=== PATIENT | female | born 1980 | race Caucasian/White ===

== ENCOUNTER → 2018-05-03 17:04 | Outpatient (CLI) | payer OTHER, SELFPAY ==
[2018-05-03 18:40] LABS: Estradiol 65.6 pg/mL; Follicle Stimulating Hormone 5.6 mIU/mL; Free T3 2.9 pg/mL (2.18-3.98); Thyroid Stim Hormone (TSH) 1.85 uIU/mL (0.358-3.74)
== END ==
PROVIDERS: Family Provider Family Medicine; PCP Family Medicine; Visit Provider Obstetrics & Gynecology
DX: N95.1 Menopausal and female climacteric states (principal)
CPT/HCPCS: 82670; 83001; 84439; 84443; 84481

== ENCOUNTER → 2019-01-06 17:49 | Outpatient (CLI) | payer OTHER, SELFPAY ==
[2019-01-06 15:20] VITALS: BMI 27.9
== END ==
PROVIDERS: Family Provider Family Medicine; PCP Family Medicine; Referring Provider Obstetrics & Gynecology; Visit Provider Obstetrics & Gynecology
DX: R35.0 Frequency of micturition (principal)
CPT/HCPCS: 87086; 87088

== ENCOUNTER → 2020-05-14 07:52 | Outpatient (CLI) | payer OTHER, SELFPAY ==
[2020-04-16 14:21] VITALS: BMI 27.9
--- NOTE | 2020-05-14 07:57 | US_ITS ---
STUDY: ULTRASOUND OF THE FEMALE PELVIS - LIMITED REASON FOR EXAM: Female, 39 years old Pelvic pain TECHNIQUE: Transabdominal and Transvaginal TECHNICAL QUALITY: Adequate. COMPARISON: None. FINDINGS: The patient is status post hysterectomy. The right ovary is not visualized. The left ovary measures 2.5 cm x 2.1 cm x 1.7 cm. There is no left ovarian cyst or ovarian mass. There is no visualized left adnexal mass or complex lesion. There is normal arterial and normal venous vascularity. There is no fluid in the cul-de-sac. US/Pelvic (Non ) IMPRESSION: Status post hysterectomy. The left ovary is unremarkable Electronically Signed: Carmelo Muñoz, at 15:26 EDT , Service support ,
== END ==
PROVIDERS: PCP Family Medicine; Referring Provider Obstetrics & Gynecology; Visit Provider Obstetrics & Gynecology
DX: R10.2 Pelvic and perineal pain (principal)
CPT/HCPCS: 76856

== ENCOUNTER 2021-07-29 07:00 | Outpatient (RCR) | payer OTHER, SELFPAY ==
--- NOTE | 2021-07-14 17:23 | HP.PTEVAL_ITS ---
Patient's Visit Information VANESA VERDUGO is a 41 year old F referred to Physical Therapy by Dr. Gordo Orourke MD with a diagnosis of R sciatica. Date of Evaluation: 07/14/21 Physical Therapist: Sherman Luna DPT, OCS, CSCS - Visit Plan Frequency: 1x/Week Duration: 4-6 Weeks Plan: weekly for progression of home ex... next week: yoga flow and mat based core strength. then: gym ex for trunk and general ex. focus body mechanics, posture and progression to I. Pt can do nonapinful machines and TM/elliptical in gym. - Subjective R LB , hip and posterior leg pain into foot. Numb and tingly and painful.. Could not even touch it. Started 2.5 months ago. Happened back in January taking dog outside when dog pulled on leash. This time just woke up with pain. Had driven to and fro [place] in one week prior to this onset. Hard to sit up that morning and stand up. Slowly got better over 7 weeks. Lots of ice and tylenol and prednsione and stretching which was difficult. Last two weeks have been good, no pain or numbness. Just every now and then if she lifts heavy object then she can feel her low back and butt. Also gets worse with sitting too long. Hard to stadn in am and after sitting. 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 Would rather stand. Sleep is OK now, was keeping her up with rolling. Is not back to exercising at , Ni[facility] TM and elliptical and weight machines.. Overall 60% better. Basic ADLs are getting done. Socks and shoes can be challenging. - Pain LB /R hip Pain Intensity (Out of 10): 0 Pain Intensity Range: 0, 4 - Objective Walks I, trasnfers I without evidence of pain today. reflexes patella and achilles 1/3 B. [id number] LE WNL to gross lgiht touch. Strength LE 4/5 without myotomal problems. PA pressure L45 painful. - slump and SLR. slight tension on SLR in back. LB AROM ext mod limited, flexion adn SB min limited and some R sided pain with L sidebending. Repeated PPU increases motion quickly. - Balance/Special Test Scores Lower Extremity Functional Score: 2 - Goals Goal 1:: Pt report 100% improvement in condition and back to all acitivites Goal Time Frame: 4-6 Weeks Goal 2:: patient I in appropriate LB ROM, core strength adn gym ex to limit future problems. Goal Time Frame: 4-6 Weeks Goal 3:: 78 on LEFS Goal Time Frame: 4-6 Weeks - Rehabilitation Potential Physical Therapy Diagnosis: LBP with radiculopathy resolving Rehabilitation Potential: Good - Anticipated Interventions Patient/Client Instruction: Educate patient on: Condition, Plan of Care For the Purpose of:: To decrease pain, To increase ROM, To increase tolerance to activity/condition/position, To improve ability of physical actions for home/community/work/leisure Therapeutic Exercise to Include: Strength training, Flexibilty training, Passive ROM, Active ROM, Dynamic Lumbar Stabilization For the Purpose of:: To decrease pain, To improve nutrient delivery to tissue, To improve muscle performance and motor function, To increase tolerance to activity/condition/position, To improve ability of physical actions for home/community/work/leisure Thank you for the opportunity to evaluate your patient. For Medicare and Medicare HMO plans, please review the plan of care and approve it. It will need to be FAXED BACK to us at [phone] for Medicare purposes. For Medicare only, by signing this I certify the plan of care. Please let me know if there are questions or concerns regarding this plan of care. Physician Si gnature: Date:
== END 2021-07-29 19:00 | disposition home or self-care (01) ==
LOC: PT 07:00
PROVIDERS: PCP Family Medicine; Referring Provider Family Medicine; Visit Provider Family Medicine
DX: M54.31 Sciatica, right side (principal)
CPT/HCPCS: 97110; 97162

== ENCOUNTER → 2021-08-31 12:28 | Outpatient (CLI) | payer OTHER, SELFPAY | PROVIDERS: PCP Family Medicine; Referring Provider Nurse Practitioner Women's Health; Visit Provider Nurse Practitioner Women's Health | DX: R35.0 Frequency of micturition (principal) | CPT/HCPCS: 87086; 87088; 87186 ==

== ENCOUNTER 2022-01-18 15:12 | Outpatient (CLI) | payer OTHER, SELFPAY ==
--- NOTE | 2022-01-18 15:16 | US_ITS ---
EXAM: US Soft Tissues of the Neck CLINICAL INDICATION: 41 years old, Female; SOFT TISSUE MASS BASE OF POSTERIOR NECK TECHNIQUE: Real-time ultrasound scan of the soft tissues of the neck with image documentation. This report was created using [employer] report [employer] technology. COMPARISON: None. FINDINGS: Soft tissues: No definite soft tissue mass is identified. No foreign body. Lymph nodes: Unremarkable as visualized. US/Head/Neck Soft Tissue IMPRESSION: No definite soft tissue mass is identified. CT of the neck could be performed if clinically indicated. Electronically Signed: Kishore Ayala MD at 0:25 EDT ,
== END 2022-01-18 23:59 | disposition home or self-care (01) ==
LOC: US 15:14
PROVIDERS: PCP Family Medicine; Referring Provider Nurse Practitioner Family; Visit Provider Nurse Practitioner Family
DX: R22.1 Localized swelling, mass and lump, neck (principal)
CPT/HCPCS: 76536

== ENCOUNTER → 2024-09-26 | Outpatient (CLI) | payer OTHER, SELFPAY ==
--- NOTE | 2024-09-26 10:14 | BI_ITS ---
MAMMOGRAPHY - BILATERAL SCREENING REASON FOR EXAM: Female, 44 years old. Routine annual screening examination. PERTINENT HISTORY: Non-contributory. Occasional left breast tenderness. TECHNIQUE: Digital bilateral breast juan (3D mammographic acquisition) in the CC and MLO projections. 2-D mediolateral oblique (MLO) and craniocaudad (CC) views of both breasts were obtained. CAD: Full Field Digital Mammography with Computer Added Detection was performed. COMPARISON: Comparison is made with prior outside examination dated September 19, 2023. FINDINGS: Breast Composition: There are scattered areas of fibroglandular density. There are no dominant masses or suspicious calcifications. Stable bilateral fat containing axillary lymph nodes. No other significant abnormalities are identified. There has been no significant change since the prior study. BI/SCRN MAMM (CAD)W/JUAN BILAT IMPRESSION: Stable bilateral screening mammogram. Yearly follow-up mammogram recommended. (A) ASSESSMENT CATEGORY: BIRADS Category 2: Benign. A letter regarding these results will be sent to the patient by the facility within 30 days. Approximately 10% of breast cancers are not detected by mammography. A normal mammogram should not delay biopsy of a clinically suspicious abnormality. [id number] Electronically Signed: Carmelo Muñoz MD at 8:44 EST ,
== END | disposition home or self-care (01) ==
LOC: OPBI 10:12
PROVIDERS: PCP Family Medicine; Referring Provider Obstetrics & Gynecology; Visit Provider Obstetrics & Gynecology
DX: Z12.31 Encounter for screening mammogram for malignant neoplasm of breast (principal)
CPT/HCPCS: 77063; 77067

== ENCOUNTER → 2025-10-02 | Outpatient (CLI) | payer OTHER, SELFPAY ==
--- OUTSIDE RECORDS SUMMARY | 2025-10-02 07:23 | XMS RPT_ITS | CCD ---
Author Organization [facility] Care Team Providers Care Production Support Engineer Name Role Phone Ana Gallego MD Unavailable [phone] Mayela Andre Unavailable Unavailable Mayela Andre Unavailable Unavailable NO REFERRING DR Unavailable Unavailable Mayela Andre Unavailable Unavailable Gordo Orourke MD Primary Care Provider Gordo Orourke MD Primary Care Provider Gordo Orourke MD Primary Care Provider Gordo Orourke MD Primary Care Provider Gordo Orourke MD Primary Care Provider Haagen SENIOR CUSTOMER SERVICE REPRESENTATIVE.DOUG Dory Unavailable Suppan SENIOR CUSTOMER SERVICE REPRESENTATIVE.Yanique CAMACHO A Unavailable GORDO OROURKE Attending Unavailable GORDO OROURKE Primary Care Unavailable GORDO OROURKE Referring Unavailable GORDO OROURKE Primary Care Unavailable Suppan SENIOR CUSTOMER SERVICE REPRESENTATIVE.DOUG Yanique A Unavailable Queden SENIOR CUSTOMER SERVICE REPRESENTATIVE.Rachel CAMACHO Primary Care Provider QUEDEN, RACHEL A Attending Unavailable QUEDEN, RACHEL A Primary Care Unavailable QUEDEN, RACHEL A Referring Unavailable QUEDEN, RACHEL A Primary Care Unavailable DOMINIQUE, RACHEL A Attending Unavailable GORDO OROURKE Primary Care Unavailable QUEDEN, RACHEL A Primary Care Unavailable QUEDEN, RACHEL A Attending Unavailable QUEDEN, RACHEL A Primary Care Unavailable QUEDEN, RACHEL A Attending Unavailable QUEDEN, RACHEL A Primary Care Unavailable Queden FURNITURE DIPPER-C, Rachel Primary Care Physician [phone] Dr. Rosy Vasquez MD Attending Physician Dr. Abby Zhu DO Referring Provider Abby Zhu Attending Gordo Miller Referring Unavailable Gordo Orourke Primary Care Unavailable Rachel Orozco Primary Care Unavailable Rosy Vasquez Attending Unavailable Abby Zhu Referring Abby Damon Attending Gordo Miller Primary Care Unavailable [facility] Rosy Vasquez Attending Unavailable Allergies Allergy Classification Reported Allergen(s) Allergy Type Date of Onset Reaction(s) Facility (1 source) Sulfonamides (Antibiotic) drug allergy 7 [facility] (4 sources) HYDROcodone Drug Allergy 1 Vomiting [facility] Comment on above: pt states had [place] with last procedure and was sick (20 sources) Sulfonamides (Antibiotic); Translations: [SULFA (SULFONAMIDE ANTIBIOTICS)] Allergy to substance 8 Rash [facility] (1 source) HYDROcodone Drug Allergy 5 [facility] Repository Medications Current Medications Medication Drug Class(es) Dates Sig (Normalized) Sig (Original) 24 hr amphetamine aspartate 5 mg / amphetamine sulfate 5 mg / dextroamphetamine saccharate 5 mg / dextroamphetamine sulfate 5 mg extended release oral capsule (20 sources) Central Nervous System Stimulant Start: 04-20-2025 End: 08-02-2025 take 1 capsule by mouth once daily amphetamine-dextro amphetamine XR (ADDERALL XR) 20 mg capsule Indications: ADHD (attention deficit hyperactivity disorder), inattentive type Take 1 capsule by mouth once daily for 30 days. 30 capsule 07/03/2025 08/02/2025 Active Start: 03-09-2025 End: 04-08-2025 take 1 capsule by mouth once daily amphetamine-dextroamphetamine XR (ADDERA LL XR) 20 mg capsule Indications: ADHD (attention deficit hyperactivity disorder), inattentive type Take 1 capsule by mouth once daily for 30 days. 30 capsule 03/09/2025 Active Start: 02-09-2025 End: 03-11-2025 take 1 capsule by mouth once daily amphetamine-dextroamphetamine XR (ADDERA LL XR) 10 mg capsule Indications: ADHD (attention deficit hyperactivity disorder), inattentive type Take 1 capsule by mouth once daily for 30 days. 30 capsule 02/09/2025 03/09/2025 Discontinued (Adjust Sig - Block E-Cancel) Start: 12-09-2024 End: 01-08-2025 take 1 capsule by mouth once daily amphetamine-dextroamphetamine XR (ADDERA LL XR) 10 mg capsule Indications: ADHD (attention deficit hyperactivity disorder), inattentive type Take 1 capsule by mouth once daily for 30 days. 30 capsule 12/09/2024 01/08/2025 Active Start: 08-27-2023 End: 10-02-2023 take 1 tablet by mouth once daily Amphetamine-Dextroamphetamine (ADDERALL) 30 mg tablet Indications: ADHD (attention deficit hyperactivity disorder), inattentive type Take 1 tablet by mouth once daily for 30 days. Do not start before August 27, 2023. 30 tablet 0 08/27/2023 10/02/2023 Discontinued Start: 08-27-2023 End: 08-24-2023 take 1 tablet by mouth once daily Amphetamine-Dextroamphetamine (ADDERALL) 30 mg tablet Indications: ADHD (attention deficit hyperactivity disorder), inattentive type Take 1 tablet by mouth once daily for 30 days. Do not start before August 27, 2023. 30 tablet 0 08/27/2023 08/24/2023 Discontinued Start: 08-27-2023 End: 01-02-2024 dextroamphetamine-amphetamin e (ADDERALL) 5 mg tablet Indications: ADHD (attention deficit hyperactivity disorder), inattentive type Take 1 tablet by mouth once daily for 30 days. Do not start before December 01, 2023. 30 tablet 0 12/01/2023 01/02/2024 Discontinued Start: 08-27-2023 End: 08-24-2023 take 1 tablet by mouth once daily dextroamphetamine-amphetamine (ADDERALL) 5 mg tablet Indications: ADHD (attention deficit hyperactivity disorder), inattentive type Take 1 tablet by mouth once daily for 30 days. Do not start before August 27, 2023. 30 tablet 0 08/27/2023 08/24/2023 Discontinued Start: 03-30-2023 End: 10-02-2023 dextroamphetamine-amphetamin e (ADDERALL) 5 mg tablet Indications: ADHD (attention deficit hyperactivity disorder), inattentive type Take 1 tablet by mouth once daily for 30 days. Q pm prn Do not start before May 29, 2023. 30 tablet 0 05/29/2023 10/02/2023 Discontinued Start: 11-21-2022 End: 01-02-2024 amphetamine-dextroamphetamin e XR (ADDERALL XR) 30 mg capsule Indications: ADHD (attention deficit hyperactivity disorder), inattentive type Take 1 capsule by mouth once daily for 30 days. Do not start before December 01, 2023. 30 capsule 0 12/01/2023 01/02/2024 Discontinued Start: 11-21-2022 End: 10-21-2022 take 1 capsule by mouth once daily amphetamine-dextroamphetamine XR (ADDERA LL XR) 30 mg 24 hr capsule Indications: ADHD (attention deficit hyperactivity disorder), inattentive type Take 1 capsule by mouth once daily for 30 days. Do not start before November 21, 2022. 30 capsule 0 11/21/2022 10/21/2022 Discontinued Start: 11-06-2022 End: 11-21-2024 take 1 tablet by mouth once daily Amphetamine-Dextroamphetamine (ADDERALL) 30 mg tablet Indications: ADHD (attention deficit hyperactivity disorder), inattentive type Take 1 tablet by mouth once daily for 30 days. Do not start before August 27, 2023. 30 tablet 0 08/27/2023 09/26/2023 Active Start: 10-17-2022 End: 12-25-2022 take 1 capsule by mouth once daily amphetamine-dextroamphetamine XR (ADDERA LL XR) 30 mg 24 hr capsule Indications: ADHD (attention deficit hyperactivity disorder), inattentive type Take 1 capsule by mouth once daily for 30 days. 30 capsule 0 10/21/2022 12/25/2022 Discontinued Start: 10-17-2022 End: 08-30-2022 take 1 capsule by mouth once daily amphetamine-dextroamphetamine XR (ADDERA LL XR) 30 mg 24 hr capsule Indications: ADHD (attention deficit hyperactivity disorder), inattentive type Take 1 capsule by mouth once daily for 30 days. Do not start before October 17, 2022. 30 capsule 0 10/17/2022 08/30/2022 Discontinued Start: 09-17-2022 End: 11-16-2022 take 1 capsule by mouth once daily amphetamine-dextroamphetamine XR (ADDERA LL XR) 30 mg 24 hr capsule Indications: ADHD (attention deficit hyperactivity disorder), inattentive type Take 1 capsule by mouth once daily for 30 days. Do not start before October 17, 2022. 30 capsule 0 10/17/2022 11/16/2022 Active Start: 09-17-2022 End: 08-30-2022 take 1 capsule by mouth once daily amphetamine-dextroamphetamine XR (ADDERA LL XR) 30 mg 24 hr capsule Indications: ADHD (attention deficit hyperactivity disorder), inattentive type Take 1 capsule by mouth once daily for 30 days. Do not start before September 17, 2022. 30 capsule 0 09/17/2022 08/30/2022 Discontinued Start: 07-21-2022 End: 11-16-2022 take 1 capsule by mouth once daily amphetamine-dextroamphetamine XR (ADDERA LL XR) 30 mg 24 hr capsule Indications: ADHD (attention deficit hyperactivity disorder), inattentive type Take 1 capsule by mouth once daily for 30 days. 30 capsule 0 08/30/2022 10/21/2022 Discontinued Start: 01-27-2022 End: 07-21-2022 take 1 capsule by mouth once daily amphetamine-dextroamphetamine XR (ADDERA LL XR) 20 mg 24 hr capsule Indications: Attention deficit disorder, unspecified hyperactivity presence Take 1 capsule by mouth once daily for 30 days. 30 capsule 0 06/19/2022 07/21/2022 Discontinued Start: 12-29-2021 End: 01-28-2022 take 1 capsule by mouth once daily amphetamine-dextroamphetamine XR (ADDERA LL XR) 10 mg 24 hr capsule Indications: Attention deficit disorder, unspecified hyperactivity presence Take 1 capsule by mouth once daily for 30 days. 30 capsule 0 12/29/2021 01/27/2022 Discontinued Comment on above: Take 1 capsule by mo uth once daily for 30 days. Take 1 capsule by mo uth once daily for 30 days. Do not start before February 26, 2022. Take 1 capsule by mo ut once daily for 30 days. Do not start before April 04, 2022. Take 1 capsule by mo uth once daily for 30 days. Do not start before May 03, 2022. Take 1 capsule by mo ut once daily for 30 days. Do not start before June 02, 2022. Take 1 capsule by mo uth once daily for 30 days. Do not start before August 18, 2022. Take 1 capsule by mo uth once daily for 30 days. Do not start before September 17, 2022. Take 1 capsule by mo uth once daily for 30 days. Do not start before October 17, 2022. Take 1 capsule by mo uth once daily for 30 days. Do not start before November 21, 2022. Take 1 capsule by mo uth once daily for 30 days. Do not start before January 24, 2023. Take 1 capsule by mo uth once daily for 30 days. Do not start before February 23, 2023. Take 1 capsule by mo uth once daily for 30 days. Do not start before April 29, 2023. Take 1 capsule by mo uth once daily for 30 days. Do not start before May 29, 2023. Take 1 tablet by hany th once daily for 30 days. In pm prn. Take 1 tablet by hany th once daily for 30 days. Q pm as needed Do not start before April 29, 2023. Take 1 tablet by hany th once daily for 30 days. Q pm prn Do not start before May 29, 2023. Take 1 tablet by hany th once daily for 30 days. Take 1 tablet by hany th once daily for 30 days. Do not start before July 28, 2023. Take 1 tablet by hany th once daily for 30 days. Do not start before August 27, 2023. Take 1 capsule by mo uth once daily for 30 days. Do not start before November 01, 2023. Take 1 capsule by mo uth once daily for 30 days. Do not start before December 01, 2023. Take 1 tablet by hany th once daily for 30 days. Do not start before November 01, 2023. Take 1 tablet by hany th once daily for 30 days. Do not start before December 01, 2023. Calcium (20 sources) Phosphate Binder, Calcium CALCIU M ORAL Take by mouth one time a week. Active CALCIUM ORAL Michi e by mouth one time a week. 0 Active CALCIUM ORAL Michi e by mouth. 0 Active Comment on above: Take by mouth. Take by mouth one ti me a week. cholecalciferol 0.05 mg oral tablet (15 sources) Vitamin D Start: 12-11-19 25 End: 02-13-20 26 take 1 tablet by mouth once daily cholecalciferol (VITAMIN D-3) 50 mcg (2,000 unit) tablet Indications: Vitamin D deficiency Take 1 tablet by mouth once daily. 90 tablet 3 12/11/2024 12/11/2025 Active Start: 12-29-2021 End: 03-29-2022 take 1 capsule by mouth every week cholecalciferol, Vitamin D3, (VITAMIN D3) 1,250 mcg (50,000 unit) cap capsule Indications: Vitamin D deficiency Take 1 capsule by mouth one time a week. 12 capsule 0 12/29/2021 03/20/2022 Discontinued Start: 07-06-2017 take 1 tablet by hany once daily VITAMIN D3 2000 UNIT TABS One tablet by mouth daily CHOLECALCIFEROL [id number] Laura Holguin Comment on above: Take 1 capsule by mo [facility] one time a week. ibuprofen 600 mg oral tablet (6 sources) Nonsteroidal Anti-inflammatory Drug Start: 08-18-2025 take 1 tablet by mouth once daily Start: 08-17-2017 End: 08-18-2025 take 1 tablet by mouth every six hours as needed for pain Ibuprofen 600 MG tablet Discontinued 600 mg PO EVERY 6 HOURS NEEDED as needed for Pain 30 0 August 16, 2017 11:00pm August 18, 2025 1:44pm Start: 07-06-2017 IBUPROFEN 400 MG TABS as needed IBUPROFEN [id number] Laura Holguin 24 hr metoprolol succinate 50 mg extended release oral tablet (20 sources) beta-Adrenergic Frank[place] Start: 09-10-2023 End: 09-13-2025 take 1 tablet by mouth once daily metoprolol succinate ER (TOPROL XL) 50 mg 24 hr tablet Indications: Migraine with aura, not intractable, without status migrainosus , Anxiety Take 1 tablet by mouth once daily. 90 tablet 1 03/17/2025 09/13/2025 Active Start: 08-19-2021 End: 08-30-2023 take 1 tablet by mouth once daily metoprolol succinate ER (TOPROL XL) 50 mg 24 hr tablet Indications: Migraine with aura, not intractable, without status migrainosus , Anxiety Take 1 tablet by mouth once daily. 90 tablet 1 03/03/2023 08/30/2023 Active Start: 04-21-2021 take 1 tablet by hany th twice daily Start: 08-21-2018 End: 04-21-2021 take 1 tablet by mouth once daily Metoprolol Succinate (Toprol Xl) 25 mg tablet extended release 24 hr Discontinued 25 mg PO DAILY August 20, 2018 11:00pm April 21, 2021 1:36pm Comment on above: Take 1 tablet by hany th once daily. MULTIVITAMIN ORAL (20 sources) MULTIVITAMIN ORA L Take by mouth once daily. Active MULTIVITAMIN ORA L Take by mouth once daily. 0 Active MULTIVITAMIN ORA L Take by mouth. 0 Active Comment on above: Take by mouth. Take by mouth once d aily. Multivitamin tablet (1 source) Start: 08-18-2025 Multivitamin,Tx-Iron-Mi nerals (Complete Multivitamin) tablet (4 sources) Start: 04-16-2020 take 1 tablet by mouth once daily Multivitamin,Tx-I brian-Minerals (Complete Multivitamin) tablet Active 1 TABLET PO DAILY April 16, 2020 2:19pm Start: 04-16-2020 End: 11-21-2024 Multivitamin,Dz-Vwpy-Vrezwnc s (Complete Multivitamin) tablet Discontinued 1 {tbl} PO DAILY April 15, 2020 11:00pm November 21, 2024 2:22pm Start: 04-16-2020 take 1 tablet by hany once daily Multivitamin,Vf-Texd-Wggaowwe (Complete Multivitamin) tablet Active 1 TABLET PO DAILY April 16, 2020 12:00am [place]-3 Fatty Acids 1,000 mg capsule (1 source) Start: 08-18-2025 take 1 capsule by mouth once daily Tirzepatide (1 source) Start: 08-18-2025 tirzepatide, weight loss (ZEPBOUND) 2.5 mg/0.5 mL solution (2 sources) Start: 06-05-2025 End: 07-03-2025 inject 0.5 mL by subcutaneous injection every week tirzepatide, weight loss (ZEPBOUND) 2.5 mg/0.5 mL solution Indications: Obesity, Class I, BMI 30-34.9 , Difficulty losing weight Inject 0.5 mL subcutaneously one time a week. 2 mL 06/05/2025 07/03/2025 Discontinued (Changing Therapy/Dosage Form) Start: 06-05-2025 inject 0.5 mL by sub cutaneous injection every week tirzepatide, weight loss (ZEPBOUND) 2.5 mg/0.5 mL solution Indications: Obesity, Class I, BMI 30-34.9 , Difficulty losing weight Inject 0.5 mL subcutaneously one time a week. 2 mL 06/05/2025 Active tirzepatide, weight loss (ZEPBOUND) 5 mg/0.5 mL solution (1 source) Start: 07-03-2025 inject 0.5 mL by subcutaneous injection every week tirzepatide, weight loss (ZEPBOUND) 5 mg/0.5 mL solution Indications: Obesity, Class I, BMI 30-34.9 , Difficulty losing weight Inject 0.5 mL subcutaneously one time a week. 2 mL 2 07/03/2025 Active Completed/Discontinued Medications Medication Drug Class(es) Dates Sig (Normalized) Sig (Original) acetaminophen 325 mg oral tablet (4 sources) Start: 04-16-2020 End: 08-18-2025 take 1 tablet by mouth once as needed Acetaminophen (Tylenol) 325 mg tablet Discontinued 325 mg PO ONCE as needed April 15, 2020 11:00pm August 18, 2025 1:42pm acetaminophen 325 mg / oxyCODONE hydrochloride 5 mg oral tablet (4 sources) Opioid Agonist Start: 08-17-2017 End: 05-03-2018 Oxycodone-Acetamino phen 1 TABLET tablet Discontinued 2 {tbl} PO EVERY 4 HOURS NEEDED as needed for Moderate-Severe pain 30 0 August 16, 2017 11:00pm May 03, 2018 3:31pm Start: 08-17-2017 End: 05-03-2018 take 2 tablets by mouth every four hours as needed Oxycodone-Acetaminophen Discontinued 2 TABLET PO EVERY 4 HOURS NEEDED August 17, 2017 10:05am May 03, 2018 4:31pm cetirizine hydrochloride 10 mg oral capsule (5 sources) Histamine-1 Receptor Antagonist Start: 04-16-2020 End: 04-21-2021 take 1 capsule by mouth once daily Cetirizine (Zyrtec) 10 mg capsule Discontinued 10 mg PO DAILY April 15, 2020 11:00pm April 21, 2021 1:36pm Start: 07-06-2017 ZYRTEC ALLERGY CAPS as needed CETIRIZINE HCL CAPS [id number] Laura Holguin esomeprazole 20 mg delayed release oral capsule (20 sources) Proton Pump Inhibitor Start: 03-30-2023 End: 11-21-2024 take 1 capsule by mouth once daily Esomeprazole Magnesium (Nexium) 20 mg capsule,delayed release(DR/EC) Discontinued 20 mg PO DAILY November 08, 2023 12:00am November 21, 2024 2:22pm Comment on above: Take 1 capsule by [facility] DAILY (6 AM). estradiol 0.1 mg/ml vaginal cream (4 sources) Estrogen Start: 08-21-2018 End: 04-16-2020 Estradiol (Estrace) 0.01 % (0.1 mg/gram) cream Discontinued 0 VAGINAL .COMPLEX 42.5 3 August 20, 2018 11:00pm April 16, 2020 1:18pm use fingertip amount or 1-2g every night vaginally x 2 weeks, then 1-3x weekly for maintenance Start: 08-21-2018 End: 04-16-2020 Estradiol (Estrace) 0.01 % ( 0.1 mg/gram) cream Discontinued 0 VAGINAL .COMPLEX 42.5 August 21, 2018 10:46am April 16, 2020 2:18pm use fingertip amount or 1-2g every night vaginally x 2 weeks, then 1-3x weekly for maintenance Levonorgestrel-Ethinyl Estrad (4 sources) Progestin, Estrogen, Progestin-containing Intrauterine Device Start: 05-05-2018 End: 08-09-2018 take 1 tablet by mouth once daily Levonorgestrel-Ethinyl Estrad (Aviane) 0.1-20 mg-mcg tablet Discontinued 1 TABLET PO daily 84 May 05, 2018 12:58pm August 09, 2018 2:27pm take only active pills discard inactive and start new pack immediately Start: 05-05-2018 End: 08-09-2018 take 1 tablet by mouth once daily Levonorgestrel-Ethinyl Estrad (Aviane) 0.1-20 mg-mcg tablet Discontinued 1 {tbl} PO daily 84 4 May 04, 2018 11:00pm August 09, 2018 1:27pm take only active pills discard inactive and start new pack immediately Start: 05-05-2018 End: 08-09-2018 take 1 tablet by mouth once daily Levonorgestrel-Ethinyl Estrad (Aviane) 0.1-20 mg-mcg tablet Discontinued 1 TABLET PO daily 84 May 05, 2018 12:00am August 09, 2018 2:27pm take only active pills discard inactive and start new pack immediately famotidine 20 mg oral tablet (20 sources) Histamine-2 Receptor Antagonist End: 03-30-2023 take 1 tablet by mouth twice daily famotidine (PEPCID) 20 mg tablet Take 20 mg by mouth twice daily. 0 03/30/2023 Discontinued Comment on above: Take 20 mg by mouth twice daily. ferrous fumarate 324 mg oral tablet (1 source) Start: 07-06-2017 take 1 tablet by mouth twice daily FERROCITE 324 MG TABS One tablet by mouth twice daily FERROUS FUMARATE [id number] Laura Holguin ferrous sulfate 325 mg oral tablet (4 sources) Start: 08-09-2017 End: 08-21-2018 Ferrous Sulfate 325 MG tablet Discontinued 432 mg PO TWICE A DAY August 08, 2017 11:00pm August 21, 2018 9:41am Start: 08-09-2017 End: 08-21-2018 take 432 mg by mouth twice daily Ferrous Sulfate Discontinued 432 MG PO TWICE A DAY August 09, 2017 1:15pm August 21, 2018 10:41am magnesium (1 source) Start: 07-06-2017 take 1 tablet by mouth once daily [facility] MAGNESIUM 250 MG TABS One tablet by mouth daily MAGNESIUM [id number] Laura Holguin naproxen 500 mg oral tablet (4 sources) Nonsteroidal Anti-inflammatory Drug Start: 03-04-2016 End: 05-03-2018 take 1 tablet by mouth twice daily Naproxen 500 MG tablet Discontinued 500 mg PO TWICE A DAY March 03, 2016 11:00pm May 03, 2018 3:31pm nitrofurantoin, macrocrystals 25 mg / nitrofurantoin, monohydrate 75 mg oral capsule (4 sources) Nitrofuran Antibacterial Start: 08-31-2021 End: 09-07-2021 take 1 capsule by mouth twice daily at mealtime Nitrofurantoin Monohyd/M-Cryst (Macrobid) 100 mg capsule Discontinued 100 mg PO TWICE A DAY 14 7 0 August 30, 2021 11:00pm September 06, 2021 12:00am September 07, 2021 12:01am must administer with a meal/food phentermine hydrochloride 37.5 mg oral tablet (4 sources) Sympathomimetic Amine Anorectic Start: 05-03-2018 End: 08-21-2018 take 1 tablet by mouth once daily Phentermine (Adipex-P) 37.5 mg tablet Discontinued 37.5 mg PO daily 30 0 May 02, 2018 11:00pm August 21, 2018 9:41am SUMAtriptan 50 mg oral tablet (4 sources) Serotonin-1b and Serotonin-1d Receptor Agonist Start: 08-21-2018 End: 04-16-2020 take 1 tablet by mouth once Sumatriptan Succinate (Imitrex) 50 mg tablet Discontinued 50 mg PO ONCE August 20, 2018 11:00pm April 16, 2020 1:18pm Problems Active Problems Problem Classification Problem Date Documented Da te Episodic/Chronic Anxiety disorders (9 sources) Anxiety; Translations: [Anxiety disorder, unspecified] Onset: 5 Chronic Attention-deficit, conduct, and disruptive behavior disorders (20 sources) Attention deficit hyperactivity disorder, predominantly inattentive type; Translations: [Attention-deficit hyperactivity disorder, predominantly inattentive type] Onset: 2 12-19-2021 Chronic Attention-deficit, conduct, and disruptive behavior disorders (2 sources) Attention-deficit hyperactivity disorder, predominantly inattentive type; Translations: [ADHD (attention deficit hyperactivity disorder), inattentive type] Onset: 2 Chronic Disorders of lipid metabolism (20 sources) Hyperlipidemia; Translations: [Hyperlipidemia, unspecified] Onset: 2 07-06-2017 Chronic Esophageal disorders (5 sources) Gastroesophageal reflux disease without esophagitis; Translations: [Gastro-esophageal reflux disease without esophagitis] Onset: 5 Chronic Essential hypertension (20 sources) Essential hypertension; Translations: [Essential (primary) hypertension] Onset: 0 12-20-2019 Chronic Gastrointestinal hemorrhage (3 sources) Hematochezia; Translations: [Melena] Onset: 5 08-18-2025 Episodic Headache; including migraine (20 sources) Migraine with aura; Translations: [Migraine with aura, not intractable, without status migrainosus] Onset: 8 Resolved: 2 08-21-2018 Chronic Hemorrhoids (1 source) Hemorrhoids; Translations: [Unspecified hemorrhoids] 08-18-2025 Episodic Menopausal disorders (20 sources) Menopausal syndrome; Translations: [Menopausal and female climacteric states] Onset: 3 06-28-2023 Chronic Comment on above: discussed hormones- check fsh estradiol Nutritional deficiencies (20 sources) Vitamin D deficiency; Translations: [Vitamin D deficiency, unspecified] Onset: 2 12-19-2021 Chronic Other female genital disorders (1 source) Abnormal uterine and vaginal bleeding, unspecified; Translations: [Abnormal uterine and vaginal bleeding, unspecified] Onset: 7 07-12-2017 Chronic Other female genital disorders (20 sources) Postcoital bleeding; Translations: [Postcoital and contact bleeding] Onset: 3 06-28-2023 Chronic Comment on above: atrophy- recommend e strace Other gastrointestinal disorders (1 source) Diarrhea; Translations: [Diarrhea, unspecified] 08-18-2025 Episodic Other nutritional; endocrine; and metabolic disorders (4 sources) Body mass index 30+ - obesity; Translations: [Body mass index (BMI) 30.0-30.9, adult] 04-21-2021 Chronic Comment on above: diet program, s/p ad ipex Other nutritional; endocrine; and metabolic disorders (20 sources) Obese class I; Translations: [Obesity, unspecified] Onset: 2 12-19-2021 Chronic Other nutritional; endocrine; and metabolic disorders (1 source) Obesity; Translations: [Class 1 obesity without serious comorbidity with body mass index (BMI) of 30.0 to 30.9 in adult, unspecified obesity type] 03-09-2025 Chronic Other skin disorders (1 source) Mass of neck; Translations: [Localized swelling, mass and lump, neck] Episodic Prolapse of female genital organs (20 sources) Incomplete uterovaginal prolapse; Translations: [Incomplete uterovaginal prolapse] Onset: 7 07-12-2017 Chronic Residual codes; unclassified (4 sources) Reduced libido; Translations: [Decreased libido] 04-21-2021 Episodic Comment on above: discussed addyi Residual codes; unclassified (2 sources) Weight change finding; Translations: [Other general symptoms and signs] 06-05-2025 Episodic Residual codes; unclassified (1 source) Other general symptoms and signs; Translations: [Difficulty losing weight] Onset: 5 Episodic Screening or history of mental health and substance abuse (3 sources) Personal history of nicotine dependence; Translations: [Patient encounter status] Onset: 7 12-09-2024 Episodic Unclassified (1 source) Patient encounter status 12-09-2024 Unclassified (1 source) Obesity, Class I, BMI 30-34.9; Translations: [Obesity, Class I, BMI 30-34.9] Onset: 2 Past or Other Problems Problem Classification Problem Date Documented Da te Episodic/Chronic Abdominal pain (2 sources) Right upper quadrant pain; Translations: [RIGHT UPPER QUADRANT WESLY] Onset: 05-29-2017 Episodic Asthma (20 sources) Asthma; Translations: [Unspecified asthma, uncomplicated] Onset: 08-22-2012 Resolved: 07-21-2022 08-22-2012 Chronic Benign neoplasm of uterus (20 sources) Uterine leiomyoma; Translations: [Leiomyoma of uterus, unspecified] Onset: 07-19-2017 07-19-2017 Episodic Biliary tract disease (1 source) Calculus of gallbladder with chronic cholecystitis without obstruction; Translations: [CALCU GB W/CHRON CHOLECY] Onset: 05-29-2017 Episodic Deficiency and other anemia (20 sources) Iron deficiency anemia; Translations: [Iron deficiency anemia, unspecified] Onset: 05-15-2017 05-15-2017 Episodic Other aftercare (1 source) 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; Translations: [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] Onset: 05-29-2017 Episodic Other ear and sense organ disorders (20 sources) Tinnitus of left ear; Translations: [Tinnitus, left ear] Onset: 12-19-2021 12-19-2021 Episodic Other gastrointestinal disorders (1 source) Heartburn; Translations: [HEARTBURN] Onset: 05-29-2017 Episodic Other screening for suspected conditions (not mental disorders or infectious disease) (12 sources) Patient encounter status; Translations: [Encounter for screening mammogram for malignant neoplasm of breast] Onset: 01-02-2024 Episodic Other skin disorders (20 sources) Acne; Translations: [Acne, unspecified] Onset: 08-22-2012 Resolved: 07-21-2022 08-22-2012 Episodic Results Test Name Value Interpretation Reference Range Facility Surgery Visit Reporton 08-18 Surgery Visit Report [facility] [address] [place] [address] OFFICE VISIT Date of Service: 08/18/25 MR#: [id number] Acct: [id number] Name: PAVITHRA MEYERS Rep #: [id number] : 1980 Provider: Dr. Rosy hagen MD Age/Sex: 45/F Location: [facility] Status: Signed Intake Vital Signs 11/21/24 14:20 08/18/25 14:41 Height 5 ft 8 in 5 ft 8 in Weight: 188 lb 6 oz BMI 28.6 BP 156/103 H Blood Pressure Location Rt brachial Position Sitting Respiration 18 Pulse 66 Pulse Source Monitor Temp 100 F H Pulse Oximetry (%) 100 Oxygen Delivery Method room air Intake Visit Reasons: CHANGE IN BOWEL HABITS Chief Complaint: change bowel habits Is patient in pain?: No Allergies Sulfa (Sulfonamide Antibiotics) Allergy (Verified 08/18/25 14:42) Rash hydrocodone (From [place]) Adverse Reaction (Verified 08/18/25 14:42) Vomiting Medications ???Medication ???Instructions ???Recorded ???Confirmed ???Type metoprolol succinate 50 mg 50 mg PO BID 04/21/21 08/18/25 His tory tablet,extended release 24 hr ibuprofen 600 mg tablet 600 mg PO DAILY Pain 08/18/25 His tory multivitamin 1 tab PO QAM 08/18/25 08/18/25 His tory omega-3 fatty acids 1,000 mg 1,000 mg PO QDAY 08/18/25 08/18/25 History capsule tirzepatide 5 mg/0.5 mL 5 mg subcut QWEEK 08/18/25 5 History subcutaneous pen injector (Mounjaro) [facility] Medical History (Updated 08/18/25 @ 15:[address] Rosy Vasquez MD) Acid reflux Hypertension Dermoid cyst Migraines Generalized headaches Hyperlipemia Anemia Surgical History History of laparoscopic-assisted vaginal hysterectomy Hx of cholecystectomy Family History Father Diabetes Grandmother Uterine cancer Brother Acute leukemia Social History adopted: No household members: family housing: house number of children: 1 current occupational status: employed current occupational exposures/hazards: No Smoking Status: Former smoker alcohol intake: never substance use type: does not use well-balanced diet: daily or most days caffeine: Yes what type of physical activity do you participate in: none seatbelt use: always do you feel safe at home: Yes additional social history: [place] HPI HPI HPI: 45-year-old female presents due to bright red blood per rectum. Patient does have known history of hemorrhoids but denies any treatment or pain. Patient states for some she never had bleeding per rectum as well. Patient does have a paternal first cousin that was diagnosed colon cancer at age 46 and a maternal grandmother that was diagnosed with colon cancer at age 50. Patient never had previous colonoscopy. Patient denies any abdominal pain/nausea/vomiting. Patient does take Pepcid 20 mg p.o. daily for about 2 years does control her reflux symptoms. Patient states that her bowel movements range between constipation diarrhea she can be constipated for 4 to 5 days and then have diarrhea. Patient is unsure exactly how much fiber she gets that she does drink plenty water. ROS General General: Yes weight change and fatigue; No appetite, colon cancer or breast cancer HEENT HEENT: No difficulty swallowing, eye injury, eye surgery, swollen glands or hoarseness Endo Endocrine: No thyroid disease, diabetes mellitus, thyroid cancer, Hair loss, heat intolerance or cold intolerance Skin Skin: Yes changing moles; No rash Musc Musculoskeletal: No back problems, arthritis, rheumatoid arthritis, gout or joint pain Cardio Cardiovascular: Yes high blood pressure; No murmur, pacemaker, heart disease, atrial fibrillation, heart attack, heart stent, palpitations, shortness of breath with exertion or chest pain Psych Psychiatric: Yes anxiety; No depression or hearing voices Resp Respiratory: No shortness of breath, No sleep apnea, No cough, No COPD, No asthma, No emphysema and No wheezing Gastro Gastrointestinal: No abdominal pain, No nausea or vomiting, Yes diarrhea, Yes constipation, Yes blood in stool, Yes acid reflux, Yes hemorrhoids, No ulcers, No gallbladder problem and No black,tarry stools Cory Hematologic: No blood thinners, No blood disorders, No bleeding, No anemia and No blood clots Neuro Neurologic: Yes numbness (carpel tunnel) and Yes tingling Exam Const General: cooperative, healthy appearing, comfortable and no acute distress [facility] Head: normocephalic and atraumatic Neck Neck: supple Resp Effort Inspection: normal respiratory effort Cardio Rate: regular rate GI Inspection: non-distended Palpation: soft and nontender Skin General: no rashes or lesions noted (more content not included)... Normal [facility] CNNURSEon 07-31-2025 CNNURSE Nurse Visit (RICKEY Yu) -- PAVITHRA MEYERS ([id number]) 1980 F Date Time Provider Department 07/31/25 8:20 AM NURSE DIONISIO MADRIGAL During your visit today, we recorded the following information about you: Blood pressure Weight 120/78 86.2 kg Brittany Byers MA 07/31/2025 8:02 AM Signed Patient identified by name and . Patient came for a weight check . Her weight was 190lbs. Patient handling zepbound well with no side effects. Brittany Byers MA Allergies As of Date: 07/31/2025 Noted Allergy Reaction SULFA (SULFONAMIDE ANTIBIOTICS) 08/24/2008 2 - Rash Date Reviewed: 07/03/2025 Reviewed by: Rachel Orozco APRN.INSTRUMENT TECHNICIAN APPRENTICE - Fully Assessed Reason for Visit: Weight Check [196] Primary Visit Diagnosis:Obesity, Class I, BMI 30-34.9 [E66.811] Prescriptions as of 07/31/2025 - amphetamine-dextroamphetam ine XR (ADDERALL XR) 20 mg capsule Take 1 capsule by mouth once daily for 30 days. - tirzepatide, weight loss (ZEPBOUND) 5 mg/0.5 mL solution Inject 0.5 mL subcutaneously one time a week. - metoprolol succinate ER (TOPROL XL) 50 mg 24 hr tablet Take 1 tablet by mouth once daily. - cholecalciferol (VITAMIN D-3) 50 mcg (2,000 unit) tablet Take 1 tablet by mouth once daily. - esomeprazole (NEXIUM) 20 mg capsule Take 1 capsule by mouth DAILY (6 AM). - MULTIVITAMIN ORAL Take by mouth once daily. - CALCIUM ORAL Take by mouth one time a week. Problem List As Of Date 07/31/2025 Noted Resolved Acne [L70.9] 08/22/2012 07/21/2022 Hyperlipidemia [E78.5] 08/22/2012 Asthma [J45.909] 08/22/2012 07/21/2022 Iron deficiency anemia, unspecified [D50.9] 05/15/2017 Migraine with aura, not intractable, without st*08/21/2018 07/21/2022 Essential hypertension [I10] 12/20/2019 Vitamin D deficiency [E55.9] 12/19/2021 Obesity, Class I, BMI 30-34.9 [E66.811] 12/19/2021 Ringing in left ear [H93.12] 12/19/2021 ADHD (attention deficit hyperactivity disorder)*12/19/2021 Incomplete uterovaginal prolapse [N81.2] 07/12/2017 Diagnosed: 06/28/2023 Menopausal syndrome [N95.1] 06/28/2023 Diagnosed: 06/28/2023 Postcoital bleeding [N93.0] 06/28/2023 Diagnosed: 06/28/2023 Uterine leiomyoma [D25.9] 07/19/2017 Diagnosed: 06/28/2023 Encounter Status:Closed by BRITTANY BYERS on 07/31/25 [facility] 07-03-2025 SUKH Office Visit (KELVIN FERRER) -- PAVITHRA MEYERS ([id number]) 1980 F Date Time Provider Department 07/03/25 8:20 AM RACHEL OROZCO During your visit today, we recorded the following information about you: Temperature Pulse Respiration Blood pressure 98.4 degrees 67/minute 18/minute 112/64 Weight Height 88 kg 1.702 m Rachel Orozco, SENIOR CUSTOMER SERVICE REPRESENTATIVE.[facility] 07/03/2025 8:31 AM Signed CHIEF COMPLAINT: The patient is a 45-year-old female presenting for follow-up and dose escalation of tirzepatide therapy. I reviewed past medical, surgical, social, and family histories today and updated chart. Allergies, chronic medications, and supplements were also reviewed. Recording using Moobia software for draft documentation of the visit was discussed with the patient/authorized customer account representative; all questions welcomed and answered. Patient/authorized customer account representative agreed to proceed Weight Management: - Currently on tirzepatide, 2.5 mg. - No significant weight loss noted yet. - No adverse effects such as nausea, diarrhea, or constipation. - Pavithra reports mild exacerbation of pre-existing acid indigestion after the first injection. - Denies increased heart rate. - Pvaithra's diet includes high protein intake from eggs, shakes, yogurt, and cottage cheese; limited meat consumption. - Increased water intake to approximately half a gallon per day. - Pavithra engages in exercise 3 times a week, including strength training with dumbbells and kettlebells. ADHD: - Well-managed with Adderall; reports being on a stable dose at 20 mg. OV 06/05/25: ADHD: - Recent increase in Adderall dosage to 20 mg has been beneficial. - Previously tolerated 30 mg well. - Occasionally skips doses on weekends unless working from home. - Denies current appetite suppression from Adderall; initially noticed reduced food cravings. Weight Loss: - Reports weight has been stable without significant loss. - Expresses interest in trying compounded semaglutide or tirzepatide for weight loss. - Previously used Adipex for 3 months post- with successful weight loss. - Engages in regular physical activity, including walking and weightlifting. - Describes self as a bored and stress eater. - Hopes weight loss will alleviate lower back, knee, and foot pain. PAST MEDICAL HISTORY Diagnosis Date ADHD (attention deficit hyperactivity disorder) Asthma, acute (HCC) Resolved HTN (hypertension) Hypercholesteremia Migraines Other acne Resolved Other and unspecified hyperlipidemia Hyperlipidemia, Resolved PAST SURGICAL HISTORY Procedure Laterality Date CHOLECYSTECTOMY 05/2016 VAGINAL HYSTERECTOMY UTERUS 250 GM/< 07/2017 Hysterectomy, vaginal Dr Gallego bilateral ovarian cystectomy bilateral salpingectomy and cystoscopy wisdom teeth SOCIAL HISTORY[1] ALLERGIES Allergen Reactions Sulfa (Sulfonamide * Rash Family History Problem Relation Age of Onset Diabetes Father Hypertension Father Lipids Father High Cholesterol Colon Cancer Maternal Grandmother Cancer Maternal Grandmother Uterine Cancer Brother Leukemia Current Outpatient Medications Medication Sig Dispense Refill metoprolol succinate ER (TOPROL XL) 50 mg 24 hr tablet Take 1 tablet by mouth once daily. 90 tablet 1 cholecalciferol (VITAMIN D-3) 50 mcg (2,000 unit) tablet Take 1 tablet by mouth once daily. 90 tablet 3 esomeprazole (NEXIUM) 20 mg capsule Take 1 capsule by mouth DAILY (6 AM). MULTIVITAMIN ORAL Take by mouth once daily. CALCIUM ORAL Take by mouth one time a week. amphetamine-dextroamphetam ine XR (ADDERALL XR) 20 mg capsule Take 1 capsule by mouth once daily for 30 days. 30 capsule 0 tirzepatide, weight loss (ZEPBOUND) 5 mg/0.5 mL solution Inject 0.5 mL subcutaneously one time a week. 2 mL 2 No current facility-administered medications for this visit. Review of Systems Cardiovascular: (-) tachycardia Gastrointestinal: (+) heartburn BP 112/64 Pulse 67 Temp (Src) 98.4 (Oral) Resp 18 Ht 5' 7 (1.70m) Wt 194 lb (88.0kg) SpO2 100% LMP 07/19/2016 BMI 30.38 kg/(m2). Physical Exam GENERAL: NAD, alert and oriented LUNGS: Clear bilaterally HEART: Regular rate and rhythm EXTREMITIES: Normal, No deformities, No skin discoloration, No edema. NEURO: Awake, alert and oriented x3 No visits with results within 1 Day(s) from this visit. Latest known visit with results is: Appointment on 12/09/2024 Component Date Value Ref Range Status Cholesterol, Total 12/09/2024 206 (H) <200 mg/dL Final <200 mg/dL, Desirable 200-239 mg/dL, Borderline high >239 mg/dL, High Triglyceride 12/09/2024 225 (H) <150 mg/dL Final <150 mg/dL, Normal 150-199 mg/dL, Borderline high 200-499 mg/dL, High >499 mg/dL, Very high HDL Cholesterol 12/09/2024 40 >39 mg/dL Final 40-59 mg/dL, Acceptable >59 mg/dL, High: Negati (more content not included)... Normal [facility] CNOVon 06-05-2025 CNOV Office Visit (AGFAMP LE) -- PAVITHRA MEYERS ([id number]) 1980 F Date Time Provider Department 06/05/25 2:00 PM RACHEL OROZCO During your visit today, we recorded the following information about you: Temperature Pulse Respiration Blood pressure 98 degrees 65/minute 18/minute 114/62 Weight Height 88 kg 1.702 m Rachel Orozco APRN.INSTRUMENT TECHNICIAN APPRENTICE 06/07/2025 8:39 PM Signed CHIEF COMPLAINT: Pavithra Meyers is a 44-year-old female with a history of ADHD, presenting for follow-up on medication management and weight loss. I reviewed past medical, surgical, social, and family histories today and updated chart. Allergies, chronic medications, and supplements were also reviewed. Recording using Moobia software for draft documentation of the visit was discussed with the patient/authorized customer account representative; all questions welcomed and answered. Patient/authorized customer account representative agreed to proceed ADHD: - Recent increase in Adderall dosage to 20 mg has been beneficial. - Previously tolerated 30 mg well. - Occasionally skips doses on weekends unless working from home. - Denies current appetite suppression from Adderall; initially noticed reduced food cravings. Weight Loss: - Reports weight has been stable without significant loss. - Expresses interest in trying compounded semaglutide or tirzepatide for weight loss. - Previously used Adipex for 3 months post- with successful weight loss. - Engages in regular physical activity, including walking and weightlifting. - Describes self as a bored and stress eater. - Hopes weight loss will alleviate lower back, knee, and foot pain. Past Medical History: No date: ADHD (attention deficit hyperactivity disorder) No date: Asthma, acute (HCC) Comment: Resolved No date: HTN (hypertension) No date: Hypercholesteremia No date: Migraines No date: Other acne Comment: Resolved No date: Other and unspecified hyperlipidemia Comment: Hyperlipidemia, Resolved PAST SURGICAL HISTORY Procedure Laterality Date CHOLECYSTECTOMY 05/2016 VAGINAL HYSTERECTOMY UTERUS 250 GM/< 07/2017 Hysterectomy, vaginal Dr Gallego bilateral ovarian cystectomy bilateral salpingectomy and cystoscopy wisdom teeth Social History Tobacco Use Smoking status: Former Current packs/day: 0.00 Types: Cigarettes Quit date: 06/29/2004 Years since quittin.9 Smokeless tobacco: Never Vaping Use Vaping status: Never Used Substance Use Topics Alcohol use: Not Currently Drug use: Never Allergies Allergen Reactions Sulfa (Sulfonamide * Rash Family History Problem Relation Age of Onset Diabetes Father Hypertension Father Lipids Father High Cholesterol Colon Cancer Maternal Grandmother Cancer Maternal Grandmother Uterine Cancer Brother Leukemia Current Outpatient Medications Medication Sig Dispense Refill amphetamine-dextroamphetam ine XR (ADDERALL XR) 20 mg capsule Take 1 capsule by mouth once daily for 30 days. 30 capsule 0 metoprolol succinate ER (TOPROL XL) 50 mg 24 hr tablet Take 1 tablet by mouth once daily. 90 tablet 1 cholecalciferol (VITAMIN D-3) 50 mcg (2,000 unit) tablet Take 1 tablet by mouth once daily. 90 tablet 3 esomeprazole (NEXIUM) 20 mg capsule Take 1 capsule by mouth DAILY (6 AM). MULTIVITAMIN ORAL Take by mouth once daily. CALCIUM ORAL Take by mouth one time a week. tirzepatide, weight loss (ZEPBOUND) 2.5 mg/0.5 mL solution Inject 0.5 mL subcutaneously one time a week. 2 mL 0 No current facility-administered medications for this visit. Review of Systems Musculoskeletal: (+) low back pain, (+) knee pain, (+) foot pain BP 114/62 Pulse 65 Temp (Src) 98 (Oral) Resp 18 Ht 5' 7 (1.70m) Wt 194 lb (88.0kg) SpO2 98% LMP 07/19/2016 BMI 30.38 kg/(m2). Physical Exam GENERAL: NAD, alert and oriented LUNGS: Clear to auscultation bilaterally, no wheezes/rhonchi/rales. HEART: Regular rate and rhythm, no murmurs. No ectopy. EXTREMITIES: Normal, No deformities, No skin discoloration, No edema. NEURO: Awake, alert and oriented x3 No visits with results within 1 Day(s) from this visit. Latest known visit with results is: Appointment on 12/09/2024 Component Date Value Ref Range Status Cholesterol, Total 12/09/2024 206 (H) <200 mg/dL Final <200 mg/dL, Desirable 200-239 mg/dL, Borderline high >239 mg/dL, High Triglyceride 12/09/2024 225 (H) <150 mg/dL Final <150 mg/dL, Normal 150-199 mg/dL, Borderline high 200-499 mg/dL, High >499 mg/dL, Very high HDL Cholesterol 12/09/2024 40 >39 mg/dL Final 40-59 mg/dL, Acceptable >59 mg/dL, High: Negative risk factor for coronary heart disease <40 mg/dL, Low: Positive risk factor for coronary heart disease Non HDL Cholesterol 12/09/2024 166 (H) <130 mg/dL Final <130 mg/dL, Optimal 130-159 mg/dL, Near optimal/above optimal 160-189 mg/dL, Borderline (more content not included)... Normal [facility] CNOVon 03-09-2025 CN Office Visit (KELVIN FERRER) -- PAVITHRA MEYERS ([id number]) 1980 F Date Time Provider Department 03/09/25 8:40 AM RACHEL OROZCO During your visit today, we recorded the following information about you: Temperature Pulse Respiration Blood pressure 98.3 degrees 58/minute 18/minute 118/64 Weight Height 88.9 kg 1.702 m Rachel Orozco APRN.INSTRUMENT TECHNICIAN APPRENTICE 03/09/2025 9:06 AM Signed CHIEF COMPLAINT: Pavithra is a 44-year-old female with a history of ADHD, presenting for follow-up and medication management. I reviewed past medical, surgical, social, and family histories today and updated chart. Allergies, chronic medications, and supplements were also reviewed. Recording using Moobia software for draft documentation of the visit was discussed with the patient/authorized customer account representative; all questions welcomed and answered. Patient/authorized customer account representative agreed to proceed ADHD: - Currently taking Adderall, requesting to increase dosage to 20 mg. - Previously on a maximum dose of 30 mg, which was not consistently taken. - Reports occasional missed doses due to forgetting to take the medication in the morning. - Denies significant side effects from the current dosage. Weight Management: - Struggles with weight loss, noting increased difficulty with age. - High-protein diet, including protein shakes, apples, steaks, greens, cottage cheese, and Austrian yogurt. - Avoids processed foods, makes homemade lava bread for dips. - Increased walking and physical activity at home, but not currently lifting weights. - Has three dogs, which contribute to physical activity. - Interested in weight loss injections. Vitamin D Deficiency: - Taking vitamin D supplements. Hyperlipidemia: - Recent labs showed slightly elevated cholesterol levels. GERD: - Managed with Nexium. Hypertension: - Managed with metoprolol. - Reports finger swelling, especially with high sodium intake or heat. PAST MEDICAL HISTORY Diagnosis Date ADHD (attention deficit hyperactivity disorder) Asthma, acute (HCC) Resolved HTN (hypertension) Hypercholesteremia Migraines Other acne Resolved Other and unspecified hyperlipidemia Hyperlipidemia, Resolved PAST SURGICAL HISTORY Procedure Laterality Date CHOLECYSTECTOMY 05/2016 VAGINAL HYSTERECTOMY UTERUS 250 GM/< 07/2017 Hysterectomy, vaginal Dr Gallego bilateral ovarian cystectomy bilateral salpingectomy and cystoscopy wisdom teeth Social History Tobacco Use Smoking status: Former Current packs/day: 0.00 Types: Cigarettes Quit date: 06/29/2004 Years since quittin.7 Smokeless tobacco: Never Vaping Use Vaping status: Never Used Substance Use Topics Alcohol use: Not Currently Drug use: Never ALLERGIES Allergen Reactions Sulfa (Sulfonamide * Rash Family History Problem Relation Age of Onset Diabetes Father Hypertension Father Lipids Father High Cholesterol Colon Cancer Maternal Grandmother Cancer Maternal Grandmother Uterine Cancer Brother Leukemia Current Outpatient Medications Medication Sig Dispense Refill cholecalciferol (VITAMIN D-3) 50 mcg (2,000 unit) tablet Take 1 tablet by mouth once daily. 90 tablet 3 metoprolol succinate ER (TOPROL XL) 50 mg 24 hr tablet Take 1 tablet by mouth once daily. 90 tablet 1 esomeprazole (NEXIUM) 20 mg capsule Take 1 capsule by mouth DAILY (6 AM). MULTIVITAMIN ORAL Take by mouth once daily. CALCIUM ORAL Take by mouth one time a week. amphetamine-dextroamphetam ine XR (ADDERALL XR) 20 mg capsule Take 1 capsule by mouth once daily for 30 days. 30 capsule 0 No current facility-administered medications for this visit. Review of Systems BP 118/64 Pulse 58 Temp (Src) 98.3 (Oral) Resp 18 Ht 5' 7 (1.70m) Wt 196 lb (88.9kg) SpO2 100% LMP 07/19/2016 BMI 30.69 kg/(m2). Physical Exam GENERAL: NAD, alert and oriented. LUNGS: Clear to auscultation bilaterally, no wheezes/rhonchi/rales. HEART: Regular rate and rhythm, no murmurs. No ectopy. NEURO: Awake, alert and oriented x3 No visits with results within 1 Day(s) from this visit. Latest known visit with results is: Appointment on 12/09/2024 Component Date Value Ref Range Status Cholesterol, Total 12/09/2024 206 (H) <200 mg/dL Final <200 mg/dL, Desirable 200-239 mg/dL, Borderline high >239 mg/dL, High Triglyceride 12/09/2024 225 (H) <150 mg/dL Final <150 mg/dL, Normal 150-199 mg/dL, Borderline high 200-499 mg/dL, High >499 mg/dL, Very high HDL Cholesterol 12/09/2024 40 >39 mg/dL Final 40-59 mg/dL, Acceptable >59 mg/dL, High: Negative risk factor for coronary heart disease <40 mg/dL, Low: Positive risk factor for coronary heart disease Non HDL Cholesterol 12/09/2024 166 (H) <130 mg/dL Final <130 mg/dL, Optimal 130-159 mg/dL, Near optimal/above optimal 160-189 mg/dL, Borderline high 190-219 mg (more content not included)... Normal [facility] 25(OH)D3 SerPl-mCncon 2024 25-hydroxyvitamin D3 [Mass/Vol] 27.7 ng/mL Low >=30.0 [facility] Comment on above: Order Comment: Speci men Type: BLOOD SPECIMEN Ordering Facility: [facility] Address: [address] [place] [address] [place] [address] Result Comment: Clas sification of 25 [place] Vitamin D status: Deficiency: <= 20.0 ng/ml. Insufficiency: 21.0-29.0 ng/ml. Sufficiency: >= 30.0 ng/ml. Performed By: #### 1 989-3 #### [facility] CLIA [id number] 1 [place] [address] [place] CBC W Auto Differential pane l (Bld)on 12-09-2024 Basophils (Bld) [#/Vol] [facility] Basophils/100 WBC (Bld) 0.4 % [facility] Differential cell count method Nom (Bld) Auto [facility] Eosinophils (Bld) [#/Vol] 0.12 10*3/uL [facility] Eosinophils/100 WBC (Bld) 2.1 % [facility] Erythrocyte distribution width (RBC) [Ratio] 12.3 % 11.5 - 15.0 % [facility] Hematocrit (Bld) [Volume fraction] 40.6 % 36.0 - 46.0 % [facility] Hemoglobin (Bld) [Mass/Vol] 13.6 g/dL 11.5 - 15.5 g/dL [facility] Immature granulocytes (Bld) [#/Vol] [facility] Immature granulocytes/100 WBC (Bld) 0.2 % [facility] Lymphocytes (Bld) [#/Vol] 1.53 10*3/uL [facility] Lymphocytes/100 WBC (Bld) 26.8 % [facility] MCH (RBC) [Entitic mass] 29.6 pg 26.0 - 34.0 pg [facility] MCHC (RBC) [Mass/Vol] 33.5 g/dL 30.5 - 36.0 g/dL [facility] MCV (RBC) [Entitic vol] 88.3 fL 80.0 - 100.0 fL [facility] Monocytes (Bld) [#/Vol] 0.4 10*3/uL NINF [facility] Monocytes/100 WBC (Bld) 7 % [facility] Neutrophils (Bld) [#/Vol] 3.63 10*3/uL [facility] Neutrophils/100 WBC (Bld) 63.5 % [facility] Nucleated RBC (Bld) [#/Vol] [facility] Nucleated RBC/100 WBC (Bld) [Ratio] [facility] Platelet mean volume (Bld) [Entitic vol] 10.2 fL 9.0 - 12.7 fL [facility] Platelets (Bld) [#/Vol] 328 10*3/uL [facility] RBC (Bld) [#/Vol] 4.6 10*6/uL 3.90 - 5.2 0 m/uL [facility] WBC (Bld) [#/Vol] 5.71 10*3/uL [facility] Basophils (Bld) [#/Vol] 10*3/uL Normal <0.11 [facility] Comment on above: Order Comment: Speci men Type: BLOOD SPECIMEN Ordering Facility: [facility] Address: [address] [place] [address] Performed By: #### 5 7021-8 #### [facility] CLIA [id number] [address] STATES OF [facility] Basophils/100 WBC (Bld) 0.4 % Normal [facility] Comment on above: Order Comment: Speci men Type: BLOOD SPECIMEN Ordering Facility: [facility] Address: [address] [place] [address] Performed By: #### 5 7021-8 #### [facility] CLIA [id number] [address] STATES [place] [facility] Differential cell count method Nom (Bld) Auto Normal [facility] Comment on above: Order Comment: Speci men Type: BLOOD SPECIMEN Ordering Facility: [facility] Address: [address] [place] [address] Performed By: #### 5 7021-8 #### [facility] CLIA [id number] [address] [place] [address] [place] Eosinophils (Bld) [#/Vol] 0.12 10*3/uL Normal <0.46 [facility] Comment on above: Order Comment: Speci men Type: BLOOD SPECIMEN Ordering Facility: [facility] Address: [address] [place] [address] Performed By: #### 5 7021-8 #### [facility] CLIA [id number] [address] [place] [address] [place] Eosinophils/100 WBC (Bld) 2.1 % Normal [facility] Comment on above: Order Comment: Speci men Type: BLOOD SPECIMEN Ordering Facility: [facility] Address: [address] [place] [address] Performed By: #### 5 7021-8 #### [facility] CLIA [id number] [address] [place] [address] [place] Erythrocyte distribution width (RBC) [Ratio] 12.3 % Normal 11.5-15.0 [facility] Comment on above: Order Comment: Speci men Type: BLOOD SPECIMEN Ordering Facility: [facility] Address: [address] [place] [address] Performed By: #### 5 7021-8 #### [facility] CLIA [id number] [address] [place] [address] [place] Hematocrit (Bld) [Volume fraction] 40.6 % Normal 36.0-46.0 [facility] Comment on above: Order Comment: Speci men Type: BLOOD SPECIMEN Ordering Facility: [facility] Address: [address] [place] [address] Performed By: #### 5 7021-8 #### [facility] CLIA [id number] [address] [place] [address] [place] Hemoglobin (Bld) [Mass/Vol] 13.6 g/dL Normal 11.5-15.5 [facility] Comment on above: Order Comment: Speci men Type: BLOOD SPECIMEN Ordering Facility: [facility] Address: [address] [place] [address] Performed By: #### 5 7021-8 #### [facility] CLIA [id number] [address] [place] [address] [facility] [place] Immature granulocytes (Bld) [#/Vol] 10*3/uL Normal <0.10 [facility] Comment on above: Order Comment: Speci men Type: BLOOD SPECIMEN Ordering Facility: [facility] Address: [address] [place] [address] Performed By: #### 5 7021-8 #### [facility] CLIA [id number] [address] [place] [id number] [facility] Immature granulocytes/100 WBC (Bld) 0.2 % Normal [facility] Comment on above: Order Comment: Speci men Type: BLOOD SPECIMEN Ordering Facility: [facility] Address: [address] [place] [address] Performed By: #### 5 7021-8 #### [facility] CLIA [id number] [address] [place] [address] [facility] [place] Lymphocytes (Bld) [#/Vol] 1.53 10*3/uL Normal 1.00-4.00 [facility] Comment on above: Order Comment: Speci men Type: BLOOD SPECIMEN Ordering Facility: [facility] Address: [address] [place] [address] Performed By: #### 5 7021-8 #### [facility] CLIA [id number] [address] [place] [address] [facility] [place] Lymphocytes/100 WBC (Bld) 26.8 % Normal [facility] Comment on above: Order Comment: Speci men Type: BLOOD SPECIMEN Ordering Facility: [facility] Address: [address] [place] [address] Performed By: #### 5 7021-8 #### [facility] CLIA [id number] [address] [place] [address] [place] MCH (RBC) [Entitic mass] 29.6 pg Normal 26.0-34.0 [facility] Comment on above: Order Comment: Speci men Type: BLOOD SPECIMEN Ordering Facility: [facility] Address: [address] [place] [address] Performed By: #### 5 7021-8 #### [facility] CLIA [id number] [address] [place] [address] [place] MCHC (RBC) [Mass/Vol] 33.5 g/dL Normal 30.5-36.0 [facility] Comment on above: Order Comment: Speci men Type: BLOOD SPECIMEN Ordering Facility: [facility] Address: [address] [place] [address] Performed By: #### 5 7021-8 #### [facility] CLIA [id number] [address] MCV (RBC) [Entitic vol] 88.3 fL Normal 80.0-100.0 [facility] Comment on above: Order Comment: Speci men Type: BLOOD SPECIMEN Ordering Facility: [facility] Address: [address] [place] [address] Performed By: #### 5 7021-8 #### [facility] CLIA [id number] [address] Monocytes (Bld) [#/Vol] 0.40 10*3/uL Normal <0.87 [facility] Comment on above: Order Comment: Speci men Type: BLOOD SPECIMEN Ordering Facility: [facility] Address: [address] [place] [address] Performed By: #### 5 7021-8 #### [facility] CLIA [id number] [address] Monocytes/100 WBC (Bld) 7.0 % Normal [facility] Comment on above: Order Comment: Speci men Type: BLOOD SPECIMEN Ordering Facility: [facility] Address: [address] [place] [address] Performed By: #### 5 7021-8 #### [facility] CLIA [id number] [address] [place] [address] [place] Neutrophils (Bld) [#/Vol] 3.63 10*3/uL Normal 1.45-7.50 [facility] Comment on above: Order Comment: Speci men Type: BLOOD SPECIMEN Ordering Facility: [facility] Address: [address] [place] [address] Performed By: #### 5 7021-8 #### [facility] CLIA [id number] [address] [place] [address] [place] Neutrophils/100 WBC (Bld) 63.5 % Normal [facility] Comment on above: Order Comment: Speci men Type: BLOOD SPECIMEN Ordering Facility: [facility] Address: [address] [place] [address] Performed By: #### 5 7021-8 #### [facility] CLIA [id number] [address] [place] [address] [place] Nucleated RBC (Bld) [#/Vol] Normal [facility] Comment on above: Order Comment: Speci men Type: BLOOD SPECIMEN Ordering Facility: [facility] Address: [address] [place] [address] Performed By: #### 5 7021-8 #### [facility] CLIA [id number] [address] [place] [address] [place] Nucleated RBC/100 WBC (Bld) [Ratio] Normal [facility] Comment on above: Order Comment: Speci men Type: BLOOD SPECIMEN Ordering Facility: [facility] Address: [address] [place] [address] Performed By: #### 5 7021-8 #### [facility] CLIA [id number] [address] [place] [address] [place] Platelet mean volume (Bld) [Entitic vol] 10.2 fL Normal 9.0-12.7 [facility] Comment on above: Order Comment: Speci men Type: BLOOD SPECIMEN Ordering Facility: [facility] Address: [address] [place] [id number] Performed By: #### 5 7021-8 #### [facility] CLIA [id number] [address] [place], [place] [id number] [place] [address] Platelets (Bld) [#/Vol] 328 10*3/uL Normal 150-400 [facility] Comment on above: Order Comment: Speci men Type: BLOOD SPECIMEN Ordering Facility: [facility] Address: [address] [place] [address] Performed By: #### 5 7021-8 #### [facility] CLIA [id number] [address] RBC (Bld) [#/Vol] 4.60 10*6/uL Normal 3.90-5.20 [facility] Comment on above: Order Comment: Speci men Type: BLOOD SPECIMEN Ordering Facility: [facility] Address: [address] [place] [address] Performed By: #### 5 7021-8 #### [facility] CLIA [id number] [address] WBC (Bld) [#/Vol] 5.71 10*3/uL Normal 3.70-11.00 [facility] Comment on above: Order Comment: Speci men Type: BLOOD SPECIMEN Ordering Facility: [facility] Address: [address] [place] [address] Performed By: #### 5 7021-8 #### [facility] CLIA [id number] [address] [place] [address] [facility] CNOVon 12-09-2024 CNOV Office Visit (KELVIN FERRER) -- PAVITHRA [id number]) 1980 F Date Time Provider Department 12/09/24 10:40 AM RACHEL OROZCO During your visit today, we recorded the following information about you: Temperature Pulse Respiration Blood pressure 98 degrees 55/minute 18/minute 116/62 Weight Height 90.7 kg 1.702 m Rachel Orozco APRN.INSTRUMENT TECHNICIAN APPRENTICE 12/09/2024 1:00 [place] [address] Date of Evaluation: 12/09/2024 Patient Name: Pavithra Meyers : 1980 Pavithra Meyers is a 44 year old female who presents for Wellness and Establish Care. I reviewed past medical, surgical, social, and family histories today and updated chart. Allergies, chronic medications, and supplements were also reviewed. PMH of HTN, HPL, JAIDEN, ADHD, and migraines. Checks BP at home once a month Can sometimes be elevated- 170/90's Most of the time it is WNL Migraines twice a month- Has tried Imitrex, etc in the past but not effective. Vomits with migraines. Diagnosed when she was 9. Headache 3 times a week- Tylenol and Ibuprofen Hasn't seen someone for the migraines in years Was on Adderall in the past for ADHD but is no longer on it because she felt the dose was too high so she weaned herself off of it. She did well on lower dose. Exercise: Patient does have an exercise routine. 3-4 days a week- weightlifting. Weight Trend: Last 2 Encounter Wt Readings: Date: Wt: 12/09/2024 90.7 kg (200 lb) 01/02/2024 90.3 kg (199 lb) Eating Habits: Patient does maintain healthy eating habits. Smaller portions. More protein. Types of food appropriate diet Caffeine- Not much Tobacco Use: Former smoker- quit about 18 years ago Alcohol Use: Very rare Active Problem List/Chronic Problems There are no active hospital problems to display for this patient. Health Maintenance Depression Screening Never done Anxiety Screening Never done BP Controlled (<130/80) due on 12/16/2022 Mammogram Screening due on 09/19/2024 HEALTH MAINTENANCE REVIEW: Colonoscopy and Mammogram Due for colonoscopy- needs referral Completed Mammogram in August 2024 Review of Systems Constitutional: Negative for appetite change, chills, diaphoresis, fatigue, fever and unexpected weight change. Respiratory: Negative for cough, shortness of breath and wheezing. Cardiovascular: Negative for chest pain, palpitations and leg swelling. Gastrointestinal: Negative for abdominal pain, blood in stool, constipation, nausea and vomiting. Looser stools Genitourinary: Negative for dysuria, flank pain, frequency, hematuria, menstrual problem and urgency. Musculoskeletal: Negative. Skin: Negative. Neurological: Positive for headaches. Negative for dizziness, seizures and syncope. Hematological: Negative. Psychiatric/Behavioral: Positive for decreased concentration. Negative for sleep disturbance. PAIN: Negative for pain, history of chronic pain, or current treatment for a chronic pain condition. ALLERGIES Allergen Reactions Sulfa (Sulfonamide * Rash metoprolol succinate ER (TOPROL XL) 50 mg 24 hr tablet Take 1 tablet by mouth once daily. esomeprazole (NEXIUM) 20 mg capsule Take 1 capsule by mouth DAILY (6 AM). MULTIVITAMIN ORAL Take by mouth once daily. CALCIUM ORAL Take by mouth one time a week. amphetamine-dextroamphetam ine XR (ADDERALL XR) 10 mg capsule Take 1 capsule by mouth once daily for 30 days. PAST MEDICAL HISTORY Diagnosis Date ADHD (attention deficit hyperactivity disorder) Asthma, acute Resolved HTN (hypertension) Hypercholesteremia Migraines Other acne Resolved Other and unspecified hyperlipidemia Hyperlipidemia, Resolved PAST SURGICAL HISTORY Procedure Laterality Date CHOLECYSTECTOMY 05/2016 VAGINAL HYSTERECTOMY UTERUS 250 GM/< 07/2017 Hysterectomy, vaginal Dr Gallego bilateral ovarian cystectomy bilateral salpingectomy and cystoscopy wisdom teeth FAMILY HISTORY Problem Relation Age of Onset Diabetes Father Hypertension Father Lipids Father High Cholesterol Colon Cancer Maternal Grandmother Cancer Maternal Grandmother Uterine Cancer Brother Leukemia Last 3 Encounter BP Readings: Date: BP: 12/09/2024 116/62 01/02/2024 120/82 10/02/2023 118/72 BP 116/62 Pulse 55 Temp (Src) 98 (Oral) Resp 18 Ht 5' 7 (1.70m) Wt 200 lb (90.7kg) SpO2 100% LMP 07/19/2016 BMI 31.32 kg/(m2). Physical Exam Vitals and nursing note reviewed. Constitutional: Appearance: Normal appearance. HENT: Head: Normocephalic. Right Ear: Tympanic membrane, ear canal and external ear normal. Left Ear: Tympanic membrane, ear canal and external ear normal. Nose: Nose normal. Mouth/Throat: Mouth: Mucous membranes are moist. Pharynx: Oropharynx is clear. Eyes: (more content not included)... Normal [facility] Comprehensive metabolic 2000 panelon 12-09-2024 Albumin [Mass/Vol] 4.2 g/dL 3.9 - 4.9 g/dL [facility] ALP [Catalytic activity/Vol] 110 U/L 34 - 123 U/L [facility] ALT With P-5'-P [Catalytic activity/Vol] 15 U/L 7 - 38 U/L [facility] Anion gap [Moles/Vol] 9 mmol/L 8 - 15 mmol/L [facility] AST With P-5'-P [Catalytic activity/Vol] 14 U/L 13 - 35 U/L [facility] Bilirubin [Mass/Vol] 0.3 mg/dL 0.2 - 1.3 mg/dL [facility] Calcium [Mass/Vol] 9.5 mg/dL 8.5 - 10. 2 mg/dL [facility] Chloride [Moles/Vol] 103 mmol/L 98 - 107 mmol/L [facility] CO2 [Moles/Vol] 26 mmol/L 22 - 30 mmol/L [facility] Creatinine [Mass/Vol] 0.82 mg/dL 0.58 - 0.96 mg/dL [facility] GFR/1.73 sq M.predicted among non-blacks MDRD (S/P/Bld) [Vol rate/Area] 90 mL/min/{1.73_m2} - PINF [facility] Comment on above: Estimated Glomerular Filtration Rate (eGFR) is calculated using the 2020 CKD-EPI creatinine equation. This equation utilizes serum creatinine, sex, and age as parameters. The creatinine assay has traceable calibration to isotope dilution-mass spectrometry. Refer to KDIGO guidelines for clinical interpretation. In patients with unstable renal function, e.g. those with acute kidney injury, the eGFR may not accurately reflect actual GFR. Glucose [Mass/Vol] 96 mg/dL 74 - 99 mg/dL [facility] Comment on above: The [place] Diab[employer] [place] Association (ADA) provides guidance for cutoff values for fasting glucose and random glucose. The ADA defines fasting as no caloric intake for at least 8 hours. Fasting plasma glucose results between 100 to 125 mg/dL indicate increased risk for diabetes (prediabetes). Fasting plasma glucose results greater than or equal to 126 mg/dL meet the criteria for diagnosis of diabetes. In the absence of unequivocal hyperglycemia, results should be confirmed by repeat testing. In a patient with classic symptoms of hyperglycemia or hyperglycemic crisis, random plasma glucose results greater than or equal to 200 mg/dL meet the criteria for diagnosis of diabetes. Reference: Standards of Medical Care in Diabetes 2016, [place] [employer]. Diabetes Care. 2016.39(Suppl 1). Potassium [Moles/Vol] 4.8 mmol/L 3.7 - 5.1 mmol/L [facility] Protein [Mass/Vol] 8.1 g/dL High 6.3 - 8.0 g/dL [facility] Sodium [Moles/Vol] 138 mmol/L 136 - 144 mmol/L [facility] Urea nitrogen [Mass/Vol] 14 mg/dL 7 - 21 mg/dL [facility] Albumin [Mass/Vol] 4.2 g/dL Normal 3.9-4.9 [facility] Comment on above: Order Comment: Burton whtie Type: BLOOD SPECIMEN Ordering Facility: [facility] Address: [address] [place] [address] Performed By: #### 2 4323-8, 34230-6 #### [facility] CLIA [id number] [address] ALP [Catalytic activity/Vol] 110 U/L Normal 34-123 [facility] Comment on above: Order Comment: Burton white Type: BLOOD SPECIMEN Ordering Facility: [facility] Address: [address] [place] [address] Performed By: #### 2 4323-8, 59943-4 #### [facility] CLIA [id number] [address] STATES OF [facility] ALT With P-5'-P [Catalytic activity/Vol] 15 U/L Normal 7-38 [facility] Comment on above: Order Comment: Burton white Type: BLOOD SPECIMEN Ordering Facility: [facility] Address: [address] [place] [address] Performed By: #### 2 4323-8, 52918-8 #### [facility] CLIA [id number] [address] [place] [address] [place] Anion gap [Moles/Vol] 9 mmol/L Normal 8-15 [facility] Comment on above: Order Comment: Speci men Type: BLOOD SPECIMEN Ordering Facility: [facility] Address: [address] [place], [place] [address] Performed By: #### 2 4323-8, 50241-1 #### [facility] CLIA [id number] [address] [place] [address] [place] AST With P-5'-P [Catalytic activity/Vol] 14 U/L Normal 13-35 [facility] Comment on above: Order Comment: Speci men Type: BLOOD SPECIMEN Ordering Facility: [facility] Address: [address] [place] [address] Performed By: #### 2 4323-8, 70499-0 #### [facility] CLIA [id number] [address] [place] [address] [place] Bilirubin [Mass/Vol] 0.3 mg/dL Normal 0.2-1.3 [facility] Comment on above: Order Comment: Speci men Type: BLOOD SPECIMEN Ordering Facility: [facility] Address: [address] [place], [place] [address] Performed By: #### 2 4323-8, 07024-1 #### [facility] CLIA [id number] [address] [place] [address] [place] Calcium [Mass/Vol] 9.5 mg/dL Normal 8.5-10.2 [facility] Comment on above: Order Comment: Speci men Type: BLOOD SPECIMEN Ordering Facility: [facility] Address: [address] [place], [place] [address] Performed By: #### 2 4323-8, 84525-2 #### [facility] CLIA [id number] [address] [place] [address] [place] Chloride [Moles/Vol] 103 mmol/L Normal 98-107 [facility] Comment on above: Order Comment: Burton white Type: BLOOD SPECIMEN Ordering Facility: [facility] Address: [address] [place] [address] Performed By: #### 2 4323-8, 15054-7 #### [facility] CLIA [id number] [address] [place] [address] [place] CO2 [Moles/Vol] 26 mmol/L Normal 22-30 [facility] Comment on above: Order Comment: Burton men Type: BLOOD SPECIMEN Ordering Facility: [facility] Address: [address] [place] [address] Performed By: #### 2 4323-8, 35850-1 #### [facility] CLIA [id number] [address] [place] [address] [place] Creatinine [Mass/Vol] 0.82 mg/dL Normal 0.58-0.96 [facility] Comment on above: Order Comment: Burton white Type: BLOOD SPECIMEN Ordering Facility: [facility] Address: [address] [place] [address] Performed By: #### 2 4323-8, 55415-8 #### [facility] CLIA [id number] [address] [place] [address] [facility] Creatinine and Glomerular filtration rate.predicted panel (S/P/Bld) 90 mL/min/1.73m??? Normal >=60 [facility] Comment on above: Order Comment: Burton white Type: BLOOD SPECIMEN Ordering Facility: [facility] Address: [address] [place] [address] Result Comment: Karen mated Glomerular Filtration Rate (eGFR) is calculated using the 2020 CKD-EPI creatinine equation. This equation utilizes serum creatinine, sex, and age as parameters. The creatinine assay has traceable calibration to isotope dilution-mass spectrometry. Refer to KDIGO guidelines for clinical interpretation. In patients with unstable renal function, e.g. those with acute kidney injury, the eGFR may not accurately reflect actual GFR. Performed By: #### 2 4323-8, 79736-8 #### [facility] CLIA [id number] [address] [place] [address] [place] Glucose [Mass/Vol] 96 mg/dL Normal 74-99 [facility] Comment on above: Order Comment: Burton white Type: BLOOD SPECIMEN Ordering Facility: [facility] Address: [address] [place] [address] Result Comment: The [place] Diabetes Association (ADA) provides guidance for cutoff values for fasting glucose and random glucose. The ADA defines fasting as no caloric intake for at least 8 hours. Fasting plasma glucose results between 100 to 125 mg/dL indicate increased risk for diabetes (prediabetes). Fasting plasma glucose results greater than or equal to 126 mg/dL meet the criteria for diagnosis of diabetes. In the absence of unequivocal hyperglycemia, results should be confirmed by repeat testing. In a patient with classic symptoms of hyperglycemia or hyperglycemic crisis, random plasma glucose results greater than or equal to 200 mg/dL meet the criteria for diagnosis of diabetes. Reference: Standards of Medical Care in Diabetes 2016, [place] [employer]. Diabetes Care. 2016.39(Suppl 1). Performed By: #### 2 4323-8, 97144-8 #### [facility] CLIA [id number] [address] [place] [address] [place] Potassium [Moles/Vol] 4.8 mmol/L Normal 3.7-5.1 [facility] Comment on above: Order Comment: Burton white Type: BLOOD SPECIMEN Ordering Facility: [facility] Address: [address] [place] [address] Performed By: #### 2 4323-8, 30961-9 #### [facility] CLIA [id number] [address] [place] [address] [place] Protein [Mass/Vol] 8.1 g/dL High 6.3-8.0 [facility] Comment on above: Order Comment: Burton white Type: BLOOD SPECIMEN Ordering Facility: [facility] Address: [address] [place], [place] [id number] Performed By: #### 2 4323-8, 16060-3 #### [facility] CLIA [id number] [address] [place] [address] [place] Sodium [Moles/Vol] 138 mmol/L Normal 136-144 [facility] Comment on above: Order Comment: Burton white Type: BLOOD SPECIMEN Ordering Facility: [facility] Address: [address] [place] [address] Performed By: #### 2 4323-8, 17015-8 #### [facility] CLIA [id number] [address] [place] [address] [place] Urea nitrogen [Mass/Vol] 14 mg/dL Normal 7-21 [facility] Comment on above: Order Comment: Burton white Type: BLOOD SPECIMEN Ordering Facility: [facility] Address: [address] [place] [address] Performed By: #### 2 4323-8, 22867-0 #### [facility] CLIA [id number] [address] [place] [id number] [place] HbA1c (Bld)on 12-09-2024 Average glucose Estimated from glycated hemoglobin (Bld) [Mass/Vol] 97 mg/dL Normal [facility] Comment on above: Order Comment: Burton white Type: BLOOD SPECIMENOrdering Facility: [facility] Address: [address] [place] [address] Result Comment: eAG: (Estimated average glucose) is a calculated value from HgbA1c and is customer account representative of the average blood glucose level in the last 2-3 month period. Performed By: #### 5 5454-3 ####[facility] [id number] [facility] [id number] [place] [address] [place] HbA1c (Bld) [Mass fraction] 5.0 % Normal 4.3-5.6 [facility] Comment on above: Order Comment: Burton white Type: BLOOD SPECIMENOrdering Facility: [facility] Address: [address] [place] [address] Result Comment: [place] Diabetes Association guidelines indicate that patients with HgbA1c in the range 5.7-6.4% are at increased risk for development of diabetes, and intervention by lifestyle modification may be beneficial. HgbA1c greater or equal to 6.5% is considered diagnostic of diabetes. Performed By: #### 5 5454-3 ####[facility] [id number] [facility] [id number] [place], [place] [id number] [place] Lipid 1996 panelon 5 Cholesterol [Mass/Vol] 206 mg/dL High NINF - 200 mg/dL [facility] Comment on above: <200 mg/dL, Desirabl e 200-239 mg/dL, Borderline high >239 mg/dL, High Cholesterol in HDL [Mass/Vol] 40 mg/dL 39 - PINF mg/dL [facility] Comment on above: 40-59 mg/dL, Accepta ble >59 mg/dL, High: Negative risk factor for coronary heart disease <40 mg/dL, Low: Positive risk factor for coronary heart disease Cholesterol in LDL [Mass/Vol] 121 mg/dL High NINF - 100 mg/dL [facility] Comment on above: <100 mg/dL, Optimal 100-129 mg/dL, Near optimal/above optimal 130-159 mg/dL, Borderline high 160-189 mg/dL, High >189 mg/dL, Very high Secondary prevention optimal LDL Cholesterol levels are recommended to be < 70 mg/dL Cholesterol in LDL/Cholesterol in HDL [Mass ratio] 3.03 {ratio} High NINF - 2.54 [facility] Comment on above: Reference: 1. National Cholesterol Education Program ATP III Guideline At-A-Glance Quick Desk Reference: National Heart, Lung, and Blood [place]. National Institutes of Health. 2001: NIH Publication No. 01-3305. 2. An International Atherosclerosis Society position paper: global recommendations for the management of dyslipidemia: executive summary, Atherosclerosis. 2014: 232(2):410-413. Cholesterol in VLDL [Mass/Vol] 45 mg/dL High NINF - 30 mg/dL [facility] Cholesterol non HDL [Mass/Vol] 166 mg/dL High NINF - 130 mg/dL [facility] Comment on above: <130 mg/dL, Optimal 130-159 mg/dL, Near optimal/above optimal 160-189 mg/dL, Borderline high 190-219 mg/dL, High >219 mg/dL, Very high Secondary prevention optimal non HDL Cholesterol levels are recommended to be <100 mg/dL Cholesterol.total/ Cholesterol in HDL [Mass ratio] 5.15 {ratio} High NINF - 5.10 [facility] Fasting Time 12 hrs [facility] Triglyceride [Mass/Vol] 225 mg/dL High NINF - 150 mg/dL [facility] Comment on above: <150 mg/dL, Normal 150-199 mg/dL, Borderline high 200-499 mg/dL, High >499 mg/dL, Very high Cholesterol [Mass/Vol] 206 mg/dL High <200 [facility] Comment on above: Order Comment: Burton white Type: BLOOD SPECIMEN Ordering Facility: [facility] Address: [address] [place] [address] Result Comment: <200 mg/dL, Desirable 200-239 mg/dL, Borderline high >239 mg/dL, High Performed By: #### 2 4323-8, 18642-2 #### [facility] CLIA [id number] [address] [place] [address] [facility] Cholesterol in HDL [Mass/Vol] 40 mg/dL Normal >39 [facility] Comment on above: Order Comment: Burton white Type: BLOOD SPECIMEN Ordering Facility: [facility] Address: [address] [place] [address] Result Comment: 40-5 9 mg/dL, Acceptable >59 mg/dL, High: Negative risk factor for coronary heart disease <40 mg/dL, Low: Positive risk factor for coronary heart disease Performed By: #### 2 4323-8, 58438-5 #### [facility] CLIA [id number] [address] [place] [address] [facility] Cholesterol in LDL [Mass/Vol] 121 mg/dL High <100 [facility] Comment on above: Order Comment: Burton white Type: BLOOD SPECIMEN Ordering Facility: [facility] Address: [address] [place] [address] Result Comment: <100 mg/dL, Optimal 100-129 mg/dL, Near optimal/above optimal 130-159 mg/dL, Borderline high 160-189 mg/dL, High >189 mg/dL, Very high Secondary prevention optimal LDL Cholesterol levels are recommended to be < 70 mg/dL Performed By: #### 2 4323-8, 76982-4 #### [facility] CLIA [id number] [address] [place] [address] [facility] Cholesterol in LDL/Cholesterol in HDL [Mass ratio] 3.03 {ratio} High <2.54 [facility] Comment on above: Order Comment: Burton white Type: BLOOD SPECIMEN Ordering Facility: [facility] Address: [address] [place] [address] Result Comment: Refe adilenece: 1. National Cholesterol Education Program ATP III Guideline At-A-Glance Quick Desk Reference: National Heart, Lung, and Blood [place]. National Institutes of Health. 2001: NIH Publication No. 01-3305. 2. An International Atherosclerosis Society position paper: global recommendations for the management of dyslipidemia: executive summary, Atherosclerosis. 2014: 232(2):410-413. Performed By: #### 2 4323-8, 33071-9 #### [facility] CLIA [id number] [address] [place] [address] [place] Cholesterol in VLDL [Mass/Vol] 45 mg/dL High <30 [facility] Comment on above: Order Comment: Burton white Type: BLOOD SPECIMEN Ordering Facility: [facility] Address: [address] [place] [address] Performed By: #### 2 4323-8, 50838-8 #### [facility] CLIA [id number] [address] [place] [address] [place] Cholesterol non HDL [Mass/Vol] 166 mg/dL High <130 [facility] Comment on above: Order Comment: Burton white Type: BLOOD SPECIMEN Ordering Facility: [facility] Address: [address] [place] [address] Result Comment: <130 mg/dL, Optimal 130-159 mg/dL, Near optimal/above optimal 160-189 mg/dL, Borderline high 190-219 mg/dL, High >219 mg/dL, Very high Secondary prevention optimal non HDL Cholesterol levels are recommended to be <100 mg/dL Performed By: #### 2 4323-8, 89436-8 #### [facility] CLIA [id number] [address] [place] [address] [facility] Cholesterol.total/ Cholesterol in HDL [Mass ratio] 5.15 {ratio} High <5.10 [facility] Comment on above: Order Comment: Speci men Type: BLOOD SPECIMEN Ordering Facility: [facility] Address: [address] [place] [address] Performed By: #### 2 4323-8, 20036-4 #### [facility] CLIA [id number] [address] [place] [address] [facility] FASTING TIME 12 hrs Normal [facility] Comment on above: Order Comment: Speci men Type: BLOOD SPECIMEN Ordering Facility: [facility] Address: [address] [place] [address] Performed By: #### 2 4323-8, 15699-5 #### [facility] CLIA [id number] [address] [place] [address] [facility] Triglyceride [Mass/Vol] 225 mg/dL High <150 [facility] Comment on above: Order Comment: Speci men Type: BLOOD SPECIMEN Ordering Facility: [facility] Address: [address] [place] [address] Result Comment: <150 mg/dL, Normal 150-199 mg/dL, Borderline high 200-499 mg/dL, High >499 mg/dL, Very high Performed By: #### 2 4323-8, 61646-6 #### [facility] CLIA [id number] [address] [place] [id number] [facility] No Panel Informationon 12-09 Interpretation and review of laboratory results Abnormal [facility] TOXICOLOGY SCREEN, ROUTINE U RINEon 12-09-2024 Amphetamines Confirm (U) [Mass/Vol] Negative Negative [facility] Comment on above: Cutoff threshold at 1000 ng/mL. Barbiturates Urine Negative Negative [facility] Comment on above: Cutoff threshold at 200 ng/mL. Benzodiazepines Urine Negative Negative [facility] Comment on above: Cutoff threshold at 200 ng/mL. Cannabinoids Screen Ql (U) Negative Negative [facility] Comment on above: Cutoff threshold at 50 ng/mL. Cocaine Ql (U) Negative Negative [facility] Comment on above: Cutoff threshold at 300 ng/mL. Ethanol (U) [Mass/Vol] mg/dL NINF - 11 mg/dL [facility] Interpretation and review of laboratory results Normal [facility] Opiates Screen Ql (U) Negative Negative [facility] Comment on above: Cutoff threshold at 300 ng/mL. oxyCODONE cutoff Screen (U) [Mass/Vol] Negative Negative [facility] Comment on above: Cutoff threshold at 100 ng/mL. Phencyclidine Ql (U) Negative Negative [facility] Comment on above: Cutoff threshold at 25 ng/mL. Immunoassay screen o nly. Cross reactivity with other substances can occur with immunoassay screening. Detection of any drug(s) in this urine toxicology panel is presumptive only. These tests are for medical purposes only and should not be used for compliance monitoring, legal, or forensic use. Samples should be within normal physiological conditions (e.g. pH). This assay does not include adulteration/specimen validity testing. In clinical settings, confirmatory testing is at the practitioner's discretion [1]. If clinically indicated, confirmation by high specificity, quantitative methodology, which includes adulteration/specimen validity testing, may be requested on the same specimen through the testing laboratory if contacted within 48 hours of initial testing. [1]Substance Abuse and Mental Health Services Administration (2012). Clinical Drug Testing in Primary Care Technical Assistance Publication Series 32. Department of Health and Human Services, [place], p.10. [facility] Amphetamines Confirm (U) [Mass/Vol] Negative Normal Negative [facility] Comment on above: Order Comment: Speci men Type: URINE SPECIMEN Ordering Facility: [facility] Address: [address] [place] [address] Result Comment: Cuto ff threshold at 1000 ng/mL. Performed By: #### U TOX2 #### [facility] CLIA [id number] [address] [place] [address] [place] BARBITURATES, URINE Negative Normal Negative [facility] Comment on above: Order Comment: Speci men Type: URINE SPECIMEN Ordering Facility: [facility] Address: [address] [place] [address] Result Comment: Cuto ff threshold at 200 ng/mL. Performed By: #### U TOX2 #### [facility] CLIA [id number] [address] [place] [address] [place] BENZODIAZEPINES, UR Negative Normal Negative [facility] Comment on above: Order Comment: Speci men Type: URINE SPECIMEN Ordering Facility: [facility] Address: [address] [place] [address] Result Comment: Cuto ff threshold at 200 ng/mL. Performed By: #### U TOX2 #### [facility] CLIA [id number] [address] [place] [address] [place] Cannabinoids Screen Ql (U) Negative Normal Negative [facility] Comment on above: Order Comment: Speci men Type: URINE SPECIMEN Ordering Facility: [facility] Address: [address] [place] [address] Result Comment: Cuto ff threshold at 50 ng/mL. Performed By: #### U TOX2 #### [facility] CLIA [id number] [address] [place] [address] [place] Cocaine Ql (U) Negative Normal Negative [facility] Comment on above: Order Comment: Speci men Type: URINE SPECIMEN Ordering Facility: [facility] Address: [address] [place] [address] Result Comment: Cuto ff threshold at 300 ng/mL. Performed By: #### U TOX2 #### [facility] CLIA [id number] [address] [place] [address] [place] Ethanol (U) [Mass/Vol] <11 Normal <11 [facility] Comment on above: Order Comment: Speci men Type: URINE SPECIMEN Ordering Facility: [facility] Address: [address] [place] [address] Performed By: #### U TOX2 #### [facility] CLIA [id number] [address] [place] [address] [place] Opiates Screen Ql (U) Negative Normal Negative [facility] Comment on above: Order Comment: Speci men Type: URINE SPECIMEN Ordering Facility: [facility] Address: [address] [place] [address] Result Comment: Cuto ff threshold at 300 ng/mL. Performed By: #### U TOX2 #### [facility] CLIA [id number] [address] [place], [place] [id number] [place] oxyCODONE cutoff Screen (U) [Mass/Vol] Negative Normal Negative [facility] Comment on above: Order Comment: Speci men Type: URINE SPECIMEN Ordering Facility: [facility] Address: [address] [place] [address] Result Comment: Cuto ff threshold at 100 ng/mL. Performed By: #### U TOX2 #### [facility] CLIA [id number] [address] [place], [place] [id number] [place] Phencyclidine Ql (U) Negative Normal Negative [facility] Comment on above: Order Comment: Speci men Type: URINE SPECIMEN Ordering Facility: [facility] Address: [address] [place] [address] Result Comment: Cuto ff threshold at 25 ng/mL. Performed By: #### U TOX2 #### [facility] CLIA [id number] [address] [place] [address] [place] Physical Therapy Assistant Office Visit Reporton 11-21-2024 Physical Therapy Assistant Office Visit Report [facility] [address], [address] [place] [id number] OFFICE VISIT Date of Service: 11/21/24 MR#: [id number] Acct: [id number] Name: PAVITHRA MEYERS Rep #: [id number] : 1980 Provider: Dr. 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 Is patient in pain?: No Allergies Sulfa (Sulfonamide Antibiotics) Allergy (Verified 11/21/24 14:18) Rash hydrocodone (From [place]) Adverse Reaction (Verified 11/21/24 14:18) Vomiting Medications ???Medication ???Instructions ???Recorded ???Confirmed ???Type ibuprofen 600 mg tablet 600 mg PO Q6H PRN PRN Pain #30 tabs 08/17/17 11/21/24 Rx acetaminophen 325 mg tablet 325 mg PO ONCE PRN 04/16/20 11/21/24 History (Tylenol) metoprolol succinate 50 mg 50 mg PO BID 04/21/21 11/21/24 History tablet,extended release 24 hr Post menopausal: No Patient : No : No PFSH Medical History Hypertension Dermoid cyst Migraines Generalized headaches Hyperlipemia Anemia Surgical History History of laparoscopic-assisted vaginal hysterectomy Hx of cholecystectomy Family History Father Diabetes Grandmother Uterine cancer Brother Acute leukemia Social History (Updated 11/21/24 @ 14:22 by Ranjana Casillas) adopted: No household members: family housing: house number of children: 1 current occupational status: employed current occupational exposures/hazards: No Smoking Status: Former smoker alcohol intake: never substance use type: does not use well-balanced diet: daily or most days caffeine: Yes what type of physical activity do you participate in: none seatbelt use: always do you feel safe at home: Yes additional social history: Hunter History 1 Elective abortions Hx Para 1 Spontaneous abortions Hx # Term Pregnancies Ectopic pregnancies Hx # Pregnancies Multiple births # of living children 1 Past Pregnancies Del. Date Name GA/Weeks Outcome Route Bth Weight Gen Labor Lgth Anesthesia Del Locatn Provider FOB Unknown 2001- Female HPI Encounter for routine gynecological examination Details: PAVITHRA MEYERS is a 44 year old who presents for annual exam. Last PAP: prior to hyst (performed by Dr. Gallego) History of abnormal PAP: no Last mammogram: 08/2024 History of abnormal mammogram: no Colon cancer screening: due Other preventative health care screenings: followed by pcp c/o weight gain and night sweats Female Reproductive History Questions: metorrhagia: No, sexually active: Yes, dyspareunia: No and PCB: No Menopausal Symptoms: No hot flashes, No mood changes, No difficulty concentrating, No sleep problems and No change in libido ROS Const Constitutional: Reports as per HPI; Denies fatigue, increased appetite, poor appetite, weight gain or weight loss Cardio Card: Denies chest pain Resp Resp: Denies cough or dyspnea GI GI: Reports as per HPI; Denies abdominal pain, bloating, constipation, nausea or vomiting : Reports as per HPI and other; Denies difficulty voiding, dysuria, hematuria, hot flashes, nipple discharge, pelvic pain, prolapse symptoms, urinary frequency, urinary incontinence, urinary urgency, vaginal discharge, vaginal dryness, vaginal odor or vaginal pruritus Skin Skin/Breast: Denies changing lesions, breast mass, breast pain, breast skin changes or nipple discharge Psych Psych: Denies anxiety, change in libido, depression or difficulty concentrating Exam Const General: cooperative, healthy appearing, comfortable, no acute distress, well developed and well groomed [facility] Head: normal to inspection and normocephalic Ears: hearing grossly normal bilaterally and external ears normal Nose: external nose normal Face and sinus: normal facial exam Neck Neck: normal visual inspection, full ROM and no lymphadenopathy Thyroid: thyroid normal Chest Chest palpation inspection: normal inspection of the chest Breast inspection: normal inspection of the breasts and normal inspection of the axillae Breast palpation: normal palpation of the breasts, normal palpation of the axillae and no axillary lymphadenopathy Resp Effort Inspection: normal respiratory effort GI Inspection: normal to inspection and non-distended Palpation: soft, no hepatosplenomegaly and no guarding General: bladder normal to palpation External F (more content not included)... Normal [facility] SCRN MAMM (CAD)W/JUAN BILATo n 09-26-2024 SCRN MAMM (CAD)W/JUAN [facility] [address] [place] [address] SCRN MAMM (CAD)W/JUANNi CASTRO MR#: [id number] Acct: [id number] Name: PAVITHRA MEYERS CHRISTI Rep #: [id number] : 1980 F 44 From: Carmelo bradley MD PCP: Dr. Gordo Orourke MD Status: REG [facility] Study: SCRN MAMM (CAD)W/JUAN BILAT Date of Exam: 08/30 07/22 Exam# [id number] Ordering Dr: Shazia Zhuniparker CUBA [id number] MAMMOGRAPHY - BILATERAL SCREENING REASON FOR EXAM: Female, 44 years old. Routine annual screening examination. PERTINENT HISTORY: Non-contributory. Occasional left breast tenderness. TECHNIQUE: Digital bilateral breast juan (3D mammographic acquisition) in the CC and MLO projections. 2-D mediolateral oblique (MLO) and craniocaudad (CC) views of both breasts were obtained. CAD: Full Field Digital Mammography with Computer Added Detection was performed. COMPARISON: Comparison is made with prior outside examination dated September 19, 2023. FINDINGS: Breast Composition: There are scattered areas of fibroglandular density. There are no dominant masses or suspicious calcifications. Stable bilateral fat containing axillary lymph nodes. No other significant abnormalities are identified. There has been no significant change since the prior study. BI/SCRN MAMM (CAD)W/JUAN BILAT IMPRESSION: Stable bilateral screening mammogram. Yearly follow-up mammogram recommended. (A) ASSESSMENT CATEGORY: BIRADS Category 2: Benign. A letter regarding these results will be sent to the patient by the facility within 30 days. Approximately 10% of breast cancers are not detected by mammography. A normal mammogram should not delay biopsy of a clinically suspicious abnormality. [id number] Electronically Signed: Carmelo Muñoz MD at 8:44 EST , CC: Dr. Abby Zhu DO; Dr. Gordo Orourke MD Plant Maintenance Engineer: Signed Normal [facility] 1,25-dihydroxyvitamin D3 [Ma ss/Vol]on 01-03-2024 VIT D1,25 DIHYDROXY 43.4 pg/mL Normal 19.9-79.3 [facility] Comment on above: Order Comment: Speci men Type: BLOOD SPECIMEN Ordering Facility: [facility] Address: [address] [place] [address] Performed By: #### 1 649-3 #### [facility] CLIA [id number] [address] [place] [address] [place] CBC W Auto Differential pane l (Bld)on 01-03-2024 Basophils (Bld) [#/Vol] 0.05 10*3/uL Normal <0.11 [facility] Comment on above: Order Comment: Speci men Type: BLOOD SPECIMEN Ordering Facility: [facility] Address: [address] [place] [address] Performed By: #### 5 7021-8 #### [facility] CLIA [id number] [address] [place] [address] [place] Basophils/100 WBC (Bld) 0.8 % Normal [facility] Comment on above: Order Comment: Speci men Type: BLOOD SPECIMEN Ordering Facility: [facility] Address: [address] [place] [address] Performed By: #### 5 7021-8 #### [facility] CLIA [id number] [address] [place] [address] [place] Differential cell count method Nom (Bld) Auto Normal [facility] Comment on above: Order Comment: Speci men Type: BLOOD SPECIMEN Ordering Facility: [facility] Address: [address] [place] [address] Performed By: #### 5 7021-8 #### [facility] CLIA [id number] [address] [place] [address] [place] Eosinophils (Bld) [#/Vol] 0.17 10*3/uL Normal <0.46 [facility] Comment on above: Order Comment: Speci men Type: BLOOD SPECIMEN Ordering Facility: [facility] Address: [address] [place] [address] Performed By: #### 5 7021-8 #### [facility] CLIA [id number] [address] [place] [address] [place] Eosinophils/100 WBC (Bld) 2.8 % Normal [facility] Comment on above: Order Comment: Speci men Type: BLOOD SPECIMEN Ordering Facility: [facility] Address: [address] [place] [address] Performed By: #### 5 7021-8 #### [facility] CLIA [id number] [address] [place] [address] [place] Erythrocyte distribution width (RBC) [Ratio] 11.9 % Normal 11.5-15.0 [facility] Comment on above: Order Comment: Speci men Type: BLOOD SPECIMEN Ordering Facility: [facility] Address: [address] [place] [address] Performed By: #### 5 7021-8 #### [facility] CLIA [id number] [address] [place] [address] [place] Hematocrit (Bld) [Volume fraction] 39.5 % Normal 36.0-46.0 [facility] Comment on above: Order Comment: Speci men Type: BLOOD SPECIMEN Ordering Facility: [facility] Address: [address] [place] [address] Performed By: #### 5 7021-8 #### [facility] CLIA [id number] [address] [place] [address] [place] Hemoglobin (Bld) [Mass/Vol] 14.2 g/dL Normal 11.5-15.5 [facility] Comment on above: Order Comment: Speci men Type: BLOOD SPECIMEN Ordering Facility: [facility] Address: [address] [place] [address] Performed By: #### 5 7021-8 #### [facility] CLIA [id number] [address] [place] [address] [place] Immature granulocytes (Bld) [#/Vol] 10*3/uL Normal <0.10 [facility] Comment on above: Order Comment: Speci men Type: BLOOD SPECIMEN Ordering Facility: [facility] Address: [address] [place] [address] Performed By: #### 5 7021-8 #### [facility] CLIA [id number] [address] [place] [address] [place] Immature granulocytes/100 WBC (Bld) 0.3 % Normal [facility] Comment on above: Order Comment: Speci men Type: BLOOD SPECIMEN Ordering Facility: [facility] Address: [address] [place] [address] Performed By: #### 5 7021-8 #### [facility] CLIA [id number] [address] [place] [address] [place] Lymphocytes (Bld) [#/Vol] 1.73 10*3/uL Normal 1.00-4.00 [facility] Comment on above: Order Comment: Speci men Type: BLOOD SPECIMEN Ordering Facility: [facility] Address: [address] [place] [address] Performed By: #### 5 7021-8 #### [facility] CLIA [id number] [address] [place] [address] [place] Lymphocytes/100 WBC (Bld) 28.5 % Normal [facility] Comment on above: Order Comment: Speci men Type: BLOOD SPECIMEN Ordering Facility: [facility] Address: [address] [place] [address] Performed By: #### 5 7021-8 #### [facility] CLIA [id number] [address] [place] [address] [place] MCH (RBC) [Entitic mass] 31.6 pg Normal 26.0-34.0 [facility] Comment on above: Order Comment: Speci men Type: BLOOD SPECIMEN Ordering Facility: [facility] Address: [address] [place] [address] Performed By: #### 5 7021-8 #### [facility] CLIA [id number] [address] [place] [address] [place] MCHC (RBC) [Mass/Vol] 35.9 g/dL Normal 30.5-36.0 [facility] Comment on above: Order Comment: Speci men Type: BLOOD SPECIMEN Ordering Facility: [facility] Address: [address] [place] [address] Performed By: #### 5 7021-8 #### [facility] CLIA [id number] [address] [place] [address] [place] MCV (RBC) [Entitic vol] 87.8 fL Normal 80.0-100.0 [facility] Comment on above: Order Comment: Speci men Type: BLOOD SPECIMEN Ordering Facility: [facility] Address: [address] [place] [address] Performed By: #### 5 7021-8 #### [facility] CLIA [id number] [address] [place] [address] [place] Monocytes (Bld) [#/Vol] 0.45 10*3/uL Normal <0.87 [facility] Comment on above: Order Comment: Speci men Type: BLOOD SPECIMEN Ordering Facility: [facility] Address: [address] [place] [address] Performed By: #### 5 7021-8 #### [facility] CLIA [id number] [address] [place] [address] [place] Monocytes/100 WBC (Bld) 7.4 % Normal [facility] Comment on above: Order Comment: Speci men Type: BLOOD SPECIMEN Ordering Facility: [facility] Address: [address] [place] [address] Performed By: #### 5 7021-8 #### [facility] CLIA [id number] [address] [place] [address] [place] Neutrophils (Bld) [#/Vol] 3.66 10*3/uL Normal 1.45-7.50 [facility] Comment on above: Order Comment: Speci men Type: BLOOD SPECIMEN Ordering Facility: [facility] Address: [address] [place] [address] Performed By: #### 5 7021-8 #### [facility] CLIA [id number] [address] [place] [address] [place] Neutrophils/100 WBC (Bld) 60.2 % Normal [facility] Comment on above: Order Comment: Speci men Type: BLOOD SPECIMEN Ordering Facility: [facility] Address: [address] [place] [address] Performed By: #### 5 7021-8 #### [facility] CLIA [id number] [address] [place] [address] [place] Nucleated RBC (Bld) [#/Vol] 10*3/uL Normal <0.01 [facility] Comment on above: Order Comment: Speci men Type: BLOOD SPECIMEN Ordering Facility: [facility] Address: [address] [place] [address] Performed By: #### 5 7021-8 #### [facility] CLIA [id number] [address] [place] [address] [place] Nucleated RBC/100 WBC (Bld) [Ratio] 0.0 /100 WBC Normal [facility] Comment on above: Order Comment: Speci men Type: BLOOD SPECIMEN Ordering Facility: [facility] Address: [address] [place] [address] Performed By: #### 5 7021-8 #### [facility] CLIA [id number] [address] [place] [address] [place] Platelet mean volume (Bld) [Entitic vol] 11.3 fL Normal 9.0-12.7 [facility] Comment on above: Order Comment: Speci men Type: BLOOD SPECIMEN Ordering Facility: [facility] Address: [address] [place] [address] Performed By: #### 5 7021-8 #### [facility] CLIA [id number] [address] [place] [address] [place] Platelets (Bld) [#/Vol] 294 10*3/uL Normal 150-400 [facility] Comment on above: Order Comment: Speci men Type: BLOOD SPECIMEN Ordering Facility: [facility] Address: [address] [place] [address] Performed By: #### 5 7021-8 #### [facility] CLIA [id number] [address] [place] [address] [place] RBC (Bld) [#/Vol] 4.50 10*6/uL Normal 3.90-5.20 [facility] Comment on above: Order Comment: Speci men Type: BLOOD SPECIMEN Ordering Facility: [facility] Address: [address] [place] [address] Performed By: #### 5 7021-8 #### [facility] CLIA [id number] [address] [place] [address] [place] WBC (Bld) [#/Vol] 6.08 10*3/uL Normal 3.70-11.00 [facility] Comment on above: Order Comment: Speci men Type: BLOOD SPECIMEN Ordering Facility: [facility] Address: [address] [place] [address] Performed By: #### 5 7021-8 #### [facility] CLIA [id number] [address] [place] [address] [place] Comprehensive metabolic 2000 panelon 01-03-2024 Albumin [Mass/Vol] 3.9 g/dL Normal 3.9-4.9 [facility] Comment on above: Order Comment: Speci men Type: BLOOD SPECIMEN Ordering Facility: [facility] Address: [address] [place] [address] Performed By: #### 2 4331-1, 25599-7 #### [facility] CLIA [id number] [address] [place] [address] [place] ALP [Catalytic activity/Vol] 91 U/L Normal 34-123 [facility] Comment on above: Order Comment: Speci men Type: BLOOD SPECIMEN Ordering Facility: [facility] Address: [address] [place] [address] Performed By: #### 2 4331-1, 60173-7 #### [facility] CLIA [id number] [address] [place] [address] [place] ALT [Catalytic activity/Vol] 13 U/L Normal 7-38 [facility] Comment on above: Order Comment: Speci men Type: BLOOD SPECIMEN Ordering Facility: [facility] Address: [address] [place] [address] Performed By: #### 2 4331-1, 21140-6 #### [facility] CLIA [id number] [address] [place] [address] [place] Anion gap [Moles/Vol] 10 mmol/L Normal 9-18 [facility] Comment on above: Order Comment: Speci men Type: BLOOD SPECIMEN Ordering Facility: [facility] Address: [address] [place], [place] [id number] Performed By: #### 2 4331-1, 23165-4 #### [facility] CLIA [id number] [address] [place] [address] [place] AST [Catalytic activity/Vol] 16 U/L Normal 13-35 [facility] Comment on above: Order Comment: Speci men Type: BLOOD SPECIMEN Ordering Facility: [facility] Address: [address] [place], [place] [id number] Performed By: #### 2 4331-1, 59170-2 #### [facility] CLIA [id number] [address] [place] [address] [place] Bilirubin [Mass/Vol] 0.2 mg/dL Normal 0.2-1.3 [facility] Comment on above: Order Comment: Speci men Type: BLOOD SPECIMEN Ordering Facility: [facility] Address: [address] [place] [address] Performed By: #### 2 4331-1, 45929-8 #### [facility] CLIA [id number] [address] [place] [address] [place] Calcium [Mass/Vol] 9.6 mg/dL Normal 8.5-10.2 [facility] Comment on above: Order Comment: Speci men Type: BLOOD SPECIMEN Ordering Facility: [facility] Address: [address] [place] [address] Performed By: #### 2 4331-1, 15377-4 #### [facility] CLIA [id number] [address] [place] [address] [place] Chloride [Moles/Vol] 104 mmol/L Normal 97-105 [facility] Comment on above: Order Comment: Speci men Type: BLOOD SPECIMEN Ordering Facility: [facility] Address: [address] [place] [address] Performed By: #### 2 4331-1, #### [facility] CLIA [id number] [address] [place] [address] [place] CO2 [Moles/Vol] 25 mmol/L Normal 22-30 [facility] Comment on above: Order Comment: Speci men Type: BLOOD SPECIMEN Ordering Facility: [facility] Address: [address] [place], [place] [id number] Performed By: #### 2 4331-1, 05467-2 #### [facility] CLIA [id number] [address] [place] [address] [place] Creatinine [Mass/Vol] 0.82 mg/dL Normal 0.58-0.96 [facility] Comment on above: Order Comment: Burton white Type: BLOOD SPECIMEN Ordering Facility: [facility] Address: [address] [place] [address] Performed By: #### 2 4331-1, #### [facility] CLIA [id number] [address] [place] [address] [place] Creatinine and Glomerular filtration rate.predicted panel (S/P/Bld) 91 mL/min/1.73m??? Normal >=60 [facility] Comment on above: Order Comment: Burton white Type: BLOOD SPECIMEN Ordering Facility: [facility] Address: [address] [place] [address] Result Comment: Karen mated Glomerular Filtration Rate (eGFR) is calculated using the 2020 CKD-EPI creatinine equation. This equation utilizes serum creatinine, sex, and age as parameters. The creatinine assay has traceable calibration to isotope dilution-mass spectrometry. Refer to KDIGO guidelines for clinical interpretation. In patients with unstable renal function, e.g. those with acute kidney injury, the eGFR may not accurately reflect actual GFR. Performed By: #### 2 4331-1, #### [facility] CLIA [id number] [address] [place] [address] [place] Glucose [Mass/Vol] 88 mg/dL Normal 74-99 [facility] Comment on above: Order Comment: Burton white Type: BLOOD SPECIMEN Ordering Facility: [facility] Address: [address] [place] [address] Result Comment: The [place] Diabetes [employer] (ADA) provides guidance for cutoff values for fasting glucose and random glucose. The ADA defines fasting as no caloric intake for at least 8 hours. Fasting plasma glucose results between 100 to 125 mg/dL indicate increased risk for diabetes (prediabetes). Fasting plasma glucose results greater than or equal to 126 mg/dL meet the criteria for diagnosis of diabetes. In the absence of unequivocal hyperglycemia, results should be confirmed by repeat testing. In a patient with classic symptoms of hyperglycemia or hyperglycemic crisis, random plasma glucose results greater than or equal to 200 mg/dL meet the criteria for diagnosis of diabetes. Reference: Standards of Medical Care in Diabetes 2016, [place] [employer]. Diabetes Care. 2016.39(Suppl 1). Performed By: #### 2 4331-1, 61159-0 #### [facility] CLIA [id number] [address] [place] [address] [place] Potassium [Moles/Vol] 3.9 mmol/L Normal 3.7-5.1 [facility] Comment on above: Order Comment: Speci men Type: BLOOD SPECIMEN Ordering Facility: [facility] Address: [address] [place] [address] Performed By: #### 2 4331-1, 27678-1 #### [facility] CLIA [id number] [address] [place] [address] [place] Protein [Mass/Vol] 7.1 g/dL Normal 6.3-8.0 [facility] Comment on above: Order Comment: Speci men Type: BLOOD SPECIMEN Ordering Facility: [facility] Address: [address] [place] [address] Performed By: #### 2 4331-1, 32440-4 #### [facility] CLIA [id number] [address] [place] [address] [place] Sodium [Moles/Vol] 139 mmol/L Normal 136-144 [facility] Comment on above: Order Comment: Speci men Type: BLOOD SPECIMEN Ordering Facility: [facility] Address: [address] [place] [address] Performed By: #### 2 4331-1, 85515-5 #### [facility] CLIA [id number] [address] [place] [address] [place] Urea nitrogen [Mass/Vol] 10 mg/dL Normal 7-21 [facility] Comment on above: Order Comment: Burton white Type: BLOOD SPECIMEN Ordering Facility: [facility] Address: [address] [place] [address] Performed By: #### 2 4331-1, 55894-9 #### [facility] CLIA [id number] [address] [place] [address] [facility] [place] HbA1c (Bld)on 01-03-2024 Average glucose Estimated from glycated hemoglobin (Bld) [Mass/Vol] 97 mg/dL Normal [facility] Comment on above: Order Comment: Burton white Type: BLOOD SPECIMEN Ordering Facility: [facility] Address: [address] [place] [address] Result Comment: eAG: (Estimated average glucose) is a calculated value from HgbA1c and is customer account representative of the average blood glucose level in the last 2-3 month period. Performed By: #### 5 5454-3 #### [facility] CLIA [id number] [address] [place] [address] [place] HbA1c (Bld) [Mass fraction] 5.0 % Normal 4.3-5.6 [facility] Comment on above: Order Comment: Burton white Type: BLOOD SPECIMEN Ordering Facility: [facility] Address: [address] [place] [address] Result Comment: Amer [place] Diabetes Association guidelines indicate that patients with HgbA1c in the range 5.7-6.4% are at increased risk for development of diabetes, and intervention by lifestyle modification may be beneficial. HgbA1c greater or equal to 6.5% is considered diagnostic of diabetes. Performed By: #### 5 5454-3 #### [facility] CLIA [id number] [address] [place] [address] [place] Lipid 1996 panelon Cholesterol [Mass/Vol] 190 mg/dL Normal <200 [facility] Comment on above: Order Comment: Burton white Type: BLOOD SPECIMEN Ordering Facility: [facility] Address: [address], [place] [address] Result Comment: <200 mg/dL, Desirable 200-239 mg/dL, Borderline high >239 mg/dL, High Performed By: #### 2 4331-1, 29842-8 #### [facility] CLIA [id number] [address] [facility] [place] [address] [place] Cholesterol in HDL [Mass/Vol] 31 mg/dL Low >39 [facility] Comment on above: Order Comment: Burton white Type: BLOOD SPECIMEN Ordering Facility: [facility] Address: [address] [place] [address] Result Comment: 40-5 9 mg/dL, Acceptable >59 mg/dL, High: Negative risk factor for coronary heart disease <40 mg/dL, Low: Positive risk factor for coronary heart disease Performed By: #### 2 4331-1, 28676-6 #### [facility] CLIA [id number] [address] [place] [address] [place] Cholesterol in LDL [Mass/Vol] 85 mg/dL Normal <100 [facility] Comment on above: Order Comment: Burton white Type: BLOOD SPECIMEN Ordering Facility: [facility] Address: [address] [place] [address] Result Comment: <100 mg/dL, Optimal 100-129 mg/dL, Near optimal/above optimal 130-159 mg/dL, Borderline high 160-189 mg/dL, High >189 mg/dL, Very high Secondary prevention optimal LDL Cholesterol levels are recommended to be < 70 mg/dL Performed By: #### 2 4331-1, 27194-5 #### [facility] CLIA [id number] [address] [place] [address] [place] Cholesterol in LDL/Cholesterol in HDL [Mass ratio] 2.74 {ratio} High <2.54 [facility] Comment on above: Order Comment: Burton white Type: BLOOD SPECIMEN Ordering Facility: [facility] Address: [address] [place] [address] Result Comment: Refe rence: 1. National Cholesterol Education Program ATP III Guideline At-A-Glance Quick Desk Reference: National Heart, Lung, and Blood [place]. National Institutes of Health. 2001: NIH Publication No. 01-3305. 2. An International Atherosclerosis Society position paper: global recommendations for the management of dyslipidemia: executive summary, Atherosclerosis. 2014: 232(2):410-413. Performed By: #### 2 4331-1, 60946-4 #### [facility] CLIA [id number] [address] [facility] [place] [address] [place] Cholesterol in VLDL [Mass/Vol] 74 mg/dL High <30 [facility] Comment on above: Order Comment: Burton white Type: BLOOD SPECIMEN Ordering Facility: [facility] Address: [address] [place] [address] Performed By: #### 2 433-, #### [facility] CLIA [id number] [address] [place] [address] [place] Cholesterol non HDL [Mass/Vol] 159 mg/dL High <130 [facility] Comment on above: Order Comment: Burton white Type: BLOOD SPECIMEN Ordering Facility: [facility] Address: [address] [place] [address] Result Comment: <130 mg/dL, Optimal 130-159 mg/dL, Near optimal/above optimal 160-189 mg/dL, Borderline high 190-219 mg/dL, High >219 mg/dL, Very high Secondary prevention optimal non HDL Cholesterol levels are recommended to be <100 mg/dL Performed By: #### 2 433-, #### [facility] CLIA [id number] [facility] [place] [address] [place] Cholesterol.total/ Cholesterol in HDL [Mass ratio] 6.13 {ratio} High <5.10 [facility] Comment on above: Order Comment: Burton white Type: BLOOD SPECIMEN Ordering Facility: [facility] Address: [address] [place] [address] Performed By: #### 2 4331-1, 06219-2 #### [facility] CLIA [id number] [address] [place] [address] [place] FASTING TIME 11 hrs Normal [facility] Comment on above: Order Comment: Michellei men Type: BLOOD SPECIMEN Ordering Facility: [facility] Address: [address] [place] [address] Performed By: #### 2 4331-1, 84249-2 #### [facility] CLIA [id number] [address] [place] [address] [place] Triglyceride [Mass/Vol] 371 mg/dL High <150 [facility] Comment on above: Order Comment: Speci men Type: BLOOD SPECIMEN Ordering Facility: [facility] Address: [address] [place] [address] Result Comment: <150 mg/dL, Normal 150-199 mg/dL, Borderline high 200-499 mg/dL, High >499 mg/dL, Very high Performed By: #### 2 4331-1, 91332-6 #### [facility] CLIA [id number] [address] [place] [address] [place] CNOVon 01-02-2024 CNOV Office Visit (FAMPWS ) -- PAVITHRA MEYERS ([id number]) 1980 F Date Time Provider Department 01/02/24 3:40 PM GORDO OROURKE FAMPWS During your visit today, we recorded the following information about you: Pulse Blood pressure Weight Height 57/minute 120/82 90.3 kg 1.702 m Gordo Orourke MD 01/02/2024 3:55 PM Signed Patient presents with: Follow Up HPI: Patient presents today for office visit for follow up. Has been holding her Adderall since around 11/12/23 due to blood pressure concerns. Readings have been elevated. Readings have remained elevated since holding Adderall. Continues on Metoprolol 50 mg daily. Monitors her BP at home. Does not miss doses. Denies chest pain and shortness of breath. Intermittent dizziness. More frequently the last couple months. No new or worsening headaches. Suffers from migraines. Mentions some days she notices some tightness in her hands. Refers to possible water retention. No swelling in her feet. Some palpitations occ. Denies syncopal episodes. Discussed her ADD meds. Discussed keeping her off meds for now. Tolerating well. Concerned with sugars. Has a family hx of dm. Some polyuria or polydipsia. Due to check vit d as well. MEDICATIONS: Current Outpatient Medications Medication Sig metoprolol succinate ER (TOPROL XL) 50 mg 24 hr tablet Take 1 tablet by mouth once daily. esomeprazole (NEXIUM) 20 mg capsule Take 1 capsule by mouth DAILY (6 AM). MULTIVITAMIN ORAL Take by mouth once daily. CALCIUM ORAL Take by mouth one time a week. No current facility-administered medications for this visit. ALLERGIES: ALLERGIES Allergen Reactions Sulfa (Sulfonamide * Rash PAST MEDICAL HISTORY Diagnosis Date ADHD (attention deficit hyperactivity disorder) Asthma, acute Resolved HTN (hypertension) Hypercholesteremia Migraines Other acne Resolved Other and unspecified hyperlipidemia Hyperlipidemia, Resolved PAST SURGICAL HISTORY Procedure Laterality Date CHOLECYSTECTOMY 05/2016 VAGINAL HYSTERECTOMY UTERUS 250 GM/< 07/2017 Hysterectomy, vaginal Dr Gallego bilateral ovarian cystectomy bilateral salpingectomy and cystoscopy wisdom teeth FAMILY HISTORY Problem Relation Age of Onset Diabetes Father Hypertension Father Lipids Father High Cholesterol Colon Cancer Maternal Grandmother Cancer Maternal Grandmother Uterine Cancer Brother Leukemia Social History Tobacco Use Smoking status: Former Types: Cigarettes Quit date: 06/29/2004 Years since quittin.5 Smokeless tobacco: Never Vaping Use Vaping Use: Never used Substance Use Topics Alcohol use: No Drug use: No Reviewed current medications, allergies, past medical history, surgical history, family history and social history today. REVIEW OF SYSTEMS All other reviewed and negative other than HPI. HEALTH MAINTENANCE: Reviewed health maintenance issues today and recommended the following in detail. Depression Assessment due on 10/29/2023 VITALS: BP 120/82 Pulse (!) 57 Ht 170.2 cm (5' 7) Wt 90.3 kg (199 lb) LMP 07/19/2016 (Exact Date) BMI 31.17 kg/m? Last 4 Encounter Wt Readings: Date: Wt: 10/02/2023 88.9 kg (196 lb) 06/28/2023 86 kg (189 lb 9.6 oz) 03/30/2023 84.8 kg (187 lb) 12/25/2022 83.9 kg (185 lb) PHYSICAL EXAMINATION: General appearance: Well appearing, alert, in no acute distress, well-hydrated, well nourished. Skin: Skin color, texture, turgor normal, no suspicious rashes or lesions Head: Normocephalic, no masses, lesions, tenderness or abnormalities Lungs: Lungs clear to auscultation. No wheezing, rhonchi, rales Heart: RRR without murmur, gallop, or rubs. No ectopy Abdomen: Normal abdominal exam, Abdomen soft, non-tender. Bowel sounds normal. No masses, organomegaly Extremities: No deformities, edema, skin discoloration, clubbing or cyanosis. Good capillary refill. ASSESSMENT/PLAN: 1. Essential hypertension - ICD9: 401.9, ICD10: I10 (primary diagnosis) - Controlled - Continue current medications - stay off stimluants. - CBC + DIFF - COMP METABOLIC PANEL - LIPID PANEL BASIC 2. ADHD (attention deficit hyperactivity disorder), inattentive type - ICD9: 314.00, ICD10: F90.0 - will not continue meds. 3. Vitamin D deficiency - ICD9: 268.9, ICD10: E55.9 - VITAMIN D1 25-DIHYDR 4. Mixed hyperlipidemia - ICD9: 272.2, ICD10: E78.2 - Control undetermined, due for labs - Counseled on healthy diet and regular exercise 5. Screening for diabetes mellitus - ICD9: V77.1, ICD10: Z13.1 - HGB A1C Gordo Orourke MD Allergies As of Date: 01/02/2024 Noted Allergy Reaction SULFA (SULFONAMIDE ANTIBIOTICS) 08/24/2008 2 - Rash Date Reviewed: 01/02/2024 Reviewed by: Lizabeth Bello MA - Fully Assessed Reason for Visit: Follow Up [171] Primary Visit Diagnosis:Essential hypertension [I10] Other Visit Nancy (more content not included)... Normal [facility] Office Visit: Post Opon 11-0 Documentation of current medications (procedure) Done Invalid Interpretation Code [facility] Tobacco smoking status NHIS Never Invalid Interpretation Code [facility] Tobacco use CPHS Never smoker Invalid Interpretation Code [facility] Lab Report: CBC-Complete Blo od Cnt No Diffon 08-17-2017 Erythrocyte distribution width Auto Ratio (RBC) 13.8 % Invalid Interpretation Code 11.6-14.6 [facility] Erythrocytes (RBC) 3.19 10*6/uL Low 4.2-5.4 [place] [facility] Hematocrit (HCT) 27.7 % Low 37-47 [facility] Hemoglobin mass conc (Bld) 9.0 g/dL Low 12.0-15.0 [facility] MCH 28.2 pg Invalid Interpretation Code 27.0-32.0 [facility] MCHC mass conc (RBC) 32.5 G/GL Invalid Interpretation Code 32-36 [facility] MCV 86.8 fL Invalid Interpretation Code 81-99 [facility] Platelets 268 10*3/mm3 Invalid Interpretation Code 150-450 [facility] PMV by Kristan 10.5 fL Invalid Interpretation Code 6.2-12.0 [facility] RDW SD 41.7 fL Invalid Interpretation Code 35.1-43.9 [facility] WBC (Leukocytes) 5.8 10*3/uL Invalid Interpretation Code 4.4-11.0 [facility] Lab Report: ,Urineo n 08-16-2017 HCG.beta subunit ( test) Ql (U) Negative Invalid Interpretation Code [facility] Lab Report: Partial Thrombop last Timeon 08-14-2017 aPTT 31.0 s Invalid Interpretation Code 24.1-36.2 [facility] Lab Report: Prothrombin Time w/INRon 08-14-2017 INR Coag RelTime (PPP) 1.0 {INR} Invalid Interpretation Code [facility] Prothrombin time (PT) Coag time (PPP) 12.8 s Invalid Interpretation Code 11.7-14.9 [facility] Office Visit: embon 07-18-20 17 Fall risk assessment No Invalid Interpretation Code [facility] OPERATIVE REPORTon 7 [facility] Operative ReportSURGEON: Mayela Andre MDLEIA MEYERSRN: [id number] ACCTNUM: [id number] OF SURGERY: 05/29/2017DATE OF : 1980 SEX/AGE: F/36PATIENT TYPE: [facility]: LOCATION: [id number] DATE: 05/29/2017DATE OF SURGERY: 05/29/2017SURGEON: REJI MongeREOPERATIVE DIAGNOSIS: Right upper quadrant abdominal pain.POSTOPERATIVE DIAGNOSIS: Right upper quadrant abdominal pain.PROCEDURE PERFORMED: Laparoscopic cholecystectomy with intraoperative cholangiogram.SPECIMEN: Gallbladder and contents.INDICATIONS: Pavithra Meyers is a 36-year-old, white female, who presents with right upper quadrantabdominal pain. It is classic sign for biliary colic. I have offered her additional studies of the gallbladder,however, she defers and wished to proceed to surgery. I have counseled the patient as to the risks of theprocedure including, but not limited to, infection, bleeding, injury to any blood vessels or nerves, indicatinginternal organs such as liver, spleen, injury to any bowel or bladder, intraabdominal bleeding, intraabdominalinfection, bile leak, injury to the common bile duct, trocar incisional hernias, wound infection, scar tissue,nonresolution of symptoms, complication of anesthesia, etc. The patient understands and agrees to proceed.DESCRIPTION OF PROCEDURE: After informed consent was given, the patient was brought to the operatingroom and placed in supine position. Appropriate time-out protocol was followed in preprocedure room as well asin the operating room. The patient was then placed under general anesthesia. The abdomen was then preppedwith a sterile surgical skin preparation, was allowed to dry for 3 minutes. Then, sterile surgical drapes wereplaced. The periumbilical skin folds grasper to penetrate all clips in the skin and subcutaneous tissues wereinfiltrated with local anesthetic. A skin incision was then made with a 15 blade scalpel. The anterior abdominalwall was elevated with penetrating towel clamps, and a Veress needle was carefully inserted into the internalcavity. It was checked to be in the proper position using normal saline drop test. A CO2 pneumoperitoneumwas then created. Once this was achieved, then the Veress needle was removed and an 11 mm trocar wasplaced instead. A 10 mm laparoscope was inserted into the trocar. Careful attention was then directed to theinternal contents. There was no evidence of any injury from insertion of the Veress needle or the trocar to anyinternal organs. Under direct visualization, a 5 mm subxiphoid trocar was placed as well as two 5 mm rightsubcostal trocars. The skin and subcutaneous tissues at the sites were infiltrated with local anesthetic prior toplacement of these trocars. Attention was then directed to the right upper quadrant of the abdomen. Of note, isthat the patient had adhesion of the right lobe dome of the liver to the anterior abdominal wall. This was takendown by electrocautery. Graspers were placed to allow and trocars to grasp the gallbladder distally directedcephalad and to grasp the gallbladder at Chris's pouch and directed laterally. Dissection then began in theproximal gallbladder surface. There were some omental adhesions to the free surface of the gallbladder andthese were taken down by electrocautery. The dissection then continued bluntly to dissect out the cystic duct.There were some inflammatory fatty tissues around the cystic duct. The cystic artery was visualized, and a clipwas placed across the artery. Once the neck of the gallbladder was properly identified, then a clip was placedacross the neck of the gallbladder. A small ductotomy was made in the cystic duct. The Ranfac catheter wasbrought through a separate skin incision and placed into the cystic duct. An intraoperative cholangiogram wasperformed under fluoroscopy. The x-ray revealed no lesions in the common bile duct, good arborization of thebiliary tree and good flow into the duodenal. The Ranfac catheter was then removed. Two clips were placedproximal to the ductotomy and the cystic duct was then transected. The cystic artery had already a clip placedproximally, clip was then placed distally and was then transected between the 2 clips. The gallbladder was thenseparated from the liver bed using electrocautery. Once completely from the liver bed, it was placedin the endobag and brought out through the periumbilical port. It was then forward to Pathology for analysis.The liver bed was carefully examined. There was some bleeding noted, but this was controlled with [address] [place] [address] Operative ReportPATIENT NAME: LOKESH MEYERSJANE#: [id number] ACCTNUM: [id number]. There was some inflammatory oozing and this was controlled with the Melissa. Carefulexamination was done after Melissa was applied, and there was no evidence of any active bleeding or bile leak.The cystic duct stump and the cystic artery stump had the clips intact and there was no evidence of any bile leakor any bleeding. The remainder of the abdomen was grossly normal. CO2 pneumoperitoneum was released.All trocars were removed intact. The periumbilical fascia was approximated with [id number] 0 Vicryl suture.All skin incisions were closed with 4-0 Monocryl in a subdermal fashion. Benzoin and Steri-Strips were used toreinforce skin closures and proper sterile dressings were applied. The patient tolerated the procedure well andwas brought to recovery room in stable condition.COMPLICATIONS: None.DRAINS: None.ESTIMATED BLOOD LOSS: Less than 20 milliliters. Signed: MAYELA ANDRE MD 06/19/2017 09:50 Patti Andre MDLW:modlD: 05/29/2017 11:38:01T: 05/29/2017 23:46:52Job #: [id number] Page 2 of 1 Normal [facility] OPERATIVE REPORT PDF Normal [facility] FLUORO UP TO 1 HOURon 2016 FLUORO UP TO [address] [facility] APPROVED BY: Al Newby MD IMPRESSION: 5 seconds of fluoroscopy time was utilized for this exam. Normal [facility] Surgical Tissue Examon 05-29 Surgical Tissue Exam Test performed at [address] [address]JRZT: PAVITHRA MEYERS [id number] REQUESTING: MAYELA ANDRE MDFINAL DIAGNOSIS:GALLBLADDER, EXCISION - CHRONIC CHOLECYSTITIS AND CHOLELITHIASIS.PERICHOLECY STIC REACTIVE LYMPH NODE.OPERATIVE PROCEDURE:Laparoscopic cholecystectomyCLINICAL INFORMATION:Right upper quadrant pain, abnormal gallbladder ultrasoundGROSS DESCRIPTION:Gallbladder pericholecysticReceived in formalin labeled gallbladder is a specimen consisting of anintact gallbladder measuring 7.0 x 3.2 x 2.5 cm. The serosal surfaceappears bile-stained, smooth and glistening. Adjacent to the cysticduct is a begum-brown firm lymph node measuring 1.0 cm in greatestdimension. The lumen contains bile. Calculi are not present. Thewall of the gallbladder averages 1 mm in thickness. The mucosalsurface demonstrates yellow fatty streaks, more prominent on themucosal ridges. Motor Expert sections are submitted in formalin inone cassette. ARH:dakota MEDINA M.D., PATHOLOGIST(Electronic signature on file)Signed out: 05/31/2017 15:08PRINTED: 05/31/2017 Page 1 of 1 Normal [facility] Comment on above: Performed By: #### S URG ####[address] [address] Urine HCG, Qual.on 7 HCG.beta subunit ( test) Ql (U) Negative Normal Negative [facility] Comment on above: Performed By: #### L HCG2 ####[address] [address] Specific [place], Ur 1.015 Normal 1.005-1.030 [facility] Comment on above: Performed By: #### L HCG2 ####[address] [address] Vital Signs Date Time Vital Sign Value Performing Clinician Autumn sunshine 08-18-2025 14:41-0400 Body height 172.72 cm Rachel Orozco FURNITURE D[employer]PER[employer]C Work Phone: [facility] 08-18-2025 14:41-0400 Body mass index (BMI) [Ratio] 28.6 kg/m2 Rachel Orozco [employer]URNITURE D[employer]PER[employer]C Work Phone: [facility] 08-18-2025 14:41-0400 Body temperature 100 [degF] Rachel Orozco [employer]URNIT[employer] Work Phone: [facility] 08-18-2025 14:41-0400 Body weight 85.44 kg Rachel Orozco [employer]URNITURE [employer]PER[employer]C Work Phone: [facility] 08-18-2025 14:41-0400 Diastolic blood pressure 103 mm[Hg] Rachel Queden [employer]URNITURE D[employer]PER[employer]C Work Phone: [facility] 08-18-2025 14:41-0400 Heart rate 66 /min Rachel Queden [employer]URNITURE [employer]PER[employer]C Work Phone: [facility] 08-18-2025 14:41-0400 Respiratory rate 18 /min Rachel Queden [employer]URNIT[employer] Work Phone: [facility] 08-18-2025 14:41-0400 SaO2% (BldA) [Mass fraction] 100 % Rachel Queden [employer]URNITURE [employer]C Work Phone: [facility] 08-18-2025 14:41-0400 Systolic blood pressure 156 mm[Hg] Rachel Queden [employer]URNIT[employer] Work Phone: [facility] 07-03-2025 08:05-0400 Body height 170.2 cm Rachel Queden SENIOR CUSTOMER SERVICE REPRESENTATIVE.INSTRUMENT TECHNICIAN APPRENTICE Work Phone: [facility] 07-03-2025 08:05-0400 Body mass index (BMI) [Ratio] 30.38 kg/m2 Rachel Queden SENIOR CUSTOMER SERVICE REPRESENTATIVE.INSTRUMENT TECHNICIAN APPRENTICE Work Phone: [facility] 07-03-2025 08:05-0400 Body temperature 98.4 [degF] Rachel Queden SENIOR CUSTOMER SERVICE REPRESENTATIVE.INSTRUMENT TECHNICIAN APPRENTICE Work Phone: [facility] 07-03-2025 08:05-0400 Body weight 88 kg Rachel Queden SENIOR CUSTOMER SERVICE REPRESENTATIVE.INSTRUMENT TECHNICIAN APPRENTICE Work Phone: [facility] 07-03-2025 08:05-0400 Diastolic blood pressure 64 mm[Hg] Rachel Queden SENIOR CUSTOMER SERVICE REPRESENTATIVE.INSTRUMENT TECHNICIAN APPRENTICE Work Phone: [facility] 07-03-2025 08:05-0400 Heart rate 67 /min Rachel Queden SENIOR CUSTOMER SERVICE REPRESENTATIVE.INSTRUMENT TECHNICIAN APPRENTICE Work Phone: [facility] 07-03-2025 08:05-0400 Respiratory rate 18 /min Rachel Queden SENIOR CUSTOMER SERVICE REPRESENTATIVE.INSTRUMENT TECHNICIAN APPRENTICE Work Phone: [facility] 07-03-2025 08:05-0400 SaO2% (BldA) [Mass fraction] 100 % Rachel Queden SENIOR CUSTOMER SERVICE REPRESENTATIVE.INSTRUMENT TECHNICIAN APPRENTICE Work Phone: [facility] 07-03-2025 08:05-0400 Systolic blood pressure 112 mm[Hg] Rachel Queden SENIOR CUSTOMER SERVICE REPRESENTATIVE.INSTRUMENT TECHNICIAN APPRENTICE Work Phone: [facility] 06-05-2025 13:52-0400 Body height 170.2 cm Rachel Queden SENIOR CUSTOMER SERVICE REPRESENTATIVE.INSTRUMENT TECHNICIAN APPRENTICE Work Phone: [facility] 06-05-2025 13:52-0400 Body mass index (BMI) [Ratio] 30.38 kg/m2 Rachel Queden SENIOR CUSTOMER SERVICE REPRESENTATIVE.INSTRUMENT TECHNICIAN APPRENTICE Work Phone: [facility] 06-05-2025 13:52-0400 Body temperature 98.01 [degF] Rachel Queden SENIOR CUSTOMER SERVICE REPRESENTATIVE.INSTRUMENT TECHNICIAN APPRENTICE Work Phone: [facility] 06-05-2025 13:52-0400 Body weight 88 kg Rachel Queden SENIOR CUSTOMER SERVICE REPRESENTATIVE.INSTRUMENT TECHNICIAN APPRENTICE Work Phone: [facility] 06-05-2025 13:52-0400 Diastolic blood pressure 62 mm[Hg] Rachel Queden SENIOR CUSTOMER SERVICE REPRESENTATIVE.INSTRUMENT TECHNICIAN APPRENTICE Work Phone: [facility] 06-05-2025 13:52-0400 Heart rate 65 /min Rachel Queden SENIOR CUSTOMER SERVICE REPRESENTATIVE.INSTRUMENT TECHNICIAN APPRENTICE Work Phone: [facility] 06-05-2025 13:52-0400 Respiratory rate 18 /min Rachel Queden SENIOR CUSTOMER SERVICE REPRESENTATIVE.INSTRUMENT TECHNICIAN APPRENTICE Work Phone: [facility] 06-05-2025 13:52-0400 SaO2% (BldA) [Mass fraction] 98 % Rachel Queden SENIOR CUSTOMER SERVICE REPRESENTATIVE.INSTRUMENT TECHNICIAN APPRENTICE Work Phone: [facility] 06-05-2025 13:52-0400 Systolic blood pressure 114 mm[Hg] Rachel Queden SENIOR CUSTOMER SERVICE REPRESENTATIVE.INSTRUMENT TECHNICIAN APPRENTICE Work Phone: [facility] 03-09-2025 08:27-0400 Body height 170.2 cm Rachel Queden SENIOR CUSTOMER SERVICE REPRESENTATIVE.INSTRUMENT TECHNICIAN APPRENTICE Work Phone: [facility] 03-09-2025 08:27-0400 Body mass index (BMI) [Ratio] 30.7 kg/m2 Rachel Queden SENIOR CUSTOMER SERVICE REPRESENTATIVE.INSTRUMENT TECHNICIAN APPRENTICE Work Phone: [facility] 03-09-2025 08:27-0400 Body temperature 98.29 [degF] Rachel Queden SENIOR CUSTOMER SERVICE REPRESENTATIVE.INSTRUMENT TECHNICIAN APPRENTICE Work Phone: [facility] 03-09-2025 08:27-0400 Body weight 88.91 kg Rachel Queden SENIOR CUSTOMER SERVICE REPRESENTATIVE.[facility] Work Phone: [facility] 03-09-2025 08:27-0400 Diastolic blood pressure 64 mm[Hg] Rachel Queden SENIOR CUSTOMER SERVICE REPRESENTATIVE.[facility] Work Phone: [facility] 03-09-2025 08:27-0400 Heart rate 58 /min Rachel Queden SENIOR CUSTOMER SERVICE REPRESENTATIVE.INSTRUMENT TECHNICIAN APPRENTICE Work Phone: [facility] 03-09-2025 08:27-0400 Respiratory rate 18 /min Rachel Queden SENIOR CUSTOMER SERVICE REPRESENTATIVE.INSTRUMENT TECHNICIAN APPRENTICE Work Phone: [facility] 03-09-2025 08:27-0400 SaO2% (BldA) [Mass fraction] 100 % Rachel Queden SENIOR CUSTOMER SERVICE REPRESENTATIVE.INSTRUMENT TECHNICIAN APPRENTICE Work Phone: [facility] 03-09-2025 08:27-0400 Systolic blood pressure 118 mm[Hg] Rachel Queden SENIOR CUSTOMER SERVICE REPRESENTATIVE.INSTRUMENT TECHNICIAN APPRENTICE Work Phone: [facility] 12-09-2024 10:31-0500 Body height 170.2 cm Rachel Queden SENIOR CUSTOMER SERVICE REPRESENTATIVE.INSTRUMENT TECHNICIAN APPRENTICE Work Phone: [facility] 12-09-2024 10:31-0500 Body mass index (BMI) [Ratio] 31.32 kg/m2 Rachel Queden SENIOR CUSTOMER SERVICE REPRESENTATIVE.INSTRUMENT TECHNICIAN APPRENTICE Work Phone: [facility] 02-11-2025 10:31-0500 Body temperature 98.01 [degF] Rachel Queden SENIOR CUSTOMER SERVICE REPRESENTATIVE.INSTRUMENT TECHNICIAN APPRENTICE Work Phone: [facility] 12-09-2024 10:31-0500 Body weight 90.72 kg Rachel Queden SENIOR CUSTOMER SERVICE REPRESENTATIVE.INSTRUMENT TECHNICIAN APPRENTICE Work Phone: [facility] 12-09-2024 10:31-0500 Diastolic blood pressure 62 mm[Hg] Rachel Queden SENIOR CUSTOMER SERVICE REPRESENTATIVE.INSTRUMENT TECHNICIAN APPRENTICE Work Phone: [facility] 12-09-2024 10:31-0500 Heart rate 55 /min Rachel Queden SENIOR CUSTOMER SERVICE REPRESENTATIVE.INSTRUMENT TECHNICIAN APPRENTICE Work Phone: [facility] 12-09-2024 10:31-0500 Respiratory rate 18 /min Rachel Queden SENIOR CUSTOMER SERVICE REPRESENTATIVE.INSTRUMENT TECHNICIAN APPRENTICE Work Phone: [facility] 12-09-2024 10:31-0500 SaO2% (BldA) [Mass fraction] 100 % Rachel Queden SENIOR CUSTOMER SERVICE REPRESENTATIVE.INSTRUMENT TECHNICIAN APPRENTICE Work Phone: [facility] 12-09-2024 10:31-0500 Systolic blood pressure 116 mm[Hg] Rachel Queden SENIOR CUSTOMER SERVICE REPRESENTATIVE.INSTRUMENT TECHNICIAN APPRENTICE Work Phone: [facility] 01-02-2024 15:17-0500 Body height 170.2 cm Gordo Orourke MD Work Phone: [facility] 01-02-2024 15:17-0500 Body weight 90.27 kg Gordo Orourke MD Work Phone: [facility] 01-02-2024 15:17-0500 Diastolic blood pressure 82 mm[Hg] Gordo Orourke MD Work Phone: [facility] 01-02-2024 15:17-0500 Heart rate 57 /min Gordo Orourke MD Work Phone: [facility] 01-02-2024 15:17-0500 Systolic blood pressure 120 mm[Hg] Gordo Orourke MD Work Phone: [facility] 10-02-2023 16:09-0500 Body height 170.2 cm Gordo Orourke MD Work Phone: [facility] 10-02-2023 16:09-0500 Body weight 88.91 kg Gordo Orourke MD Work Phone: [facility] 10-02-2023 16:09-0500 Diastolic blood pressure 72 mm[Hg] Gordo Orourke MD Work Phone: [facility] 10-02-2023 16:09-0500 Heart rate 73 /min Gordo Orourke MD Work Phone: [facility] 10-02-2023 16:09-0500 SaO2% (BldA) [Mass fraction] 99 % Gordo Orourke MD Work Phone: [facility] 10-02-2023 16:09-0500 Systolic blood pressure 118 mm[Hg] Gordo Orourke MD Work Phone: [facility] 06-28-2023 07:59-0400 Body height 170.2 cm Gordo Orourke MD Work Phone: [facility] 06-28-2023 07:59-0400 Body weight 86 kg Gordo Orourke MD Work Phone: [facility] 06-28-2023 07:59-0400 Diastolic blood pressure 89 mm[Hg] Gordo Orourke MD Work Phone: [facility] 06-28-2023 07:59-0400 Heart rate 70 /min Gordo Orourke MD Work Phone: [facility] 06-28-2023 07:59-0400 Systolic blood pressure 134 mm[Hg] Gordo Orourke MD Work Phone: [facility] 03-30-2023 15:08-0400 Body weight 84.82 kg Gordo Orourke MD Work Phone: [facility] 03-30-2023 15:08-0400 Diastolic blood pressure 72 mm[Hg] Gordo Orourke MD Work Phone: [facility] 03-30-2023 15:08-0400 Heart rate 80 /min Gordo Orourke MD Work Phone: [facility] 03-30-2023 15:08-0400 SaO2% (BldA) [Mass fraction] 97 % Gordo Orourke MD Work Phone: [facility] 03-30-2023 15:08-0400 Systolic blood pressure 124 mm[Hg] Gordo Orourke MD Work Phone: [facility] 12-25-2022 19:10-0500 Body weight 83.92 kg Gordo Orourke MD Work Phone: [facility] 12-25-2022 19:10-0500 Diastolic blood pressure 62 mm[Hg] Gordo Orourke MD Work Phone: [facility] 12-25-2022 19:10-0500 Heart rate 71 /min Gordo Orourke MD Work Phone: [facility] 12-25-2022 19:10-0500 SaO2% (BldA) [Mass fraction] 100 % Gordo Orourke MD Work Phone: [facility] 12-25-2022 19:10-0500 Systolic blood pressure 122 mm[Hg] Gordo Orourke MD Work Phone: [facility] 08-11-2022 14:00-0400 Body weight 83.01 kg Gordo Orourke MD Work Phone: [facility] 08-11-2022 14:00-0400 Diastolic blood pressure 82 mm[Hg] Gordo Orourke MD Work Phone: [facility] 08-11-2022 14:00-0400 Heart rate 68 /min Gordo Orourke MD Work Phone: [facility] 08-11-2022 14:00-0400 Systolic blood pressure 128 mm[Hg] Gordo Orourke MD Work Phone: [facility] 07-21-2022 15:15-0400 Body height 170.2 cm Gordo Orourke MD Work Phone: [facility] 07-21-2022 15:15-0400 Body weight 83.46 kg Gordo Orourke MD Work Phone: [facility] 07-21-2022 15:15-0400 Diastolic blood pressure 82 mm[Hg] Gordo Orourke MD Work Phone: [facility] 07-21-2022 15:15-0400 Heart rate 61 /min Gordo Orourke MD Work Phone: [facility] 07-21-2022 15:15-0400 SaO2% (BldA) [Mass fraction] 99 % Gordo Orourke MD Work Phone: [facility] 07-21-2022 15:15-0400 Systolic blood pressure 114 mm[Hg] Gordo Orourke MD Work Phone: [facility] 03-20-2022 17:44-0400 Body weight 86.18 kg Gordo Orourke MD Work Phone: [facility] 03-20-2022 17:44-0400 Diastolic blood pressure 82 mm[Hg] Gordo Orourke MD Work Phone: [facility] 03-20-2022 17:44-0400 Heart rate 68 /min Gordo Orourke MD Work Phone: [facility] 03-20-2022 17:44-0400 Systolic blood pressure 122 mm[Hg] Gordo Orourke MD Work Phone: [facility] 08-30-2017 15:53-0400 BMI (Body Mass Index) 26.06 kg/m2 Ana Gallego MD [facility] 08-30-2017 15:53-0400 Body Temperature 97.7 [degF] Ana Gallego MD [facility] 08-30-2017 15:53-0400 BP Diastolic 65 mm[Hg] Ana Gallego MD [facility] 08-30-2017 15:53-0400 BP Systolic 100 mm[Hg] Ana Gallego MD [facility] 08-30-2017 15:53-0400 Height 170.18 cm Ana Gallego MD [facility] 08-30-2017 15:53-0400 Pulse (Heart Rate) 65 /min Ana Gallego MD [facility] 08-30-2017 15:53-0400 Respiratory Rate 16 /min Ana Gallego MD [facility] 08-30-2017 15:53-0400 Weight 75.48 kg Ana Gallego MD [facility] Encounters Encounter Date Encounter Type Care Provider Facility Start: 10-07-2025 ambulatory Rachel Aguirreden Facility :[facility] Start: 08-18-2025 End: 08-18-[address] Rosy Vasquez MD -[facility] Work Phone: Start: 08-18-2025 End: 08-18-2025 ambulatory Rachel Orozco [employer] Work Phone: -[facility] Start: 07-31-2025 End: 07-31-2025 ambulatory RACHEL AGUIRREDEN Facility:[facility] Start: 07-03-2025 End: 07-03-2025 Patient encounter procedure Rachel Orozco SENIOR CUSTOMER SERVICE REPRESENTATIVE.INSTRUMENT TECHNICIAN APPRENTICE Work Phone: [facility] Comment on above: ADHD (attention defi cit hyperactivity disorder), inattentive type (Primary Dx); Obesity, Class I, BMI 30-34.9; Difficulty losing weight Start: 07-03-2025 End: 07-03-2025 ambulatory RACHEL OROZCO Facility:[facility] Start: 06-05-2025 End: 06-05-2025 Patient encounter procedure Rachel Orozco SENIOR CUSTOMER SERVICE REPRESENTATIVE.INSTRUMENT TECHNICIAN APPRENTICE Work Phone: [facility] Comment on above: ADHD (attention defi cit hyperactivity disorder), inattentive type (Primary Dx); Anxiety; Essential hypertension; Obesity, Class I, BMI 30-34.9; Difficulty losing weight Start: 06-05-2025 End: 06-05-2025 ambulatory RACHEL A QUEDEN Facility:[facility] Start: 05-27-2025 End: 05-28-2025 Refill Rachel A Queden SENIOR CUSTOMER SERVICE REPRESENTATIVE.INSTRUMENT TECHNICIAN APPRENTICE Work Phone: [facility] Comment on above: Refill Request Start: 04-18-2025 End: 04-20-2025 Refill Rachel A Queden SENIOR CUSTOMER SERVICE REPRESENTATIVE.INSTRUMENT TECHNICIAN APPRENTICE Work Phone: [facility] Comment on above: Refill Request Start: 04-05-2025 End: 04-08-2025 ambulatory Rachel A Brianden SENIOR CUSTOMER SERVICE REPRESENTATIVE.INSTRUMENT TECHNICIAN APPRENTICE Work Phone: [facility] Comment on above: April 11 Start: 03-09-2025 End: 03-09-2025 Patient encounter procedure Rachelabigail Aguirreden SENIOR CUSTOMER SERVICE REPRESENTATIVE.INSTRUMENT TECHNICIAN APPRENTICE Work Phone: [facility] Comment on above: ADHD (attention defi cit hyperactivity disorder), inattentive type (Primary Dx); Essential hypertension; Mixed hyperlipidemia; GERD without esophagitis; Vitamin D deficiency; Class 1 obesity without serious comorbidity with body mass index (BMI) of 30.0 to 30.9 in adult, unspecified obesity type Start: 03-09-2025 End: 03-09-2025 ambulatory RACHEL Sergei OROZCO Facility:[facility] Start: 02-06-2025 End: 02-09-2025 Refill Rachel A Brianden SENIOR CUSTOMER SERVICE REPRESENTATIVE.INSTRUMENT TECHNICIAN APPRENTICE Work Phone: [facility] Comment on above: Refill Request Start: 12-11-2024 End: 12-11-2024 Follow-up encounter Rachel Orozco SENIOR CUSTOMER SERVICE REPRESENTATIVE.INSTRUMENT TECHNICIAN APPRENTICE Work Phone: [facility] Comment on above: Vitamin D deficiency (Primary Dx) Start: 12-09-2024 End: 12-09-2024 ambulatory RACHEL Sergei OROZCO Facility:[facility] Start: 12-09-2024 Encounter for genera l adult medical examination without abnormal findings [facility] Start: 12-09-2024 End: 12-09-2024 Patient encounter procedure Rachelabigail Aguirreden SENIOR CUSTOMER SERVICE REPRESENTATIVE.INSTRUMENT TECHNICIAN APPRENTICE Work Phone: [facility] Comment on above: Well adult exam ([facility] brittany Dx); ADHD (attention deficit hyperactivity disorder), inattentive type; Essential hypertension; Migraine with aura, not intractable, without status migrainosus; Mixed hyperlipidemia; Vitamin D deficiency; Screening for colon cancer; Screening for depression; Encounter for screening examination for other mental health and behavioral disorders Start: 12-09-2024 End: 12-09-2024 Patient encounter status Rachel A Queden SENIOR CUSTOMER SERVICE REPRESENTATIVE.INSTRUMENT TECHNICIAN APPRENTICE Work Phone: [facility] Start: 12-09-2024 End: 12-09-2024 ambulatory RACHEL Mai DOMINIQUE Facility:[facility] Start: 11-21-2024 Encounter for gynecological examination (general) (routine) without abnormal findings [facility] Start: 11-21-2024 End: 11-21-2024 ambulatory Abby Zhu Facility:[facility] Start: 11-02-2024 End: 11-03-2024 ambulatory Gordo Orourke MD Work Phone: [facility] [place] Comment on above: [address] Start: 10-29-2024 End: 11-03-2024 ambulatory Gordo Orourke MD Work Phone: [facility] [place] [id number] Start: 10-16-2024 End: 10-16-2024 ambulatory Gordo Orourke MD Work Phone: [facility] Comment on above: Zepbound Start: 10-13-2024 End: 10-14-2024 ambulatory Gordo Orourke MD Work Phone: [facility] Comment on above: Inquiring Start: 09-26-2024 End: 09-26-2024 ambulatory Abby Zhu Facility:[facility] Start: 09-17-2024 End: 09-17-2024 ambulatory Gordo Orourke MD Work Phone: [facility] Comment on above: Blood pressure medic ine Start: 03-14-2024 Refill Gordo Orourke MD Work Phone: [facility] Comment on above: Refill Request Start: 01-30-2024 ambulatory Gordo Orourke MD Work Phone: [facility] Comment on above: Adderal Start: 01-03-2024 End: 01-03-2024 ambulatory GORDO OROURKE Facility:[facility] Start: 01-02-2024 End: 01-02-2024 Patient encounter procedure Gordo Orourke MD Work Phone: [facility] Comment on above: Essential hypertensi on (Primary Dx); ADHD (attention deficit hyperactivity disorder), inattentive type; Vitamin D deficiency; Mixed hyperlipidemia; Screening for diabetes mellitus Start: 01-02-2024 End: 01-02-2024 ambulatory GORDO OROURKE Facility:[facility] Start: 10-02-2023 End: 10-02-2023 Patient encounter procedure Gordo Orourke MD Work Phone: [facility] Comment on above: ADHD (attention defi cit hyperactivity disorder), inattentive type (Primary Dx) Start: 09-19-2023 End: 09-19-2023 Subsequent hospital visit by physician Screen Mammo [facility] Comment on above: Encounter for screen ing mammogram for malignant neoplasm of breast [Z12.31] Start: 09-08-2023 Refill Gordo Orourke MD Work Phone: [facility] Comment on above: Refill Request Start: 08-23-2023 MC Get Medical Advice Gordo Orourke MD Work Phone: [facility] [place] Comment on above: Adderall Refill Start: 06-28-2023 End: 06-28-2023 Patient encounter procedure Gordo Orourke MD Work Phone: [facility] Comment on above: ADHD (attention defi cit hyperactivity disorder), inattentive type (Primary Dx); Encounter for screening mammogram for malignant neoplasm of breast; Essential hypertension Start: 03-30-2023 End: 03-30-2023 Patient encounter procedure Gordo Orourke MD Work Phone: [facility] [place] Comment on above: ADHD (attention defi cit hyperactivity disorder), inattentive type (Primary Dx); Essential hypertension; Mixed hyperlipidemia; GERD without esophagitis Start: 03-03-2023 Refill Gordo Orourke MD Work Phone: [facility] Comment on above: Refill Request Start: 03-02-2023 Refill Gordo Orourke MD Work Phone: [facility] Comment on above: Refill Request Start: 01-26-2023 Refill Gordo Orourke MD Work Phone: [facility] Comment on above: Refill Request Refill Start: 12-25-2022 End: 12-25-2022 Patient encounter procedure Gordo Orourke MD Work Phone: [facility] Comment on above: Essential hypertensi on (Primary Dx); ADHD (attention deficit hyperactivity disorder), inattentive type; Medication monitoring encounter; Vitamin D deficiency Start: 10-20-2022 Get Medical Advice Gordo Orourke MD Work Phone: [facility] [place] Comment on above: Medication on Back o rder Start: 08-30-2022 Get Medical Advice Gordo Orourke MD Work Phone: [facility] [place] Comment on above: Prescription Refill Start: 08-14-2022 Documentation procedure Mammog priyanka Coordinator [facility] Start: 08-14-2022 Letter encounter Mammography Coordinator [facility] Department Start: 08-11-2022 End: 08-11-2022 Subsequent hospital visit by physician Screen Mammo [facility] Comment on above: Encounter for screen ing mammogram for breast cancer [Z12.31] Start: 08-11-2022 End: 08-11-2022 Patient encounter procedure Gordo Orourke MD Work Phone: [facility] [place] Comment on above: ADHD (attention defi cit hyperactivity disorder), inattentive type (Primary Dx); Migraine with aura, not intractable, without status migrainosus; Anxiety Start: 07-21-2022 End: 07-21-2022 Patient encounter procedure Gordo Orourke MD Work Phone: [facility] [place] Comment on above: ADHD (attention defi cit hyperactivity disorder), inattentive type (Primary Dx); Essential hypertension Start: 07-19-2022 ambulatory Gordo Orourke MD Work Phone: [facility] [place] Start: 06-19-2022 ambulatory Gordo Orourke MD Work Phone: [facility] Start: 06-19-2022 Patient encounter procedure Gordo Orourke MD Work Phone: [facility] [place] Comment on above: Appointment Refill Request Start: 06-17-2022 ambulatory Gordo Orourke MD Work Phone: [facility] [place] Comment on above: Rescheduling Start: 05-08-2022 Get Medical Advice Gordo Orourke MD Work Phone: [facility] Comment on above: Refill Start: 03-21-2022 Telephone encounter Gordo Orourke MD Work Phone: [facility] Comment on above: Medication Question Start: 03-20-2022 End: 03-20-2022 Patient encounter procedure Gordo Orourke MD Work Phone: [facility] Comment on above: Attention deficit di sorder, unspecified hyperactivity presence (Primary Dx); Essential hypertension; Vitamin D deficiency Start: 03-06-2022 Refill Gordo Orourke MD Work Phone: [facility] Comment on above: Refill Request Start: 02-26-2022 ambulatory Gordo Orourke MD Work Phone: [facility] Comment on above: Amphora/Dextroamp Start: 01-31-2022 ambulatory Gordo Orourke MD Work Phone: [facility] Comment on above: Amphetamine Salt Com keturah 20mg Start: 01-27-2022 End: 01-27-2022 Distance Health Gordo Orourke MD Work Phone: [facility] Comment on above: Attention deficit di sorder, unspecified hyperactivity presence Start: 01-24-2022 ambulatory Gordo Orourke MD Work Phone: [facility] Comment on above: Ultrasound Start: 01-18-2022 End: 01-18-2022 [facility] Start: 05-29-2017 End: 05-30-2017 Ambulatory Mayela Andre Facility:[facility] Procedures Date Procedure Procedure Detail Performing Clinician Start: 12-09-2024 Drug tst prsmv instr mnt chem analyzers pr date Rachel Orozco SENIOR CUSTOMER SERVICE REPRESENTATIVE.INSTRUMENT TECHNICIAN APPRENTICE Work Phone: Start: 12-09-2024 Adult depression scr eening assessment Rachel Orozco SENIOR CUSTOMER SERVICE REPRESENTATIVE.INSTRUMENT TECHNICIAN APPRENTICE Work Phone: Start: 12-09-2024 Lipid 1996 panel - S cyrus or Plasma Rachel Orozco SENIOR CUSTOMER SERVICE REPRESENTATIVE.INSTRUMENT TECHNICIAN APPRENTICE Work Phone: Start: 01-03-2024 Lipid 1996 panel - S cyrus or Plasma Gordo Orourke MD Work Phone: Start: 08-11-2022 Mammography Mammograph y Coordinator Start: 07-21-2022 Adult depression scr eening assessment Gordo Orourke MD Work Phone: Start: 01-18-2022 Ultrasonography of t hyroid and parathyroid Start: 06-13-2021 Mammography Gordo Pelaez MD Work Phone: Start: 05-15-2021 Adult depression scr eening assessment Gordo Orourke MD Work Phone: Start: 08-08-2017 End: 08-14-2017 Endometrial bx w/wo endocervix bx w/o dilat spx Ana Gallego MD Work Phone: Start: 07-18-2017 End: 08-14-2017 Endometrial bx w/wo endocervix bx w/o dilat spx Ana Gallego MD Work Phone: Start: 07-18-2017 End: 07-18-2017 Urine test visual color cmprsn meths Ana Gallego MD Work Phone: Start: 07-12-2017 End: 08-14-2017 Us pelvic nonobstetric real-time image complete Ana Gallego MD Work Phone: Start: 07-12-2017 End: 08-14-2017 Us transvaginal Ana Gallego MD Work Phone: Start: 05-29-2017 LAPARO CHOLECYSTECTOMY/Kelli nAdre Plan of Treatment Date Care Activity Detail Author Start: 12-20-2029 Urine microalbumin profile [facility] Start: 12-09-2029 Lipid panel Lipid Screening [facility] Start: 01-02-2029 Lipid panel Lipid Screening [facility] Start: 12-09-2027 Diabetes Screening Diabetes Screenin g [facility] Start: 11-24-2027 HPV TESTING HPV TESTING [facility] Start: 11-24-2027 PAP TESTING PAP TESTING [facility] Start: 11-24-2027 Screening for malign ant neoplasm of cervix [facility] Start: 01-02-2027 Diabetes Screening Diabetes Screenin g [facility] Start: 07-03-2026 Annual PCP Team Tool Designer yeni Disease Visit Annual PCP Team Chronic Disease Visit [facility] Start: 06-05-2026 Annual PCP Team Tool Designer yeni Disease Visit Annual PCP Team Chronic Disease Visit [facility] Start: 04-27-2026 Influenza vaccination Influenza Vacc ine (#1) [facility] Comment on above: Postponed from 06/29 (Declined at this time) Start: 03-09-2026 Annual PCP Team Tool Designer yeni Disease Visit Annual PCP Team Chronic Disease Visit [facility] Start: 03-09-2026 BP Controlled (<130/80) BP Controlle d (<130/80) [facility] Start: 12-09-2025 Annual PCP Team Tool Designer yeni Disease Visit Annual PCP Team Chronic Disease Visit [facility] Start: 12-09-2025 Anxiety Screening Anxiety Screening [facility] Start: 12-09-2025 BP Controlled (<130/80) BP Controlle d (<130/80) [facility] Start: 12-09-2025 Covid-19 Vaccine ( season) Covid-19 Vaccine () [facility] Comment on above: Postponed from 06/29 (Declined at this time) Start: 12-09-2025 Depression Screening Depression Scre ening [facility] Start: 12-09-2025 Screening for malign ant neoplasm of colon Colorectal Cancer Screening [facility] Comment on above: Postponed from 06/18 (Declined at this time) Start: 10-07-2025 Colonoscopy [facility] Start: 10-07-2025 [facility] Start: 09-26-2025 Screening for malign ant neoplasm of breast Mammogram Screening [facility] Start: 07-31-2025 End: 07-31-2025 Nursing evaluation of patient and report 07/31/2025 8:20 AM EDT Nurse Visit [address] [address] weight check [facility] Comment on above: weight check Start: 07-03-2025 End: 07-03-2025 Patient encounter procedure 07/03/2025 8:20 AM EDT Office Visit [facility] [address], [place] [id number] Rachel Orozco, SENIOR CUSTOMER SERVICE REPRESENTATIVE.INSTRUMENT TECHNICIAN APPRENTICE [address] [place] [address] for weight management [facility] Comment on above: for weight managemen t Start: 06-29-2025 Influenza vaccination [facility] Start: 06-05-2025 End: 06-05-2025 Patient encounter procedure 06/05/2025 2:00 PM EDT Office Visit [facility] [address], [place] [phone] Rachel Orozco, SENIOR CUSTOMER SERVICE REPRESENTATIVE.INSTRUMENT TECHNICIAN APPRENTICE [address], [place] [id number] ADHD. [facility] Comment on above: ADHD. Start: 05-12-2025 End: 05-12-2025 Patient encounter procedure 05/12/2025 4:00 PM EDT Office Visit [facility] [address], [place] [phone] Rachel Orozco, SENIOR CUSTOMER SERVICE REPRESENTATIVE.INSTRUMENT TECHNICIAN APPRENTICE [address] [place] [address] ADHD. [facility] Comment on above: ADHD. Start: 04-27-2025 Influenza vaccination Influenza Vacc ine (#1) [facility] Comment on above: Postponed from 06/29 (Declined at this time) Start: 04-14-2025 End: 04-14-2025 Patient encounter procedure 04/14/2025 8:40 AM EDT Office Visit [facility] [address], [place] [id number] Rachel Orozco, SENIOR CUSTOMER SERVICE REPRESENTATIVE.INSTRUMENT TECHNICIAN APPRENTICE [address], [place] [phone] ADHD. [facility] Comment on above: ADHD. Start: 03-09-2025 End: 03-09-2025 Patient encounter procedure 03/09/2025 8:40 AM EDT Office Visit [facility] [address] [place] [address] Rachel Orozco APRN.INSTRUMENT TECHNICIAN APPRENTICE [address] [place] [address] f/u for ADHD [facility] Comment on above: f/u for ADHD Start: 01-01-2025 Annual PCP Team Tool Designer yeni Disease Visit Annual PCP Team Chronic Disease Visit [facility] Start: 12-22-2024 End: 12-22-2024 Patient encounter procedure 12/22/2024 10:20 AM EST [facility] [address] [place], [place] [phone] Gordo Orourke MD [address] [place], [place] [phone] Headaches [facility] Comment on above: Headaches Start: 12-09-2024 End: 03-10-2025 25-hydroxyvitamin D3 [Mass/volume] in Serum or Plasma [facility] Comment on above: Expected: 12/09/2024 , Expires: 03/10/2025 Start: 12-09-2024 End: 03-10-2025 Hemoglobin A1c in Blood [facility] Work Phone: Comment on above: Expected: 12/09/2024 , Expires: 03/10/2025 Start: 12-09-2024 End: 03-10-2025 QUANTITATIVE TOXICOLOGY PANEL, URINE QUANTITATIVE TOXICOLOGY PANEL, URINE Lab Routine ADHD (attention deficit hyperactivity disorder), inattentive type Expected: 12/09/2024, Expires: 03/10/2025 [facility] Comment on above: Expected: 12/09/2024 , Expires: 03/10/2025 Start: 11-28-2024 End: 11-28-2024 Patient encounter procedure 11/28/2024 2:20 PM EST Office Visit [facility] [address] [place] [address] Rachel Orozco APRN.INSTRUMENT TECHNICIAN APPRENTICE [address] [place] [address] wellness physical-est care [facility] Comment on above: wellness physical-es t care Start: 10-28-2024 Behavioral Health Screening Behavioral Health Screening [facility] Comment on above: Postponed from 10/29 (Declined at this time) Start: 10-28-2024 Depression Assessment Depression Ass essment [facility] Comment on above: Postponed from 10/29 (Declined at this time) Start: 10-02-2024 Annual PCP Team Tool Designer yeni Disease Visit Annual PCP Team Chronic Disease Visit [facility] Start: 10-02-2024 BP Controlled (<130/80) BP Controlle d (<130/80) [facility] Start: 10-02-2024 Covid-19 Vaccine ( season) Covid-19 Vaccine () [facility] Comment on above: Postponed from 06/29 (Declined at this time) Start: 09-19-2024 Mammography Mammogram Screening [facility] Start: 09-19-2024 Screening for malign ant neoplasm of breast Mammogram Screening [facility] Start: 06-29-2024 Covid-19 Vaccine ( season) Covid-19 Vaccine () [facility] Start: 06-29-2024 Influenza vaccination [facility] Start: 06-28-2024 ANNUAL PCP TEAM AIR FORCE PILOT YENI DISEASE VISIT ANNUAL PCP TEAM CHRONIC DISEASE VISIT [facility] Start: 06-28-2024 COVID-19 VACCINE (3 - Moderna series) COVID-19 VACCINE (3 - Moderna series) [facility] Comment on above: Postponed from 01/26 (Declined at this time) Start: 2024 Screening for malign ant neoplasm of colon [facility] Start: 04-27-2024 Influenza vaccination Influenza Vacc ine (#1) [facility] Comment on above: Postponed from 06/29 (Declined at this time) Start: 03-30-2024 ANNUAL PCP TEAM AIR [employer] PILOT YENI DISEASE VISIT ANNUAL PCP TEAM CHRONIC DISEASE VISIT [facility] Start: 03-30-2024 BP CONTROLLED (<130/80) BP CONTROLLE D (<130/80) [facility] Start: 01-02-2024 End: 04-02-2024 Calcitriol [Mass/volume] in Serum or Plasma VITAMIN D1 25-DIHYDR Lab Routine Vitamin D deficiency Expected: 01/02/2024, Expires: 04/02/2024 [facility] Work Phone: Comment on above: Expected: 01/02/2024 , Expires: 04/02/2024 Start: 01-02-2024 End: 04-02-2024 CBC W Auto Differential panel - Blood CBC + DIFF Lab Routine Essential hypertension Expected: 01/02/2024, Expires: 04/02/2024 [facility] Work Phone: Comment on above: Expected: 01/02/2024 , Expires: 04/02/2024 Start: 01-02-2024 End: 04-02-2024 Comprehensive metabolic 2000 panel - Serum or Plasma COMP METABOLIC PANEL Lab Routine Essential hypertension Expected: 01/02/2024, Expires: 04/02/2024 [facility] Work Phone: Comment on above: Expected: 01/02/2024 , Expires: 04/02/2024 Start: 01-02-2024 End: 04-02-2024 Hemoglobin A1c in Blood HGB A1C Lab Routine Screening for diabetes mellitus Expected: 01/02/2024, Expires: 04/02/2024 [facility] Work Phone: Comment on above: Expected: 01/02/2024 , Expires: 04/02/2024 Start: 01-02-2024 End: 04-02-2024 Lipid 1996 panel - Serum or Plasma LIPID PANEL BASIC Lab Routine Essential hypertension Expected: 01/02/2024, Expires: 04/02/2024 [facility] Work Phone: Comment on above: Expected: 01/02/2024 , Expires: 04/02/2024 Start: 12-25-2023 ANNUAL PCP TEAM AIR FORCE PILOT YENI DISEASE VISIT ANNUAL PCP TEAM CHRONIC DISEASE VISIT [facility] Start: 12-25-2023 BP CONTROLLED (<130/80) BP CONTROLLE D (<130/80) [facility] Start: 08-11-2023 ANNUAL PCP TEAM AIR FORCE PILOT YENI DISEASE VISIT ANNUAL PCP TEAM CHRONIC DISEASE VISIT [facility] Start: 08-11-2023 Mammography [facility] Start: 07-21-2023 Adult depression screening assessment DEPRESSION SCREENING [facility] Start: 07-21-2023 ANNUAL PCP TEAM AIR FORCE PILOT YENI DISEASE VISIT ANNUAL PCP TEAM CHRONIC DISEASE VISIT [facility] Start: 06-29-2023 Covid-19 Vaccine () Covid-19 Vaccine () [facility] Start: 06-29-2023 Influenza vaccination [facility] Start: 04-27-2023 Influenza vaccination INFLUENZA (#1) [facility] Comment on above: Postponed from 06/29 (Declined at this time) Start: 03-20-2023 ANNUAL PCP TEAM AIR [employer] PILOT YENI DISEASE VISIT ANNUAL PCP TEAM CHRONIC DISEASE VISIT [facility] Start: 01-27-2023 ANNUAL PCP TEAM AIR FORCE PILOT YENI DISEASE VISIT ANNUAL PCP TEAM CHRONIC DISEASE VISIT [facility] Start: 12-29-2022 ANNUAL PCP TEAM AIR FORCE PILOT YENI DISEASE VISIT ANNUAL PCP TEAM CHRONIC DISEASE VISIT [facility] Start: 12-25-2022 End: 02-24-2023 25-hydroxyvitamin D3 [Mass/volume] in Serum or Plasma VITAMIN D 25 HYDROXY Lab Routine Vitamin D deficiency Expected: 12/25/2022, Expires: 02/24/2023 [facility] Work Phone: Comment on above: Expected: 12/25/2022 , Expires: 02/24/2023 Start: 12-25-2022 End: 02-24-2023 CBC W Auto Differential panel - Blood CBC + DIFF Lab Routine Essential hypertension ADHD (attention deficit hyperactivity disorder), inattentive type Expected: 12/25/2022, Expires: 02/24/2023 [facility] Work Phone: Comment on above: Expected: 12/25/2022 , Expires: 02/24/2023 Start: 12-25-2022 End: 02-24-2023 Comprehensive metabolic 2000 panel - Serum or Plasma COMP METABOLIC PANEL Lab Routine Essential hypertension ADHD (attention deficit hyperactivity disorder), inattentive type Expected: 12/25/2022, Expires: 02/24/2023 [facility] Work Phone: Comment on above: Expected: 12/25/2022 , Expires: 02/24/2023 Start: 12-25-2022 End: 02-24-2023 Lipid 1996 panel - Serum or Plasma LIPID PANEL BASIC Lab Routine Essential hypertension Expected: 12/25/2022, Expires: 02/24/2023 [facility] Work Phone: Comment on above: Expected: 12/25/2022 , Expires: 02/24/2023 Start: 12-25-2022 End: 02-24-2023 TOX SCREEN ROUT UR TOX SCREEN ROUT UR Lab Routine Medication monitoring encounter Expected: 12/25/2022, Expires: 02/24/2023 [facility] Work Phone: Comment on above: Expected: 12/25/2022 , Expires: 02/24/2023 Start: 12-16-2022 BP CONTROLLED (<130/80) BP CONTROLLE D (<130/80) [facility] Start: 10-29-2022 DEPRESSION ASSESSMENT DEPRESSION ASS ESSMENT [facility] Start: 06-29-2022 Influenza vaccination [facility] Start: 06-13-2022 Mammography MAMMOGRAM [facility] Start: 05-15-2022 Adult depression screening assessment DEPRESSION SCREENING [facility] Start: 03-20-2022 End: 05-20-2022 VITAMIN D 25 HYDROXY VITAMIN D 25 HYDROXY Lab Routine Vitamin D deficiency Expected: 03/20/2022, Expires: 05/20/2022 [facility] Work Phone: Comment on above: Expected: 03/20/2022 , Expires: 05/20/2022 Start: 06-29-2021 Influenza vaccination INFLUENZA (#1) [facility] Start: 04-30-2021 COVID-19 VACCINE (3 - Booster for Moderna series) COVID-19 VACCINE (3 - Booster for Moderna series) [facility] Start: 01-26-2021 COVID-19 VACCINE (3 - Booster for Moderna series) COVID-19 VACCINE (3 - Booster for Moderna series) [facility] Start: 04-19-2020 HPV TESTING HPV TESTING [facility] Start: 04-19-2020 PAP TESTING PAP TESTING [facility] Start: 09-27-2017 End: 09-27-2017 Appointment Appointment [facility] Start: 08-30-2017 End: 08-30-2017 Appointment Appointment [facility] Start: 08-08-2017 End: 08-14-2017 Endometrial bx w/wo endocervix bx w/o dilat spx Endometrial Biopsy [facility] Start: 07-18-2017 End: 08-14-2017 Endometrial bx w/wo endocervix bx w/o dilat spx Endometrial Biopsy [facility] Start: 07-18-2017 End: 07-18-2017 Pathology Pathology [facility] Start: 07-12-2017 End: 08-14-2017 Us pelvic nonobstetric real-time image complete US Pelvis [facility] Start: 07-12-2017 End: 08-14-2017 Us transvaginal US Transvaginal [facility] Start: 2006 HPV Vaccine (1 - 3-d ose SCDM series) HPV Vaccine (1 - 3-dose SCDM series) [facility] Start: 1998 ONE PNEUMOVAX PRIOR TO AGE 65 ONE PNEUMOVAX PRIOR TO AGE 65 [facility] Start: 1997 Anxiety Screening Anxiety Screening [facility] Start: 1997 Depression Screening Depression Scre ening [facility] Start: 1997 SPIROMETRY SPIROMETRY [facility] Start: 1985 PNEUMOCOCCAL (1 - PCV) PNEUMOCOCCAL (1 - PCV) [facility] End: 11-28-2025 DBT Breast - bilateral screening NOLAN SCREENING W JUAN Radiology Routine Encounter for screening mammogram for breast cancer 1 Occurrences starting 10/29/2024 until 11/28/2025 [facility] Work Phone: Comment on above: 1 Occurrences starti ng 10/29/2024 until 11/28/2025 End: 07-27-2024 NOLAN SCREENING NOLAN SCREENING Radiology Routine Encounter for screening mammogram for malignant neoplasm of breast 1 Occurrences starting 06/28/2023 until 07/27/2024 [facility] Work Phone: Comment on above: 1 Occurrences starti ng 06/28/2023 until 07/27/2024 NOLAN SCREENING NOLAN SCREENING Ra diology Routine Encounter for screening mammogram for malignant neoplasm of breast 09/19/2023 10:37 AM EST [facility] Work Phone: End: 08-18-2023 Screening mammography bi 2-view breast inc cad NOLAN SCREENING Radiology Routine Encounter for screening mammogram for breast cancer 1 Occurrences starting 07/19/2022 until 08/18/2023 [facility] Work Phone: Comment on above: 1 Occurrences starti ng 07/19/2022 until 08/18/2023 End: 08-11-2022 Screening mammography bi 2-view breast inc cad [facility] Work Phone: Comment on above: 1 Occurrences starti ng 08/11/2022 until 08/11/2022 [facility] Immunizations Immunization Date Immunization Notes Care Provider [facility] 12-01-2020 COVID-19 vaccine, fu ll dose (MODERNA) Gordo Orourke MD Work Phone: [facility] 11-05-2020 COVID-19 vaccine, fu ll dose (MODERNA) Gordo Orourke MD Work Phone: [facility] 12-20-2019 tetanus toxoid, redu ernie diphtheria toxoid, and acellular pertussis vaccine, adsorbed Gordo Orourke MD Work Phone: [facility] 08-21-2018 influenza virus vacc ine, unspecified formulation Gordo Orourke MD Work Phone: [facility] 04-04-2004 hepatitis B vaccine, adult dosage Gordo Orourke MD Work Phone: [facility] 11-06-2003 hepatitis B vaccine, adult dosage Gordo Orourke MD Work Phone: [facility] 09-30-2003 hepatitis B vaccine, adult dosage Gordo Orourke MD Work Phone: [facility] Payers Date Payer Category Payer Private Health Insurance [id number] 2024 Private Health Insurance [id number] 2024 Private Health Insurance [id number] 2024 Self-pay [id number] 2022 Unknown [id number] 2022 Private Health Insurance [id number] 2019 Unknown MMO MMO [employer] [id number] 2019-Present [phone] [address] [place] [address] PPO [id number] 2016 Unknown [id number] Unknown [id number] Unknown [id number] 2 Unknown [id number] 2 Unknown [id number] 2 Unknown [id number] 2 Social History Date Type Detail Facility Tobacco smoking stat [facility] Unknown if ever smoked [facility] Work Phone: Start: 1980 Sex Assigned At Female [facility] Start: 08-31-2021 Tobacco smoking status LAIS Unknown if ever smoked [facility] Work Phone: Start: 06-22-2011 End: 11-21-2024 Tobacco smoking status NHIS Ex-smoker [facility] End: 06-29-2004 History of tobacco use Current smoker [facility] End: 06-29-2004 History of tobacco use Cigarette Smoker [facility] Start: 12-16-2021 End: 01-02-2024 Alcohol intake Current non-drinker of alcohol (finding) [facility] Start: 05-14-2021 End: 12-24-2022 History SDOH Alcohol Frequency 2 [facility] Start: 05-14-2021 End: 12-24-2022 History SDOH Alcohol Std Drinks 98 [facility] Start: 05-14-2021 End: 12-24-2022 History SDOH Alcohol Binge 1 [facility] Start: 05-14-2021 End: 12-24-2022 History SDOH Social Connections Phone 4 [facility] Start: 05-14-2021 End: 12-24-2022 History SDOH Social Connections Living 3 [facility] Start: 05-14-2021 End: 12-24-2022 History SDOH Physical Activity DPW 5 [facility] Start: 12-17-2019 Education 12 [facility] Start: 11-29-2021 End: 08-11-2022 Exposure to SARS-CoV-2 (event) Not sure [facility] Start: 06-22-2011 End: 12-09-2024 Tobacco use and exposure Smokeless tobacco non-user [facility] Start: 12-24-2022 End: 03-30-2023 History of Social function [facility] Start: 12-24-2022 End: 03-30-2023 Social connection and isolation panel [facility] Start: 09-29-2012 How often do you get together with friends or relatives? Patient refused [facility] Do you belong to any clubs or organizations such as restoration groups, unions, fraternal or athletic groups, or school groups? Yes [facility] Are you now , , , , never or living with a partner? [facility] How often to you hav e a drink containing alcohol? Monthly or less [facility] How many standard dr inks containing alcohol do you have on a typical day? 1 or 2 [facility] How often do you hav e 6 or more drinks on 1 occasion? Never [facility] Do you feel stress - tense, restless, nervous, or anxious, or unable to sleep at night because your mind is troubled all the time - these days [OSQ] Very much [facility] (I/We) worried jose er (my/our) food would run out before (I/we) got money to buy more. Never true [facility] In the past 12 month s, was there a time when you were not able to pay the mortgage or rent on time? No [facility] Start: 01-18-2019 Gender identity Identifies as female gender (finding) [facility] Start: 01-18-2019 Sexual orientation Heterosexual (finding) [facility] Do you feel stress - tense, restless, nervous, or anxious, or unable to sleep at night because your mind is troubled all the time - these days [OSQ] To some extent [facility] Start: 12-09-2024 End: 07-03-2025 Alcoholic beverage intake Ex-drinker (finding) [facility] yeni Functional Status Date Assessment Result Facility 04-19-2015 Are you deaf, or do you have serious difficulty hearing No 04/19/2015 2:31 PM EDSanjana Faustin RN No [facility] 04-19-2015 Are you blind, or do you have serious difficulty seeing, even when wearing glasses No 04/19/2015 2:31 PM EDSanjana Faustin RN [facility] 04-19-2015 Do you have serious difficulty walking or climbing stairs No 04/19/2015 2:31 PM EDSanjana Faustin RN [facility] 04-19-2015 Do you have difficul ty dressing or bathing No 04/19/2015 2:31 PM EDSanjana Faustin RN [facility] 04-19-2015 Because of a physica l, mental, or emotional condition, do you have difficulty doing errands alone such as visiting a physician's office or shopping No 04/19/2015 2:31 PM Sanjana Fierro RN [facility] Mental Status Date Assessment Result Facility 04-19-2015 Because of a physica l, mental, or emotional condition, do you have serious difficulty concentrating, remembering, or making decisions No 04/19/2015 2:31 PM EDSanjana Faustin RN No [facility] Clinical Notes 08-21-2018 to 08-18-2025 Note Date & Type Note Facility 08-18-2025 Progress note [facility] 08-18-2025 Evaluation note Diagnosis Onset Date Resolution Acid reflux acute August 18, 2025 2:20pm Blood in stool acute August 182024 2:20pm [facility] Work Phone: 1(630) 384-124410-21-2025 Progress note Author Rosy Vasquez [facility] Note Date/Time August 18, 2025 4 :30pm [facility] [address] [place] [address] OFFICE VISIT Date of Service: 08/18/25 MR#: [id number] Acct: [id number] Name: PAVITHRA MEYERS Rep #: [id number] : 1980 Provider: Dr. Sotero Vasquez MD Age/Sex: 45/F Location: [facility] Status: Signed Intake Vital Signs 11/21/24 14:20 08/18/25 14:41 Height 5 ft 8 in 5 ft 8 in Weight: 188 lb 6 oz BMI 28.6 BP 156/103 H Blood Pressure Location Rt brachial Position Sitting Respiration 18 Pulse 66 Pulse Source Monitor Temp 100 F H Pulse Oximetry (%) 100 Oxygen Delivery Method room air Intake Visit Reasons: CHANGE IN BOWEL HABITS Chief Complaint: change bowel habits Is patient in pain?: No Allergies Sulfa (Sulfonamide Antibiotics) Allergy (Verified 08/18/25 14:42) Rash hydrocodone (From [place]) Adverse Reaction (Verified 08/18/25 14:42) Vomiting Medications ?Medication ?Instructions ?Recorded ?Confirmed ?Type metoprolol succinate 50 mg 50 mg PO BID 04/21/2108/18 History tablet,extended release 24 hr ibuprofen 600 mg tablet 600 mg PO DAILY Pain 5 History multivitamin 1 tab PO QAM 08/18/25 History omega-3 fatty acids 1,000 mg 1,000 mg PO QDAY 08/18/25 08/18/25 History capsule tirzepatide 5 mg/0.5 mL 5 mg subcut QWEEK 08/18/25 1 History subcutaneous pen injector (Mounjaro) [facility] Medical History (Updated 08/18/25 @ 15:[address] Rosy Vasquez MD) Acid reflux Hypertension Dermoid cyst Migraines Generalized headaches Hyperlipemia Anemia Surgical History History of laparoscopic-assisted vaginal hysterectomy Hx of cholecystectomy Family History Father Diabetes Grandmother Uterine cancer Brother Acute leukemia Social History adopted: No household members: family housing: house number of children: 1 current occupational status: employed current occupational exposures/hazards: No Smoking Status: Former smoker alcohol intake: never substance use type: does not use well-balanced diet: daily or most days caffeine: Yes what type of physical activity do you participate in: none seatbelt use: always do you feel safe at home: Yes additional social history: Hunter VARGAS HPI HPI: 45-year-old female presents due to bright red blood per rectum. Patient does have known history of hemorrhoids but denies any treatment or pain. Patient states for some she never had bleeding per rectum as well. Patient does have a paternal first cousin that was diagnosed colon cancer at age 46 and a maternal grandmother that was diagnosed with colon cancer at age 50. Patient never had previous colonoscopy. Patient denies any abdominal pain/nausea/vomiting. Patient does take Pepcid 20 mg p.o. daily for about 2 years does control her reflux symptoms. Patient states that her bowel movements range between constipation diarrhea she can be constipated for 4 to 5 days and then have diarrhea. Patient is unsure exactly how much fiber she gets that she does drinkplenty water. ROS General General: Yes weight change and fatigue; No appetite, colon cancer or breast cancer HEENT HEENT: No difficulty swallowing, eye injury, eye surgery, swollen glands or hoarseness Endo Endocrine: No thyroid disease, diabetes mellitus, thyroid cancer, Hair loss, heat intolerance or cold intolerance Skin Skin: Yes changing moles; No rash Musc Musculoskeletal: No back problems, arthritis, rheumatoid arthritis, gout or joint pain Cardio Cardiovascular: Yes high blood pressure; No murmur, pacemaker, heart disease, atrial fibrillation, heart attack, heart stent, palpitations, shortness of breath with exertion or chest pain Psych Psychiatric: Yes anxiety; No depression or hearing voices Resp Respiratory: No shortness of breath, No sleep apnea, No cough, No COPD, No asthma, No emphysema and No wheezing Gastro Gastrointestinal: No abdominal pain, No nausea or vomiting, Yes diarrhea, Yes constipation, Yes blood in stool, Yes acid reflux, Yes hemorrhoids, No ulcers, No gallbladder problem and No black,tarry stools Cory Hematologic: No blood thinners, No blood disorders, No bleeding, No anemia and No blood clots Neuro Neurologic: Yes numbness (carpel tunnel) and Yes tingling Exam Const General: cooperative, healthy appearing, comfortable and no acute distress [facility] Head: normocephalic and atraumatic Neck Neck: supple Resp Effort & Inspection: normal respiratory effort Cardio Rate: regular rate GI Inspection: non-distended Palpation: soft and nontender Skin General: no rashes or lesions noted Neuro General: CN's II-XI intact bilaterally Extrem General: normal to inspection Psych Mental Status: mental status grossly normal Attitude: cooperative Assessment and Plan Assessment and Plan (1) Blood in stool: Status: Acute (2) Acid reflux: Status: Acute Plan Did go over her fiber she would patient recommend getting 25 g of fiber daily tosee if this could help her diarrhea constipation cycle. I have discussed the above with the patient. I have offered the patient esophagogastroduodenoscopy and colonoscopy for evaluation. I have explained the risks/benefits of the procedure and described the procedure. I have discussed the risks with the patient, including but not limited to: infection, bleeding, perforation of the GI tract requiring emergency surgery, inability to complete the procedure, injury to any internal organs, complications of anesthesia, etc. - the patient understands and agrees to proceed. I have answered all the patient's questions to the patient's satisfaction and the patient has no further questions. The patient has been given instructions for the colon cleansing preparation. 2- day of clears, Dulcolax first day and MiraLAX Dulcolax secondary prep. Rosy Vasquez M.D. Pager: [phone] [facility] [address] [place] [address], [address] [place] [address] Office: [phone] Coding Level of Care Code Off vis,new,level 3 Diagnoses Blood in stool K92.1 Acid reflux K21.9 08/18/25 0958 <Electronically signed by Rosy Razo am, MD> Date _ Rosy Vasquez MD Cosigner Signature: Date (if applicable) CC: ERIC Orozco ~ [facility] Work Phone: 1(406) 585-230510-03-2025 NoteHNO ID: [id number] Author: BRITTANY BYERS MA Service: ? Author Type: Avionics Systems Integration Specialist Type: Progress Notes Filed: 07/31/2025 08:02 Note Text: Patient identified by name and . Patient came for a weight check . Her weight was 190lbs. Patient handling zepbound well with no side effects. Brittany Byers, [facility]09-05-2025 NoteHNO ID: [id number] Author: RACHEL OROZCO APRN.[facility] Service: ? Author Type: Nurse Practitioner Type: Progress Notes Filed: 07/03/2025 08:31 Note Text: CHIEF COMPLAINT: The patient is a 45-year-old female presenting for follow-up and dose escalation of tirzepatide therapy. I reviewed past medical, surgical, social, and family histories today and updated chart. Allergies, chronic medications, and supplements were also reviewed. Recording using [employer] software for draft documentation of the visit was discussed with the patient/authorized customer account representative; all questions welcomed and answered. Patient/authorized customer account representative agreed to proceed Weight Management: - Currently on tirzepatide, 2.5 mg. - No significant weight loss noted yet. - No adverse effects such as nausea, diarrhea, or constipation. - Pavithra reports mild exacerbation of pre-existing acid indigestion after the first injection. - Denies increased heart rate. - Pavithra's diet includes high protein intake from eggs, shakes, yogurt, and cottage cheese; limited meat consumption. - Increased water intake to approximately half a gallon per day. - Pavithra engages in exercise 3 times a week, including strength training with dumbbells and kettlebells. ADHD: - Well-managed with Adderall; reports being on a stable dose at 20 mg. OV 06/05/25: ADHD: - Recent increase in Adderall dosage to 20 mg has been beneficial. - Previously tolerated 30 mg well. - Occasionally skips doses on weekends unless working from home. - Denies current appetite suppression from Adderall; initially noticed reduced food cravings. Weight Loss: - Reports weight has been stable without significant loss. - Expresses interest in trying compounded semaglutide or tirzepatide for weight loss. - Previously used Adipex for 3 months post- with successful weight loss. - Engages in regular physical activity, including walking and weightlifting. - Describes self as a bored and stress eater. - Hopes weight loss will alleviate lower back, knee, and foot pain. PAST MEDICAL HISTORY Diagnosis Date ADHD (attention deficit hyperactivity disorder) Asthma, acute (HCC) Resolved HTN (hypertension) Hypercholesteremia Migraines Other acne Resolved Other and unspecified hyperlipidemia Hyperlipidemia, Resolved PAST SURGICAL HISTORY Procedure Laterality Date CHOLECYSTECTOMY 05/2016 VAGINAL HYSTERECTOMY UTERUS 250 GM/< 07/2017 Hysterectomy, vaginal Dr Gallego bilateral ovarian cystectomy bilateral salpingectomy and cystoscopy wisdom teeth SOCIAL HISTORY[1] ALLERGIES Allergen Reactions Sulfa (Sulfonamide * Rash Family History Problem Relation Age of Onset Diabetes Father Hypertension Father Lipids Father High Cholesterol Colon Cancer Maternal Grandmother Cancer Maternal Grandmother Uterine Cancer Brother Leukemia Current Outpatient Medications Medication Sig Dispense Refill metoprolol succinate ER (TOPROL XL) 50 mg 24 hr tablet Take 1 tablet by mouth once daily. 90 tablet 1 cholecalciferol (VITAMIN D-3) 50 mcg (2,000 unit) tablet Take 1 tablet by mouth once daily. 90 tablet 3 esomeprazole (NEXIUM) 20 mg capsule Take 1 capsule by mouth DAILY (6 AM). MULTIVITAMIN ORAL Take by mouth once daily. CALCIUM ORAL Take by mouth one time a week. amphetamine-dextroamphetamine XR (ADDERALL XR) 20 mg capsule Take 1 capsule by mouth once daily for 30 days. 30 capsule 0 tirzepatide, weight loss (ZEPBOUND) 5 mg/0.5 mL solution Inject 0.5 mL subcutaneously one time a week. 2 mL 2 No current facility-administered medications for this visit. Review of Systems Cardiovascular: (-) tachycardia Gastrointestinal: (+) heartburn BP 112/64 Pulse 67 Temp (Src) 98.4 (Oral) Resp 18 Ht 5' 7 (1.70m) Wt 194 lb (88.0kg) SpO2 100% LMP 07/19/2016 BMI 30.38 kg/(m2). Physical Exam GENERAL: NAD, alert and oriented LUNGS: Clear bilaterally HEART: Regular rate and rhythm EXTREMITIES: Normal, No deformities, No skin discoloration, No edema. NEURO: Awake, alert and oriented x3 No visits with results within 1 Day(s) from this visit. Latest known visit with results is: Appointment on 12/09/2024 Component Date Value Ref Range Status Cholesterol, Total 12/09/2024 206 (H) <200 mg/dL Final <200 mg/dL, Desirable 200-239 mg/dL, Borderline high >239 mg/dL, High Triglyceride 12/09/2024 225 (H) <150 mg/dL Final <150 mg/dL, Normal 150-199 mg/dL, Borderline high 200-499 mg/dL, High >499 mg/dL, Very high HDL Cholesterol 12/09/2024 40 >39 mg/dL Final 40-59 mg/dL, Acceptable >59 mg/dL, High: Negative risk factor for coronary heart disease <40 mg/dL, Low: Positive risk factor for coronary heart disease Non HDL Cholesterol 12/09/2024 166 (H) <130 mg/dL Final <130 mg/dL, Optimal 130-159 mg/dL, Near optimal/above optimal 160-189 mg/dL, Borderline high 190-219 mg/dL, High >219 mg/dL, Very high S (more content not included)...[facility]09-05-2025 History of Present illness Narrative* Rachel Orozco, LOLY.INSTRUMENT TECHNICIAN APPRENTICE - 07/03/2025 8:18 AM EDT CHIEF COMPLAINT: The patient is a 45-year-old female presenting for follow-up and dose escalation of tirzepatide therapy. I reviewed past medical, surgical, social, and family histories today and updated chart. Allergies, chronic medications, and supplements were also reviewed. Recording using [employer] software for draft documentation of the visit was discussed with the patient/authorized customer account representative; all questions welcomed and answered. Patient/authorized customer account representative agreed to proceed Weight Management: - Currently on tirzepatide, 2.5 mg. - No significant weight loss noted yet. - No adverse effects such as nausea, diarrhea, or constipation. - Pavithra reports mild exacerbation of pre-existing acid indigestion after the first injection. - Denies increased heart rate. - Pavithra's diet includes high protein intake from eggs, shakes, yogurt, and cottage cheese; limited meat consumption. - Increased water intake to approximately half a gallon per day. - Pavithra engages in exercise 3 times a week, including strength training with dumbbells and kettlebells. ADHD: - Well-managed with Adderall; reports being on a stable dose at 20 mg. OV 06/05/25: ADHD: - Recent increase in Adderall dosage to 20 mg has been beneficial. - Previously tolerated 30 mg well. - Occasionally skips doses on weekends unless working from home. - Denies current appetite suppression from Adderall; initially noticed reduced food cravings. Weight Loss: - Reports weight has been stable without significant loss. - Expresses interest in trying compounded semaglutide or tirzepatide for weight loss. - Previously used Adipex for 3 months post- with successful weight loss. - Engages in regular physical activity, including walking and weightlifting. - Describes self as a bored and stress eater. - Hopes weight loss will alleviate lower back, knee, and foot pain. PAST MEDICAL HISTORY Diagnosis Date ADHD (attention deficit hyperactivity disorder) Asthma, acute (HCC) Resolved HTN (hypertension) Hypercholesteremia Migraines Other acne Resolved Other and unspecified hyperlipidemia Hyperlipidemia, Resolved PAST SURGICAL HISTORY Procedure Laterality Date CHOLECYSTECTOMY 05/2016 VAGINAL HYSTERECTOMY UTERUS 250 GM/< 07/2017 Hysterectomy, vaginal Dr Gallego bilateral ovarian cystectomy bilateral salpingectomy and cystoscopy wisdom teeth SOCIAL HISTORY[1] ALLERGIES Allergen Reactions Sulfa (Sulfonamide * Rash Family History Problem Relation Age of Onset Diabetes Father Hypertension Father Lipids Father High Cholesterol Colon Cancer Maternal Grandmother Cancer Maternal Grandmother Uterine Cancer Brother Leukemia Current Outpatient Medications Medication Sig Dispense Refill metoprolol succinate ER (TOPROL XL) 50 mg 24 hr tablet Take 1 tablet by mouth once daily. 90 tablet1 cholecalciferol (VITAMIN D-3) 50 mcg (2,000 unit) tablet Take 1 tablet by mouth once daily. 90 tablet 3 esomeprazole (NEXIUM) 20 mg capsule Take 1 capsule by mouth DAILY (6 AM). MULTIVITAMIN ORAL Take by mouth once daily. CALCIUM ORAL Take by mouth one time a week. amphetamine-dextroamphetamine XR (ADDERALL XR) 20 mg capsule Take 1 capsule by mouth once daily for30 days. 30 capsule 0 tirzepatide, weight loss (ZEPBOUND) 5 mg/0.5 mL solution Inject 0.5 mL subcutaneously one time a week. 2 mL 2 No current facility-administered medications for this visit. Review of Systems Cardiovascular: (-) tachycardia Gastrointestinal: (+) heartburn BP 112/64 Pulse 67 Temp (Src) 98.4 (Oral) Resp 18 Ht 5' 7 (1.70m) Wt 194 lb (88.0kg) SpO2 100% LMP 07/19/2016 BMI 30.38 kg/(m^2). Physical Exam GENERAL: NAD, alert and oriented LUNGS: Clear bilaterally HEART: Regular rate and rhythm EXTREMITIES: Normal, No deformities, No skin discoloration, No edema. NEURO: Awake, alert and oriented x3 No visits with results within 1 Day(s) from this visit. Latest known visit with results is: Appointment on 12/09/2024 Component Date Value Ref Range Status Cholesterol, Total 12/09/2024 206 (H) <200 mg/dL Final <200 mg/dL, Desirable 200-239 mg/dL, Borderline high >239 mg/dL, High Triglyceride 12/09/2024 225 (H) <150 mg/dL Final <150 mg/dL, Normal 150-199 mg/dL, Borderline high 200-499 mg/dL, High >499 mg/dL, Very high HDL Cholesterol 12/09/2024 40 >39 mg/dL Final 40-59 mg/dL, Acceptable >59 mg/dL, High: Negative risk factor for coronary heart disease <40 mg/dL, Low: Positive risk factor for coronary heart disease Non HDL Cholesterol 12/09/2024 166 (H) <130 mg/dL Final <130 mg/dL, Optimal 130-159 mg/dL, Near optimal/above optimal 160-189 mg/dL, Borderline high 190-219 mg/dL, High >219 mg/dL, Very high Secondary prevention optimal non HDL Cholesterol levels are recommended to be <100 mg/dL Fasting Time 12/09/2024 12 hrs Final VLDL Cholesterol 12/09/2024 45 (H) <30 mg/dL Final TC:HDL Ratio 12/09/2024 5.15 (H) <5.10 Final LDL Cholesterol, Calculated 12/09/2024 121 (H) <100 mg/dL Final <100 mg/dL, Optimal 100-129 mg/dL, Near optimal/above optimal 130-159 mg/dL, Borderline high 160-189 mg/dL, High >189 mg/dL, Very high Secondary prevention optimal LDL Cholesterol levels are recommended to be < 70 mg/dL LDL:HDL Ratio 12/09/2024 3.03 (H) <2.54 Final Reference: 1. National Cholesterol Education Program ATP III Guideline At-A-Glance Quick Desk Reference: National Heart, Lung, and Blood [place]. National Institutes of Health. 2001: NIH Publication No. 01-3305. 2. An International Atherosclerosis Society position paper: global recommendations for the management of dyslipidemia: executive summary, Atherosclerosis. 2014: 232(2):410-413. Protein, Total 12/09/2024 8.1 (H) 6.3 - 8.0 g/dL Final Albumin 12/09/2024 4.2 3.9 - 4.9 g/dL Final Calcium, Total 12/09/2024 9.5 8.5 - 10.2 mg/dL Final Bilirubin, Total 12/09/2024 0.3 0.2 - 1.3 mg/dL Final Alkaline Phosphatase 12/09/2024 110 34 - 123 U/L Final AST 12/09/2024 14 13 - 35 U/L Final ALT 12/09/2024 15 7 - 38 U/L Final Glucose 12/09/2024 96 74 - 99 mg/dL Final The [place] [employer] (ADA) provides guidance for cutoff values for fasting glucose andrandom glucose. The ADA defines fasting as no caloric intake for at least 8 hours. Fasting plasma glucose results between 100 to 125 mg/dL indicate increased risk for diabetes (prediabetes). Fasting plasma glucose results greater than or equal to 126 mg/dL meet the criteria for diagnosis of diabetes. In the absence of unequivocal hyperglycemia, results should be confirmed by repeat testing. In a patient with classic symptoms of hyperglycemia or hyperglycemic crisis, random plasma glucose results greater than or equal to 200 mg/dL meet the criteria for diagnosis of diabetes. Reference: Standards of Medical Care in Diabetes 2016, [place] [employer]. Diabetes Care. 2016.39(Suppl 1). BUN 12/09/2024 14 7 - 21 mg/dL Final Creatinine 12/09/2024 0.82 0.58 - 0.96 mg/dL Final Sodium 12/09/2024 138 136 - 144 mmol/L Final Potassium 12/09/2024 4.8 3.7 - 5.1 mmol/L Final Chloride 12/09/2024 103 98 - 107 mmol/L Final CO2 12/09/2024 26 22 - 30 mmol/L Final Anion Gap 12/09/2024 9 8 - 15 mmol/L Final Estimated Glomerular Filtration Ra* 12/09/2024 90 >=60 mL/min/1.73m Final Estimated Glomerular Filtration Rate (eGFR) is calculated using the 2020 CKD-EPI creatinine equation. This equation utilizes serum creatinine, sex, and age as parameters. The creatinine assay has traceable calibration to isotope dilution- mass spectrometry. Refer to KDIGO guidelines for clinical interpretation. In patients with unstable renal function, e.g. those with acute kidney injury, the eGFRmay not accurately reflect actual GFR. WBC 12/09/2024 5.71 3.70 - 11.00 k/uL Final RBC 12/09/2024 4.60 3.90 - 5.20 m/uL Final Hemoglobin 12/09/2024 13.6 11.5 - 15.5 g/dL Final Hematocrit 12/09/2024 40.6 36.0 - 46.0 % Final MCV 12/09/2024 88.3 80.0 - 100.0 fL Final MCH 12/09/2024 29.6 26.0 - 34.0 pg Final MCHC 12/09/2024 33.5 30.5 - 36.0 g/dL Final RDW-CV 12/09/2024 12.3 11.5 - 15.0 % Final Platelet Count 12/09/2024 328 150 - 400 k/uL Final MPV 12/09/2024 10.2 9.0 - 12.7 fL Final Neutrophils % 12/09/2024 63.5 % Final Abs Neut 12/09/2024 3.63 1.45 - 7.50 k/uL Final Lymphocytes % 12/09/2024 26.8 % Final Abs Lymph 12/09/2024 1.53 1.00 - 4.00 k/uL Final Monocytes % 12/09/2024 7.0 % Final Abs [place] 12/09/2024 0.40 <0.87 k/uL Final Eosinophils % 12/09/2024 2.1 % Final Abs Eosin 12/09/2024 0.12 <0.46 k/uL Final Basophils % 12/09/2024 0.4 % Final Abs Baso 12/09/2024 <0.03 <0.11 k/uL Final Immature Granulocytes % 12/09/2024 0.2 % Final Abs Immature Gran 12/09/2024 <0.03 <0.10 k/uL Final Diff Type 12/09/2024 Auto Final Hemoglobin A1C 12/09/2024 5.0 4.3 - 5.6 % Final [place] [employer] guidelines indicate that patients with HgbA1c in the range 5.7-6.4% are at increased risk for development of diabetes, and intervention by lifestyle modification may be beneficial. HgbA1c greater or equal to 6.5% is considered diagnostic of diabetes. Estimated Average Glucose 12/09/2024 97 mg/dL Final eAG: (Estimated average glucose) is a calculated value from HgbA1c and is customer account representative of the average blood glucose level in the last 2-3 month period. Vitamin D 25 Hydroxy 12/09/2024 27.7 (L) >=30.0 ng/mL Final Classification of 25 [place] Vitamin D status: Deficiency: <= 20.0 ng/ml. Insufficiency: 21.0-29.0 ng/ml. Sufficiency: >= 30.0 ng/ml. ASSESSMENT/PLAN: 1. ADHD (attention deficit hyperactivity disorder), inattentive type (F90.0) - Stable on current Adderall regimen. - Refill for Adderall sent. - UDS and contract UTD 2. Obesity, Class I, BMI 30-34.9 (E66.811) 3. Difficulty losing weight (R68.89) - No significant weight loss observed on initial tirzepatide dose; no significant side effects reported. - Increase tirzepatide dose to 5 mg; instructed on administration (0.5 mL = 50 units). - Discussed potential for increased weight loss with higher dose; advised to monitor for side effects and report any concerns. - Encouraged continuation of dietary modifications, increased water intake, and regular exercise, including strength training. - Follow-up in 3-4 weeks for weight check and assessment of medication tolerance; patient may contact sooner if issues arise or if considering dose increase to 7.5 mg. PDMP website checked and validated. All prescriptions have been APPROPRIATELY filled. No suspiciousactivity was identified. 07/03/2025 by Rachel Orozco APRN.CNP New medication(s) prescribed today: Yes: Tirzepitide. Discussed new medication dosage, usage, goalsof therapy, and side effects. Patient has been apprised of any potential drug interactions to be aware of. Patient expresses understanding. Counseling completed in adopting health behaviors such as avoiding excessive alcohol use, avoid tobacco use, improve nutrition, and engage in physical activities. Copy of written care plan, clinical summary, treatment plan, new medications, goals, and self management requirements were given to patient. Rachel Orozco APRN.CNP [1] Social History Tobacco Use Smoking status: Former Current packs/day: 0.00 Types: Cigarettes Quit date: 06/29/2004 Years since quittin.0 Smokeless tobacco: Never Vaping Use Vaping status: Never Used Substance Use Topics Alcohol use: Not Currently Drug use: [facility] NoteHNO ID: [id number] Author: RACHEL OROZCO APRN.CNP Service: ? Author Type: Nurse Practitioner Type: Progress Notes Filed: 06/07/2025 20:39 Note Text: CHIEF COMPLAINT: Pavithra Meyers is a 44-year-old female with a history of ADHD, presenting for follow-up on medication management and weight loss. I reviewed past medical, surgical, social, and family histories today and updated chart. Allergies, chronic medications, and supplements were also reviewed. Recording using [employer] software for draft documentation of the visit was discussed with the patient/authorized customer account representative; all questions welcomed and answered. Patient/authorized customer account representative agreed to proceed ADHD: - Recent increase in Adderall dosage to 20 mg has been beneficial. - Previously tolerated 30 mg well. - Occasionally skips doses on weekends unless working from home. - Denies current appetite suppression from Adderall; initially noticed reduced food cravings. Weight Loss: - Reports weight has been stable without significant loss. - Expresses interest in trying compounded semaglutide or tirzepatide for weight loss. - Previously used Adipex for 3 months post- with successful weight loss. - Engages in regular physical activity, including walking and weightlifting. - Describes self as a bored and stress eater. - Hopes weight loss will alleviate lower back, knee, and foot pain. Past Medical History: No date: ADHD (attention deficit hyperactivity disorder) No date: Asthma, acute (HCC) Comment: Resolved No date: HTN (hypertension) No date: Hypercholesteremia No date: Migraines No date: Other acne Comment: Resolved No date: Other and unspecified hyperlipidemia Comment: Hyperlipidemia, Resolved PAST SURGICAL HISTORY Procedure Laterality Date CHOLECYSTECTOMY 05/2016 VAGINAL HYSTERECTOMY UTERUS 250 GM/< 07/2017 Hysterectomy, vaginal Dr Gallego bilateral ovarian cystectomy bilateral salpingectomy and cystoscopy wisdom teeth Social History Tobacco Use Smoking status: Former Current packs/day: 0.00 Types: Cigarettes Quit date: 06/29/2004 Years since quittin.9 Smokeless tobacco: Never Vaping Use Vaping status: Never Used Substance Use Topics Alcohol use: Not Currently Drug use: Never Allergies Allergen Reactions Sulfa (Sulfonamide * Rash Family History Problem Relation Age of Onset Diabetes Father Hypertension Father Lipids Father High Cholesterol Colon Cancer Maternal Grandmother Cancer Maternal Grandmother Uterine Cancer Brother Leukemia Current Outpatient Medications Medication Sig Dispense Refill amphetamine-dextroamphetamine XR (ADDERALL XR) 20 mg capsule Take 1 capsule by mouth once daily for 30 days. 30 capsule 0 metoprolol succinate ER (TOPROL XL) 50 mg 24 hr tablet Take 1 tablet by mouth once daily. 90 tablet 1 cholecalciferol (VITAMIN D-3) 50 mcg (2,000 unit) tablet Take 1 tablet by mouth once daily. 90 tablet 3 esomeprazole (NEXIUM) 20 mg capsule Take 1 capsule by mouth DAILY (6 AM). MULTIVITAMIN ORAL Take by mouth once daily. CALCIUM ORAL Take by mouth one time a week. tirzepatide, weight loss (ZEPBOUND) 2.5 mg/0.5 mL solution Inject 0.5 mL subcutaneously one time a week. 2 mL 0 No current facility-administered medications for this visit. Review of Systems Musculoskeletal: (+) low back pain, (+) knee pain, (+) foot pain BP 114/62 Pulse 65 Temp (Src) 98 (Oral) Resp 18 Ht 5' 7 (1.70m) Wt 194 lb (88.0kg) SpO2 98% LMP 07/19/2016 BMI 30.38 kg/(m2). Physical Exam GENERAL: NAD, alert and oriented LUNGS: Clear to auscultation bilaterally, no wheezes/rhonchi/rales. HEART: Regular rate and rhythm, no murmurs. No ectopy. EXTREMITIES: Normal, No deformities, No skin discoloration, No edema. NEURO: Awake, alert and oriented x3 No visits with results within 1 Day(s) from this visit. Latest known visit with results is: Appointment on 12/09/2024 Component Date Value Ref Range Status Cholesterol, Total 12/09/2024 206 (H) <200 mg/dL Final <200 mg/dL, Desirable 200-239 mg/dL, Borderline high >239 mg/dL, High Triglyceride 12/09/2024 225 (H) <150 mg/dL Final <150 mg/dL, Normal 150-199 mg/dL, Borderline high 200-499 mg/dL, High >499 mg/dL, Very high HDL Cholesterol 12/09/2024 40 >39 mg/dL Final 40-59 mg/dL, Acceptable >59 mg/dL, High: Negative risk factor for coronary heart disease <40 mg/dL, Low: Positive risk factor for coronary heart disease Non HDL Cholesterol 12/09/2024 166 (H) <130 mg/dL Final <130 mg/dL, Optimal 130-159 mg/dL, Near optimal/above optimal 160-189 mg/dL, Borderline high 190-219 mg/dL, High >219 mg/dL, Very high Secondary prevention optimal non HDL Cholesterol levels are recommended to be <100 mg/dL Fasting Time 12/09/2024 12 hrs Final VLDL Cholesterol 12/09/2024 45 (H) <30 mg/dL Final TC:HDL Ratio 12/09/2024 5.15 (H) <5.10 Final LDL Cholesterol, Calculated (more content not included)...[facility]08-08-2025 History of Present illness Narrative* Rachel Orozco APRN.INSTRUMENT TECHNICIAN APPRENTICE - 06/05/2025 2:00 PM EDT CHIEF COMPLAINT: Pavithra Meyers is a 44-year-old female with a history of ADHD, presenting for follow-up on medication management and weight loss. I reviewed past medical, surgical, social, and family histories today and updated chart. Allergies,chronic medications, and supplements were also reviewed. Recording using [employer] software for draft documentation of the visit was discussed with the patient/authorized customer account representative; all questions welcomed and answered. Patient/authorized customer account representative agreed to proceed ADHD: - Recent increase in Adderall dosage to 20 mg has been beneficial. - Previously tolerated 30 mg well. - Occasionally skips doses on weekends unless working from home. - Denies current appetite suppression from Adderall; initially noticed reduced food cravings. Weight Loss: - Reports weight has been stable without significant loss. - Expresses interest in trying compounded semaglutide or tirzepatide for weight loss. - Previously used Adipex for 3 months post- with successful weight loss. - Engages in regular physical activity, including walking and weightlifting. - Describes self as a bored and stress eater. - Hopes weight loss will alleviate lower back, knee, and foot pain. Past Medical History: No date: ADHD (attention deficit hyperactivity disorder) No date: Asthma, acute (HCC) Comment: Resolved No date: HTN (hypertension) No date: Hypercholesteremia No date: Migraines No date: Other acne Comment: Resolved No date: Other and unspecified hyperlipidemia Comment: Hyperlipidemia, Resolved PAST SURGICAL HISTORY Procedure Laterality Date CHOLECYSTECTOMY 05/2016 VAGINAL HYSTERECTOMY UTERUS 250 GM/< 07/2017 Hysterectomy, vaginal Dr Gallego bilateral ovarian cystectomy bilateral salpingectomy and cystoscopy wisdom teeth Social History Tobacco Use Smoking status: Former Current packs/day: 0.00 Types: Cigarettes Quit date: 06/29/2004 Years since quittin.9 Smokeless tobacco: Never Vaping Use Vaping status: Never Used Substance Use Topics Alcohol use: Not Currently Drug use: Never Allergies Allergen Reactions Sulfa (Sulfonamide * Rash Family History Problem Relation Age of Onset Diabetes Father Hypertension Father Lipids Father High Cholesterol Colon Cancer Maternal Grandmother Cancer Maternal Grandmother Uterine Cancer Brother Leukemia Current Outpatient Medications Medication Sig Dispense Refill amphetamine-dextroamphetamine XR (ADDERALL XR) 20 mg capsule Take 1 capsule by mouth once daily for30 days. 30 capsule 0 metoprolol succinate ER (TOPROL XL) 50 mg 24 hr tablet Take 1 tablet by mouth once daily. 90 tablet1 cholecalciferol (VITAMIN D-3) 50 mcg (2,000 unit) tablet Take 1 tablet by mouth once daily. 90 tablet 3 esomeprazole (NEXIUM) 20 mg capsule Take 1 capsule by mouth DAILY (6 AM). MULTIVITAMIN ORAL Take by mouth once daily. CALCIUM ORAL Take by mouth one time a week. tirzepatide, weight loss (ZEPBOUND) 2.5 mg/0.5 mL solution Inject 0.5 mL subcutaneously one time a week. 2 mL 0 No current facility-administered medications for this visit. Review of Systems Musculoskeletal: (+) low back pain, (+) knee pain, (+) foot pain BP 114/62 Pulse 65 Temp (Src) 98 (Oral) Resp 18 Ht 5' 7 (1.70m) Wt 194 lb (88.0kg) SpO2 98% LMP 07/19/2016 BMI 30.38 kg/(m^2). Physical Exam GENERAL: NAD, alert and oriented LUNGS: Clear to auscultation bilaterally, no wheezes/rhonchi/rales. HEART: Regular rate and rhythm, no murmurs. No ectopy. EXTREMITIES: Normal, No deformities, No skin discoloration, No edema. NEURO: Awake, alert and oriented x3 No visits with results within 1 Day(s) from this visit. Latest known visit with results is: Appointment on 12/09/2024 Component Date Value Ref Range Status Cholesterol, Total 12/09/2024 206 (H) <200 mg/dL Final <200 mg/dL, Desirable 200-239 mg/dL, Borderline high >239 mg/dL, High Triglyceride 12/09/2024 225 (H) <150 mg/dL Final <150 mg/dL, Normal 150-199 mg/dL, Borderline high 200-499 mg/dL, High >499 mg/dL, Very high HDL Cholesterol 12/09/2024 40 >39 mg/dL Final 40-59 mg/dL, Acceptable >59 mg/dL, High: Negative risk factor for coronary heart disease <40 mg/dL, Low: Positive risk factor for coronary heart disease Non HDL Cholesterol 12/09/2024 166 (H) <130 mg/dL Final <130 mg/dL, Optimal 130-159 mg/dL, Near optimal/above optimal 160-189 mg/dL, Borderline high 190-219 mg/dL, High >219 mg/dL, Very high Secondary prevention optimal non HDL Cholesterol levels are recommended to be <100 mg/dL Fasting Time 12/09/2024 12 hrs Final VLDL Cholesterol 12/09/2024 45 (H) <30 mg/dL Final TC:HDL Ratio 12/09/2024 5.15 (H) <5.10 Final LDL Cholesterol, Calculated 12/09/2024 121 (H) <100 mg/dL Final <100 mg/dL, Optimal 100-129 mg/dL, Near optimal/above optimal 130-159 mg/dL, Borderline high 160-189 mg/dL, High >189 mg/dL, Very high Secondary prevention optimal LDL Cholesterol levels are recommended to be < 70 mg/dL LDL:HDL Ratio 12/09/2024 3.03 (H) <2.54 Final Reference: 1. National Cholesterol Education Program ATP III Guideline At-A-Glance Quick Desk Reference: National Heart, Lung, and Blood [place]. National Institutes of Health. 2001: NIH Publication No. 01-3305. 2. An International Atherosclerosis Society position paper: global recommendations for the management of dyslipidemia: executive summary, Atherosclerosis. 2014: 232(2):410-413. Protein, Total 12/09/2024 8.1 (H) 6.3 - 8.0 g/dL Final Albumin 12/09/2024 4.2 3.9 - 4.9 g/dL Final Calcium, Total 12/09/2024 9.5 8.5 - 10.2 mg/dL Final Bilirubin, Total 12/09/2024 0.3 0.2 - 1.3 mg/dL Final Alkaline Phosphatase 12/09/2024 110 34 - 123 U/L Final AST 12/09/2024 14 13 - 35 U/L Final ALT 12/09/2024 15 7 - 38 U/L Final Glucose 12/09/2024 96 74 - 99 mg/dL Final The [place] [employer] (ADA) provides guidance for cutoff values for fasting glucose andrandom glucose. The ADA defines fasting as no caloric intake for at least 8 hours. Fasting plasma glucose results between 100 to 125 mg/dL indicate increased risk for diabetes (prediabetes). Fasting plasma glucose results greater than or equal to 126 mg/dL meet the criteria for diagnosis of diabetes. In the absence of unequivocal hyperglycemia, results should be confirmed by repeat testing. In a patient with classic symptoms of hyperglycemia or hyperglycemic crisis, random plasma glucose results greater than or equal to 200 mg/dL meet the criteria for diagnosis of diabetes. Reference: Standards of Medical Care in Diabetes 2016, [place] [employer]. Diabetes Care. 2016.39(Suppl 1). BUN 12/09/2024 14 7 - 21 mg/dL Final Creatinine 12/09/2024 0.82 0.58 - 0.96 mg/dL Final Sodium 12/09/2024 138 136 - 144 mmol/L Final Potassium 12/09/2024 4.8 3.7 - 5.1 mmol/L Final Chloride 12/09/2024 103 98 - 107 mmol/L Final CO2 12/09/2024 26 22 - 30 mmol/L Final Anion Gap 12/09/2024 9 8 - 15 mmol/L Final Estimated Glomerular Filtration Ra* 12/09/2024 90 >=60 mL/min/1.73m Final Estimated Glomerular Filtration Rate (eGFR) is calculated using the 2020 CKD-EPI creatinine equation. This equation utilizes serum creatinine, sex, and age as parameters. The creatinine assay has traceable calibration to isotope dilution- mass spectrometry. Refer to KDIGO guidelines for clinical interpretation. In patients with unstable renal function, e.g. those with acute kidney injury, the eGFRmay not accurately reflect actual GFR. WBC 12/09/2024 5.71 3.70 - 11.00 k/uL Final RBC 12/09/2024 4.60 3.90 - 5.20 m/uL Final Hemoglobin 12/09/2024 13.6 11.5 - 15.5 g/dL Final Hematocrit 12/09/2024 40.6 36.0 - 46.0 % Final MCV 12/09/2024 88.3 80.0 - 100.0 fL Final MCH 12/09/2024 29.6 26.0 - 34.0 pg Final MCHC 12/09/2024 33.5 30.5 - 36.0 g/dL Final RDW-CV 12/09/2024 12.3 11.5 - 15.0 % Final Platelet Count 12/09/2024 328 150 - 400 k/uL Final MPV 12/09/2024 10.2 9.0 - 12.7 fL Final Neutrophils % 12/09/2024 63.5 % Final Abs Neut 12/09/2024 3.63 1.45 - 7.50 k/uL Final Lymphocytes % 12/09/2024 26.8 % Final Abs Lymph 12/09/2024 1.53 1.00 - 4.00 k/uL Final Monocytes % 12/09/2024 7.0 % Final Abs [place] 12/09/2024 0.40 <0.87 k/uL Final Eosinophils % 12/09/2024 2.1 % Final Abs Eosin 12/09/2024 0.12 <0.46 k/uL Final Basophils % 12/09/2024 0.4 % Final Abs Baso 12/09/2024 <0.03 <0.11 k/uL Final Immature Granulocytes % 12/09/2024 0.2 % Final Abs Immature Gran 12/09/2024 <0.03 <0.10 k/uL Final Diff Type 12/09/2024 Auto Final Hemoglobin A1C 12/09/2024 5.0 4.3 - 5.6 % Final [place] [employer] guidelines indicate that patients with HgbA1c in the range 5.7-6.4% are at increased risk for development of diabetes, and intervention by lifestyle modification may be beneficial. HgbA1c greater or equal to 6.5% is considered diagnostic of diabetes. Estimated Average Glucose 12/09/2024 97 mg/dL Final eAG: (Estimated average glucose) is a calculated value from HgbA1c and is customer account representative of the average blood glucose level in the last 2-3 month period. Vitamin D 25 Hydroxy 12/09/2024 27.7 (L) >=30.0 ng/mL Final Classification of 25 [place] Vitamin D status: Deficiency: <= 20.0 ng/ml. Insufficiency: 21.0-29.0 ng/ml. Sufficiency: >= 30.0 ng/ml. Labs: - Laboratory evaluation: Normal liver enzymes and kidney function. ASSESSMENT/PLAN: 1. ADHD (attention deficit hyperactivity disorder), inattentive type (F90.0) - Recent increase in Adderall dose to 20 mg has provided some improvement in focus; patient previously tolerated 30 mg without issues. - Patient takes Adderall on weekdays and occasionally on weekends when working from home. - Continue Adderall 20 mg as currently prescribed. 2. Anxiety (F41.9) 3. Essential hypertension (I10) 4. Obesity, Class I, BMI 30-34.9 (E66.811) 5. Difficulty losing weight (R68.89) - Persistent weight plateau despite regular physical activity and weightlifting. - Discussed GLP-1 agonist options (semaglutide and tirzepatide) for weight loss, including cost, administration, and side effects. - Start tirzepitide, initial dose per compounding pharmacy protocol. - Educated on contraindications (history of pancreatitis, family history of medullary thyroid cancer), common side effects (GI symptoms, constipation, potential muscle mass loss), and importance of adequate hydration, fiber, and protein intake. - Advised to administer injections on a consistent day each week, keep medication refrigerated, anduse proper injection technique. - Instructed to monitor for severe abdominal pain, nausea, or vomiting and to withhold next dose and notify clinic if these occur. - Follow-up in 1 month to assess weight loss progress and medication tolerance. New medication(s) prescribed today: Yes: Tirzepitide. Discussed new medication dosage, usage, goalsof therapy, and side effects. Patient has been apprised of any potential drug interactions to be aware of. Patient expresses understanding. Counseling completed in adopting health behaviors such as avoiding excessive alcohol use, avoid tobacco use, improve nutrition, and engage in physical activities. Copy of written care plan, clinical summary, treatment plan, new medications, goals, and self management requirements were given to patient. Rachel Orozco APRN.DOUG [facility] Tele[facility] encounter Note * Telephone Encounter - Melody Parks MA - 05/27/2025 12:41 PM EDT patient electronically requesting refills as follows: Last seen 03/09/25 . Last refill 04/20/25 . Requested Prescriptions Pending Prescriptions Disp Refills amphetamine-dextroamphetamine XR (ADDERALL XR) 20 mg capsule 30 capsule 0 Sig: Take 1 capsule by mouth once daily for 30 days. Please review and advise. Melody Parks [facility] Miscellaneous Notes* Telephone Encounter - Melody Parks MA - 05/27/2025 12:41 PM EDT patient electronically requesting refills as follows: Last seen 03/09/25 . Last refill 04/20/25 . Requested Prescriptions Pending Prescriptions Disp Refills amphetamine-dextroamphetamine XR (ADDERALL XR) 20 mg capsule 30 capsule 0 Sig: Take 1 capsule by mouth once daily for 30 days. Please review and advise. Melody Parks MA documented [facility] Telephone encounter Note * Telephone Encounter - Melody Parks MA - 04/20/2025 8:35 AM EDT patient electronically requesting refills as follows: Last seen 03/09/25 . Last refill 03/09/25 . Requested Prescriptions Pending Prescriptions Disp Refills amphetamine-dextroamphetamine XR (ADDERALL XR) 20 mg capsule 30 capsule 0 Sig: Take 1 capsule by mouth once daily for 30 days. Please review and advise. Melody Parks [facility] Miscellaneous Notes* Telephone Encounter - Melody Parks MA - 04/20/2025 8:35 AM EDT patient electronically requesting refills as follows: Last seen 03/09/25 . Last refill 03/09/25 . Requested Prescriptions Pending Prescriptions Disp Refills amphetamine-dextroamphetamine XR (ADDERALL XR) 20 mg capsule 30 capsule 0 Sig: Take 1 capsule by mouth once daily for 30 days. Please review and advise. Melody Parks MA documented in [facility] encounterK[facility]05-[facility] Instructions* Patient Instructions* Rachel Orozco APRN.INSTRUMENT TECHNICIAN APPRENTICE - 03/09/2025 9:04 AM EDT Your Adderall dose has been increased to 20 mg. Take it in the morning (around 9:30-10:00 AM) and avoid late doses to prevent sleep issues. Continue taking your current medications (Nexium and metoprolol) as prescribed. Maintain your healthy eating pattern with high-protein foods (such as shakes, apples, steaks, cottage cheese, and Austrian yogurt) and limit processed foods. Continue your regular physical activity--keep up your daily walks and consider adding weight lifting to help boost your metabolism and support weight loss. Monitor for any side effects like sleep difficulties or gastrointestinal issues, and please update via [employer] if you notice any concerns. Follow up by touching base through [employer] in a couple of weeks, and plan to reconnect after your vacation (around the end of March) to review how the new dose is working. documented in this encounterK[facility]05-[facility]25 NoteHNO ID: [id number] Author: RACHEL OROZCO APRN.DOUG Service: ? Author Type: Nurse Practitioner Type: Progress Notes Filed: 03/09/2025 09:06 Note Text: CHIEF COMPLAINT: Pavithra is a 44-year-old female with a history of ADHD, presenting for follow-up and medication management. I reviewed past medical, surgical, social, and family histories today and updated chart. Allergies, chronic medications, and supplements were also reviewed. Recording using [employer] software for draft documentation of the visit was discussed with the patient/authorized customer account representative; all questions welcomed and answered. Patient/authorized customer account representative agreed to proceed ADHD: - Currently taking Adderall, requesting to increase dosage to 20 mg. - Previously on a maximum dose of 30 mg, which was not consistently taken. - Reports occasional missed doses due to forgetting to take the medication in the morning. - Denies significant side effects from the current dosage. Weight Management: - Struggles with weight loss, noting increased difficulty with age. - High-protein diet, including protein shakes, apples, steaks, greens, cottage cheese, and Austrian yogurt. - Avoids processed foods, makes homemade lava bread for dips. - Increased walking and physical activity at home, but not currently lifting weights. - Has three dogs, which contribute to physical activity. - Interested in weight loss injections. Vitamin D Deficiency: - Taking vitamin D supplements. Hyperlipidemia: - Recent labs showed slightly elevated cholesterol levels. GERD: - Managed with Nexium. Hypertension: - Managed with metoprolol. - Reports finger swelling, especially with high sodium intake or heat. PAST MEDICAL HISTORY Diagnosis Date ADHD (attention deficit hyperactivity disorder) Asthma, acute (HCC) Resolved HTN (hypertension) Hypercholesteremia Migraines Other acne Resolved Other and unspecified hyperlipidemia Hyperlipidemia, Resolved PAST SURGICAL HISTORY Procedure Laterality Date CHOLECYSTECTOMY 05/2016 VAGINAL HYSTERECTOMY UTERUS 250 GM/< 07/2017 Hysterectomy, vaginal Dr Gallego bilateral ovarian cystectomy bilateral salpingectomy and cystoscopy wisdom teeth Social History Tobacco Use Smoking status: Former Current packs/day: 0.00 Types: Cigarettes Quit date: 06/29/2004 Years since quittin.7 Smokeless tobacco: Never Vaping Use Vaping status: Never Used Substance Use Topics Alcohol use: Not Currently Drug use: Never ALLERGIES Allergen Reactions Sulfa (Sulfonamide * Rash Family History Problem Relation Age of Onset Diabetes Father Hypertension Father Lipids Father High Cholesterol Colon Cancer Maternal Grandmother Cancer Maternal Grandmother Uterine Cancer Brother Leukemia Current Outpatient Medications Medication Sig Dispense Refill cholecalciferol (VITAMIN D-3) 50 mcg (2,000 unit) tablet Take 1 tablet by mouth once daily. 90 tablet 3 metoprolol succinate ER (TOPROL XL) 50 mg 24 hr tablet Take 1 tablet by mouth once daily. 90 tablet 1 esomeprazole (NEXIUM) 20 mg capsule Take 1 capsule by mouth DAILY (6 AM). MULTIVITAMIN ORAL Take by mouth once daily. CALCIUM ORAL Take by mouth one time a week. amphetamine-dextroamphetamine XR (ADDERALL XR) 20 mg capsule Take 1 capsule by mouth once daily for 30 days. 30 capsule 0 No current facility-administered medications for this visit. Review of Systems BP 118/64 Pulse 58 Temp (Src) 98.3 (Oral) Resp 18 Ht 5' 7 (1.70m) Wt 196 lb (88.9kg) SpO2 100% LMP 07/19/2016 BMI 30.69 kg/(m2). Physical Exam GENERAL: NAD, alert and oriented. LUNGS: Clear to auscultation bilaterally, no wheezes/rhonchi/rales. HEART: Regular rate and rhythm, no murmurs. No ectopy. NEURO: Awake, alert and oriented x3 No visits with results within 1 Day(s) from this visit. Latest known visit with results is: Appointment on 12/09/2024 Component Date Value Ref Range Status Cholesterol, Total 12/09/2024 206 (H) <200 mg/dL Final <200 mg/dL, Desirable 200-239 mg/dL, Borderline high >239 mg/dL, High Triglyceride 12/09/2024 225 (H) <150 mg/dL Final <150 mg/dL, Normal 150-199 mg/dL, Borderline high 200-499 mg/dL, High >499 mg/dL, Very high HDL Cholesterol 12/09/2024 40 >39 mg/dL Final 40-59 mg/dL, Acceptable >59 mg/dL, High: Negative risk factor for coronary heart disease <40 mg/dL, Low: Positive risk factor for coronary heart disease Non HDL Cholesterol 12/09/2024 166 (H) <130 mg/dL Final <130 mg/dL, Optimal 130-159 mg/dL, Near optimal/above optimal 160-189 mg/dL, Borderline high 190-219 mg/dL, High >219 mg/dL, Very high Secondary prevention optimal non HDL Cholesterol levels are recommended to be <100 mg/dL Fasting Time 12/09/2024 12 hrs Final VLDL Cholesterol 12/09/2024 45 (H) <30 mg/dL Final TC:HDL Ratio 12/09/2024 5.15 (H) <5.10 Final LDL Cholesterol, Calculated 12/09/2024 121 (H) <10 (more content not included)...[facility]05-12-[facility]25 History of Present illness Narrative* Rachel Orozco, SENIOR CUSTOMER SERVICE REPRESENTATIVE.INSTRUMENT TECHNICIAN APPRENTICE - 03/09/2025 8:31 AM EDT CHIEF COMPLAINT: Pavithra is a 44-year-old female with a history of ADHD, presenting for follow-up and medication management. I reviewed past medical, surgical, social, and family histories today and updated chart. Allergies, chronic medications, and supplements were also reviewed. Recording using [employer] software for draft documentation of the visit was discussed with the patient/authorized customer account representative; allquestions welcomed and answered. Patient/authorized customer account representative agreed to proceed ADHD: - Currently taking Adderall, requesting to increase dosage to 20 mg. - Previously on a maximum dose of 30 mg, which was not consistently taken. - Reports occasional missed doses due to forgetting to take the medication in the morning. - Denies significant side effects from the current dosage. Weight Management: - Struggles with weight loss, noting increased difficulty with age. - High-protein diet, including protein shakes, apples, steaks, greens, cottage cheese, and Austrian yogurt. - Avoids processed foods, makes homemade lava bread for dips. - Increased walking and physical activity at home, but not currently lifting weights. - Has three dogs, which contribute to physical activity. - Interested in weight loss injections. Vitamin D Deficiency: - Taking vitamin D supplements. Hyperlipidemia: - Recent labs showed slightly elevated cholesterol levels. GERD: - Managed with Nexium. Hypertension: - Managed with metoprolol. - Reports finger swelling, especially with high sodium intake or heat. PAST MEDICAL HISTORY Diagnosis Date ADHD (attention deficit hyperactivity disorder) Asthma, acute (HCC) Resolved HTN (hypertension) Hypercholesteremia Migraines Other acne Resolved Other and unspecified hyperlipidemia Hyperlipidemia, Resolved PAST SURGICAL HISTORY Procedure Laterality Date CHOLECYSTECTOMY 05/2016 VAGINAL HYSTERECTOMY UTERUS 250 GM/< 07/2017 Hysterectomy, vaginal Dr Gallego bilateral ovarian cystectomy bilateral salpingectomy and cystoscopy wisdom teeth Social History Tobacco Use Smoking status: Former Current packs/day: 0.00 Types: Cigarettes Quit date: 06/29/2004 Years since quittin.7 Smokeless tobacco: Never Vaping Use Vaping status: Never Used Substance Use Topics Alcohol use: Not Currently Drug use: Never ALLERGIES Allergen Reactions Sulfa (Sulfonamide * Rash Family History Problem Relation Age of Onset Diabetes Father Hypertension Father Lipids Father High Cholesterol Colon Cancer Maternal Grandmother Cancer Maternal Grandmother Uterine Cancer Brother Leukemia Current Outpatient Medications Medication Sig Dispense Refill cholecalciferol (VITAMIN D-3) 50 mcg (2,000 unit) tablet Take 1 tablet by mouth once daily. 90 tablet 3 metoprolol succinate ER (TOPROL XL) 50 mg 24 hr tablet Take 1 tablet by mouth once daily. 90 tablet1 esomeprazole (NEXIUM) 20 mg capsule Take 1 capsule by mouth DAILY (6 AM). MULTIVITAMIN ORAL Take by mouth once daily. CALCIUM ORAL Take by mouth one time a week. amphetamine-dextroamphetamine XR (ADDERALL XR) 20 mg capsule Take 1 capsule by mouth once daily for30 days. 30 capsule 0 No current facility-administered medications for this visit. Review of Systems BP 118/64 Pulse 58 Temp (Src) 98.3 (Oral) Resp 18 Ht 5' 7 (1.70m) Wt 196 lb (88.9kg) SpO2 100% LMP 07/19/2016 BMI 30.69 kg/(m^2). Physical Exam GENERAL: NAD, alert and oriented. LUNGS: Clear to auscultation bilaterally, no wheezes/rhonchi/rales. HEART: Regular rate and rhythm, no murmurs. No ectopy. NEURO: Awake, alert and oriented x3 No visits with results within 1 Day(s) from this visit. Latest known visit with results is: Appointment on 12/09/2024 Component Date Value Ref Range Status Cholesterol, Total 12/09/2024 206 (H) <200 mg/dL Final <200 mg/dL, Desirable 200-239 mg/dL, Borderline high >239 mg/dL, High Triglyceride 12/09/2024 225 (H) <150 mg/dL Final <150 mg/dL, Normal 150-199 mg/dL, Borderline high 200-499 mg/dL, High >499 mg/dL, Very high HDL Cholesterol 12/09/2024 40 >39 mg/dL Final 40-59 mg/dL, Acceptable >59 mg/dL, High: Negative risk factor for coronary heart disease <40 mg/dL, Low: Positive risk factor for coronary heart disease Non HDL Cholesterol 12/09/2024 166 (H) <130 mg/dL Final <130 mg/dL, Optimal 130-159 mg/dL, Near optimal/above optimal 160-189 mg/dL, Borderline high 190-219 mg/dL, High >219 mg/dL, Very high Secondary prevention optimal non HDL Cholesterol levels are recommended to be <100 mg/dL Fasting Time 12/09/2024 12 hrs Final VLDL Cholesterol 12/09/2024 45 (H) <30 mg/dL Final TC:HDL Ratio 12/09/2024 5.15 (H) <5.10 Final LDL Cholesterol, Calculated 12/09/2024 121 (H) <100 mg/dL Final <100 mg/dL, Optimal 100-129 mg/dL, Near optimal/above optimal 130-159 mg/dL, Borderline high 160-189 mg/dL, High >189 mg/dL, Very high Secondary prevention optimal LDL Cholesterol levels are recommended to be < 70 mg/dL LDL:HDL Ratio 12/09/2024 3.03 (H) <2.54 Final Reference: 1. National Cholesterol Education Program ATP III Guideline At-A-Glance Quick Desk Reference: National Heart, Lung, and Blood [place]. National Institutes of Health. 2001: NIH Publication No. 01-3305. 2. An International Atherosclerosis Society position paper: global recommendations for the management of dyslipidemia: executive summary, Atherosclerosis. 2014: 232(2):410-413. Protein, Total 12/09/2024 8.1 (H) 6.3 - 8.0 g/dL Final Albumin 12/09/2024 4.2 3.9 - 4.9 g/dL Final Calcium, Total 12/09/2024 9.5 8.5 - 10.2 mg/dL Final Bilirubin, Total 12/09/2024 0.3 0.2 - 1.3 mg/dL Final Alkaline Phosphatase 12/09/2024 110 34 - 123 U/L Final AST 12/09/2024 14 13 - 35 U/L Final ALT 12/09/2024 15 7 - 38 U/L Final Glucose 12/09/2024 96 74 - 99 mg/dL Final The [place] Diabetes Association (ADA) provides guidance for cutoff values for fasting glucose andrandom glucose. The ADA defines fasting as no caloric intake for at least 8 hours. Fasting plasma glucose results between 100 to 125 mg/dL indicate increased risk for diabetes (prediabetes). Fasting plasma glucose results greater than or equal to 126 mg/dL meet the criteria for diagnosis of diabetes. In the absence of unequivocal hyperglycemia, results should be confirmed by repeat testing. In a patient with classic symptoms of hyperglycemia or hyperglycemic crisis, random plasma glucose results greater than or equal to 200 mg/dL meet the criteria for diagnosis of diabetes. Reference: Standards of Medical Care in Diabetes 2016, [place] [employer]. Diabetes Care. 2016.39(Suppl 1). BUN 12/09/2024 14 7 - 21 mg/dL Final Creatinine 12/09/2024 0.82 0.58 - 0.96 mg/dL Final Sodium 12/09/2024 138 136 - 144 mmol/L Final Potassium 12/09/2024 4.8 3.7 - 5.1 mmol/L Final Chloride 12/09/2024 103 98 - 107 mmol/L Final CO2 12/09/2024 26 22 - 30 mmol/L Final Anion Gap 12/09/2024 9 8 - 15 mmol/L Final Estimated Glomerular Filtration Ra* 12/09/2024 90 >=60 mL/min/1.73m Final Estimated Glomerular Filtration Rate (eGFR) is calculated using the 2020 CKD-EPI creatinine equation. This equation utilizes serum creatinine, sex, and age as parameters. The creatinine assay has traceable calibration to isotope dilution- mass spectrometry. Refer to KDIGO guidelines for clinical interpretation. In patients with unstable renal function, e.g. those with acute kidney injury, the eGFRmay not accurately reflect actual GFR. WBC 12/09/2024 5.71 3.70 - 11.00 k/uL Final RBC 12/09/2024 4.60 3.90 - 5.20 m/uL Final Hemoglobin 12/09/2024 13.6 11.5 - 15.5 g/dL Final Hematocrit 12/09/2024 40.6 36.0 - 46.0 % Final MCV 12/09/2024 88.3 80.0 - 100.0 fL Final MCH 12/09/2024 29.6 26.0 - 34.0 pg Final MCHC 12/09/2024 33.5 30.5 - 36.0 g/dL Final RDW-CV 12/09/2024 12.3 11.5 - 15.0 % Final Platelet Count 12/09/2024 328 150 - 400 k/uL Final MPV 12/09/2024 10.2 9.0 - 12.7 fL Final Neutrophils % 12/09/2024 63.5 % Final Abs Neut 12/09/2024 3.63 1.45 - 7.50 k/uL Final Lymphocytes % 12/09/2024 26.8 % Final Abs Lymph 12/09/2024 1.53 1.00 - 4.00 k/uL Final Monocytes % 12/09/2024 7.0 % Final Abs [place] 12/09/2024 0.40 <0.87 k/uL Final Eosinophils % 12/09/2024 2.1 % Final Abs Eosin 12/09/2024 0.12 <0.46 k/uL Final Basophils % 12/09/2024 0.4 % Final Abs Baso 12/09/2024 <0.03 <0.11 k/uL Final Immature Granulocytes % 12/09/2024 0.2 % Final Abs Immature Gran 12/09/2024 <0.03 <0.10 k/uL Final Diff Type 12/09/2024 Auto Final Hemoglobin A1C 12/09/2024 5.0 4.3 - 5.6 % Final [place] [employer] guidelines indicate that patients with HgbA1c in the range 5.7-6.4% are at increased risk for development of diabetes, and intervention by lifestyle modification may be beneficial. HgbA1c greater or equal to 6.5% is considered diagnostic of diabetes. Estimated Average Glucose 12/09/2024 97 mg/dL Final eAG: (Estimated average glucose) is a calculated value from HgbA1c and is customer account representative of the average blood glucose level in the last 2-3 month period. Vitamin D 25 Hydroxy 12/09/2024 27.7 (L) >=30.0 ng/mL Final Classification of 25 [place] Vitamin D status: Deficiency: <= 20.0 ng/ml. Insufficiency: 21.0-29.0 ng/ml. Sufficiency: >= 30.0 ng/ml. Labs: (November) - Vitamin D: Mildly decreased - Cholesterol: Slightly elevated - Blood glucose: Normal (no diabetes) Imaging: (October) Mammogram: No abnormalities 1. ADHD (attention deficit hyperactivity disorder), inattentive type (F90.0) - Tolerating current Adderall dosage. - Increased Adderall to 20 mg. - Follow-up in 4-6 weeks to assess efficacy; patient may contact via [employer]t for earlier evaluationif needed. 2. Essential hypertension (I10) - Blood pressure well-controlled on metoprolol. - Continue current metoprolol regimen. 3. Mixed hyperlipidemia (E78.2) - Recent labs show slightly elevated cholesterol levels. - Monitor lipid profile; no immediate changes to current management. 4. GERD without esophagitis (K21.9) - Symptoms well-controlled on Nexium. - Continue current Nexium regimen. 5. Vitamin D deficiency (E55.9) - Recent labs in November showed slightly low vitamin D levels. - Patient is taking vitamin D supplementation. 6. Class 1 obesity without serious comorbidity with body mass index (BMI) of 30.0 to 30.9 in adult,unspecified obesity type (E66.811) - Discussed dietary habits; patient consuming high-protein diet and increasing physical activity. - Educated on benefits and risks of weight loss injections, including appetite suppression, cardiovascular and renal protection, and potential side effects such as GI disturbances and risk of medullary thyroid cancer. - Advised to incorporate weight lifting to increase lean muscle mass and improve metabolism. - Follow-up to monitor progress and consider further interventions if necessary. PDMP website checked and validated. All prescriptions have been APPROPRIATELY filled. No suspiciousactivity was identified. 03/09/2025 by Rachel Orozco APRN.CNP New medication(s) prescribed today: Yes: Adderall. Discussed new medication dosage, usage, goals oftherapy, and side effects. Patient has been apprised of any potential drug interactions to be awareof. Patient expresses understanding. Counseling completed in adopting health behaviors such as avoiding excessive alcohol use, avoid tobacco use, improve nutrition, and engage in physical activities. Copy of written care plan, clinical summary, treatment plan, new medications, goals, and self management requirements were given to patient. Rachel Orozco APRN.DOUG documented in this encounterK[facility]04[facility]25 Telephone encounter Note * Telephone Encounter - Melody Parks MA - 02/09/2025 9:44 AM EDT patient electronically requesting refills as follows: Last seen 12/09/24 . Last refill 01/06/25 . Requested Prescriptions Pending Prescriptions Disp Refills amphetamine-dextroamphetamine XR (ADDERALL XR) 10 mg capsule 30 capsule 0 Sig: Take 1 capsule by mouth once daily for 30 days. Please review and advise. Melody Parks MA [facility]04-14-[facility]25 Miscellaneous Notes* Telephone Encounter - Melody Parks MA - 02/09/2025 9:44 AM EDT patient electronically requesting refills as follows: Last seen 12/09/24 . Last refill 01/06/25 . Requested Prescriptions Pending Prescriptions Disp Refills amphetamine-dextroamphetamine XR (ADDERALL XR) 10 mg capsule 30 capsule 0 Sig: Take 1 capsule by mouth once daily for 30 days. Please review and advise. Melody Parks MA documented in this encounterK[facility]02-13-2025 Telephone encounter Note * Telephone Encounter - Rachel Orozco APRN.CNP - 12/11/2024 12:14 PM EST Vitamin D level was slightly low. Going to start you on 2,000 international unit(s) daily. Rx sent in. A1C was normal- no diabetes CBC was also normal- no anemia CMP within normal limits- kidney and liver normal Lipid panel was elevated. Treatment consist of healthier diet lower in animal fat, red meats, more fresh fruits and vegetables, and exercise, 150 min/week. We'll repeat in 6 months. [facility]02-13[facility] Miscellaneous Notes* Telephone Encounter - Rachel Orozco APRN.CNP - 12/11/2024 12:14 PM EST Vitamin D level was slightly low. Going to start you on 2,000 international unit(s) daily. Rx sent in. A1C was normal- no diabetes CBC was also normal- no anemia CMP within normal limits- kidney and liver normal Lipid panel was elevated. Treatment consist of healthier diet lower in animal fat, red meats, more fresh fruits and vegetables, and exercise, 150 min/week. We'll repeat in 6 months. documented in this encounterK[facility]02-11-2025 Note* Addendum Note - Rachel Orozco APRN.CNP - 12/09/2024 1:46 PM ESTAddended by: RACHEL OROZCO on: 12/09/2024 01:46 PM Modules accepted: Orders [facility]02-11-20[facility] Note* Addendum Note - Diane Cohen MA - 12/09/2024 1:46 PM ESTAddended by: DIANE COHEN on: 12/09/2024 01:46 PM Modules accepted: Orders [facility]02-11-2025 Miscellaneous Notes* Addendum Note - Rachel Orozco APRN.CNP - 12/09/2024 1:46 PM ESTAddended by: RACHEL OROZCO on: 12/09/2024 01:46 PM Modules accepted: Orders * Addendum Note - Diane Cohen MA - 12/09/2024 1:46 PM ESTAddended by: DIANE COHEN on: 12/09/2024 01:46 PM Modules accepted: Orders documented in this encounterK[facility]02-11-2025 NoteHNO ID: [id number] Author: RACHEL OROZCO APRN.CNP Service: ? Author Type: Nurse Practitioner Type: Progress Notes Filed: 12/09/2024 13:00 Note Text: [address] [address] Date of Evaluation: 12/09/2024 Patient Name: Pavithra Meyers : 1980 Pavithra Meyers is a 44 year old female who presents for Wellness and Establish Care. I reviewed past medical, surgical, social, and family histories today and updated chart. Allergies, chronic medications, and supplements were also reviewed. PMH of HTN, HPL, JAIDEN, ADHD, and migraines. Checks BP at home once a month Can sometimes be elevated- 170/90's Most of the time it is WNL Migraines twice a month- Has tried Imitrex, etc in the past but not effective. Vomits with migraines. Diagnosed when she was 9. Headache 3 times a week- Tylenol and Ibuprofen Hasn't seen someone for the migraines in years Was on Adderall in the past for ADHD but is no longer on it because she felt the dose was too high so she weaned herself off of it. She did well on lower dose. Exercise: Patient does have an exercise routine. 3-4 days a week- weightlifting. Weight Trend: Last 2 Encounter Wt Readings: Date: Wt: 12/09/2024 90.7 kg (200 lb) 01/02/2024 90.3 kg (199 lb) Eating Habits: Patient does maintain healthy eating habits. Smaller portions. More protein. Types of food appropriate diet Caffeine- Not much Tobacco Use: Former smoker- quit about 18 years ago Alcohol Use: Very rare Active Problem List/Chronic Problems There are no active hospital problems to display for this patient. Health Maintenance Depression Screening Never done Anxiety Screening Never done BP Controlled (<130/80) due on 12/16/2022 Mammogram Screening due on 09/19/2024 HEALTH MAINTENANCE REVIEW: Colonoscopy and Mammogram Due for colonoscopy- needs referral Completed Mammogram in August 2024 Review of Systems Constitutional: Negative for appetite change, chills, diaphoresis, fatigue, fever and unexpected weight change. Respiratory: Negative for cough, shortness of breath and wheezing. Cardiovascular: Negative for chest pain, palpitations and leg swelling. Gastrointestinal: Negative for abdominal pain, blood in stool, constipation, nausea and vomiting. Looser stools Genitourinary: Negative for dysuria, flank pain, frequency, hematuria, menstrual problem and urgency. Musculoskeletal: Negative. Skin: Negative. Neurological: Positive for headaches. Negative for dizziness, seizures and syncope. Hematological: Negative. Psychiatric/Behavioral: Positive for decreased concentration. Negative for sleep disturbance. PAIN: Negative for pain, history of chronic pain, or current treatment for a chronic pain condition. ALLERGIES Allergen Reactions Sulfa (Sulfonamide * Rash metoprolol succinate ER (TOPROL XL) 50 mg 24 hr tablet Take 1 tablet by mouth once daily. esomeprazole (NEXIUM) 20 mg capsule Take 1 capsule by mouth DAILY (6 AM). MULTIVITAMIN ORAL Take by mouth once daily. CALCIUM ORAL Take by mouth one time a week. amphetamine-dextroamphetamine XR (ADDERALL XR) 10 mg capsule Take 1 capsule by mouth once daily for 30 days. PAST MEDICAL HISTORY Diagnosis Date ADHD (attention deficit hyperactivity disorder) Asthma, acute Resolved HTN (hypertension) Hypercholesteremia Migraines Other acne Resolved Other and unspecified hyperlipidemia Hyperlipidemia, Resolved PAST SURGICAL HISTORY Procedure Laterality Date CHOLECYSTECTOMY 05/2016 VAGINAL HYSTERECTOMY UTERUS 250 GM/< 07/[address], [address] Gallego bilateral ovarian cystectomy bilateral salpingectomy and cystoscopy wisdom teeth FAMILY HISTORY Problem Relation Age of Onset Diabetes Father Hypertension Father Lipids Father High Cholesterol Colon Cancer Maternal Grandmother Cancer Maternal Grandmother Uterine Cancer Brother Leukemia Last 3 Encounter BP Readings: Date: BP: 12/09/2024 116/62 01/02/2024 120/82 10/02/2023 118/72 BP 116/62 Pulse 55 Temp (Src) 98 (Oral) Resp 18 Ht 5' 7 (1.70m) Wt 200 lb (90.7kg) SpO2 100% LMP 07/19/2016 BMI 31.32 kg/(m2). Physical Exam Vitals and nursing note reviewed. Constitutional: Appearance: Normal appearance. HENT: Head: Normocephalic. Right Ear: Tympanic membrane, ear canal and external ear normal. Left Ear: Tympanic membrane, ear canal and external ear normal. Nose: Nose normal. Mouth/Throat: Mouth: Mucous membranes are moist. Pharynx: Oropharynx is clear. Eyes: Pupils: Pupils are equal, round, and reactive to light. Cardiovascular: Rate and Rhythm: Normal rate and regular rhythm. Heart sounds: Normal heart sounds. Pulmonary: Effort: Pulmonary effort is normal. Breath sounds: Normal breath sounds. Abdominal: General: Bowel sounds are normal. There is no dis (more content not included)... [facility]02-11-2025 History of Present illness Narrative* Rachel Orozco APRN.INSTRUMENT TECHNICIAN APPRENTICE - 12/09/2024 11:09 AM EST Images from the original note were not included. [address] [address] Date of Evaluation: 12/09/2024 Patient Name: Pavithra Meyers : 1980 Pavithra Meyers is a 44 year old female who presents for Wellness and Establish Care. I reviewed past medical, surgical, social, and family histories today and updated chart. Allergies, chronic medications, and supplements were also reviewed. PMH of HTN, HPL, JAIDEN, ADHD, and migraines. Checks BP at home once a month Can sometimes be elevated- 170/90's Most of the time it is WNL Migraines twice a month- Has tried Imitrex, etc in the past but not effective. Vomits with migraines. Diagnosed when she was 9. Headache 3 times a week- Tylenol and Ibuprofen Hasn't seen someone for the migraines in years Was on Adderall in the past for ADHD but is no longer on it because she felt the dose was too high so she weaned herself off of it. She did well on lower dose. Exercise: Patient does have an exercise routine. 3-4 days a week- weightlifting. Weight Trend: Last 2 Encounter Wt Readings: Date: Wt: 12/09/2024 90.7 kg (200 lb) 01/02/2024 90.3 kg (199 lb) Eating Habits: Patient does maintain healthy eating habits. Smaller portions. More protein. Types of food appropriate diet Caffeine- Not much Tobacco Use: Former smoker- quit about 18 years ago Alcohol Use: Very rare Active Problem List/Chronic Problems There are no active hospital problems to display for this patient. Health Maintenance Depression Screening Never done Anxiety Screening Never done BP Controlled (<130/80) due on 12/16/2022 Mammogram Screening due on 09/19/2024 HEALTH MAINTENANCE REVIEW: Colonoscopy and Mammogram Due for colonoscopy- needs referral Completed Mammogram in August 2024 Review of Systems Constitutional: Negative for appetite change, chills, diaphoresis, fatigue, fever and unexpected weight change. Respiratory: Negative for cough, shortness of breath and wheezing. Cardiovascular: Negative for chest pain, palpitations and leg swelling. Gastrointestinal: Negative for abdominal pain, blood in stool, constipation, nausea and vomiting. Looser stools Genitourinary: Negative for dysuria, flank pain, frequency, hematuria, menstrual problem and urgency. Musculoskeletal: Negative. Skin: Negative. Neurological: Positive for headaches. Negative for dizziness, seizures and syncope. Hematological: Negative. Psychiatric/Behavioral: Positive for decreased concentration. Negative for sleep disturbance. PAIN: Negative for pain, history of chronic pain, or current treatment for a chronic pain condition. ALLERGIES Allergen Reactions Sulfa (Sulfonamide * Rash metoprolol succinate ER (TOPROL XL) 50 mg 24 hr tablet Take 1 tablet by mouth once daily. esomeprazole (NEXIUM) 20 mg capsule Take 1 capsule by mouth DAILY (6 AM). MULTIVITAMIN ORAL Take by mouth once daily. CALCIUM ORAL Take by mouth one time a week. amphetamine-dextroamphetamine XR (ADDERALL XR) 10 mg capsule Take 1 capsule by mouth once daily for30 days. PAST MEDICAL HISTORY Diagnosis Date ADHD (attention deficit hyperactivity disorder) Asthma, acute Resolved HTN (hypertension) Hypercholesteremia Migraines Other acne Resolved Other and unspecified hyperlipidemia Hyperlipidemia, Resolved PAST SURGICAL HISTORY Procedure Laterality Date CHOLECYSTECTOMY 05/2016 VAGINAL HYSTERECTOMY UTERUS 250 GM/< 07/[address], [address] Gallego bilateral ovarian cystectomy bilateral salpingectomy and cystoscopy wisdom teeth FAMILY HISTORY Problem Relation Age of Onset Diabetes Father Hypertension Father Lipids Father High Cholesterol Colon Cancer Maternal Grandmother Cancer Maternal Grandmother Uterine Cancer Brother Leukemia Last 3 Encounter BP Readings: Date: BP: 12/09/2024 116/62 01/02/2024 120/82 10/02/2023 118/72 BP 116/62 Pulse 55 Temp (Src) 98 (Oral) Resp 18 Ht 5' 7 (1.70m) Wt 200 lb (90.7kg) SpO2 100% LMP 07/19/2016 BMI 31.32 kg/(m^2). Physical Exam Vitals and nursing note reviewed. Constitutional: Appearance: Normal appearance. HENT: Head: Normocephalic. Right Ear: Tympanic membrane, ear canal and external ear normal. Left Ear: Tympanic membrane, ear canal and external ear normal. Nose: Nose normal. Mouth/Throat: Mouth: Mucous membranes are moist. Pharynx: Oropharynx is clear. Eyes: Pupils: Pupils are equal, round, and reactive to light. Cardiovascular: Rate and Rhythm: Normal rate and regular rhythm. Heart sounds: Normal heart sounds. Pulmonary: Effort: Pulmonary effort is normal. Breath sounds: Normal breath sounds. Abdominal: General: Bowel sounds are normal. There is no distension. Palpations: Abdomen is soft. Tenderness: There is no abdominal tenderness. Musculoskeletal: Cervical back: Normal range of motion and neck supple. Lymphadenopathy: Cervical: No cervical adenopathy. Skin: General: Skin is warm and dry. Neurological: General: No focal deficit present. Mental Status: She is alert and oriented to person, place, and time. Psychiatric: Mood and Affect: Mood normal. Behavior: Behavior normal. Cognition and Memory: Cognition normal. Latest Ref Rng 01/03/2024 WBC 3.70 - 11.00 k/uL 6.08 RBC 3.90 - 5.20 m/uL 4.50 Hemoglobin 11.5 - 15.5 g/dL 14.2 Hematocrit 36.0 - 46.0 % 39.5 MCV 80.0 - 100.0 fL 87.8 MCH 26.0 - 34.0 pg 31.6 MCHC 30.5 - 36.0 g/dL 35.9 RDW-CV 11.5 - 15.0 % 11.9 Platelet Count 150 - 400 k/uL 294 MPV 9.0 - 12.7 fL 11.3 Neut% % 60.2 Abs Neut (ANC) 1.45 - 7.50 k/uL 3.66 Lymph% % 28.5 Abs Lymph 1.00 - 4.00 k/uL 1.73 [place]% % 7.4 Abs [place] <0.87 k/uL 0.45 Eosin% % 2.8 Abs Eosin <0.46 k/uL 0.17 Baso% % 0.8 Abs Baso <0.11 k/uL 0.05 Immature Gran % % 0.3 IMMATURE GRANS (ABS) <0.10 k/uL <0.03 NRBC /100 WBC 0.0 Absolute nRBC <0.01 k/uL <0.01 DTYPE Auto Protein, Total 6.3 - 8.0 g/dL 7.1 Albumin 3.9 - 4.9 g/dL 3.9 Calcium 8.5 - 10.2 mg/dL 9.6 Bilirubin, Total 0.2 - 1.3 mg/dL 0.2 Alkaline Phosphatase 34 - 123 U/L 91 AST 13 - 35 U/L 16 ALT 7 - 38 U/L 13 Glucose 74 - 99 mg/dL 88 BUN 7 - 21 mg/dL 10 Creatinine 0.58 - 0.96 mg/dL 0.82 Sodium 136 - 144 mmol/L 139 Potassium 3.7 - 5.1 mmol/L 3.9 Chloride 97 - 105 mmol/L 104 CO2 22 - 30 mmol/L 25 Anion Gap 9 - 18 mmol/L 10 eGFR >=60 mL/min/1.73m 91 Cholesterol, Total <200 mg/dL 190 Triglyceride <150 mg/dL 371 (H) HDL Cholesterol >39 mg/dL 31 (L) Non HDL Cholesterol <130 mg/dL 159 (H) Fasting Time hrs 11 VLDL Cholesterol <30 mg/dL 74 (H) TC:HDL Ratio <5.10 6.13 (H) LDL Cholesterol <100 mg/dL 85 LDL:HDL Ratio <2.54 2.74 (H) Hemoglobin A1C 4.3 - 5.6 % 5.0 Estimated Average Glucose mg/dL 97 Vit D1,25 Dihydroxy 19.9 - 79.3 pg/mL 43.4 Legend: (H) High (L) Low ASSESSMENT / PLAN: 1. Well adult exam - ICD9: V70.0, ICD10: Z00.00 (primary diagnosis) - Counseled on healthy diet and regular exercise - Colorectal cancer screening - referring to general surgery - Follow up for annual exam in one year - LIPID PANEL BASIC - COMPREHENSIVE METABOLIC PANEL - COMPLETE BLOOD COUNT AND DIFFERENTIAL - HEMOGLOBIN A1C 2. ADHD (attention deficit hyperactivity disorder), inattentive type - ICD9: 314.00, ICD10: F90.0 - Restart on Adderall XR 10 mg daily - DEXTROAMPHETAMINE-AMPHETAMINE ER 10 MG 24HR CAPSULE,EXTEND RELEASE - TOXICOLOGY SCREEN, ROUTINE URINE - QUANTITATIVE TOXICOLOGY PANEL, URINE PDMP website checked and validated. All prescriptions have been APPROPRIATELY filled. No suspiciousactivity was identified. Note: A urine tox screen and urine pain panel have been completed appropriately (after 12 weeks of initiating therapy and at least yearly thereafter). Note: A narcotics contract has been signed and scanned into the EMR. 12/09/2024 by Rachel Orozco APRN.INSTRUMENT TECHNICIAN APPRENTICE 3. Essential hypertension - ICD9: 401.9, ICD10: I10 - Controlled - Continue current medications - Recommend home blood pressure monitoring, to bring results to next visit - Encouraged sodium restriction, DASH or Mediterranean diet - Recommend regular aerobic exercise - Discussed need for and benefit of weight loss. BMI 31.32 kg/(m^2) 4. Migraine with aura, not intractable, without status migrainosus - ICD9: 346.00, ICD10: G43.109 - CONSULT TO NEUROLOGY 5. Mixed hyperlipidemia - ICD9: 272.2, ICD10: E78.2 - Control undetermined, due for labs - Counseled on healthy diet and regular exercise - Discussed need for and benefit of weight loss. BMI 31.32 kg/(m^2) 6. Vitamin D deficiency - ICD9: 268.9, ICD10: E55.9 - VITAMIN D 25 HYDROXY 7. Screening for colon cancer - ICD9: V76.51, ICD10: Z12.11 - CONSULT TO GENERAL SURGERY Discussed health maintenance, including regular aerobic exercise, low fat diet, and periodic exams. Return in about 3 months (around 03/08/2025) for ADHD. Rachel Orozco APRN.INSTRUMENT TECHNICIAN APPRENTICE documented in this encounterK[facility]01-[facility]25 Telephone encounter Note * Telephone Encounter - Gordo Orourke MD - 11/03/2024 8:32 AM EST Ok to do. Please turn into a 40 minute wellness visit. [facility]01-06-[facility] Miscellaneous Notes* Telephone Encounter - Gordo Orourke MD - 11/03/2024 8:32 AM EST Ok to do. Please turn into a 40 minute wellness visit. documented in this encounterK[facility]01-01-2025 NotePatient Outreach (INTMMN) PAVITHRA MEYERS ([id number]) 1980 F Date Time Provider Department 10/29/24 GORDO OROURKE During your visit today, we recorded the following information about you: Allergies As of Date: 10/29/2024 Noted Allergy Reaction SULFA (SULFONAMIDE ANTIBIOTICS) 08/24/2008 2 - Rash Date Reviewed: 01/02/2024 Reviewed by: Lizabeth Bello MA - Fully Assessed Visit Diagnosis:Encounter for screening mammogram for breast cancer [Z12.31] Order(s):[facility] SCREENING [facility] [[id number]] Order #: [id number] FUTURE Prescriptions as of 11/03/2024 - metoprolol succinate ER (TOPROL XL) 50 mg 24 hr tablet Take 1 tablet by mouth once daily. - esomeprazole (NEXIUM) 20 mg capsule Take 1 capsule by mouth DAILY (6 AM). - MULTIVITAMIN ORAL Take by mouth once daily. - CALCIUM ORAL Take by mouth one time a week. Problem List As Of Date 10/29/2024 Noted Resolved Acne [L70.9] 08/22/2012 07/21/2022 Hyperlipidemia [E78.5] 08/22/2012 Asthma [J45.909] 08/22/2012 07/21/2022 Iron deficiency anemia, unspecified [D50.9] 05/15/2017 Migraine with aura, not intractable, without st*08/21/2018 07/21/2022 Essential hypertension [I10] 12/20/2019 Vitamin D deficiency [E55.9] 12/19/2021 Obesity, Class I, BMI 30-34.9 [E66.811] 12/19/2021 Ringing in left ear [H93.12] 12/19/2021 ADHD (attention deficit hyperactivity disorder)*12/19/2021 Incomplete uterovaginal prolapse [N81.2] 07/12/2017 Diagnosed: 06/28/2023 Menopausal syndrome [N95.1] 06/28/2023 Diagnosed: 06/28/2023 Postcoital bleeding [N93.0] 06/28/2023 Diagnosed: 06/28/2023 Uterine leiomyoma [D25.9] 07/19/2017 Diagnosed: 06/28/2023 Encounter Status:Closed by MAIA PULIDOUSER on 11/03/24[facility] 03-14[facility]24 Telephone encounter Note* Telephone Encounter - Sahra Goode MA - 03/14/2024 7:50 AM EDT Patient has been identified by name and date of : Yes, Provider [place] Date 03/14/24 Time 7:50 am Patient phones for refill(s): Requested Prescriptions Pending Prescriptions Disp Refills metoprolol succinate ER (TOPROL XL) 50 mg 24 hr tablet 90 tablet 1 Sig: Take 1 tablet by mouth once daily. Date of last office visit in primary care: 01/02/2024 Date of next office visit in primary care: Visit date not found. Due for appointment in June. Message sent to patient to schedule Please advise. Thank you. Sahra Goode MA. [facility]05-17-2024 Miscellaneous Notes* Telephone Encounter - Sahra Goode MA - 03/14/2024 7:50 AM EDT Patient has been identified by name and date of : Yes, Provider [place] Date 03/14/24 Time 7:50 am Patient phones for refill(s): Requested Prescriptions Pending Prescriptions Disp Refills metoprolol succinate ER (TOPROL XL) 50 mg 24 hr tablet 90 tablet 1 Sig: Take 1 tablet by mouth once daily. Date of last office visit in primary care: 01/02/2024 Date of next office visit in primary care: Visit date not found. Due for appointment in June. Message sent to patient to schedule Please advise. Thank you. Sahra Goode MA. documented in this encounterK[facility]04-04-2024 Miscellaneous Notes* Telephone Encounter - Gordo Orourke MD - 01/31/2024 9:38 AM EDT Needs follow up visit with one of us documented in this encounterK[facility]03-06-2024 NoteHNO ID: [id number] Author: GORDO OROURKE MD Service: ? Author Type: Physician Type: Progress Notes Filed: 01/02/2024 15:55 Note Text: Patient presents with: Follow Up HPI: Patient presents today for office visit for follow up. Has been holding her Adderall since around 11/12/23 due to blood pressure concerns. Readings have been elevated. Readings have remained elevated since holding Adderall. Continues on Metoprolol 50 mg daily. Monitors her BP at home. Does not miss doses. Denies chest pain and shortness of breath. Intermittent dizziness. More frequently the last couple months. No new or worsening headaches. Suffers from migraines. Mentions some days she notices some tightness in her hands. Refers to possible water retention. No swelling in her feet. Some palpitations occ. Denies syncopal episodes. Discussed her ADD meds. Discussed keeping her off meds for now. Tolerating well. Concerned with sugars. Has a family hx of dm. Some polyuria or polydipsia. Due to check vit d as well. MEDICATIONS: Current Outpatient Medications Medication Sig metoprolol succinate ER (TOPROL XL) 50 mg 24 hr tablet Take 1 tablet by mouth once daily. esomeprazole (NEXIUM) 20 mg capsule Take 1 capsule by mouth DAILY (6 AM). MULTIVITAMIN ORAL Take by mouth once daily. CALCIUM ORAL Take by mouth one time a week. No current facility-administered medications for this visit. ALLERGIES: ALLERGIES Allergen Reactions Sulfa (Sulfonamide * Rash PAST MEDICAL HISTORY Diagnosis Date ADHD (attention deficit hyperactivity disorder) Asthma, acute Resolved HTN (hypertension) Hypercholesteremia Migraines Other acne Resolved Other and unspecified hyperlipidemia Hyperlipidemia, Resolved PAST SURGICAL HISTORY Procedure Laterality Date CHOLECYSTECTOMY 05/2016 VAGINAL HYSTERECTOMY UTERUS 250 GM/< 07/[address], [address] Gallego bilateral ovarian cystectomy bilateral salpingectomy and cystoscopy wisdom teeth FAMILY HISTORY Problem Relation Age of Onset Diabetes Father Hypertension Father Lipids Father High Cholesterol Colon Cancer Maternal Grandmother Cancer Maternal Grandmother Uterine Cancer Brother Leukemia Social History Tobacco Use Smoking status: Former Types: Cigarettes Quit date: 06/29/2004 Years since quittin.5 Smokeless tobacco: Never Vaping Use Vaping Use: Never used Substance Use Topics Alcohol use: No Drug use: No Reviewed current medications, allergies, past medical history, surgical history, family history and social history today. REVIEW OF SYSTEMS All other reviewed and negative other than HPI. HEALTH MAINTENANCE: Reviewed health maintenance issues today and recommended the following in detail. Depression Assessment due on 10/29/2023 VITALS: BP 120/82 Pulse (!) 57 Ht 170.2 cm (5' 7) Wt 90.3 kg (199 lb) LMP 07/19/2016 (Exact Date) BMI 31.17 kg/m? Last 4 Encounter Wt Readings: Date: Wt: 10/02/2023 88.9 kg (196 lb) 06/28/2023 86 kg (189 lb 9.6 oz) 03/30/2023 84.8 kg (187 lb) 12/25/2022 83.9 kg (185 lb) PHYSICAL EXAMINATION: General appearance: Well appearing, alert, in no acute distress, well-hydrated, well nourished. Skin: Skin color, texture, turgor normal, no suspicious rashes or lesions Head: Normocephalic, no masses, lesions, tenderness or abnormalities Lungs: Lungs clear to auscultation. No wheezing, rhonchi, rales Heart: RRR without murmur, gallop, or rubs. No ectopy Abdomen: Normal abdominal exam, Abdomen soft, non-tender. Bowel sounds normal. No masses, organomegaly Extremities: No deformities, edema, skin discoloration, clubbing or cyanosis. Good capillary refill. ASSESSMENT/PLAN: 1. Essential hypertension - ICD9: 401.9, ICD10: I10 (primary diagnosis) - Controlled - Continue current medications - stay off stimluants. - CBC + DIFF - COMP METABOLIC PANEL - LIPID PANEL BASIC 2. ADHD (attention deficit hyperactivity disorder), inattentive type - ICD9: 314.00, ICD10: F90.0 - will not continue meds. 3. Vitamin D deficiency - ICD9: 268.9, ICD10: E55.9 - VITAMIN D1 25-DIHYDR 4. Mixed hyperlipidemia - ICD9: 272.2, ICD10: E78.2 - Control undetermined, due for labs - Counseled on healthy diet and regular exercise 5. Screening for diabetes mellitus - ICD9: V77.1, ICD10: Z13.1 - HGB A1C Gordo Orourke [facility]03-06-2024 History of Present illness Narrative* Gordo Orourke MD - 01/02/2024 3:17 PM EST Patient presents with: Follow Up HPI: Patient presents today for office visit for follow up. Has been holding her Adderall since around 11/12/23 due to blood pressure concerns. Readings have been elevated. Readings have remained elevated since holding Adderall. Continues on Metoprolol 50 mg daily. Monitors her BP at home. Does not miss doses. Denies chest pain and shortness of breath. Intermittent dizziness. More frequently the last couple months. No new or worsening headaches. Suffers from migraines. Mentions some days she notices some tightness in her hands. Refers to possible water retention. No swelling in her feet. Some palpitations occ. Denies syncopal episodes. Discussed her ADD meds. Discussed keeping her off meds for now. Tolerating well. Concerned with sugars. Has a family hx of dm. Some polyuria or polydipsia. Due to check vit d as well. MEDICATIONS: Current Outpatient Medications Medication Sig metoprolol succinate ER (TOPROL XL) 50 mg 24 hr tablet Take 1 tablet by mouth once daily. esomeprazole (NEXIUM) 20 mg capsule Take 1 capsule by mouth DAILY (6 AM). MULTIVITAMIN ORAL Take by mouth once daily. CALCIUM ORAL Take by mouth one time a week. No current facility-administered medications for this visit. ALLERGIES: ALLERGIES Allergen Reactions Sulfa (Sulfonamide * Rash PAST MEDICAL HISTORY Diagnosis Date ADHD (attention deficit hyperactivity disorder) Asthma, acute Resolved HTN (hypertension) Hypercholesteremia Migraines Other acne Resolved Other and unspecified hyperlipidemia Hyperlipidemia, Resolved PAST SURGICAL HISTORY Procedure Laterality Date CHOLECYSTECTOMY 05/2016 VAGINAL HYSTERECTOMY UTERUS 250 GM/< 07/[address], [address] Gallego bilateral ovarian cystectomy bilateral salpingectomy and cystoscopy wisdom teeth FAMILY HISTORY Problem Relation Age of Onset Diabetes Father Hypertension Father Lipids Father High Cholesterol Colon Cancer Maternal Grandmother Cancer Maternal Grandmother Uterine Cancer Brother Leukemia Social History Tobacco Use Smoking status: Former Types: Cigarettes Quit date: 06/29/2004 Years since quittin.5 Smokeless tobacco: Never Vaping Use Vaping Use: Never used Substance Use Topics Alcohol use: No Drug use: No Reviewed current medications, allergies, past medical history, surgical history, family history andsocial history today. REVIEW OF SYSTEMS All other reviewed and negative other than HPI. HEALTH MAINTENANCE: Reviewed health maintenance issues today and recommended the following in detail. Depression Assessment due on 10/29/2023 VITALS: BP 120/82 Pulse (!) 57 Ht 170.2 cm (5' 7) Wt 90.3 kg (199 lb) LMP 07/19/2016 (Exact Date) BMI 31.17 kg/m Last 4 Encounter Wt Readings: Date: Wt: 10/02/2023 88.9 kg (196 lb) 06/28/2023 86 kg (189 lb 9.6 oz) 03/30/2023 84.8 kg (187 lb) 12/25/2022 83.9 kg (185 lb) PHYSICAL EXAMINATION: General appearance: Well appearing, alert, in no acute distress, well-hydrated, well nourished. Skin: Skin color, texture, turgor normal, no suspicious rashes or lesions Head: Normocephalic, no masses, lesions, tenderness or abnormalities Lungs: Lungs clear to auscultation. No wheezing, rhonchi, rales Heart: RRR without murmur, gallop, or rubs. No ectopy Abdomen: Normal abdominal exam, Abdomen soft, non-tender. Bowel sounds normal. No masses, organomegaly Extremities: No deformities, edema, skin discoloration, clubbing or cyanosis. Good capillary refill. ASSESSMENT/PLAN: 1. Essential hypertension - ICD9: 401.9, ICD10: I10 (primary diagnosis) - Controlled - Continue current medications - stay off stimluants. - CBC + DIFF - COMP METABOLIC PANEL - LIPID PANEL BASIC 2. ADHD (attention deficit hyperactivity disorder), inattentive type - ICD9: 314.00, ICD10: F90.0 - will not continue meds. 3. Vitamin D deficiency - ICD9: 268.9, ICD10: E55.9 - VITAMIN D1 25-DIHYDR 4. Mixed hyperlipidemia - ICD9: 272.2, ICD10: E78.2 - Control undetermined, due for labs - Counseled on healthy diet and regular exercise 5. Screening for diabetes mellitus - ICD9: V77.1, ICD10: Z13.1 - HGB A1C Gordo Orourke MD [facility] History of Present illness Narrative* Gordo Orourke MD - 10/02/2023 4:10 PM EST Patient presents with: ADD/ADHD HPI: Patient presents today for office visit for follow up. ADD: Current Treatment: Adderall 5 mg and Adderall XR 30 mg. Sometimes does miss the 5 mg. Depends on day. Feels treatment is working well: Yes. Weight loss: No. Insomnia: No. GASTROENTEROLOGY complaints: No. Tremor: No. Mood disorder: No. Does have mild anxiety but not bad enough to treat. Chest pain/Palpitations: No. Aware of risks associated with controlled substance use: Yes. Hx of misuse/abuse/diversion of meds: No. Oarrs done. Labs and tox screen done. Bp is good. Headaches have been good. MEDICATIONS: Current Outpatient Medications Medication Sig metoprolol succinate ER (TOPROL XL) 50 mg 24 hr tablet Take 1 tablet by mouth once daily. dextroamphetamine-amphetamine (ADDERALL) 5 mg tablet Take 1 tablet by mouth once daily for 30 days.Do not start before August 27, 2023. esomeprazole (NEXIUM) 20 mg capsule Take 1 capsule by mouth DAILY (6 AM). amphetamine-dextroamphetamine XR (ADDERALL XR) 30 mg 24 hr capsule Take 1 capsule by mouth once daily for 30 days. Do not start before May 29, 2023. MULTIVITAMIN ORAL Take by mouth once daily. CALCIUM ORAL Take by mouth one time a week. No current facility-administered medications for this visit. ALLERGIES: ALLERGIES Allergen Reactions Sulfa (Sulfonamide * Rash PAST MEDICAL HISTORY Diagnosis Date ADHD (attention deficit hyperactivity disorder) Asthma, acute Resolved HTN (hypertension) Hypercholesteremia Migraines Other acne Resolved Other and unspecified hyperlipidemia Hyperlipidemia, Resolved PAST SURGICAL HISTORY Procedure Laterality Date CHOLECYSTECTOMY 05/2016 VAGINAL HYSTERECTOMY UTERUS 250 GM/< 07/[address], vaginal Dr Gallego bilateral ovarian cystectomy bilateral salpingectomy and cystoscopy wisdom teeth FAMILY HISTORY Problem Relation Age of Onset Diabetes Father Hypertension Father Lipids Father High Cholesterol Colon Cancer Maternal Grandmother Cancer Maternal Grandmother Uterine Cancer Brother Leukemia Social History Tobacco Use Smoking status: Former Types: Cigarettes Quit date: 06/29/2004 Years since quittin.2 Smokeless tobacco: Never Vaping Use Vaping Use: Never used Substance Use Topics Alcohol use: No Drug use: No Reviewed current medications, allergies, past medical history, surgical history, family history andsocial history today. REVIEW OF SYSTEMS All other reviewed and negative other than HPI. HEALTH MAINTENANCE: Reviewed health maintenance issues today and recommended the following in detail. BP Controlled (<130/80) due on 12/16/2022 Influenza Vaccine(1) due on 06/29/2023 Covid-19 Vaccine( season) due on 06/29/2023 VITALS: BP 118/72 Pulse 73 Ht 170.2 cm (5' 7) Wt 88.9 kg (196 lb) LMP 07/19/2016 (Exact Date) SpO2 99% BMI 30.70 kg/m Last 4 Encounter Wt Readings: Date: Wt: 06/28/2023 86 kg (189 lb 9.6 oz) 03/30/2023 84.8 kg (187 lb) 12/25/2022 83.9 kg (185 lb) 08/11/2022 83 kg (183 lb) PHYSICAL EXAMINATION: General appearance: Well appearing, alert, in no acute distress, well-hydrated, well nourished. Skin: Skin color, texture, turgor normal, no suspicious rashes or lesions Head: Normocephalic, no masses, lesions, tenderness or abnormalities Lungs: Lungs clear to auscultation. No wheezing, rhonchi, rales Heart: RRR without murmur, gallop, or rubs. No ectopy Abdomen: Normal abdominal exam, Abdomen soft, non-tender. Bowel sounds normal. No masses, organomegaly Extremities: No deformities, edema, skin discoloration, clubbing or cyanosis. Good capillary refill. ASSESSMENT/PLAN: 1. ADHD (attention deficit hyperactivity disorder), inattentive type - ICD9: 314.00, ICD10: F90.0 - Controlled prescriptions were written during the office visit. Sequential fill dates were listed on each. Patient is instructed that no additional scripts will be written until their next follow upvisit. - DEXTROAMPHETAMINE-AMPHETAMINE ER 30 MG 24HR CAPSULE,EXTEND RELEASE - DEXTROAMPHETAMINE-AMPHETAMINE ER 30 MG 24HR CAPSULE,EXTEND RELEASE - DEXTROAMPHETAMINE-AMPHETAMINE ER 30 MG 24HR CAPSULE,EXTEND RELEASE - DEXTROAMPHETAMINE-AMPHETAMINE 5 MG TABLET - DEXTROAMPHETAMINE-AMPHETAMINE 5 MG TABLET - DEXTROAMPHETAMINE-AMPHETAMINE 5 MG TABLET Gordo Orourke MD [facility] History of Present illness Narrative* Isabel Mayes Mammo Tech - 09/19/2023 10:30 AM EST Radiology Service Progress Note PATIENT NAME: Pavithra Meyers DATE OF SERVICE: September 19, 2023 TIME: 10:16 AM PATIENT IDENTITY VERIFICATION COMPLETED USING TWO (2) IDENTIFIERS: Name and Date of confirmedby patient verbally. FALL SCREENING: Has the patient had 2 falls in the last year or 1 fall with injury or currently using an Ambulatory Assistive Device (Walker, Cane, Wheelchair, Crutches, etc.)? No PATIENT GENDER DATA: Female. status: : No status: NO. PATIENT RELEVANT IMPLANT DATA REVIEWED: Not Applicable RADIOLOGY DEPARTMENT: Mammography PERIPHERAL IV DATA: Not applicable SIGNED BY: Elisabeth MckenzieMerchantCircle Lalito September 19, 2023 10:16 AM [facility]11[facility] Miscellaneous Notes* Telephone Encounter - Yesika Cassidy MA - 09/10/2023 12:20 PM EST Patient has been identified by name and date of : Yes Requested Prescriptions Pending Prescriptions Disp Refills metoprolol succinate ER (TOPROL XL) 50 mg 24 hr tablet 90 tablet 1 Sig: Take 1 tablet by mouth once daily. RX INSTRUCTIONS: Patient aware RX will be sent to pharmacy. No need to notify patient. Patient last office visit: 06/28/23 Patient next office visit: 10/02/23 Yesika Cassidy MA [facility]10-27-2023 Miscellaneous Notes* Telephone Encounter - Esha Barrera LPN - 08/24/2023 7:58 AM EDT Patient has been identified by name and date of : Yes Requested Prescriptions Pending Prescriptions Disp Refills Amphetamine-Dextroamphetamine (ADDERALL) 30 mg tablet 30 tablet 0 Sig: Take 1 tablet by mouth once daily for 30 days. Do not start before August 27, 2023. dextroamphetamine-amphetamine (ADDERALL) 5 mg tablet 30 tablet 0 Sig: Take 1 tablet by mouth once daily for 30 days. Do not start before August 27, 2023. RX INSTRUCTIONS: Patient aware RX will be sent to pharmacy. No need to notify patient. Scheduled 10/02/23 Esha Barrera LPN documented [facility]08[facility] History of Present illness Narrative* Gordo Orourke MD - 06/28/2023 7:59 AM EDT Patient presents with: ADD/ADHD HPI: Patient presents today for office visit for 3 month follow up. ADD: Current Treatment: Adderall 30 mg daily and Adderall 5 mg prn. Doesn't have to use the 5 mg often Feels treatment is working well: yes and no. Still has some trouble concentrating. Discussed addingthe 5 mg on days where she feels she needs it. Weight loss: No. Insomnia: No. Sometimes struggles with sleep but feels it's more work related. GASTROENTEROLOGY complaints: No. Tremor: No. Mood disorder: No. Chest pain/Palpitations: No. Aware of risks associated with controlled substance use: Yes. Hx of misuse/abuse/diversion of meds: No. BP: stable. No chest pain or shortness of breath. No edema. Component Latest Ref Rng & Units 12/28/2022 WBC 3.70 - 11.00 k/uL 6.28 RBC 3.90 - 5.20 m/uL 4.46 Hemoglobin 11.5 - 15.5 g/dL 13.8 Hematocrit 36.0 - 46.0 % 38.3 MCV 80.0 - 100.0 fL 85.9 MCH 26.0 - 34.0 pg 30.9 MCHC 30.5 - 36.0 g/dL 36.0 RDW-CV 11.5 - 15.0 % 12.3 Platelet Count 150 - 400 k/uL 287 MPV 9.0 - 12.7 fL 10.0 Neut% % 59.6 Abs Neut (ANC) 1.45 - 7.50 k/uL 3.74 Lymph% % 29.3 Abs Lymph 1.00 - 4.00 k/uL 1.84 [place]% % 7.8 Abs [place] <0.87 k/uL 0.49 Eosin% % 2.5 Abs Eosin <0.46 k/uL 0.16 Baso% % 0.6 Abs Baso <0.11 k/uL 0.04 Immature Gran % % 0.2 IMMATURE GRANS (ABS) <0.10 k/uL <0.03 NRBC /100 WBC 0.0 Absolute nRBC <0.01 k/uL <0.01 DTYPE Auto Protein, Total 6.3 - 8.0 g/dL 6.9 Albumin 3.9 - 4.9 g/dL 4.0 Calcium 8.5 - 10.2 mg/dL 9.3 Bilirubin, Total 0.2 - 1.3 mg/dL 0.3 Alkaline Phosphatase 34 - 123 U/L 86 AST 13 - 35 U/L 13 ALT 7 - 38 U/L 11 Glucose 74 - 99 mg/dL 96 BUN 7 - 21 mg/dL 11 Creatinine 0.58 - 0.96 mg/dL 0.76 Sodium 136 - 144 mmol/L 137 Potassium 3.7 - 5.1 mmol/L 4.2 Chloride 97 - 105 mmol/L 102 CO2 22 - 30 mmol/L 28 Anion Gap 9 - 18 mmol/L 7 (L) eGFR >=60 mL/min/1.73m 100 Cholesterol, Total <200 mg/dL 188 Triglyceride <150 mg/dL 168 (H) HDL Cholesterol >39 mg/dL 40 Non HDL Cholesterol <130 mg/dL 148 (H) Fasting Time hrs 10 VLDL Cholesterol <30 mg/dL 34 (H) TC:HDL Ratio <5.10 4.70 LDL Cholesterol <100 mg/dL 114 (H) LDL:HDL Ratio <2.54 2.85 (H) Phencyclidine Negative Negative Benzodiazepines Urine Negative Negative Cocaine Urine Negative Negative Amphetamines Negative Preliminary positive (A) Cannabinoids, Urine Negative Negative Opiates Negative Negative Barbiturates Negative Negative Ethanol, Urine <11 mg/dL <11 Oxycodone, Urine Negative Negative Vitamin D 25 Hydroxy 31.0 - 80.0 ng/mL 29.7 (L) MEDICATIONS: Current Outpatient Medications Medication Sig esomeprazole (NEXIUM) 20 mg capsule Take 1 capsule by mouth DAILY (6 AM). amphetamine-dextroamphetamine XR (ADDERALL XR) 30 mg 24 hr capsule Take 1 capsule by mouth once daily for 30 days. Do not start before May 29, 2023. dextroamphetamine-amphetamine (ADDERALL) 5 mg tablet Take 1 tablet by mouth once daily for 30 days.Q pm prn Do not start before May 29, 2023. metoprolol succinate ER (TOPROL XL) 50 mg 24 hr tablet Take 1 tablet by mouth once daily. MULTIVITAMIN ORAL Take by mouth once daily. CALCIUM ORAL Take by mouth one time a week. amphetamine-dextroamphetamine XR (ADDERALL XR) 30 mg 24 hr capsule Take 1 capsule by mouth once daily for 30 days. amphetamine-dextroamphetamine XR (ADDERALL XR) 30 mg 24 hr capsule Take 1 capsule by mouth once daily for 30 days. Do not start before April 29, 2023. dextroamphetamine-amphetamine (ADDERALL) 5 mg tablet Take 1 tablet by mouth once daily for 30 days.In pm prn. dextroamphetamine-amphetamine (ADDERALL) 5 mg tablet Take 1 tablet by mouth once daily for 30 days.Q pm as needed Do not start before April 29, 2023. amphetamine-dextroamphetamine XR (ADDERALL XR) 30 mg 24 hr capsule Take 1 capsule by mouth once daily for 30 days. No current facility-administered medications for this visit. ALLERGIES: ALLERGIES Allergen Reactions Sulfa (Sulfonamide * Rash PAST MEDICAL HISTORY Diagnosis Date ADHD (attention deficit hyperactivity disorder) Asthma, acute Resolved HTN (hypertension) Hypercholesteremia Migraines Other acne Resolved Other and unspecified hyperlipidemia Hyperlipidemia, Resolved PAST SURGICAL HISTORY Procedure Laterality Date CHOLECYSTECTOMY 05/2016 VAGINAL HYSTERECTOMY UTERUS 250 GM/< 07/[address], [address] Gallego bilateral ovarian cystectomy bilateral salpingectomy and cystoscopy wisdom teeth FAMILY HISTORY Problem Relation Age of Onset Diabetes Father Hypertension Father Lipids Father High Cholesterol Colon Cancer Maternal Grandmother Cancer Maternal Grandmother Uterine Cancer Brother Leukemia Social History Tobacco Use Smoking status: Former Types: Cigarettes Quit date: 06/29/2004 Years since quittin.0 Smokeless tobacco: Never Vaping Use Vaping Use: Never used Substance Use Topics Alcohol use: No Drug use: No Reviewed current medications, allergies, past medical history, surgical history, family history andsocial history today. REVIEW OF SYSTEMS Has a varicose vein that bothers her from time to time. Discussed considering vascular referral when ready. No redness or warmth. No gi or gu issues. All other reviewed and negative other than HPI. HEALTH MAINTENANCE: Reviewed health maintenance issues today and recommended the following in detail. COVID-19 VACCINE(3 - Moderna series) due on 01/26/2021 MAMMOGRAM due on 08/11/2023 VITALS: BP 134/89 Pulse 70 Ht 170.2 cm (5' 7) Wt 86 kg (189 lb 9.6 oz) LMP 07/19/2016 (Exact Date) BMI 29.70 kg/m Last 4 Encounter Wt Readings: Date: Wt: 03/30/2023 84.8 kg (187 lb) 12/25/2022 83.9 kg (185 lb) 08/11/2022 83 kg (183 lb) 07/21/2022 83.5 kg (184 lb) PHYSICAL EXAMINATION: General appearance: Well appearing, alert, in no acute distress, well-hydrated, well nourished. Skin: Skin color, texture, turgor normal, no suspicious rashes or lesions Head: Normocephalic, no masses, lesions, tenderness or abnormalities Neck: Supple, no adenopathy; thyroid symmetric, normal size, no bruits Lungs: Lungs clear to auscultation. No wheezing, rhonchi, rales Heart: RRR without murmur, gallop, or rubs. No ectopy Abdomen: Normal abdominal exam, Abdomen soft, non-tender. Bowel sounds normal. No masses, organomegaly Extremities: No deformities, edema, skin discoloration, clubbing or cyanosis. Good capillary refill. Musculoskeletal: No joint swelling, deformity, or tenderness ASSESSMENT/PLAN: 1. ADHD (attention deficit hyperactivity disorder), inattentive type - ICD9: 314.00, ICD10: F90.0 (primary diagnosis) - Controlled prescriptions were written during the office visit. Sequential fill dates were listed on each. Patient is instructed that no additional scripts will be written until their next follow upvisit. - DEXTROAMPHETAMINE-AMPHETAMINE 30 MG TABLET - DEXTROAMPHETAMINE-AMPHETAMINE 30 MG TABLET - DEXTROAMPHETAMINE-AMPHETAMINE 30 MG TABLET - DEXTROAMPHETAMINE-AMPHETAMINE 5 MG TABLET - DEXTROAMPHETAMINE-AMPHETAMINE 5 MG TABLET - DEXTROAMPHETAMINE-AMPHETAMINE 5 MG TABLET 2. Encounter for screening mammogram for malignant neoplasm of breast - ICD9: V76.12, ICD10: Z12.31 - Follow up for annual exam in one year. - NOLAN SCREENING 3. Essential hypertension - ICD9: 401.9, ICD10: I10 - Controlled - Continue current medications Gordo Orourke MD RTO in three months or prn. [facility] History of Present illness Narrative* Gordo Orourke MD - 03/30/2023 3:13 PM EDT Patient presents with: ADD/ADHD HPI: Patient presents today for office visit for follow up. ADD: Current Treatment: Adderall XR Feels treatment is working well: noticing more days where staying on task is harder. Feels like it is wearing off earlier. Would like to try a small dose in the evening. Weight loss: No. Insomnia: No. GASTROENTEROLOGY complaints: No. Tremor: No. Mood disorder: No. Chest pain/Palpitations: No. Aware of risks associated with controlled substance use: No. Hx of misuse/abuse/diversion of meds: No. Oarrs done. No new stresses. Bp is well controlled. No changes with meds. Rare gerd. Meds help. Using nexium otc right now. Component Latest Ref Rng & Units 12/28/2022 WBC 3.70 - 11.00 k/uL 6.28 RBC 3.90 - 5.20 m/uL 4.46 Hemoglobin 11.5 - 15.5 g/dL 13.8 Hematocrit 36.0 - 46.0 % 38.3 MCV 80.0 - 100.0 fL 85.9 MCH 26.0 - 34.0 pg 30.9 MCHC 30.5 - 36.0 g/dL 36.0 RDW-CV 11.5 - 15.0 % 12.3 Platelet Count 150 - 400 k/uL 287 MPV 9.0 - 12.7 fL 10.0 Neut% % 59.6 Abs Neut (ANC) 1.45 - 7.50 k/uL 3.74 Lymph% % 29.3 Abs Lymph 1.00 - 4.00 k/uL 1.84 [place]% % 7.8 Abs [place] <0.87 k/uL 0.49 Eosin% % 2.5 Abs Eosin <0.46 k/uL 0.16 Baso% % 0.6 Abs Baso <0.11 k/uL 0.04 Immature Gran % % 0.2 IMMATURE GRANS (ABS) <0.10 k/uL <0.03 NRBC /100 WBC 0.0 Absolute nRBC <0.01 k/uL <0.01 DTYPE Auto Protein, Total 6.3 - 8.0 g/dL 6.9 Albumin 3.9 - 4.9 g/dL 4.0 Calcium 8.5 - 10.2 mg/dL 9.3 Bilirubin, Total 0.2 - 1.3 mg/dL 0.3 Alkaline Phosphatase 34 - 123 U/L 86 AST 13 - 35 U/L 13 ALT 7 - 38 U/L 11 Glucose 74 - 99 mg/dL 96 BUN 7 - 21 mg/dL 11 Creatinine 0.58 - 0.96 mg/dL 0.76 Sodium 136 - 144 mmol/L 137 Potassium 3.7 - 5.1 mmol/L 4.2 Chloride 97 - 105 mmol/L 102 CO2 22 - 30 mmol/L 28 Anion Gap 9 - 18 mmol/L 7 (L) eGFR >=60 mL/min/1.73m 100 Cholesterol, Total <200 mg/dL 188 Triglyceride <150 mg/dL 168 (H) HDL Cholesterol >39 mg/dL 40 Non HDL Cholesterol <130 mg/dL 148 (H) Fasting Time hrs 10 VLDL Cholesterol <30 mg/dL 34 (H) TC:HDL Ratio <5.10 4.70 LDL Cholesterol <100 mg/dL 114 (H) LDL:HDL Ratio <2.54 2.85 (H) Phencyclidine Negative Negative Benzodiazepines Urine Negative Negative Cocaine Urine Negative Negative Amphetamines Negative Preliminary positive (A) Cannabinoids, Urine Negative Negative Opiates Negative Negative Barbiturates Negative Negative Ethanol, Urine <11 mg/dL <11 Oxycodone, Urine Negative Negative Vitamin D 25 Hydroxy 31.0 - 80.0 ng/mL 29.7 (L) MEDICATIONS: Current Outpatient Medications Medication Sig metoprolol succinate ER (TOPROL XL) 50 mg 24 hr tablet Take 1 tablet by mouth once daily. amphetamine-dextroamphetamine XR (ADDERALL XR) 30 mg 24 hr capsule Take 1 capsule by mouth once daily for 30 days. famotidine (PEPCID) 20 mg tablet Take 20 mg by mouth twice daily. MULTIVITAMIN ORAL Take by mouth once daily. CALCIUM ORAL Take by mouth one time a week. amphetamine-dextroamphetamine XR (ADDERALL XR) 30 mg 24 hr capsule Take 1 capsule by mouth once daily for 30 days. No current facility-administered medications for this visit. ALLERGIES: ALLERGIES Allergen Reactions Sulfa (Sulfonamide * Rash PAST MEDICAL HISTORY Diagnosis Date ADHD (attention deficit hyperactivity disorder) Asthma, acute Resolved HTN (hypertension) Hypercholesteremia Migraines Other acne Resolved Other and unspecified hyperlipidemia Hyperlipidemia, Resolved PAST SURGICAL HISTORY Procedure Laterality Date CHOLECYSTECTOMY 05/2016 VAGINAL HYSTERECTOMY UTERUS 250 GM/< 07/[address], [address] Gallego bilateral ovarian cystectomy bilateral salpingectomy and cystoscopy wisdom teeth FAMILY HISTORY Problem Relation Age of Onset Diabetes Father Hypertension Father Lipids Father High Cholesterol Colon Cancer Maternal Grandmother Cancer Maternal Grandmother Uterine Cancer Brother Leukemia Social History Tobacco Use Smoking status: Former Types: Cigarettes Quit date: 06/29/2004 Years since quittin.7 Smokeless tobacco: Never Vaping Use Vaping Use: Never used Substance Use Topics Alcohol use: No Drug use: No Reviewed current medications, allergies, past medical history, surgical history, family history andsocial history today. REVIEW OF SYSTEMS All other reviewed and negative other than HPI. HEALTH MAINTENANCE: Reviewed health maintenance issues today and recommended the following in detail. COVID-19 VACCINE(3 - Booster for Moderna series) due on 01/26/2021 DEPRESSION ASSESSMENT due on 10/29/2022 VITALS: BP 124/72 Pulse 80 Wt 84.8 kg (187 lb) LMP 07/19/2016 (Exact Date) SpO2 97% BMI 29.29 kg/m Last 4 Encounter Wt Readings: Date: Wt: 03/30/2023 84.8 kg (187 lb) 12/25/2022 83.9 kg (185 lb) 08/11/2022 83 kg (183 lb) 07/21/2022 83.5 kg (184 lb) PHYSICAL EXAMINATION: General appearance: Well appearing, alert, in no acute distress, well-hydrated, well nourished. Skin: Skin color, texture, turgor normal, no suspicious rashes or lesions Head: Normocephalic, no masses, lesions, tenderness or abnormalities Lungs: Lungs clear to auscultation. No wheezing, rhonchi, rales Heart: RRR without murmur, gallop, or rubs. No ectopy Abdomen: Normal abdominal exam, Abdomen soft, non-tender. Bowel sounds normal. No masses, organomegaly Extremities: No deformities, edema, skin discoloration, clubbing or cyanosis. Good capillary refill. PSYCH:Affect normal. Normal speech. Normal eye contact ASSESSMENT/PLAN: 1. ADHD (attention deficit hyperactivity disorder), inattentive type - ICD9: 314.00, ICD10: F90.0 (primary diagnosis) - add 5 mg at pm prn. Continue current medications. Notify us if any difficulties are noted. - Controlled prescriptions were written during the office visit. Sequential fill dates were listed on each. Patient is instructed that no additional scripts will be written until their next follow upvisit. - DEXTROAMPHETAMINE-AMPHETAMINE ER 30 MG 24HR CAPSULE,EXTEND RELEASE - DEXTROAMPHETAMINE-AMPHETAMINE ER 30 MG 24HR CAPSULE,EXTEND RELEASE - DEXTROAMPHETAMINE-AMPHETAMINE ER 30 MG 24HR CAPSULE,EXTEND RELEASE - DEXTROAMPHETAMINE-AMPHETAMINE 5 MG TABLET - DEXTROAMPHETAMINE-AMPHETAMINE 5 MG TABLET - DEXTROAMPHETAMINE-AMPHETAMINE 5 MG TABLET 2. Essential hypertension - ICD9: 401.9, ICD10: I10 - Controlled - Continue current medications 3. Mixed hyperlipidemia - ICD9: 272.2, ICD10: E78.2 Watch diet. 4. GERD without esophagitis - ICD9: 530.81, ICD10: K21.9 - consider gi if continues. Using meds prn. - ESOMEPRAZOLE MAGNESIUM 20 MG CAPSULE,DELAYED RELEASE Gordo Orourke MD documented in this encounterK[facility]23 Miscellaneous Notes* Telephone Encounter - Ursula Urbina LPN - 03/03/2023 8:51 AM EDT Patient phones requesting refills as follows: Requested Prescriptions Pending Prescriptions Disp Refills metoprolol succinate ER (TOPROL XL) 50 mg 24 hr tablet 90 tablet 1 Sig: Take 1 tablet by mouth once daily. PENNIE-12/25/22 Labs-12/28/22 NOV-03/30/23 med filled 09/19/22 Please review and advise. Ursula Urbina LPN documented in this encounterK[facility]02-27-2023 History of Present illness Narrative* Gordo Orourke MD - 12/25/2022 7:28 PM EST Patient presents with: Follow Up HPI: Patient presents today for office visit for follow up. Has overall been ok. Oarrs done. Tolerating meds. No side effects. Is focusing well. No chest pain or shortness of breath. No mood issues. No gi issues. Takes her meds most days. Does skip occasionally. No misuse or abuse. Bp is stable. No chest pain or shortness of breath. MEDICATIONS: Current Outpatient Medications Medication Sig amphetamine-dextroamphetamine XR (ADDERALL XR) 30 mg 24 hr capsule Take 1 capsule by mouth once daily for 30 days. Do not start before November 21, 2022. metoprolol succinate ER (TOPROL XL) 50 mg 24 hr tablet Take 1 tablet by mouth once daily. famotidine (PEPCID) 20 mg tablet Take 20 mg by mouth twice daily. MULTIVITAMIN ORAL Take by mouth once daily. CALCIUM ORAL Take by mouth one time a week. amphetamine-dextroamphetamine XR (ADDERALL XR) 30 mg 24 hr capsule Take 1 capsule by mouth once daily for 30 days. No current facility-administered medications for this visit. ALLERGIES: ALLERGIES Allergen Reactions Sulfa (Sulfonamide * Rash PAST MEDICAL HISTORY Diagnosis Date ADHD (attention deficit hyperactivity disorder) Asthma, acute Resolved HTN (hypertension) Hypercholesteremia Migraines Other acne Resolved Other and unspecified hyperlipidemia Hyperlipidemia, Resolved PAST SURGICAL HISTORY Procedure Laterality Date CHOLECYSTECTOMY 05/2016 VAGINAL HYSTERECTOMY UTERUS 250 GM/< 07/[address], [address] Gallego bilateral ovarian cystectomy bilateral salpingectomy and cystoscopy wisdom teeth FAMILY HISTORY Problem Relation Age of Onset Diabetes Father Hypertension Father Lipids Father High Cholesterol Colon Cancer Maternal Grandmother Cancer Maternal Grandmother Uterine Cancer Brother Leukemia Social History Tobacco Use Smoking status: Former Types: Cigarettes Quit date: 06/29/2004 Years since quittin.5 Smokeless tobacco: Never Vaping Use Vaping Use: Never used Substance Use Topics Alcohol use: No Drug use: No Reviewed current medications, allergies, past medical history, surgical history, family history andsocial history today. REVIEW OF SYSTEMS All other reviewed and negative other than HPI. HEALTH MAINTENANCE: Reviewed health maintenance issues today and recommended the following in detail. PAP TESTING - sees Dr Gallego. Had done last month. VITALS: BP 122/62 Pulse 71 Wt 83.9 kg (185 lb) LMP 07/19/2016 (Exact Date) SpO2 100% BMI 28.98 kg/m Last 4 Encounter Wt Readings: Date: Wt: 12/25/2022 83.9 kg (185 lb) 08/11/2022 83 kg (183 lb) 07/21/2022 83.5 kg (184 lb) 03/20/2022 86.2 kg (190 lb) PHYSICAL EXAMINATION: General appearance: Well appearing, alert, in no acute distress, well-hydrated, well nourished. Skin: Skin color, texture, turgor normal, no suspicious rashes or lesions Head: Normocephalic, no masses, lesions, tenderness or abnormalities Lungs: Lungs clear to auscultation. No wheezing, rhonchi, rales Heart: RRR without murmur, gallop, or rubs. No ectopy Abdomen: Normal abdominal exam, Abdomen soft, non-tender. Bowel sounds normal. No masses, organomegaly Extremities: No deformities, edema, skin discoloration, clubbing or cyanosis. Good capillary refill. Musculoskeletal: No joint swelling, deformity, or tenderness ASSESSMENT/PLAN: 1. Essential hypertension - ICD9: 401.9, ICD10: I10 (primary diagnosis) - good control - Continue current medication(s) - check labs. - Goal of BP <130/80 2. ADHD (attention deficit hyperactivity disorder), inattentive type - ICD9: 314.00, ICD10: F90.0 - refill meds. Call if any issue.s 3. Medication monitoring encounter - ICD9: V58.83, ICD10: Z51.81 - check tox. 4. Vitamin D deficiency - ICD9: 268.9, ICD10: E55.9 - check labs. Gordo Orourke MD documented in this encounterK[facility]12-24-2022 Miscellaneous Notes* Addendum Note - Gordo Orourke MD - 10/21/2022 9:04 AM ESTAddended by: GORDO OROURKE on: 10/21/2022 09:04 AM Modules accepted: Orders * Telephone Encounter - Gordo Orourke MD - 10/21/2022 9:00 AM EST Rx sent for next two months. Legally you can not write for sixty days at once but can write two sequential documented in this encounterK[facility]10-17-2022 Miscellaneous Notes* Letter - Mammography Coordinator - 08/14/2022 11:41 AM EDT August 14, 2022 PID: [id number] Pavithra Meyers [address] [place], [place] [id number] Dear Ms. Meyers, We are pleased to inform you that the results of your recent breast imaging exam on 08/11/2022 are normal. Early detection of cancer is very important. We also understand recommendations regarding breast cancer screening are controversial. Please discuss with your primary care provider which strategy is best for you and whether a mammogram is right for you. Your imaging studies and report will be [facility] as part of your permanent medical record and are available for your continuing care. Thank you for allowing us to help in meeting your health care needs. Sincerely, Dr. Eckert Interpreting Radiologist [facility] (Normal over 40) documented in this encounterKet[facility]10-14-2022 History of Present illness Narrative* Suze Nicholson RT(R) - 08/11/2022 2:30 PM EDT Radiology Service Progress Note PATIENT NAME: Pavithra Meyers DATE OF SERVICE: August 11, 2022 TIME: 2:59 PM PATIENT IDENTITY VERIFICATION COMPLETED USING TWO (2) IDENTIFIERS: Name and Date of confirmedby patient verbally. FALL SCREENING: Has the patient had 2 falls in the last year or 1 fall with injury or currently using an Ambulatory Assistive Device (Walker, Cane, Wheelchair, Crutches, etc.)? No PATIENT GENDER DATA: Female. status: : No status: NO. PATIENT RELEVANT IMPLANT DATA REVIEWED: Not Applicable RADIOLOGY DEPARTMENT: Mammography PERIPHERAL IV DATA: Not applicable SIGNED BY: RT Faisal(R) August 11, 2022 2:59 PM documented in this encounterK[facility]10-14-2022 History of Present illness Narrative* Gorod Orourke MD - 08/11/2022 2:05 PM EDT Patient presents with: Follow Up: 4 week follow up HPI: Patient presents today for office visit for ADD: Current Treatment: Adderall XR, feels there is a difference on higher dose. Feels treatment is working well: Yes. Weight loss: No. Insomnia: No. GASTROENTEROLOGY complaints: No. Tremor: No. Mood disorder: No. Chest pain/Palpitations: No. Aware of risks associated with controlled substance use: Yes. Hx of misuse/abuse/diversion of meds: No. No issues with the meds. No issues with higher dose. MEDICATIONS: Current Outpatient Medications Medication Sig amphetamine-dextroamphetamine XR (ADDERALL XR) 30 mg 24 hr capsule Take 1 capsule by mouth once daily for 30 days. metoprolol succinate ER (TOPROL XL) 50 mg 24 hr tablet Take 1 tablet by mouth once daily. famotidine (PEPCID) 20 mg tablet Take 20 mg by mouth twice daily. MULTIVITAMIN ORAL Take by mouth once daily. CALCIUM ORAL Take by mouth one time a week. No current facility-administered medications for this visit. ALLERGIES: ALLERGIES Allergen Reactions Sulfa (Sulfonamide * Rash PAST MEDICAL HISTORY Diagnosis Date ADHD (attention deficit hyperactivity disorder) Asthma, acute Resolved HTN (hypertension) Hypercholesteremia Migraines Other acne Resolved Other and unspecified hyperlipidemia Hyperlipidemia, Resolved PAST SURGICAL HISTORY Procedure Laterality Date CHOLECYSTECTOMY 05/2016 VAGINAL HYSTERECTOMY UTERUS 250 GM/< 07/2017 Hysterectomy, vaginal Dr Gallego bilateral ovarian cystectomy bilateral salpingectomy and cystoscopy wisdom teeth FAMILY HISTORY Problem Relation Age of Onset Diabetes Father Hypertension Father Lipids Father High Cholesterol Colon Cancer Maternal Grandmother Cancer Maternal Grandmother Uterine Cancer Brother Leukemia Social History Tobacco Use Smoking status: Former Types: Cigarettes Quit date: 06/29/2004 Years since quittin.1 Smokeless tobacco: Never Vaping Use Vaping Use: Never used Substance Use Topics Alcohol use: No Drug use: No Reviewed current medications, allergies, past medical history, surgical history, family history andsocial history today. REVIEW OF SYSTEMS Working on weight loss All other reviewed and negative other than HPI. HEALTH MAINTENANCE: Reviewed health maintenance issues today and recommended the following in detail. PAP TESTING - sees Dr Gallego. Sees them again in the spring. COVID-19 VACCINE(3 - Booster for Moderna series) due on 01/26/2021 DEPRESSION ASSESSMENT Never done MAMMOGRAM-getting today VITALS: BP 128/82 Pulse 68 Wt 83 kg (183 lb) LMP 07/19/2016 (Exact Date) BMI 28.66 kg/m Last 4 Encounter Wt Readings: Date: Wt: 07/21/2022 83.5 kg (184 lb) 03/20/2022 86.2 kg (190 lb) 01/25/2022 88.5 kg (195 lb) 12/29/2021 90.5 kg (199 lb 9.6 oz) PHYSICAL EXAMINATION: General appearance: Well appearing, alert, in no acute distress, well-hydrated, well nourished. Skin: Skin color, texture, turgor normal, no suspicious rashes or lesions Neck: Supple, no adenopathy; thyroid symmetric, normal size, no bruits Lungs: Lungs clear to auscultation. No wheezing, rhonchi, rales Heart: RRR without murmur, gallop, or rubs. No ectopy Abdomen: Normal abdominal exam, Abdomen soft, non-tender. Bowel sounds normal. No masses, organomegaly Extremities: No deformities, edema, skin discoloration, clubbing or cyanosis. Good capillary refill. Musculoskeletal: No joint swelling, deformity, or tenderness ASSESSMENT/PLAN: 1. Migraine with aura, not intractable, without status migrainosus - ICD9: 346.00, ICD10: G43.109 - - Controlled prescriptions were written during the office visit. Sequential fill dates were listed on each. Patient is instructed that no additional scripts will be written until their next follow up visit. - METOPROLOL SUCCINATE ER 50 MG TABLET,EXTENDED RELEASE 24 HR 2. Anxiety - ICD9: 300.00, ICD10: F41.9 - METOPROLOL SUCCINATE ER 50 MG TABLET,EXTENDED RELEASE 24 HR Gordo Orourke RTO in three months and prn. documented in this encounterK[facility]09-23-2022 History of Present illness Narrative* Gordo Orourke MD - 07/21/2022 3:15 PM EDT Patient presents with: ADD/ADHD HPI: Patient presents today for office visit for 3 month follow up. ADD: Current Treatment: Adderall Feels treatment is working well: Yes. Sometimes not sure if she notices a difference. Weight loss: No. Insomnia: No. GASTROENTEROLOGY complaints: No. Tremor: No. Mood disorder: No. Chest pain/Palpitations: No. Aware of risks associated with controlled substance use: Yes. Hx of misuse/abuse/diversion of meds: No. Oarrs done. Have done urine tox. Still with heartburn. Her pepcid helps. Using prn. Bp is well controlled. No dizziness. MEDICATIONS: Current Outpatient Medications Medication Sig metoprolol succinate ER (TOPROL XL) 50 mg 24 hr tablet Take 1 tablet by mouth once daily. famotidine (PEPCID) 20 mg tablet Take 20 mg by mouth twice daily. MULTIVITAMIN ORAL Take by mouth once daily. CALCIUM ORAL Take by mouth one time a week. amphetamine-dextroamphetamine XR (ADDERALL XR) 20 mg 24 hr capsule Take 1 capsule by mouth once daily for 30 days. amphetamine-dextroamphetamine XR (ADDERALL XR) 20 mg 24 hr capsule Take 1 capsule by mouth once daily for 30 days. Do not start before April 04, 2022. amphetamine-dextroamphetamine XR (ADDERALL XR) 20 mg 24 hr capsule Take 1 capsule by mouth once daily for 30 days. Do not start before May 03, 2022. amphetamine-dextroamphetamine XR (ADDERALL XR) 20 mg 24 hr capsule Take 1 capsule by mouth once daily for 30 days. No current facility-administered medications for this visit. ALLERGIES: ALLERGIES Allergen Reactions Sulfa (Sulfonamide * Rash PAST MEDICAL HISTORY Diagnosis Date ADHD (attention deficit hyperactivity disorder) Asthma, acute Resolved HTN (hypertension) Hypercholesteremia Migraines Other acne Resolved Other and unspecified hyperlipidemia Hyperlipidemia, Resolved PAST SURGICAL HISTORY Procedure Laterality Date CHOLECYSTECTOMY 05/2016 VAGINAL HYSTERECTOMY UTERUS 250 GM/< 07/2017 Hysterectomy, vaginal Dr Gallego bilateral ovarian cystectomy bilateral salpingectomy and cystoscopy wisdom teeth FAMILY HISTORY Problem Relation Age of Onset Diabetes Father Hypertension Father Lipids Father High Cholesterol Colon Cancer Maternal Grandmother Cancer Maternal Grandmother Uterine Cancer Brother Leukemia Social History Tobacco Use Smoking status: Former Types: Cigarettes Quit date: 06/29/2004 Years since quittin.0 Smokeless tobacco: Never Vaping Use Vaping Use: Never used Substance Use Topics Alcohol use: No Drug use: No Reviewed current medications, allergies, past medical history, surgical history, family history andsocial history today. REVIEW OF SYSTEMS All other reviewed and negative other than HPI. HEALTH MAINTENANCE: Reviewed health maintenance issues today and recommended the following in detail. PNEUMOCOCCAL(1 - PCV) Never done PAP TESTING - sees cafeteria server in Nov COVID-19 VACCINE(3 - Booster for Moderna series) due on 01/26/2021 DEPRESSION SCREENING - Depression Screening 02/18/2018 12/17/2019 05/15/2021 07/21/2022 PHQ-2 Score 0 2 0 0 Depression screening tool completed and reviewed. Based on score and interview, patient is not at risk for depression. Screening tool discussed with patient, and I recommended no further interventionat this time. MAMMOGRAM -sees cafeteria server. INFLUENZA-declines. VITALS: BP 114/82 Pulse 61 Ht 170.2 cm (5' 7) Wt 83.5 kg (184 lb) LMP 07/19/2016 (Exact Date) SpO2 99% BMI 28.82 kg/m Last 4 Encounter Wt Readings: Date: Wt: 03/20/2022 86.2 kg (190 lb) 01/25/2022 88.5 kg (195 lb) 12/29/2021 90.5 kg (199 lb 9.6 oz) 12/16/2021 89.4 kg (197 lb) PHYSICAL EXAMINATION: General appearance: Well appearing, alert, in no acute distress, well-hydrated, well nourished. Skin: Skin color, texture, turgor normal, no suspicious rashes or lesions Head: Normocephalic, no masses, lesions, tenderness or abnormalities Lungs: Lungs clear to auscultation. No wheezing, rhonchi, rales Heart: RRR without murmur, gallop, or rubs. No ectopy Abdomen: Normal abdominal exam, Abdomen soft, non-tender. Bowel sounds normal. No masses, organomegaly Extremities: No deformities, edema, skin discoloration, clubbing or cyanosis. Good capillary refill. Musculoskeletal: No joint swelling, deformity, or tenderness ASSESSMENT/PLAN: 1. ADHD (attention deficit hyperactivity disorder), inattentive type - ICD9: 314.00, ICD10: F90.0 (primary diagnosis) - increase dose. Call if any issues. Recheck one month 2. Essential hypertension - ICD9: 401.9, ICD10: I10 - good control - Continue current medication(s) - Goal of BP <130/80 Gordo Orourke MD documented in this encounterK[facility]08-22-2022 Miscellaneous Notes* Telephone Encounter - RAFI Fulton - 06/19/2022 5:19 PM EDT Patient has been identified by name and date of : Yes Last office visit in this department: Visit date not found RX INSTRUCTIONS: Patient aware RX will be sent to pharmacy. No need to notify patient. Patient phones requesting refills as follows: Requested Prescriptions Pending Prescriptions Disp Refills amphetamine-dextroamphetamine XR (ADDERALL XR) 20 mg 24 hr capsule 30 capsule 0 Sig: Take 1 capsule by mouth once daily for 30 days. Please review and advise. RAFI Fulton documented in this encounterK[facility]05-24-2022 Miscellaneous Notes* Telephone Encounter - Micky Dinh LPN - 03/21/2022 1:15 PM EDT [place] notified. Micky Dinh LPN * Telephone Encounter - Gordo Orourke MD - 03/21/2022 12:25 PM EDT May 01 and May 31 * Telephone Encounter - Cara Lamb LPN - 03/21/2022 12:10 PM EDT [place] the pharmacist at [facility] calls with questions about Adderall XR 20 mg rx. [place] reports the Adderall XR 20 mg rx with date of May 03 for start date and in directions it states do not start before May 03 but in the part of rx where it has : Earliest fill date-it has May 01. [place] is asking which is the earliest fill date: 05/01 or 05/03. Also in the rx for 06/02 it has 06/02 as the start date but earliest fill date is: 05/31. Please advise what the earliest fill date is for both of these rx. Cara Lamb LPN documented in this encounterK[facility]05-23-2022 History of Present illness Narrative* Gordo Orourke MD - 03/20/2022 5:37 PM EDT Patient presents with: Follow Up HPI: Patient presents today for office visit for follow up. Recently began on adderall. Coming back in to reassess. Last filled on 03/06. No side effects. No worsening headaches. They are doing well. No tremor. No agitation. No gi issues. Appetite is ok. No issues with diet. Energy level is good. Focusing well. MEDICATIONS: Current Outpatient Medications Medication Sig amphetamine-dextroamphetamine XR (ADDERALL XR) 20 mg 24 hr capsule Take 1 capsule by mouth once daily for 30 days. metoprolol succinate ER (TOPROL XL) 50 mg 24 hr tablet Take 1 tablet by mouth once daily. amphetamine-dextroamphetamine XR (ADDERALL XR) 20 mg 24 hr capsule Take 1 capsule by mouth once daily for 30 days. cholecalciferol, Vitamin D3, (VITAMIN D3) 1,250 mcg (50,000 unit) cap capsule Take 1 capsule by mouth one time a week. famotidine (PEPCID) 20 mg tablet Take 20 mg by mouth twice daily. MULTIVITAMIN ORAL Take by mouth once daily. CALCIUM ORAL Take by mouth one time a week. No current facility-administered medications for this visit. ALLERGIES: ALLERGIES Allergen Reactions Sulfa (Sulfonamide * Rash PAST MEDICAL HISTORY Diagnosis Date ADHD (attention deficit hyperactivity disorder) Asthma, acute Resolved HTN (hypertension) Hypercholesteremia Migraines Other acne Resolved Other and unspecified hyperlipidemia Hyperlipidemia, Resolved PAST SURGICAL HISTORY Procedure Laterality Date CHOLECYSTECTOMY 05/2016 VAGINAL HYSTERECTOMY UTERUS 250 GM/< 07/2017 Hysterectomy, vaginal Dr Gallego bilateral ovarian cystectomy bilateral salpingectomy and cystoscopy wisdom teeth FAMILY HISTORY Problem Relation Age of Onset Diabetes Father Hypertension Father Lipids Father High Cholesterol Colon Cancer Maternal Grandmother Cancer Maternal Grandmother Uterine Cancer Brother Leukemia Social History Tobacco Use Smoking status: Former Smoker Types: Cigarettes Quit date: 06/29/2004 Years since quittin.7 Smokeless tobacco: Never Used Vaping Use Vaping Use: Never used Substance Use Topics Alcohol use: No Drug use: No Reviewed current medications, allergies, past medical history, surgical history, family history andsocial history today. REVIEW OF SYSTEMS All other reviewed and negative other than HPI. VITALS: BP 122/82 Pulse 68 Wt 86.2 kg (190 lb) LMP 07/19/2016 (Exact Date) BMI 29.76 kg/m Last 4 Encounter Wt Readings: Date: Wt: 01/25/2022 88.5 kg (195 lb) 12/29/2021 90.5 kg (199 lb 9.6 oz) 12/16/2021 89.4 kg (197 lb) 05/16/2021 90.7 kg (200 lb) PHYSICAL EXAMINATION: General appearance: Well appearing, alert, in no acute distress, well-hydrated, well nourished. Skin: Skin color, texture, turgor normal, no suspicious rashes or lesions Head: Normocephalic, no masses, lesions, tenderness or abnormalities Lungs: Lungs clear to auscultation. No wheezing, rhonchi, rales Heart: RRR without murmur, gallop, or rubs. No ectopy Abdomen: Normal abdominal exam, Abdomen soft, non-tender. Bowel sounds normal. No masses, organomegaly Extremities: No deformities, edema, skin discoloration, clubbing or cyanosis. Good capillary refill. Musculoskeletal: No joint swelling, deformity, or tenderness Peripheral pulses: Normal Neuro: Negative. ASSESSMENT/PLAN: 1. Attention deficit disorder, unspecified hyperactivity presence - ICD9: 314.00, ICD10: F98.8 (primary diagnosis) - refilled three months of meds starting in March. 2. Essential hypertension - ICD9: 401.9, ICD10: I10 - good control - Continue current medication(s) - Goal of BP <130/80 3. Vitamin D deficiency - ICD9: 268.9, ICD10: E55.9 - check labs off of meds. - VITAMIN D 25 HYDROXY Gordo Orourke RTO in end of May and prn. documented in this encounterK[facility]05-09-2022 Miscellaneous Notes* Telephone Encounter - Esha Barrera LPN - 03/06/2022 8:40 AM EDT Patient has been identified by name and date of : Yes Pending Prescriptions Disp Refills DEXTROAMPHETAMINE-AMPHETAMINE ER 20 MG 24HR CAPSULE,EXTEND RELEASE 30 capsule 0 Sig: Take 1 capsule by mouth once daily for 30 days. AMARILYS Class: C-II MENDOZA: No RX INSTRUCTIONS: Patient aware RX will be sent to pharmacy. No need to notify patient. See patient MyChart message about refill not available at [facility]. Esha Barrera LPN documented in this encounterKet[facility]04-01-2022 History of Present illness Narrative* Gordo Orourke MD - 01/27/2022 2:11 PM EDT Patient presents with: Follow Up HPI:This Team Access Model visit is a virtual encounter. It required patient- provider interaction for the medical decision making as documented below. Patient was offered a virtual/telemedicine appointment in lieu of an office visit due to recommendations to reduce patient exposure to COVID-19. Patient is aware of limitations of performing the visit without a face to face visit in the office setting and agrees. She is feeling ok on meds. She is noting a slight difference. No nervousness or headaches. No chest pain or palpitations No shortness of breath. She is noticing some mild improvement with her focus and attention. No gi issues. No mood issues. See previous ov: Wants to discuss ADD meds. PDMP website checked and validated. All prescriptions have been APPROPRIATELY filled. No suspiciousactivity was identified. 12/29/2021 by Gordo Orourke MD Had been on adderrall previously in the past and did well with the medication. Would like to resume. Having a hard time focusing and completing tasks. Affecting work. Having issues maintaining train of thought. No mood issues. No chest pain or palpitations. Did not have side effects on meds. Discussed risks and benefits of meds. Reviewed concerns with any controlled drug etc. Will sign controlled substance agreement and do urine tox. Discussed that this is for opiates however it has the same restrictions etc. She is in agreement. See last note with Gio Henry. Fatigue: Feels this is chronic. Denies chest pain, shortness of breath, lightheadedness or dizziness. Tired all the time. Hypersomnolence. History of ADD and states at times trouble focusing and concentrating. Denies history of JESSICA. No previous sleep study. MEDICATIONS: Current Outpatient Medications Medication Sig cholecalciferol, Vitamin D3, (VITAMIN D3) 1,250 mcg (50,000 unit) cap capsule Take 1 capsule by mouth one time a week. amphetamine-dextroamphetamine XR (ADDERALL XR) 10 mg 24 hr capsule Take 1 capsule by mouth once daily for 30 days. metoprolol succinate ER (TOPROL XL) 50 mg 24 hr tablet Take 1 tablet by mouth once daily. famotidine (PEPCID) 20 mg tablet Take 20 mg by mouth twice daily. MULTIVITAMIN ORAL Take by mouth once daily. CALCIUM ORAL Take by mouth one time a week. No current facility-administered medications for this visit. ALLERGIES: ALLERGIES Allergen Reactions Sulfa (Sulfonamide * Rash PAST MEDICAL HISTORY Diagnosis Date ADHD (attention deficit hyperactivity disorder) Asthma, acute Resolved HTN (hypertension) Hypercholesteremia Migraines Other acne Resolved Other and unspecified hyperlipidemia Hyperlipidemia, Resolved PAST SURGICAL HISTORY Procedure Laterality Date CHOLECYSTECTOMY 05/2016 VAGINAL HYSTERECTOMY UTERUS 250 GM/< 07/2017 Hysterectomy, vaginal Dr Gallego bilateral ovarian cystectomy bilateral salpingectomy and cystoscopy wisdom teeth FAMILY HISTORY Problem Relation Age of Onset Diabetes Father Hypertension Father Lipids Father High Cholesterol Colon Cancer Maternal Grandmother Cancer Maternal Grandmother Uterine Cancer Brother Leukemia Social History Tobacco Use Smoking status: Former Smoker Types: Cigarettes Quit date: 06/29/2004 Years since quittin.5 Smokeless tobacco: Never Used Vaping Use Vaping Use: Never used Substance Use Topics Alcohol use: No Drug use: No Reviewed current medications, allergies, past medical history, surgical history, family history andsocial history today. REVIEW OF SYSTEMS All other reviewed and negative other than HPI. VITALS: LMP 07/19/2016 (Exact Date) Last 4 Encounter Wt Readings: Date: Wt: 01/25/2022 88.5 kg (195 lb) 12/29/2021 90.5 kg (199 lb 9.6 oz) 12/16/2021 89.4 kg (197 lb) 05/16/2021 90.7 kg (200 lb) PHYSICAL EXAMINATION: Patient is alert and oriented during visit. Answers appropriately. ASSESSMENT/PLAN: 1. Attention deficit disorder, unspecified hyperactivity presence - ICD9: 314.00, ICD10: F98.8 Increase dose. Call if any changes. - Controlled prescriptions were written during the office visit. Sequential fill dates were listed on each. Patient is instructed that no additional scripts will be written until their next follow upvisit. - DEXTROAMPHETAMINE-AMPHETAMINE ER 20 MG 24HR CAPSULE,EXTEND RELEASE - DEXTROAMPHETAMINE-AMPHETAMINE ER 20 MG 24HR CAPSULE,EXTEND RELEASE Gordo Orourke RTO in 2 months and prn. [facility] Miscellaneous Notes* Telephone Encounter - Gordo Orourke MD - 01/24/2022 1:43 PM EDT Let her know it was negative. Gio had mentioned in his note that we can have general surgery look at it. Set up consult. * Telephone Encounter - Tracy Estevez Ma - 01/24/2022 1:29 PM EDT Order printed and on desk Tracy Estevez Ma * Telephone Encounter - Gordo Orourke MD - 01/24/2022 12:42 PM EDT Can we check on results? [facility] History of Past illness Narrative* Problem Noted Date Resolved Date Migraine with aura, not intr actable, without status migrainosus 08/21/2018 07/21/2022 Acne 08/22/2012 07/21/2022 Asthma 08/22/2012 07/21/2022 documented as of this encounter (statuses as of 07/21/2022) [facility] Narrative* Problem Noted Date Resolved Date Migraine with aura, not intr actable, without status migrainosus 08/21/2018 07/21/2022 Acne 08/22/2012 07/21/2022 Asthma 08/22/2012 07/21/2022 documented as of this encounter (statuses as of 07/24/2022) [facility] Narrative* Problem Noted Date Resolved Date Migraine with aura, not intr actable, without status migrainosus 08/21/2018 07/21/2022 Acne 08/22/2012 07/21/2022 Asthma 08/22/2012 07/21/2022 documented as of this encounter (statuses as of 08/11/2022) [facility] Narrative* Problem Noted Date Resolved Date Migraine with aura, not intr actable, without status migrainosus 08/21/2018 07/21/2022 Acne 08/22/2012 07/21/2022 Asthma 08/22/2012 07/21/2022 documented as of this encounter (statuses as of 08/12/2022) [facility] Narrative* Problem Noted Date Resolved Date Migraine with aura, not intr actable, without status migrainosus 08/21/2018 07/21/2022 Acne 08/22/2012 07/21/2022 Asthma 08/22/2012 07/21/2022 documented as of this encounter (statuses as of 08/16/2022) [facility] Narrative* Problem Noted Date Resolved Date Migraine with aura, not intr actable, without status migrainosus 08/21/2018 07/21/2022 Acne 08/22/2012 07/21/2022 Asthma 08/22/2012 07/21/2022 documented as of this encounter (statuses as of 08/30/2022) [facility] Narrative* Problem Noted Date Resolved Date Migraine with aura, not intr actable, without status migrainosus 08/21/2018 07/21/2022 Acne 08/22/2012 07/21/2022 Asthma 08/22/2012 07/21/2022 documented as of this encounter (statuses as of 10/22/2022) [facility] Narrative* Problem Noted Date Resolved Date Migraine with aura, not intr actable, without status migrainosus 08/21/2018 07/21/2022 Acne 08/22/2012 07/21/2022 Asthma 08/22/2012 07/21/2022 documented as of this encounter (statuses as of 12/26/2022) [facility] Narrative* Problem Noted Date Resolved Date Migraine with aura, not intr actable, without status migrainosus 08/21/2018 07/21/2022 Acne 08/22/2012 07/21/2022 Asthma 08/22/2012 07/21/2022 documented as of this encounter (statuses as of 01/26/2023) [facility] Narrative* Problem Noted Date Resolved Date Migraine with aura, not intr actable, without status migrainosus 08/21/2018 07/21/2022 Acne 08/22/2012 07/21/2022 Asthma 08/22/2012 07/21/2022 documented as of this encounter (statuses as of 01/27/2023) [facility] Narrative* Problem Noted Date Resolved Date Migraine with aura, not intr actable, without status migrainosus 08/21/2018 07/21/2022 Acne 08/22/2012 07/21/2022 Asthma 08/22/2012 07/21/2022 documented as of this encounter (statuses as of 03/03/2023) [facility] Narrative* Problem Noted Date Resolved Date Migraine with aura, not intr actable, without status migrainosus 08/21/2018 07/21/2022 Acne 08/22/2012 07/21/2022 Asthma 08/22/2012 07/21/2022 documented as of this encounter (statuses as of 03/03/2023) [facility]* Problem Noted Date Resolved Date Migraine with aura, not intr actable, without status migrainosus 08/21/2018 07/21/2022 Acne 08/22/2012 07/21/2022 Asthma 08/22/2012 07/21/2022 documented as of this encounter (statuses as of 03/30/2023) [facility] Narrative* Problem Noted Date Diagnosed Date Resolved Date Migraine with aura, not intr actable, without status migrainosus 08/21/2018 07/21/2022 Acne 08/22/2012 07/21/2022 Asthma 08/22/2012 07/21/2022 documented as of this encounter (statuses as of 06/28/2023) [facility] Narrative* Problem Noted Date Diagnosed Date Resolved Date Migraine with aura, not intr actable, without status migrainosus 08/21/2018 07/21/2022 Acne 08/22/2012 07/21/2022 Asthma 08/22/2012 07/21/2022 documented as of this encounter (statuses as of 08/24/2023) [facility]* Problem Noted Date Diagnosed Date Resolved Date Migraine with aura, not intr actable, without status migrainosus 08/21/2018 07/21/2022 Acne 08/22/2012 07/21/2022 Asthma 08/22/2012 07/21/2022 documented as of this encounter (statuses as of 09/10/2023) [facility]* Problem Noted Date Diagnosed Date Resolved Date Migraine with aura, not intr actable, without status migrainosus 08/21/2018 07/21/2022 Acne 08/22/2012 07/21/2022 Asthma 08/22/2012 07/21/2022 documented as of this encounter (statuses as of 09/20/2023) [facility]* Problem Noted Date Diagnosed Date Resolved Date Migraine with aura, not intr actable, without status migrainosus 08/21/2018 07/21/2022 Acne 08/22/2012 07/21/2022 Asthma 08/22/2012 07/21/2022 documented as of this encounter (statuses as of 10/03/2023) [facility]* Problem Noted Date Diagnosed Date Resolved Date Migraine with aura, not intr actable, without status migrainosus 08/21/2018 07/21/2022 Acne 08/22/2012 07/21/2022 Asthma 08/22/2012 07/21/2022 documented as of this encounter (statuses as of 01/02/2024) [facility] Narrative* Problem Noted Date Diagnosed Date Resolved Date Migraine with aura, not intr actable, without status migrainosus 08/21/2018 07/21/2022 Acne 08/22/2012 07/21/2022 Asthma 08/22/2012 07/21/2022 documented as of this encounter (statuses as of 01/31/2024) [facility] noteNo assessment information availableWCommunity [facility] Work Phone: Evaluation note* Diagnosis Neck mass- Primary Swelling, mass, or lump in head and neck [facility] Diagnosis Attention deficit disorder, unspecified hyperactivity presence [facility] Diagnosis Migraine with aura, not intractable, without status migrainosus Anxiety Anxiety state, unspecified Attention deficit disorder, unspecified hyperactivity presence [facility] Diagnosis Attention deficit disorder, unspecified hyperactivity presence- Primary Essential hypertension Unspecified essential hypertension Vitamin D deficiency Unspecified vitamin D deficiency [facility] Diagnosis Attention deficit disorder, unspecified hyperactivity presence [facility]* Diagnosis ADHD (attention deficit hyperactivity disorder), inattentive type- Primary Attention deficit disorder without mention of hyperactivity Essential hypertension Unspecified essential hypertension [facility]* Diagnosis Encounter for screening mammogram for breast cancer documented in this encounter [facility] note* Diagnosis ADHD (attention deficit hyperactivity disorder), inattentive type- Primary Attention deficit disorder without mention of hyperactivity Migraine with aura, not intractable, without status migrainosus Anxiety Anxiety state, unspecified documented in this encounter [facility] note* Diagnosis Encounter for screening mammogram for breast cancer [facility]* Diagnosis Migraine with aura, not intractable, without status migrainosus Anxiety Anxiety state, unspecified ADHD (attention deficit hyperactivity disorder), inattentive type Attention deficit disorder without mention of hyperactivity [facility]* Diagnosis ADHD (attention deficit hyperactivity disorder), inattentive type Attention deficit disorder without mention of hyperactivity [facility]* Diagnosis Essential hypertension- Primary Unspecified essential hypertension ADHD (attention deficit hyperactivity disorder), inattentive type Attention deficit disorder without mention of hyperactivity Medication monitoring encounter Encounter for therapeutic drug monitoring Vitamin D deficiency Unspecified vitamin D deficiency documented in this encounter [facility] note* Diagnosis ADHD (attention deficit hyperactivity disorder), inattentive type Attention deficit disorder without mention of hyperactivity [facility]* Diagnosis Migraine with aura, not intractable, without status migrainosus Anxiety Anxiety state, unspecified documented in this encounter [facility] note* Diagnosis ADHD (attention deficit hyperactivity disorder), inattentive type- Primary Attention deficit disorder without mention of hyperactivity Essential hypertension Unspecified essential hypertension Mixed hyperlipidemia GERD without esophagitis Esophageal reflux [facility] Diagnosis ADHD (attention deficit hyperactivity disorder), inattentive type- Primary Attention deficit disorder without mention of hyperactivity Encounter for screening mammogram for malignant neoplasm of breast Other screening mammogram Essential hypertension Unspecified essential hypertension [facility]* Diagnosis ADHD (attention deficit hyperactivity disorder), inattentive type Attention deficit disorder without mention of hyperactivity [facility] Diagnosis Migraine with aura, not intractable, without status migrainosus Anxiety Anxiety state, unspecified [facility] Diagnosis Encounter for screening mammogram for malignant neoplasm of breast Other screening mammogram [facility]* Diagnosis ADHD (attention deficit hyperactivity disorder), inattentive type- Primary Attention deficit disorder without mention of hyperactivity [facility] Diagnosis Essential hypertension- Primary Unspecified essential hypertension ADHD (attention deficit hyperactivity disorder), inattentive type Attention deficit disorder without mention of hyperactivity Vitamin D deficiency Unspecified vitamin D deficiency Mixed hyperlipidemia Screening for diabetes mellitus [facility]* Diagnosis Migraine with aura, not intractable, without status migrainosus Anxiety Anxiety state, unspecified [facility] Diagnosis Migraine with aura, not intractable, without status migrainosus Anxiety Anxiety state, unspecified [facility]* Diagnosis Encounter for screening mammogram for breast cancer [facility]* Diagnosis Well adult exam- Primary Routine general medical examination at a health care facility ADHD (attention deficit hyperactivity disorder), inattentive type Attention deficit disorder without mention of hyperactivity Essential hypertension Unspecified essential hypertension Migraine with aura, not intractable, without status migrainosus Mixed hyperlipidemia Vitamin D deficiency Unspecified vitamin D deficiency Screening for colon cancer Special screening for malignant neoplasms, colon Screening for depression Encounter for screening examination for other mental health and behavioral disorders [facility] Diagnosis Vitamin D deficiency- Primary Unspecified vitamin D deficiency [facility]* Diagnosis ADHD (attention deficit hyperactivity disorder), inattentive type Attention deficit disorder without mention of hyperactivity [facility]* Diagnosis ADHD (attention deficit hyperactivity disorder), inattentive type- Primary Attention deficit disorder without mention of hyperactivity Essential hypertension Unspecified essential hypertension Mixed hyperlipidemia GERD without esophagitis Esophageal reflux Vitamin D deficiency Unspecified vitamin D deficiency Class 1 obesity without serious comorbidity with body mass index (BMI) of 30.0 to 30.9 in adult, unspecified obesity type [facility]* Diagnosis ADHD (attention deficit hyperactivity disorder), inattentive type Attention deficit disorder without mention of hyperactivity [facility]* Diagnosis ADHD (attention deficit hyperactivity disorder), inattentive type- Primary Attention deficit disorder without mention of hyperactivity Anxiety Anxiety state, unspecified Essential hypertension Unspecified essential hypertension Obesity, Class I, BMI 30-34.9 Obesity, unspecified Difficulty losing weight [facility] Diagnosis ADHD (attention deficit hyperactivity disorder), inattentive type- Primary Attention deficit disorder without mention of hyperactivity Obesity, Class I, BMI 30-34.9 Obesity, unspecified Difficulty losing weight documented in this encounter [facility] for referral (narrative)* Diagnostic Procedure Only (Routine) - Authorized Specialty Diagnoses / Procedures Referred By Contac t Referred To Contact [facility] Diagnoses Encounter for screening mammogram for breast cancer Procedures NOLAN SCREENING SCREENING MAMMOGRAPHY BI 2-VIEW BREAST INC Gordo Mayberry MD [address] [place] [address] [facility] [address] [place] [address] Referral ID Status Reason Start Date Expiration Date Visits Requested Visits Authorized [id number] Authorized Auto-Generat ed Referral 07/19/2022 08/18/2023 1 1 [facility] for referral (narrative)* Diagnostic Procedure Only (Routine) - Closed Specialty Diagnoses / Procedures Referred By Marcelino mann Referred To Contact [facility] Diagnoses Encounter for screening mammogram for breast cancer Procedures NOLAN SCREENING SCREENING MAMMOGRAPHY BI 2-VIEW BREAST INC Gordo Mayberry MD [address] [place] [address] [facility] [address] [place] [address] Referral ID Status Reason Start Date Expiration Date V isits Requested Visits Authorized [id number] Closed Auto-Generate d Referral 07/19/2022 08/18/2023 1 1 T [facility] for referral (narrative)* Diagnostic Procedure Only (Routine) - Pending Review Specialty Diagnoses / Procedures Referred By Contac t Referred To Contact [facility] Diagnoses Encounter for screening mammogram for malignant neoplasm of breast Procedures NOLAN SCREENING SCREENING MAMMOGRAPHY BI 2-VIEW BREAST INC Gordo Mayberry MD [address] [place] [address] [facility] [address] [place] [address] Referral ID Status Reason Start Date Expiration Date Visits Requested Visits Authorized [id number] Pending Review Auto-Generat ed Referral 06/28/2023 07/27/2024 1 1 [facility] for referral (narrative)* Diagnostic Procedure Only (Routine) - New Request Specialty Diagnoses / Procedures Referred By Marcelino mann Referred To Contact [facility] Diagnoses Encounter for screening mammogram for breast cancer Procedures NOLAN SCREENING W JUAN SCREENING DIGITAL BREAST TOMOSYNTHESIS BI SCREENING MAMMOGRAPHY BI 2-[place] [address] [place] [address] [facility] [address] [place] [address] Referral ID Status Reason Start Date Expiration Date Visits Requested Visits Authorized [id number] New Request Auto-Generat ed Referral 10/29/2024 11/28/2025 1 1 [facility] for referral (narrative)No reason for referral information availableSt. [facility] Work Phone: Reason for visit Narrative* Diagnostic Procedure Only (Routine) - Closed Specialty Diagnoses / Procedures Referred By Marcelino mann Referred To Contact [facility] Diagnoses Encounter for screening mammogram for breast cancer Procedures NOLAN SCREENING SCREENING MAMMOGRAPHY BI 2-VIEW BREAST INC Gordo Mayberry MD [address] [place] [address] [facility] [address] [place] [address] Referral ID Status Reason Start Date Expiration Date V isits Requested Visits Authorized [id number] Closed Auto-Generate d Referral 07/19/2022 08/18/2023 1 1 [facility] for visit Narrative* Diagnostic Procedure Only (Routine) - Closed Specialty Diagnoses / Procedures Referred By Marcelino mann Referred To Contact [facility] Diagnoses Encounter for screening mammogram for malignant neoplasm of breast Procedures NOLAN SCREENING SCREENING MAMMOGRAPHY BI 2-VIEW BREAST INC Gordo Mayberry MD [address] [place] [address] [facility] [address] [place] [address] Referral ID Status Reason Start Date Expiration Date V isits Requested Visits Authorized [id number] Closed Auto-Generate d Referral 06/28/2023 07/27/2024 1 1 [facility] Summary Purpose Family History No Family History Records Found Relationship Condition Age at Onset Recorded Date/T matthieu father Diabetes mellitus Unknown Relationship Condition Age at Onset Recorded Date/T matthieu father Diabetes mellitus Unknown grandmother Malignant neoplasm of uterus Unknown brother Acute leukemia Unknown Advance Directives No Advanced Directives Records Found Advance Directive Response Recorded Date/ Time Living Will No August 16 12:05pm Power of Buffer Nickel No August 16, 2017 12:05pm Chief Complaint and Reason for Visit Chief Complaint LUMP IN NECK Chief Complaint Admit Date CHANGE IN BOWEL HABITS August 18 2:20pm Reason for Visit Admit Date Acid reflux August 18, 2025 2 :20pm Blood in stool August 18, 2025 2 :20pm Reason for Referral Specialty Diagnoses / Procedures Referred By Marcelino mann Referred To Contact General Surgery Diagnoses Neck mass Procedures CONSULT TO GENERAL SURGERY OFFICE/OUTPATIENT [facility] MDM 60-74 MINUTES Gordo Orourke MD [address] [place] [address] Referral ID Status Reason Start Date Expiration Date Visits Requested Visits Authorized [id number] Authorized PCP Requested Referral 01/24/2022 01/24/2023 1 1 Additional Source Comments INFORMATION SOURCE (unrecogn ized section and content) DATE CREATED AUTHOR 04/24/2018 [facility] DATE CREATED AUTHOR AUTHOR'S ORGANIZ ATION 11/09/2024 [facility] DATE CREATED AUTHOR AUTHOR'S ORGANIZ ATION 08/04/2025 [facility] DATE CREATED AUTHOR AUTHOR'S ORGANIZ ATION 09/09/2025 [facility] Goals (unrecognized section and content) Goals may be documented in a n alternate sectionGoals may be documented in an alternate sectionGoals may be documented in an alternate sectionGoals may be documented in an alternate section Source Comments (unrecognize d section and content) In the event this informatio n is protected by the Federal Confidentiality of Alcohol and Drug Abuse Patient Records regulations: The Federal rules restrict any use of the information to criminally investigate or prosecute any alcohol or drug abuse patient.[facility] the event this information is protected by the Federal Confidentiality of Alcohol and Drug Abuse Patient Records regulations: The Federal rules restrict any use of the information to criminally investigate or prosecute any alcohol or drug abuse patient.[facility] HospitalIn the event this information is protected by the Federal Confidentiality of Alcohol and Drug Abuse Patient Records regulations: The Federal rules restrict any use of the information to criminally investigate or prosecute any alcohol or drug abuse patient.[facility] HospitalIn the event this information is protected by the Federal Confidentiality of Alcohol and Drug Abuse Patient Records regulations: The Federal rules restrict any use of the information to criminally investigate or prosecute any alcohol or drug abuse patient.[facility] Hospital[facility] the event this information is protected by the Federal Confidentiality of Alcohol and Drug Abuse Patient Records regulations: The Federal rules restrict any use of the information to criminally investigate or prosecute any alcohol or drug abuse patient.[facility] HospitalIn the event this information is protected by the Federal Confidentiality of Alcohol and Drug Abuse Patient Records regulations: The Federal rules restrict any use of the information to criminally investigate or prosecute any alcohol or drug abuse patient.[facility] HospitalIn the event this information is protected by the Federal Confidentiality of Alcohol and Drug Abuse Patient Records regulations: The Federal rules restrict any use of the information to criminally investigate or prosecute any alcohol or drug abuse patient.[facility] HospitalIn the event this information is protected by the Federal Confidentiality of Alcohol and Drug Abuse Patient Records regulations: The Federal rules restrict any use of the information to criminally investigate or prosecute any alcohol or drug abuse patient.[facility] HospitalIn the event this information is protected by the Federal Confidentiality of Alcohol and Drug Abuse Patient Records regulations: The Federal rules restrict any use of the information to criminally investigate or prosecute any alcohol or drug abuse patient.[facility] HospitalIn the event this information is protected by the Federal Confidentiality of Alcohol and Drug Abuse Patient Records regulations: The Federal rules restrict any use of the information to criminally investigate or prosecute any alcohol or drug abuse patient.[facility] HospitalIn the event this information is protected by the Federal Confidentiality of Alcohol and Drug Abuse Patient Records regulations: The Federal rules restrict any use of the information to criminally investigate or prosecute any alcohol or drug abuse patient.[facility] HospitalIn the event this information is protected by the Federal Confidentiality of Alcohol and Drug Abuse Patient Records regulations: The Federal rules restrict any use of the information to criminally investigate or prosecute any alcohol or drug abuse patient.[facility] HospitalIn the event this information is protected by the Federal Confidentiality of Alcohol and Drug Abuse Patient Records regulations: The Federal rules restrict any use of the information to criminally investigate or prosecute any alcohol or drug abuse patient.[facility] HospitalIn the event this information is protected by the Federal Confidentiality of Alcohol and Drug Abuse Patient Records regulations: The Federal rules restrict any use of the information to criminally investigate or prosecute any alcohol or drug abuse patient.[facility] HospitalIn the event this information is protected by the Federal Confidentiality of Alcohol and Drug Abuse Patient Records regulations: The Federal rules restrict any use of the information to criminally investigate or prosecute any alcohol or drug abuse patient.[facility] HospitalIn the event this information is protected by the Federal Confidentiality of Alcohol and Drug Abuse Patient Records regulations: The Federal rules restrict any use of the information to criminally investigate or prosecute any alcohol or drug abuse patient.[facility] HospitalIn the event this information is protected by the Federal Confidentiality of Alcohol and Drug Abuse Patient Records regulations: The Federal rules restrict any use of the information to criminally investigate or prosecute any alcohol or drug abuse patient.[facility] HospitalIn the event this information is protected by the Federal Confidentiality of Alcohol and Drug Abuse Patient Records regulations: The Federal rules restrict any use of the information to criminally investigate or prosecute any alcohol or drug abuse patient.[facility] HospitalIn the event this information is protected by the Federal Confidentiality of Alcohol and Drug Abuse Patient Records regulations: The Federal rules restrict any use of the information to criminally investigate or prosecute any alcohol or drug abuse patient.[facility] HospitalIn the event this information is protected by the Federal Confidentiality of Alcohol and Drug Abuse Patient Records regulations: The Federal rules restrict any use of the information to criminally investigate or prosecute any alcohol or drug abuse patient.[facility] HospitalIn the event this information is protected by the Federal Confidentiality of Alcohol and Drug Abuse Patient Records regulations: The Federal rules restrict any use of the information to criminally investigate or prosecute any alcohol or drug abuse patient.[facility] HospitalIn the event this information is protected by the Federal Confidentiality of Alcohol and Drug Abuse Patient Records regulations: The Federal rules restrict any use of the information to criminally investigate or prosecute any alcohol or drug abuse patient.[facility] HospitalIn the event this information is protected by the Federal Confidentiality of Alcohol and Drug Abuse Patient Records regulations: The Federal rules restrict any use of the information to criminally investigate or prosecute any alcohol or drug abuse patient.[facility] HospitalIn the event this information is protected by the Federal Confidentiality of Alcohol and Drug Abuse Patient Records regulations: The Federal rules restrict any use of the information to criminally investigate or prosecute any alcohol or drug abuse patient.[facility] HospitalIn the event this information is protected by the Federal Confidentiality of Alcohol and Drug Abuse Patient Records regulations: The Federal rules restrict any use of the information to criminally investigate or prosecute any alcohol or drug abuse patient.[facility] HospitalIn the event this information is protected by the Federal Confidentiality of Alcohol and Drug Abuse Patient Records regulations: The Federal rules restrict any use of the information to criminally investigate or prosecute any alcohol or drug abuse patient.[facility] HospitalIn the event this information is protected by the Federal Confidentiality of Alcohol and Drug Abuse Patient Records regulations: The Federal rules restrict any use of the information to criminally investigate or prosecute any alcohol or drug abuse patient.[facility] HospitalIn the event this information is protected by the Federal Confidentiality of Alcohol and Drug Abuse Patient Records regulations: The Federal rules restrict any use of the information to criminally investigate or prosecute any alcohol or drug abuse patient.[facility] HospitalIn the event this information is protected by the Federal Confidentiality of Alcohol and Drug Abuse Patient Records regulations: The Federal rules restrict any use of the information to criminally investigate or prosecute any alcohol or drug abuse patient.[facility] HospitalIn the event this information is protected by the Federal Confidentiality of Alcohol and Drug Abuse Patient Records regulations: The Federal rules restrict any use of the information to criminally investigate or prosecute any alcohol or drug abuse patient.[facility] HospitalIn the event this information is protected by the Federal Confidentiality of Alcohol and Drug Abuse Patient Records regulations: The Federal rules restrict any use of the information to criminally investigate or prosecute any alcohol or drug abuse patient.[facility] HospitalIn the event this information is protected by the Federal Confidentiality of Alcohol and Drug Abuse Patient Records regulations: The Federal rules restrict any use of the information to criminally investigate or prosecute any alcohol or drug abuse patient.[facility] HospitalIn the event this information is protected by the Federal Confidentiality of Alcohol and Drug Abuse Patient Records regulations: The Federal rules restrict any use of the information to criminally investigate or prosecute any alcohol or drug abuse patient.[facility] HospitalIn the event this information is protected by the Federal Confidentiality of Alcohol and Drug Abuse Patient Records regulations: The Federal rules restrict any use of the information to criminally investigate or prosecute any alcohol or drug abuse patient.[facility] HospitalIn the event this information is protected by the Federal Confidentiality of Alcohol and Drug Abuse Patient Records regulations: The Federal rules restrict any use of the information to criminally investigate or prosecute any alcohol or drug abuse patient.[facility] HospitalIn the event this information is protected by the Federal Confidentiality of Alcohol and Drug Abuse Patient Records regulations: The Federal rules restrict any use of the information to criminally investigate or prosecute any alcohol or drug abuse patient.[facility] HospitalIn the event this information is protected by the Federal Confidentiality of Alcohol and Drug Abuse Patient Records regulations: The Federal rules restrict any use of the information to criminally investigate or prosecute any alcohol or drug abuse patient.[facility] HospitalIn the event this information is protected by the Federal Confidentiality of Alcohol and Drug Abuse Patient Records regulations: The Federal rules restrict any use of the information to criminally investigate or prosecute any alcohol or drug abuse patient.[facility] HospitalIn the event this information is protected by the Federal Confidentiality of Alcohol and Drug Abuse Patient Records regulations: The Federal rules restrict any use of the information to criminally investigate or prosecute any alcohol or drug abuse patient.[facility] HospitalIn the event this information is protected by the Federal Confidentiality of Alcohol and Drug Abuse Patient Records regulations: The Federal rules restrict any use of the information to criminally investigate or prosecute any alcohol or drug abuse patient.[facility] HospitalIn the event this information is protected by the Federal Confidentiality of Alcohol and Drug Abuse Patient Records regulations: The Federal rules restrict any use of the information to criminally investigate or prosecute any alcohol or drug abuse patient.[facility] HospitalIn the event this information is protected by the Federal Confidentiality of Alcohol and Drug Abuse Patient Records regulations: The Federal rules restrict any use of the information to criminally investigate or prosecute any alcohol or drug abuse patient.[facility] HospitalIn the event this information is protected by the Federal Confidentiality of Alcohol and Drug Abuse Patient Records regulations: The Federal rules restrict any use of the information to criminally investigate or prosecute any alcohol or drug abuse patient.[facility] HospitalIn the event this information is protected by the Federal Confidentiality of Alcohol and Drug Abuse Patient Records regulations: The Federal rules restrict any use of the information to criminally investigate or prosecute any alcohol or drug abuse patient.[facility] HospitalIn the event this information is protected by the Federal Confidentiality of Alcohol and Drug Abuse Patient Records regulations: The Federal rules restrict any use of the information to criminally investigate or prosecute any alcohol or drug abuse patient.[facility] HospitalIn the event this information is protected by the Federal Confidentiality of Alcohol and Drug Abuse Patient Records regulations: The Federal rules restrict any use of the information to criminally investigate or prosecute any alcohol or drug abuse patient.[facility] Care Teams (unrecognized sec tion and content) Production Support Engineer Relationship Specialty Start Date End Date Gordo Orourke MD [address] [place], [place] [id number] PCP - General Family Practice 05/18/17 Production Support Engineer Relationship Specialty Start Date End Date Gordo Orourke MD [address] [place] [address] PCP - General Family Practice 05/18/17 Production Support Engineer Relationship Specialty Start Date End Date Gordo Orourke MD [address] [place] [address] PCP - General Family Practice 05/18/17 Production Support Engineer Relationship Specialty Start Date End Date Gordo Orourke MD [address] [place] [address] PCP - General Family Practice 05/18/17 Production Support Engineer Relationship Specialty Start Date End Date Gordo Orourke MD [address] [place] [address] PCP - General Family Practice 05/18/17 Production Support Engineer Relationship Specialty Start Date End Date Gordo Orourke MD [address] [place] [address] PCP - General Family Practice 05/18/17 Production Support Engineer Relationship Specialty Start Date End Date Gordo Orourke MD [address] [place] [address] PCP - General Family Practice 05/18/17 Production Support Engineer Relationship Specialty Start Date End Date Gordo Orourke MD [address] [place] [address] PCP - General Family Practice 05/18/17 Production Support Engineer Relationship Specialty Start Date End Date Gordo Orourke MD [address] [place] [address] PCP - General Family Practice 05/18/17 Production Support Engineer Relationship Specialty Start Date End Date Gordo Orourke MD [address] [place] [address] PCP - General Family Medicine 05/18/17 Production Support Engineer Relationship Specialty Start Date End Date Gordo Orourke MD [address] [place] [address] PCP - General Family Medicine 05/18/17 Production Support Engineer Relationship Specialty Start Date End Date Gordo Orourke MD [address] [place] [address] PCP - General Family Medicine 05/18/17 Production Support Engineer Relationship Specialty Start Date End Date Gordo Orourke MD [address] [place] [address] PCP - General Family Medicine 05/18/17 Production Support Engineer Relationship Specialty Start Date End Date Gordo Orourke MD [address] [place] [address] PCP - General Family Medicine 05/18/17 Production Support Engineer Relationship Specialty Start Date End Date Gordo Orourke MD [address] [place] [address] PCP - General Family Medicine 05/18/17 Production Support Engineer Relationship Specialty Start Date End Date Gordo Orourke MD [address] [place] [address] PCP - General Family Medicine 05/18/17 Production Support Engineer Relationship Specialty Start Date End Date Gordo Orourke MD [address] [place] [address] PCP - General Family Medicine 05/18/17 Production Support Engineer Relationship Specialty Start Date End Date Gordo Orourke MD [address] [place] [address] PCP - General Family Medicine 05/18/17 Production Support Engineer Relationship Specialty Start Date End Date Gordo Orourke MD [address] [place] [address] PCP - General Family Medicine 05/18/17 Production Support Engineer Relationship Specialty Start Date End Date Gordo Orourke MD [address] [place] [address] PCP - General Family Medicine 05/18/17 Production Support Engineer Relationship Specialty Start Date End Date Gordo Orourke MD [address] [place] [address] PCP - General Family Medicine 05/18/17 Production Support Engineer Relationship Specialty Start Date End Date Gordo Orourke MD [address] [place] [address] PCP - General Family Medicine 05/18/17 Production Support Engineer Relationship Specialty Start Date End Date Gordo Orourke MD [address] [place] [address] PCP - General Family Medicine 05/18/17 Production Support Engineer Relationship Specialty Start Date End Date Gordo Orourke MD [address] [place] [address] PCP - General Family Medicine 05/18/17 Production Support Engineer Relationship Specialty Start Date End Date Gordo Orourke MD [address] [place] [address] PCP - General Family Medicine 05/18/17 Production Support Engineer Relationship Specialty Start Date End Date Gordo Orourke MD [address] [place] [address] PCP - General Family Medicine 05/18/17 Production Support Engineer Relationship Specialty Start Date End Date Gordo Orourke MD [address] [place] [address] PCP - General Family Medicine 05/18/17 Production Support Engineer Relationship Specialty Start Date End Date Gordo Orourke MD [address] [place] [address] PCP - General Family Medicine 05/18/17 Dory Arechiga APRN.INSTRUMENT TECHNICIAN APPRENTICE [address] [place] [address] Urology Teacher Family Medicine 10/06/24 Yanique Lopez APRN.INSTRUMENT TECHNICIAN APPRENTICE [address] [place] [address] Urology Teacher Family Medicine 10/06/24 Production Support Engineer Relationship Specialty Start Date End Date Gordo Orourke MD [address] [place] [address] PCP - General Family Medicine 05/18/17 Dory Arechiga APRN.INSTRUMENT TECHNICIAN APPRENTICE [address] [place] [address] Urology Teacher Family Medicine 10/06/24 Yanique Lopez APRN.INSTRUMENT TECHNICIAN APPRENTICE [address] [place] [address] Urology Teacher Family Medicine 10/06/24 Production Support Engineer Relationship Specialty Start Date End Date Gordo Orourke MD [address] [place] [address] PCP - General Family Medicine 05/18/17 Dory Arechiga APRN.INSTRUMENT TECHNICIAN APPRENTICE [address] [place] [address] Urology Teacher Family Medicine 10/06/24 Yanique Lopez, SENIOR CUSTOMER SERVICE REPRESENTATIVE.INSTRUMENT TECHNICIAN APPRENTICE [address] [place] [address] Urology Teacher Family Medicine 10/06/24 Production Support Engineer Relationship Specialty Start Date End Date Rachel Orozco, SENIOR CUSTOMER SERVICE REPRESENTATIVE.INSTRUMENT TECHNICIAN APPRENTICE [address] [place] [address] PCP - General Family Medicine 12/09/24 Dory Arechiga, SENIOR CUSTOMER SERVICE REPRESENTATIVE.INSTRUMENT TECHNICIAN APPRENTICE [address] [place] [address] Urology Teacher Family Medicine 10/06/24 Yanique Lopez, SENIOR CUSTOMER SERVICE REPRESENTATIVE.INSTRUMENT TECHNICIAN APPRENTICE [address] [place] [address] Urology Teacher Family Medicine 10/06/24 Production Support Engineer Relationship Specialty Start Date End Date Rachel Orozco, SENIOR CUSTOMER SERVICE REPRESENTATIVE.INSTRUMENT TECHNICIAN APPRENTICE [address] [place] [address] PCP - General Family Medicine 12/09/24 Dory Arechiga, SENIOR CUSTOMER SERVICE REPRESENTATIVE.INSTRUMENT TECHNICIAN APPRENTICE [address] [place] [address] Urology Teacher Family Medicine 10/06/24 Yanique Lopez, SENIOR CUSTOMER SERVICE REPRESENTATIVE.INSTRUMENT TECHNICIAN APPRENTICE [address] [place] [address] Urology Teacher Family Medicine 10/06/24 Production Support Engineer Relationship Specialty Start Date End Date Rachel Orozco, SENIOR CUSTOMER SERVICE REPRESENTATIVE.INSTRUMENT TECHNICIAN APPRENTICE [address] [facility] [place] [id number] PCP - General Family Medicine 12/09/24 Dory Arechiga, SENIOR CUSTOMER SERVICE REPRESENTATIVE.INSTRUMENT TECHNICIAN APPRENTICE [address] [facility] [address] Urology Teacher Family Medicine 10/06/24 Yanique Lopez, SENIOR CUSTOMER SERVICE REPRESENTATIVE.INSTRUMENT TECHNICIAN APPRENTICE [address] [facility] [place] [address] Urology Teacher Family Medicine 10/06/24 Production Support Engineer Relationship Specialty Start Date End Date Rachel Orozco, SENIOR CUSTOMER SERVICE REPRESENTATIVE.INSTRUMENT TECHNICIAN APPRENTICE [address] [place], [place] [id number] PCP - General Family Medicine 12/09/24 Dory Arechiga, SENIOR CUSTOMER SERVICE REPRESENTATIVE.INSTRUMENT TECHNICIAN APPRENTICE [address] [place] [address] Urology Teacher Family Medicine 10/06/24 Yanique Lopez, SENIOR CUSTOMER SERVICE REPRESENTATIVE.INSTRUMENT TECHNICIAN APPRENTICE [address] [facility] [place] [address] [facility] Production Support Engineer Relationship Specialty Start Date End Date Rachel Orozco SENIOR CUSTOMER SERVICE REPRESENTATIVE.INSTRUMENT TECHNICIAN APPRENTICE [address] [facility] [place] [address] PCP - General Family Medicine 12/09/24 Dory Arechiga, SENIOR CUSTOMER SERVICE REPRESENTATIVE.INSTRUMENT TECHNICIAN APPRENTICE [address] [place] [address] Urology Teacher Family Medicine 10/06/24 Yanique Lopez, SENIOR CUSTOMER SERVICE REPRESENTATIVE.INSTRUMENT TECHNICIAN APPRENTICE [address] [place] [address] Urology Teacher [facility] 10/06/24 Production Support Engineer Relationship Specialty Start Date End Date Rachel Orozco, SENIOR CUSTOMER SERVICE REPRESENTATIVE.INSTRUMENT TECHNICIAN APPRENTICE [address] [facility] [place], [place] [phone] PCP - General Family Medicine 12/09/24 Dory Arechiga, SENIOR CUSTOMER SERVICE REPRESENTATIVE.INSTRUMENT TECHNICIAN APPRENTICE [address] [place] [address] Urology Teacher Family [facility] 10/06/24 Yanique Lopez, SENIOR CUSTOMER SERVICE REPRESENTATIVE.INSTRUMENT TECHNICIAN APPRENTICE [address] [place] [address] [facility] 10/06/24 Production Support Engineer Relationship Specialty Start Date End Date Rachel Orozco, SENIOR CUSTOMER SERVICE REPRESENTATIVE.INSTRUMENT TECHNICIAN APPRENTICE [address] [place], [place] [phone] PCP - General Family Medicine 12/09/24 Dory Arechiga, SENIOR CUSTOMER SERVICE REPRESENTATIVE.INSTRUMENT TECHNICIAN APPRENTICE [address] [place] [address] [facility] 10/06/24 Yanique Lopez, SENIOR CUSTOMER SERVICE REPRESENTATIVE.INSTRUMENT TECHNICIAN APPRENTICE [address] [place] [address] [facility] 10/06/24 Production Support Engineer Relationship Specialty Start Date End Date Rachel Orozco, SENIOR CUSTOMER SERVICE REPRESENTATIVE.INSTRUMENT TECHNICIAN APPRENTICE [address] [facility] [place] [id number] PCP - General Family Medicine 12/09/24 Yanique Lopez, SENIOR CUSTOMER SERVICE REPRESENTATIVE.INSTRUMENT TECHNICIAN APPRENTICE [address] [place] [address] Urology Teacher Family Medicine 10/06/24 Team Status: Active Member Role/Relationship Status Dates Rachel Orozco FURNITURE DIPPER, FURNITURE DIPPER-C Primary care physician Active Team Status: Inactive Member Role/Relationship Status Dates Rachel Orozco FURNITURE DIPPER, FURNITURE DIPPER-C Primary care physician Active Start: August 18, 2025 End: August 18, 2025 Dr. Rosy Vasquez MD Attending physician Active Start: August 18, 2025 End: August 18, 2025 Dr. Abby Zhu DO Referring Provider Activ e Start: August 18, 2025 End: August 18, 2025 Reason for Visit (unrecogniz ed section and content) Reason Comments Follow Up Specialty Diagnoses / Procedures Referred By Marcelino t Referred To Contact Family Practice / FAMILY MEDICINE Diagnoses Meds Procedures MYC OFFICE VISIT Self Gordo Orourke MD [address] [place] [address] Referral ID Status Reason Start Date Expiration Date V isits Requested Visits Authorized [id number] Closed Financial Clearance Required - Self Pay Patient Cleared - True Self-Pay required payment collected 03/20/2022 06/14/2022 1 1 Reason Onset Date Comments Refill Request 03/06/2022 Reason Comments Medication Question Reason Onset Date Comments Refill Request 06/19/2022 Reason Comments ADD/ADHD Reason Comments Follow Up 4 week follow up Reason Onset Date Comments Refill Request 01/26/2023 Reason Onset Date Comments Refill Request 03/02/2023 Reason Onset Date Comments Refill Request 03/03/2023 Reason Comments ADD/ADHD Reason Onset Date Comments Refill Request 09/08/2023 Reason Onset Date Comments Refill Request 03/14/2024 Reason Comments Wellness Establish Care Reason Onset Date Comments Refill Request 02/06/2025 Reason Comments ADD/ADHD Follow up Reason Onset Date Comments Refill Request 04/18/2025 Reason Onset Date Comments Refill Request 05/27/2025 Reason Comments Weight Problem FOR RECORDS PERTAINING TO PATIENTS WHO ARE OR HAVE BEEN ENROLLED IN A CHEMICAL DEPENDENCY/SUBSTANCEABUSE PROGRAM, SOME INFORMATION MAY BE OMITTED. This clinical summary was aggregated from multiple sources. Caution should be exercised in using it in the provision of clinical care. This summary normalizes information from multiple sources, and as a consequence, information in this document may materially change the coding, format and clinical context of patient data. In addition, data may be omitted in some cases. CLINICAL DECISIONS SHOULD BE BASED ON THE PRIMARY CLINICAL RECORDS. [facility]. provides no warranty or guarantee of the accuracy or completeness of information in this document.
--- NOTE | 2025-10-02 07:30 | BI_ITS ---
EXAM: SCRN MAMM (CAD)W/JUAN BILAT DATE: 10/02/2025 CLINICAL HISTORY: F, Age 45 y/o, SCREENING FOR MALIGNANT NEOPLASM OF THE BREAST. TECHNIQUE: Procedure Code: [id number] Modality: MG Procedure: SCRN MAMM (CAD)W/JUAN BILAT COMPARISON: Prior exam(s) dated 09/26/2024. FINDINGS: TISSUE DENSITY: There are scattered areas of fibroglandular density. Bilateral Breast Mammographic Findings: No significant masses, calcifications or other abnormalities are identified. BI/SCRN MAMM (CAD)W/JUAN BILAT IMPRESSION: There is no mammographic evidence of malignancy. OVERALL FINAL ASSESSMENT BI-RADS 1: NEGATIVE. RECOMMENDATION: Routine annual follow-up in 1 Year Additional Recommendation none A letter with findings and recommendations will be mailed to the patient. Reading Location: [id number]
== END | disposition home or self-care (01) ==
LOC: OPBI 07:20
PROVIDERS: PCP Nurse Practitioner Family; Referring Provider Obstetrics & Gynecology; Visit Provider Obstetrics & Gynecology
DX: Z12.31 Encounter for screening mammogram for malignant neoplasm of breast (principal)
CPT/HCPCS: 77063; 77067

== ENCOUNTER 2025-10-07 08:17 | Day surgery (SDC) | payer OTHER, SELFPAY ==
--- NOTE | 2025-10-05 14:22 | PAT.ANESEVAL ---
Pre-Assessment Diagnosis/Proposed Procedure Planned Operative Procedure(s): CSCOPE, EGD Anesthesia History Anesthesia History - cilnical scientist: Anesthesia History - cilnical scientist Hx Hospitalization No 10/05/25 14:04 Any Problems With Anesthesia No 10/05/25 14:04 Cholinesterase deficiency No 10/05/25 14:04 You/Your Family Experience No 10/05/25 14:04 fever (hyperthermia) with Relationship Recent Exposure to Contagious No 08/16/17 06:47 Disease Does patient have nerve No 10/05/25 14:04 stimulator Patient instructed to have device shut off --Does patient have Pacemaker or ICD? When Was Last Pacemaker Check QUESTION #4 FULL TEXT: You/Your Family Experience fever (hyperthermia) with Anesthesia Last Oral Intake Last Oral intake: Last Oral Intake NPO since Meds taken in AM with sips of water? Meds patient instructed to take am of surgery PONV PONV - cilnical scientist: PONV - cilnical scientist Female Yes 10/05/25 14:04 HX of Motion Sickness Yes 10/05/25 14:04 HX of N/V After Surgery Yes 10/05/25 14:04 Non-Smoker Yes 10/05/25 14:04 Duration of Surgery greater No 10/05/25 14:04 than 60 minutes Number of Risk Factors 4 10/05/25 14:04 PONV Score Severe Risk 10/05/25 14:04 Height & Weight Height & Weight: Anesthesia: Height & Weight Height 5 ft 8 in 08/18/25 14:41 Respiratory Assessment Respiratory Assessment - cilnical scientist: Respiratory Tract Infection Hx - cilnical scientist Hx Respiratory Tract Infection No 10/05/25 14:04 STOP Sleep Apnea STOP Sleep Apnea - cilnical scientist: STOP Sleep Apnea - cilnical scientist Hx Hypertension Yes: CONTROLLED WITH MED 10/05/25 14:04 Hx Sleep Apnea No 10/05/25 14:04 CPAP BIPAP Do you snore loudly (louder No 10/05/25 14:04 than talking or can be heard Do you often feel tired/ No 10/05/25 14:04 fatigued/ sleepy during daytime? Has anyone observed you stop No 10/05/25 14:04 breathing during sleep? STOP Results Negative 10/05/25 14:04 QUESTION #5 FULL TEXT : Do you snore loudly (louder than talking or can be heard through closed doors)? Tobacco Use History Tobacco Use History - cilnical scientist: Tobacco Use History - cilnical scientist Tobacco Use Smoking Status Former smoker 10/05/25 14:04 Hx Tobacco Use No 10/05/25 14:04 Years Smoking Packs Smoked per Day Smoking Cessation Date was No - quit smoking greater 10/05/25 14:04 within the last 15 years than 15 years ago Hx Smoking Cessation Date 10/29/04 10/05/25 14:04 Hx Smoking Cessation Counseling Hematologic Medial History Hematologic Hx - cilnical scientist: Hematologic Medical Hx - subsorter Hx of Blood Transfusion No 10/05/25 14:04 Hx of Transfusion in last 3 No 10/05/25 14:04 Months Date of Last Transfusion (if within last 3 months) Ever experience any problems No 10/05/25 14:04 with transfusion(s)? Specify any problems Hx of Preganancy in last 3 N/A 10/05/25 14:04 Months Nurse Filling Out Transfusion NBUCHER 10/05/25 14:04 & Questions: Date: 10/05/25 10/05/25 14:04 Time: 14:06 10/05/25 14:04 Patient unable to answer at this time (ie. confused, unrespo /Reproduction History /Reproductive History - cilnical scientist: /Reproductive Hx- cilnical scientist Hx Now No 10/05/25 14:04 Gestational Age (in weeks): EDC: Hx Hx Para Hx Section SAB No 10/05/25 14:04 Does the father of the baby or his family experience fever w Father of the baby Malignant Hypertension history comment [facility] Medical History (Updated 10/05/25 @ 14:10 by Sarai Lorenzana) Wears glasses ADHD Anxiety Heartburn Gastric reflux Former smoker Non-smoker History of echocardiogram History of stress test Acid reflux Hypertension Dermoid cyst Migraines Generalized headaches Hyperlipemia Anemia Home Medications ?Medication ?Instructions ?Recorded ?Last Taken ?Type metoprolol succinate 50 mg 50 mg PO DAILY 04/21/21 Unknown History tablet,extended release 24 hr multivitamin 1 tab PO QAM 08/18/25 Unknown History omega-3 fatty acids 1,000 mg 1,000 mg PO QDAY 08/18/25 Unknown History capsule tirzepatide 5 mg/0.5 mL 5 mg subcut SA 08/18/25 Unknown History subcutaneous pen injector (Magen) acetaminophen 500 mg tablet 500 mg PO Q6H PRN headache 10/05/25 Unknown History (Acetaminophen Extra Strength) cholecalciferol (vitamin D3) 50 50 mcg PO DAILY 10/05/25 Unknown History mcg (2,000 unit) tablet dextroamphetamine-amphetamine ER 1 cap PO DAILY 10/05/25 Unknown History 20 mg 24hr capsule,extend release esomeprazole magnesium 20 mg 20 mg PO DAILY 10/05/25 Unknown History capsule,delayed release (Nexium) ibuprofen 200 mg capsule 200 mg PO Q8H PRN headache 10/05/25 Unknown History Allergy/AdvReac Type Severity Reaction Status Date / Time Sulfa (Sulfonamide Allergy Rash Verified 10/05/25 14:01 Antibiotics) hydrocodone (From [place]) AdvReac Vomiting Verified 10/05/25 14:01 Family History Father Diabetes Grandmother Uterine cancer Brother Acute leukemia Surgical History History of laparoscopic-assisted vaginal hysterectomy Hx of cholecystectomy Social History adopted: No household members: family housing: house number of children: 1 current occupational status: employed current occupational exposures/hazards: No Smoking Status: Former smoker alcohol intake: never substance use type: does not use well-balanced diet: daily or most days caffeine: Yes what type of physical activity do you participate in: none seatbelt use: always do you feel safe at home: Yes additional social history: Hunter Audit: Pertinent Findings Pertinent Findings EKG Perinent findings: 08/14/2017. Normal sinus rhythm 69 bpm. Echo (EF%) pertinent findings: 10/21/2014. EF 65%. Normal adequate treadmill echocardiogram. Negative for ischemia by EKG and echo criteria. Recommendation Anesthesia Recommendation Anesthesia recommendation: OPTIMIZED for anesthesia
--- NOTE | 2025-10-06 13:47 | H&P.OPEN ---
HPI - General General Date of Service: 10/07/25 HPI Narrative VANESA VERDUGO, is a 45 F who presents for colonoscopy due to bright red blood per rectum. Patient denies any further bleeding. Patient did correct previous office note patient does take Nexium namebrand [id number] 20 mg p.o. daily to control her reflux. Office visit 08/18/2025 HPI HPI: 45-year-old female presents due to bright red blood per rectum. Patient does have known history of hemorrhoids but denies any treatment or pain. Patient states for some she never had bleeding per rectum as well. Patient does have a paternal first cousin that was diagnosed colon cancer at age 46 and a maternal grandmother that was diagnosed with colon cancer at age 50. Patient never had previous colonoscopy. Patient denies any abdominal pain/nausea/vomiting. Patient does take Pepcid 20 mg p.o. daily for about 2 years does control her reflux symptoms. Patient states that her bowel movements range between constipation diarrhea she can be constipated for 4 to 5 days and then have diarrhea. Patient is unsure exactly how much fiber she gets that she does drink plenty water. [facility] Medical History (Updated 10/05/25 @ 14:10 by Sarai Lorenzana) Wears glasses ADHD Anxiety Heartburn Gastric reflux Former smoker Non-smoker History of echocardiogram History of stress test Acid reflux Hypertension Dermoid cyst Migraines Generalized headaches Hyperlipemia Anemia Home Medications ?Medication ?Instructions ?Recorded ?Last Taken ?Type metoprolol succinate 50 mg 50 mg PO DAILY 04/21/21 10/07/25 History tablet,extended release 24 hr multivitamin 1 tab PO QAM 08/18/25 10/05/25 History omega-3 fatty acids 1,000 mg 1,000 mg PO QDAY 08/18/25 Unknown History capsule tirzepatide 5 mg/0.5 mL 5 mg subcut SA 08/18/25 09/26/25 History subcutaneous pen injector (Mounjaro) acetaminophen 500 mg tablet 500 mg PO Q6H PRN headache 10/05/25 10/05/25 History (Acetaminophen Extra Strength) cholecalciferol (vitamin D3) 50 50 mcg PO DAILY 10/05/25 10/05/25 History mcg (2,000 unit) tablet dextroamphetamine-amphetamine ER 1 cap PO DAILY 10/05/25 10/02/25 History 20 mg 24hr capsule,extend release esomeprazole magnesium 20 mg 20 mg PO DAILY 10/05/25 10/06/25 History capsule,delayed release (Nexium) ibuprofen 200 mg capsule 200 mg PO Q8H PRN headache 10/05/25 10/05/25 History Allergy/AdvReac Type Severity Reaction Status Date / Time Sulfa (Sulfonamide Allergy Rash Verified 10/07/25 08:35 Antibiotics) hydrocodone (From [place]) AdvReac Vomiting Verified 10/07/25 08:35 Family History Father Diabetes Grandmother Uterine cancer Brother Acute leukemia Surgical History History of laparoscopic-assisted vaginal hysterectomy Hx of cholecystectomy Social History adopted: No household members: family housing: house number of children: 1 current occupational status: employed current occupational exposures/hazards: No Smoking Status: Former smoker alcohol intake: never substance use type: does not use well-balanced diet: daily or most days caffeine: Yes what type of physical activity do you participate in: none seatbelt use: always do you feel safe at home: Yes additional social history: Hunter Past Medical/Surgical History Planned Operation Planned Operative Procedure(s): CSCOPE, EGD S.O.S: No Previous Hospitalizations/Surgeries HX Hospitalizations: No HX of Surgeries: RADHA FONG 2016 LOD Any Problems With Anesthesia: No You/Your Family Experience Fever (Hyperthermia) With Anes: No Cholinesterase deficiency: No Cardiovascular Hx Chest Pain within Last 2 months: No Hx of Irregular Heartbeat and/or Afib: No Hx Heart Attack: No Hx Congestive Heart Failure: No Hx Rheumatic Fever: No Hx Hypertension: Yes (CONTROLLED WITH MED) Hx Internal Defibrillator: No Hx Pacemaker: No Hx Cardiac Catheterization: No Hx Cardiac Surgery/Stents/Etc.: No Hx Stress Test: Yes (2013 DR RICK) Hx Pain in Legs when Walking/Leg Cramps: Yes (VERICOSE VEIN LEFT LEG) Respiratory Chronic Cough: No HX of Shortness of Breath: No Hoarseness: No Hx Chronic Obstructive Pulmonary Disease (COPD): No Hx Asthma: No Hx Emphysema: No Hx Sleep Apnea: No Hx Respiratory Tract Infection/Cold (presently): No Do You Snore Loudly (louder than talking or can be heard): No Do You Often Feel Tired/ Fatigued/ Sleepy [place] Daytime?: No Has Anyone Observed You Stop Breathing During Sleep?: No Result (for STOP score): Negative Hx Smoking: No (QUIT 12YRS) Smoking Status: Former smoker Gastrointestinal Hx Gastrointestinal Bleed: No Hx Ulcer: Yes Hx Hiatal Hernia: No Difficulty Chewing/Swallowing: No Special diet followed at home: No Hx Unplanned Weight Loss of 20#: No HX Unplanned Weight Gain of 20#: No Neurological Hx Seizures: No HX Syncope/Blackout Spells/Unconsciousness: Yes (PT STATES SHE GET LIGHTHEADED EASY WHEN STANDS TOO QUICKLY) Hx Transient Ischemic Attacks (TIA): No Hx Multiple Sclerosis: No Hx Parkinson's Disease: No Hx Head/Neck Injury: No Hx Headaches: Yes (CHRONIC HEADACHES) Hx Back Injury/Pain: No Recent Onset of Speech Difficulty: No Restless Legs: No Does patient have nerve stimulator: No Blood Disorder Hx Leukemia: No Bleeding Tendencies: No Hx Deep Vein Thrombosis: No Hx High Cholesterol: Yes (PT NOT ON MEDS) Blood Transmitted Disease: No Hx Hepatitis: No Hx Cirrhosis: No Hx Anemia: Yes (CURRENTLY ON FERROUS SULFATE) Hx Blood Disorders: No Reproduction : No Is Patient Lactating: No Hx Hysterectomy: No Hx Tubal Ligation: No Are You Post Menopause: No Genitourinary Hx Renal Disease: No Musculoskeletal Hx Arthritis: No Hx Rheumatoid Arthritis: No Hx Gout: No Recent Onset of an Orthopedic Problem: No Endocrine Hx Diabetes: No Thyroid Disease: No Hx Steroid Therapy: No Psycho/Social Hx Substance Use: No Hx Alcohol Use: No Hx Anxiety: Yes Hx Depression: No Mental Illness: No Hx Dementia: No Miscellaneous Hx Cancer: No Recent Exposure to Contagious Disease: No Hx of C-Diff: No Any Loose Teeth: No Allergies Sulfa (Sulfonamide Antibiotics) Allergy (Verified 10/07/25 08:35) Rash hydrocodone (From [place]) Adverse Reaction (Verified 10/07/25 08:35) Vomiting pt states had [place] with last procedure and was sick Discharge Is Pt Admitted From a Custodial, or a [place] [facility]: No After D/C, Where Do you Plan to Go: Return Home Physical Exam Const alert, oriented x3 and no apparent distress HEENT normocephalic and head/scalp atraumatic Resp normal respiratory effort Cardio regular rate GI soft to palpation and non-tender; Negative for non-distended Palpation: Negative for guarding Extremity no clubbing, cyanosis or edema Skin no rashes or lesions noted Neuro CN's II-XII intact bilaterally Psych mental status grossly normal Assessment & Plan Assessment/Plan (1) Blood in stool: (2) Acid reflux: Surgery Risks - Colonoscopy I discussed with the patient the risks of the procedure: Yes Risks Include but are not Limited To: Plan for EGD and colonoscopy risks include but are not limited to: Bleeding, perforation requiring further surgery, inability to complete colonoscopy requiring barium enema.
[2025-10-07] VITALS (9 sets, daily range): BP systolic 96–122; BP diastolic 60–82; PULSE 65–71; RESP 12–16; TEMP 36.1–36.4; O2SAT 98–100; BMI 27.4
[2025-10-07] MEDS: Lactated Ringers 1,000 ML 15 ML IV (08:46)
--- NOTE | 2025-10-07 09:21 | PCM.PRE.AN2 ---
ASA Classification* ASA Classification ASA Classification: 2 Assessment & Plan Anesthesia* Anesthesia Assessment Anesthesia Assessment: Discussed sedation and/or anesthesia options, risks, benefits, and alternatives with patient/parents/legal guardian/POA. Questions invited. The patient/parents/legal guardian/POA seems to understand and agrees to proceed with anesthesia plan. Reviewed the physical assessment, medical history, allergy history and patient home medications list prior to surgery/procedure/anesthetic and documented any changes. Performed airway and anesthesia risk assessments. Anesthesia Type Anesthesia Type: MAC History Source History Obtained from:: Patient and Chart Anesthesia Focused Assessment* Temperature: 97.5 F Pulse Rate: 70 Blood Pressure: 122/82 Respiratory Rate: 12 Pulse Ox: 99 Oxygen Delivery Method: Room Air Airway Assessment Mouth opens: >3 cm Mallampati Score: II Teeth Condition: Intact Labs Anesthesia Preop lab: CBC WBC, (4.4-11.0) 5.8 K/mm3 08/17/17, 06:30 RBC, (4.2-5.4) 3.19 M/mm3 L 08/17/17, 06:30 Hgb, (12.0-15.0) 9.0 g/dl L 08/17/17, 06:30 Hct, (37-47) 27.7 % L 08/17/17, 06:30 Plt Count, (150-450) 268 K/mm3 08/17/17, 06:30 CHEMISTRY Potassium, (3.5-5.1) 3.6 mmol/L 03/03/16, 14:54 Sodium, (136-145) 140 mmol/L 03/03/16, 14:54 BUN, (7-18) 12 mg/dL 03/03/16, 14:54 Creatinine, (0.55-1.20) 0.75 mg/dL 03/03/16, 14:54 Glucose, (70-110) 92 mg/dL 03/03/16, 14:54 TSH, (0.358-3.74) 1.85 uIU/mL 05/03/18, 17:11 COAG PT, (11.7-14.9) 12.8 SECONDS 08/14/17, 13:08 Urine Test Negative Negative 08/16/17, 06:20 Pre-Assessment Diagnosis/Proposed Procedure Planned Operative Procedure(s): CSCOPE, EGD Anesthesia History Anesthesia History - end touching machine operator: Anesthesia History - end touching machine operator Hx Hospitalization No 10/06/25 13:48 Any Problems With Anesthesia No 10/06/25 13:48 Cholinesterase deficiency No 10/06/25 13:48 You/Your Family Experience No 10/06/25 13:48 fever (hyperthermia) with Relationship Recent Exposure to Contagious No 10/07/25 08:36 Disease Does patient have nerve No 10/06/25 13:48 stimulator Patient instructed to have device shut off --Does patient have Pacemaker No 10/07/25 08:36 or ICD? When Was Last Pacemaker Check QUESTION #4 FULL TEXT: You/Your Family Experience fever (hyperthermia) with Anesthesia Last Oral Intake Last Oral intake: Last Oral Intake NPO since 22:30 10/07/25 08:36 Meds taken in AM with sips of Yes 10/07/25 08:36 water? Meds patient instructed to take am of surgery PONV PONV - end touching machine operator: PONV - end touching machine operator Female Yes 10/05/25 14:04 HX of Motion Sickness Yes 10/05/25 14:04 HX of N/V After Surgery Yes 10/05/25 14:04 Non-Smoker Yes 10/05/25 14:04 Duration of Surgery greater No 10/05/25 14:04 than 60 minutes Number of Risk Factors 4 10/05/25 14:04 PONV Score Severe Risk 10/05/25 14:04 Height & Weight Height & Weight: Anesthesia: Height & Weight Height 5 ft 8 in 10/07/25 08:36 Weight: 82 kg 10/07/25 08:36 Body Mass Index (BMI) 27.4 10/07/25 08:36 Respiratory Assessment Respiratory Assessment - end touching machine operator: Respiratory Tract Infection Hx - end touching machine operator Hx Respiratory Tract Infection No 10/06/25 13:48 STOP Sleep Apnea STOP Sleep Apnea - end touching machine operator: STOP Sleep Apnea - end touching machine operator Hx Hypertension Yes: CONTROLLED WITH MED 10/06/25 13:48 Hx Sleep Apnea No 10/06/25 13:48 CPAP BIPAP Do you snore loudly (louder No 10/06/25 13:48 than talking or can be heard Do you often feel tired/ No 10/06/25 13:48 fatigued/ sleepy during daytime? Has anyone observed you stop No 10/06/25 13:48 breathing during sleep? STOP Results Negative 10/06/25 13:48 QUESTION #5 FULL TEXT : Do you snore loudly (louder than talking or can be heard through closed doors)? Tobacco Use History Tobacco Use History - end touching machine operator: Tobacco Use History - end touching machine operator Tobacco Use Smoking Status Former smoker 10/06/25 13:48 Hx Tobacco Use No 10/05/25 14:04 Years Smoking Packs Smoked per Day Smoking Cessation Date was No - quit smoking greater 10/05/25 14:04 within the last 15 years than 15 years ago Hx Smoking Cessation Date 10/29/04 10/05/25 14:04 Hx Smoking Cessation Counseling Hematologic Medial History Hematologic Hx - end touching machine operator: Hematologic Medical Hx - captain waiter Hx of Blood Transfusion No 10/05/25 14:04 Hx of Transfusion in last 3 No 10/05/25 14:04 Months Date of Last Transfusion (if within last 3 months) Ever experience any problems No 10/05/25 14:04 with transfusion(s)? Specify any problems Hx of Preganancy in last 3 N/A 10/05/25 14:04 Months Nurse Filling Out Transfusion NBUCHER 10/05/25 14:04 & Questions: Date: 10/05/25 10/05/25 14:04 Time: 14:06 10/05/25 14:04 Patient unable to answer at this time (ie. confused, unrespo /Reproduction History /Reproductive History - end touching machine operator: /Reproductive Hx- end touching machine operator Hx Now No 10/06/25 13:48 Gestational Age (in weeks): EDC: Hx Hx Para Hx Section SAB No 10/05/25 14:04 Does the father of the baby or his family experience fever w Father of the baby Malignant Hypertension history comment Active Medications Active Medications: Current Medications Generic Name Dose Route Start Last Admin Trade Name Freq PRN Reason Stop Dose Admin Lactated Ringer's 1,000 mls @ 15 mls/hr 10/07/25 08:30 10/07/25 08:46 IV 15 mls/hr .Q48H TINY Administration PFSH Medical History Wears glasses ADHD Anxiety Heartburn Gastric reflux Former smoker Non-smoker History of echocardiogram History of stress test Acid reflux Hypertension Dermoid cyst Migraines Generalized headaches Hyperlipemia Anemia Home Medications ?Medication ?Instructions ?Recorded ?Last Taken ?Type metoprolol succinate 50 mg 50 mg PO DAILY 04/21/21 10/07/25 History tablet,extended release 24 hr multivitamin 1 tab PO QAM 08/18/25 10/05/25 History omega-3 fatty acids 1,000 mg 1,000 mg PO QDAY 08/18/25 Unknown History capsule tirzepatide 5 mg/0.5 mL 5 mg subcut SA 08/18/25 09/26/25 History subcutaneous pen injector (Mounjaro) acetaminophen 500 mg tablet 500 mg PO Q6H PRN headache 10/05/25 10/05/25 History (Acetaminophen Extra Strength) cholecalciferol (vitamin D3) 50 50 mcg PO DAILY 10/05/25 10/05/25 History mcg (2,000 unit) tablet dextroamphetamine-amphetamine ER 1 cap PO DAILY 10/05/25 10/02/25 History 20 mg 24hr capsule,extend release esomeprazole magnesium 20 mg 20 mg PO DAILY 10/05/25 10/06/25 History capsule,delayed release (Nexium) ibuprofen 200 mg capsule 200 mg PO Q8H PRN headache 10/05/25 10/05/25 History Allergy/AdvReac Type Severity Reaction Status Date / Time Sulfa (Sulfonamide Allergy Rash Verified 10/07/25 08:35 Antibiotics) hydrocodone (From [place]) AdvReac Vomiting Verified 10/07/25 08:35 Family History Father Diabetes Grandmother Uterine cancer Brother Acute leukemia Surgical History History of laparoscopic-assisted vaginal hysterectomy Hx of cholecystectomy Social History adopted: No household members: family housing: house number of children: 1 current occupational status: employed current occupational exposures/hazards: No Smoking Status: Former smoker alcohol intake: never substance use type: does not use well-balanced diet: daily or most days caffeine: Yes what type of physical activity do you participate in: none seatbelt use: always do you feel safe at home: Yes additional social history: Hunter Alvarado'radames Information Additional Findings: >4 mets Review of Systems (Anesthesia) ROS Narrative System reviewed and no additional complaints, except as documented. Physical Exam Const alert and oriented x3 HEENT dentition normal Neck General: normal visual inspection and trachea midline Resp normal respiratory effort and normal air movement Auscultation: clear to auscultation bilaterally Cardio regular rate and regular rhythm Back/Spine normal ROM Neuro oriented x3 and moves all extremities
--- NOTE | 2025-10-07 09:45 | COLBX_PTH ---
PATIENT: VANESA VERDUGO LOC: EN U#:[id number] AGE/SX: 45/F ROOM: RE10/07/[address]: Dr. Rosy Vasquez MD : 1980 BED: DIS: 10/07/2025 SPEC #: [id number] RECD: 10/07/25 12:45 STATUS: NÉSTOR REJeffrey #: [id number] ELVIE: 10/07/25 09:[address]: Rosy Vasquez DEPT: SURGICAL PATHOLOGY RECD BY: Gilbert Sifuentes ENTERED: 10/07/25 14:11 SP TYPE: COLON BX OTHR DR: Rachel Orozco, CONDUIT BENDER-C Tissues: A - Gastric mucous membrane B - Esophagus, NOS Procedures: Immunohistochemical Stains Surgery Specimen Level IV HEADER OPERATION: Colonoscopy, EGD with biopsy PRE-OP DIAGNOSIS: Blood in stool, acid reflux TISSUE SUBMITTED: A- Antrum biopsy, B- GE junction biopsy MICROSCOPIC DIAGNOSIS A. Stomach, antrum, biopsy: - Oxyntic mucosa with chronic gastritis. - IHC negative for H. pylori organisms. B. Esophagus, GE junction, biopsy: - Squamous mucosa with mild reactive changes. - Columnar mucosa negative for goblet cell metaplasia. MICROSCOPIC DESCRIPTION Slides are reviewed. All matched controls reacted appropriately. These tests were developed and their performance characteristics determined by [facility]. They may not have been cleared or approved by the U.S. Food and Drug Administration. The FDA has determined that such clearance or approval is not necessary. The above immunohistochemical markers and/or special?stains have been reviewed by the Pathologist. GROSS DESCRIPTION A. Received in fixative is one container labeled with the patient's name and designated Antrum biopsy. The specimen consists of one irregular fragment of begum tissue that measures 0.6 cm. The specimen is totally submitted in one cassette. B. Received in fixative is one container labeled with the patient's name and designated GE junction biopsy. The specimen consists of one irregular fragment of begum tissue that measures 0.3 cm. The specimen is totally submitted in one cassette. [place] 10/07/2025 CPT:69320r0,77700
--- NOTE | 2025-10-07 10:47 | OP.EGD_ITS ---
Patient Name: Pavithra Meyers Procedure Date: 10/07/2025 10:04 AM Date of : 1980 Age: 45 Procedure: Upper GI endoscopy Indications: Esophageal reflux Providers: Rosy Vasquez MD Referring MD: Ros Johnston Medicines: Monitored Anesthesia Care Patient Profile: This is a 45 year old female. Complications: No immediate complications. Procedure: Pre-Anesthesia Assessment: - Prior to the procedure, a History and Physical was performed, and patient medications and allergies were reviewed. The patient's tolerance of previous anesthesia was also reviewed. The risks and benefits of the procedure and the sedation options and risks were discussed with the patient. All questions were answered, and informed consent was obtained. Prior Anticoagulants: The patient has taken no anticoagulant or antiplatelet agents. ASA Grade Assessment: Per anesthesia. After reviewing the risks and benefits, the patient was deemed in satisfactory condition to undergo the procedure. After obtaining informed consent, the endoscope was passed under direct vision. Throughout the procedure, the patient's blood pressure, pulse, and oxygen saturations were monitored continuously. The Colonoscope was introduced through the mouth, and advanced to the second part of duodenum. The upper GI endoscopy was accomplished without difficulty. The patient tolerated the procedure well. Scope In: 10:16:03 AM Scope Out: 10:21:06 AM Total Procedure Duration Time 0 hours 5 minutes 3 seconds Findings: The Z-line was irregular and was found 40 cm from the incisors. Biopsies were taken with a cold forceps for histology. Mildly erythematous mucosa without bleeding was found in the gastric antrum. Biopsies were taken with a cold forceps for histology. Biopsies were taken with a cold forceps for Helicobacter pylori cultures. The cardia and gastric fundus were normal on retroflexion. Bilious fluid was found in the gastric body and in the gastric antrum. The examined duodenum was normal. No gross lesions were noted in the entire esophagus. Impression: - Z-line irregular, 40 cm from the incisors. Biopsied. - Erythematous mucosa in the antrum. Biopsied. - Bilious gastric fluid. - Normal examined duodenum. - No gross lesions in the entire esophagus. Recommendation: - Await pathology results. - Discharge patient to home. - Resume previous diet. - Continue present medications. Procedure Code(s): --- Professional --- 03002, Esophagogastroduodenoscopy, flexible, transoral; with biopsy, single or multiple Diagnosis Code(s): --- Professional --- K22.89, Other specified disease of esophagus K31.89, Other diseases of stomach and duodenum K21.9, Gastro-esophageal reflux disease without esophagitis CPT copyright 2021 [employer]. All rights reserved. The codes documented in this report are preliminary and upon agricultural aircraft pilot review may be revised to meet current compliance requirements. MD Rosy Lundberg MD 10/07/2025 10:46:23 AM This report has been signed electronically. Number of Addenda: 0 Note Initiated On: 10/07/2025 10:04 AM
--- NOTE | 2025-10-07 10:47 | OP.PROVAT_ITS ---
10/07/2025 Ros Johnston Re : Upper GI endoscopy procedure for Pavithra Brunsonr Ernesto This procedure was performed on Tuesday, October 07, 2025. My impressions and recommendations are as follows: Impressions : - Z-line irregular, 40 cm from the incisors. Biopsied. - Erythematous mucosa in the antrum. Biopsied. - Bilious gastric fluid. - Normal examined duodenum. - No gross lesions in the entire esophagus. Recommendations : - Await pathology results. - Discharge patient to home. - Resume previous diet. - Continue present medications. My findings are described in the full procedure note, which is enclosed. If I can be of further assistance, please feel free to contact me at Doctor phone number(s): , Work: . Sincerely, MD Rosy Lundberg MD 10/07/2025 10:46:23 AM This report has been signed electronically.
--- NOTE | 2025-10-07 10:48 | OP.COLON_ITS ---
Patient Name: Pavithra Meyers Procedure Date: 10/07/2025 10:21 AM Date of : 1980 Age: 45 Procedure: Colonoscopy Indications: Rectal bleeding Providers: Rosy Vasquez MD Referring MD: Ros Johnston Medicines: Monitored Anesthesia Care Patient Profile: This is a 45 year old female. Last Colonoscopy: none. The patient's first colonoscopy is today. Complications: No immediate complications. Procedure: Pre-Anesthesia Assessment: - Prior to the procedure, a History and Physical was performed, and patient medications and allergies were reviewed. The patient's tolerance of previous anesthesia was also reviewed. The risks and benefits of the procedure and the sedation options and risks were discussed with the patient. All questions were answered, and informed consent was obtained. Prior Anticoagulants: The patient has taken no anticoagulant or antiplatelet agents. ASA Grade Assessment: Per anesthesia. After reviewing the risks and benefits, the patient was deemed in satisfactory condition to undergo the procedure. After I obtained informed consent, the scope was passed under direct vision. Throughout the procedure, the patient's blood pressure, pulse, and oxygen saturations were monitored continuously. The Colonoscope was introduced through the anus and advanced to the cecum, identified by the appendiceal orifice, ileocecal valve and palpation. The colonoscopy was performed without difficulty. The patient tolerated the procedure well. The quality of the bowel preparation was good. Scope In: 10:22:13 AM Scope Withdrawal Time 0 hours 12 minutes 7 seconds Scope Out: 10:39:07 AM Total Procedure Duration Time 0 hours 16 minutes 54 seconds Findings: The perianal and digital rectal examinations were normal. The entire examined colon appeared normal on direct and retroflexion views. Impression: - The entire examined colon is normal on direct and retroflexion views. - No specimens collected. Recommendation: - Discharge patient to home. - Resume previous diet. - Continue present medications. - Repeat colonoscopy in 10 years for screening purposes. Procedure Code(s): --- Professional --- 61331, Colonoscopy, flexible; diagnostic, including collection of specimen(s) by brushing or washing, when performed (separate procedure) Diagnosis Code(s): --- Professional --- K62.5, Hemorrhage of anus and rectum CPT copyright 2021 [employer]. All rights reserved. The codes documented in this report are preliminary and upon fruit harvester machine operator review may be revised to meet current compliance requirements. MD Rosy Lundberg MD 10/07/2025 10:48:08 AM This report has been signed electronically. Number of Addenda: 0 Note Initiated On: 10/07/2025 10:21 AM
--- NOTE | 2025-10-07 10:49 | OP.PROVAT_ITS ---
10/07/2025 Ros Johnston Re : Colonoscopy procedure for Pavithra Meyers Dear Ernesto This procedure was performed on Tuesday, October 07, 2025. My impressions and recommendations are as follows: Impressions : - The entire examined colon is normal on direct and retroflexion views. - No specimens collected. Recommendations : - Discharge patient to home. - Resume previous diet. - Continue present medications. - Repeat colonoscopy in 10 years for screening purposes. My findings are described in the full procedure note, which is enclosed. If I can be of further assistance, please feel free to contact me at Doctor phone number(s): , Work: . Sincerely, MD Rosy Lundberg MD 10/07/2025 10:48:08 AM This report has been signed electronically.
--- NOTE | 2025-10-07 10:50 | PCM.POST.ANE ---
Anesthesia: Postop Eval I Current Vital Signs Temperature: 97 F Pulse Rate: 71 Blood Pressure: 104/62 Respiratory Rate: 16 Pulse Ox: 99 Oxygen Delivery Method: Room Air Assessment Airway patent: Yes Spontaneous unlabored respirations: Yes Mental status: Asleep nausea: No Vomiting: No Anesthesia Complication: No Fluid Hydration Crystalloid volume administer (ml): 700 Total IV fluid infused: 700 Progress Note Anesthesia document: Postop Eval 1 completed: Yes
--- NOTE | 2025-10-07 11:45 | PCM.POSTANE2 ---
Anesthesia Postop Eval I Sum Postop Eval Completion status Anesthesia document: Postop Eval 1 completed: Yes Anesthesia Postop Eval I Summary Anesthesia Postop Eval I Summary: Anesthesia Postop Eval I: Assessment Summary Airway patent Yes 10/07/25 10:52 [email or web address] Spontaneous unlabored Yes 10/07/25 10:52 [email or web address] respirations Mental status Asleep 10/07/25 10:52 [email or web address] nausea No 10/07/25 10:52 [email or web address] Vomiting No 10/07/25 10:52 [email or web address] Anesthesia Postop Eval I: Fluid Summary Crystalloid volume administer 700 10/07/25 10:52 [email or web address] (ml) Colloids volume administered ( ml) Blood Product volume administered (ml) Total IV fluid infused 700 10/07/25 10:52 [email or web address] Anesthesia Postop Eval I: Summary Notes Anesthesia Complication No 10/07/25 10:52 [email or web address] Anesthesia Complication Comment: Post-operative progress note Anesthesia: Postop Eval II Evaluation Mental status: Awake and Calm Pain Level: 0 nausea: No Vomiting: No Complications Anesthesia Complication: No
== END 2025-10-07 11:34 | disposition home or self-care (01) ==
LOC: EN 08:19 → AC 08:21
PROVIDERS: PCP Nurse Practitioner Family; Referring Provider Nurse Practitioner Family; Visit Provider Surgery
PROC: 0DJD8ZZ Inspection of Lower Intestinal Tract, Via Natural or Artificial Opening Endoscopic (ICD-10-PCS; CPT 45378; principal; 2025-10-07 09:40)
DX: K29.50 Unspecified chronic gastritis without bleeding (principal); K21.9 Gastro-esophageal reflux disease without esophagitis; E78.5 Hyperlipidemia, unspecified; I10 Essential (primary) hypertension; Z87.891 Personal history of nicotine dependence; Z79.899 Other long term (current) drug therapy; Z79.85 Long-term (current) use of injectable non-insulin antidiabetic drugs
CPT/HCPCS: 43239; 45378; 88305; 88342; J2405